=== PATIENT | female | born 1940 | race Caucasian/White ===

== ENCOUNTER 2022-11-25 09:49 | Inpatient (IN) | payer BC, MEDICARE ==
[2022-11-25 11:02] LABS: ALT 26 U/L (4-34); AST 69 U/L (14-36); African American GFR (CKD) 63 (>60 ml/min/1.73 sqM); Albumin 4.3 g/dL (3.5-5.0); Alkaline Phosphatase 71 U/L (38-126); Blood Urea Nitrogen 16 mg/dL (7-17); Calcium 10.1 mg/dL (8.4-10.2); Carbon Dioxide 21 mmol/L (22-30); Glucose 78 mg/dL (74-99); Magnesium 1.8 mg/dL (1.6-2.3); Non-African American GFR(CKD) 55 (>60 ml/min/1.73 sqM); Total Bilirubin 1.1 mg/dL (0.2-1.3); Total Protein 7.3 g/dL (6.3-8.2)
[2022-11-25 11:07] LABS: Anion Gap 12 mmol/L; Chloride 107 mmol/L (98-107); Sodium 140 mmol/L (137-145)
[2022-11-25 11:10] LABS: Potassium 5.3 mmol/L (3.5-5.1)
--- NOTE | 2022-11-25 11:18 | XR ---
EXAMINATION TYPE: XR chest 2V DATE OF EXAM: 11/25/2022 COMPARISON: 11/25/2022 HISTORY: Shortness of breath TECHNIQUE: Frontal and lateral views of the chest are obtained. FINDINGS: Scattered senescent parenchymal changes noted. Hyperinflation compatible with COPD. Elevation left he midiaphragm. No evidence for infiltrate. No evidence for atelectasis. Heart size is stable. Mediastinal structures are stable and grossly unremarkable. No evidence for hilar prominence. Degenerative changes dorsal spine. IMPRESSION: 1. No evidence for acute pulmonary disease.
--- NOTE | 2022-11-25 11:19 | ED ---
General Adult HPI - General Chief complaint: Fall Stated complaint: Fall,on Thinners Weakness Time Seen by Provider: 11/25/22 09:53 Source: patient, RN/MD, RN notes reviewed, old records reviewed Mode of arrival: ambulatory Limitations: language barrier, altered mental status - History of Present Illness Initial comments: 82-year-old female presents status post fall. Patient is coming from home where she currently resides with her ex-. According to paramedics the had said that he could no longer care for the patient. She does have history of previous stroke in the history from the patient herself is very limited. She had abrasion and skin tear to the right elbow. She apparently is on blood thinners. 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 She does have an expressive aphasia which is limiting the assessment. - Related Data Home Medications Medication Instructions Recorded Confirmed Aspirin EC [Ecotrin Low Dose] 81 mg PO DAILY 09/19/13 09/19/13 Clopidogrel Bisulfate [Plavix] 75 mg PO DAILY 09/19/13 09/19/13 Levothyroxine Sodium [Synthroid] 137 mcg PO DAILY 09/19/13 09/19/13 Sertraline HCl [Zoloft] 50 mg PO DAILY 09/19/13 09/19/13 Previous Rx's Medication Instructions Recorded lamoTRIgine [LaMICtal] 150 mg PO BID #60 tab 09/20/13 Allergies Allergy/AdvReac Type Severity Reaction Status Date / Time Iodinated Contrast Media Allergy Unknown Verified 09/19/13 15:56 [Iodinated Contrast Media - IV Dye] Review of Systems ROS Statement: Those systems with pertinent positive or pertinent negative responses have been documented in the HPI. ROS Other: All systems not noted in ROS Statement are negative. Past Medical History Past Medical History: CVA/TIA, Hyperlipidemia, Seizure Disorder, Thyroid Disorder History of Any Multi-Drug Resistant Organisms: None Reported Past Surgical History: Unable to Obtain Past Psychological History: Depression Smoking Status: Never smoker Past Alcohol Use History: Rare Past Drug Use History: None Reported - Past Family History Father Additional Family Medical History / Comment(s): age 75 unk cause Mother Additional Family Medical History / Comment(s): mom age 95 unk cause General Exam Limitations: language barrier, altered mental status General appearance: alert, in no apparent distress Head exam: Present: atraumatic, normocephalic Eye exam: Present: normal appearance, PERRL ENT exam: Present: mucous membranes dry Neck exam: Present: normal inspection. Absent: tenderness, meningismus Respiratory exam: Present: normal lung sounds bilaterally. Absent: respiratory distress, wheezes Cardiovascular Exam: Present: regular rate, normal rhythm GI/Abdominal exam: Present: soft. Absent: distended, tenderness, guarding Extremities exam: Present: other (Skin tear to the right elbow) Neurological exam: Present: alert, motor sensory deficit (Weakness to the right upper or right lower extremity, expressive aphasia and dysarthria) Skin exam: Present: warm, dry, intact. Absent: cyanosis, diaphoretic Course Vital Signs 11/25/22 09:57 Temperature 97.9 F Pulse Rate 72 Respiratory 16 Rate Blood Pressure 156/67 O2 Sat by Pulse 97 Oximetry - Reevaluation(s) Reevaluation #1: 11/25/22 13:38 Lab issue with CBC and troponin, results pending Medical Decision Making - Medical Decision Making Was pt. sent in by a medical professional or institution (, PA, LAND SALES AGENT, urgent care, hospital, or retirement...) When possible be specific @ -[No] Did you speak to anyone other than the patient for history (EMS, parent, family, police, friend...)? What history was obtained from this source @Paramedics Did you review nursing and triage notes (agree or disagree)? Why? @ -[I reviewed and agree with nursing and triage notes] Were old charts reviewed (outside hosp., previous admission, EMS record, old EKG, old radiological studies, urgent care reports/EKG's, retirement records)? Report findings @ -[No old charts were reviewed] Differential Diagnosis (chest pain, altered mental status, abdominal pain women, abdominal pain men, vaginal bleeding, weakness, fever, dyspnea, syncope, headache, dizziness, GI bleed, back pain, seizure, CVA, palpatations, mental health, musculoskeletal)? @ Differential Weakness: Hypoglycemia, shock, sepsis, hyponatremia, anemia, infection, NE, ETOH, adverse medicine reaction, overdose, stroke, this is not meant to be an all-inclusive list. EKG interpreted by me (3pts min.). @ -Sinus rhythm rate of 66, IL interval 196, QRS duration 106, QTC [address] segment changes. X-rays interpreted by me (1pt min.). @X-rays of the pelvis, right elbow, and chest are negative for traumatic injury CT interpreted by me (1pt min.). @ -[None done] U/S interpreted by me (1pt. min.). @ -[None done] What testing was considered but not performed or refused? (CT, X-rays, U/S, labs)? Why? @ -[None] What meds were considered but not given or refused? Why? @ -[None] Did you discuss the management of the patient with other professionals (professionals i.e. , PA, LAND SALES AGENT, lab, RT, psych nurse, medical social worker, executive officer special warfare team, teacher, food safety officer, family independence case manager)? Give summary @ -Sound physician group Was smoking cessation discussed for >3mins.? @ -[No] Was critical care preformed (if so, how long)? @ -[No] Were there social determinants of health that impacted care today? How? (Homelessness, low income, unemployed, alcoholism, drug addiction, transportation, low edu. Level, literacy, decrease access to med. care, care home, rehab)? @ -[No] Was there de-escalation of care discussed even if they declined (Discuss DNR or withdrawal of care, Hospice)? DNR status @ -[No] What co-morbidities impacted this encounter? (DM, HTN, Smoking, COPD, CAD, Cancer, CVA, ARF, Chemo, Hep., AIDS, mental health diagnosis, sleep apnea, morbid obesity)? @ -Prior CVA Was patient admitted / discharged? Hospital course, mention meds given and route, prescriptions, significant lab abnormalities, going to OR and other pertinent info. @82-year-old female with fall and questionable living situation. Patient will likely require placement. I did obtain images related to the fall including head CT, cervical spine CT, x-rays of the right elbow, chest and pelvis. There is no traumatic injury identified. Laboratory studies were obtained but results are pending at this time. Patient will be admitted for likely placement and evaluation into her current home situation. Undiagnosed new problem with uncertain prognosis? @ -[No] Drug Therapy requiring intensive monitoring for toxicity (Heparin, Nitro, Insulin, Cardizem)? @ -[No] Were any procedures done? @ -[No] Diagnosis/symptom? @ -[Frequent falls, weakness, placement Acute, or Chronic, or Acute on Chronic? @ -Complicated Uncomplicated (without systemic symptoms) or Complicated (systemic symptoms)? @ -[default] Side effects of treatment? @ -[No] Exacerbation, Progression, or Severe Exacerbation? @ -[No] Poses a threat to life or bodily function? How? (Chest pain, USA, NE, pneumonia, PE, COPD, DKA, ARF, appy, cholecystitis, CVA, Diverticulitis, Homicidal, Suicidal, threat to staff... and all critical care pts) @ -[Yes, frequent falls - Lab Data Result diagrams: 11/25/22 10:40 Lab Results 11/25/22 11/25/22 Range/Units 10:40 12:01 Sodium 140 (137-145) mmol/L Potassium 5.3 H (3.5-5.1) mmol/L Chloride 107 (98-107) mmol/L Carbon Dioxide 21 L (22-30) mmol/L Anion Gap 12 mmol/L BUN 16 (7-17) mg/dL Creatinine 0.96 (0.52-1.04) mg/dL Est GFR (CKD-EPI)AfAm 63 (>60 ml/min/1.73 sqM) Est GFR (CKD-EPI)NonAf 55 (>60 ml/min/1.73 sqM) Glucose 78 (74-99) mg/dL Calcium 10.1 (8.4-10.2) mg/dL Magnesium 1.8 (1.6-2.3) mg/dL Total Bilirubin 1.1 (0.2-1.3) mg/dL AST 69 H (14-36) U/L ALT 26 (4-34) U/L Alkaline Phosphatase 71 (38-126) U/L Total Protein 7.3 (6.3-8.2) g/dL Albumin 4.3 (3.5-5.0) g/dL Urine Color Colorless Urine Appearance Clear (Clear) Urine pH 7.5 (5.0-8.0) Ur Specific [place] 1.009 (1.001-1.035) Urine Protein Negative (Negative) Urine Glucose (UA) Negative (Negative) Urine Ketones Negative (Negative) Urine Blood Negative (Negative) Urine Nitrite Negative (Negative) Urine Bilirubin Negative (Negative) Urine Urobilinogen <2.0 (<2.0) mg/dL Ur Leukocyte Esterase Negative (Negative) Disposition Clinical Impression: Fall, Weakness Disposition: ADMITTED IP TO THIS HOSP Condition: Stable Is patient prescribed a controlled substance at d/c from ED?: No Referrals: Nonstaff,Physician [Primary Care Provider] - 1-2 days Time of Disposition: 13:50
--- NOTE | 2022-11-25 11:19 | XR ---
EXAMINATION TYPE: XR pelvis AP view DATE OF EXAM: 11/25/2022 CLINICAL HISTORY: pain TECHNIQUE: Single view the pelvis is submitted. FINDINGS: No evidence for fracture, dislocation or bony lesion. Joint spaces are well-preserved. S I joints appear symmetric. IMPRESSION: 1. No acute fracture or dislocation seen. ICD 10 NO FRACTURE, INITIAL EVALUATION
--- NOTE | 2022-11-25 11:23 | XR ---
EXAMINATION TYPE: XR elbow complete RT DATE OF EXAM: 11/25/2022 CLINICAL HISTORY: pain TECHNIQUE: Frontal, lateral and oblique images of the right elbow are obtained. COMPARISON: None. FINDINGS: There is no acute fracture/dislocation evident of the elbow. No abnormal fat pad signs ar e seen. Soft tissue laceration noted. IMPRESSION: There is no acute fracture or dislocation of the elbow. ICD 10 NO FRACTURE, INITIAL EVALUATION
--- NOTE | 2022-11-25 11:24 | CT ---
EXAMINATION TYPE: CT brain robert yanes con DATE OF EXAM: 11/25/2022 COMPARISON: 09/19/2013 HISTORY: Fall CT DLP: 1303.[address] of the brain was performed. The ventricles, basal cisterns and sulci overlying the cerebral convexities demonstrate moderate enla rgement. There is no evidence for intracranial hemorrhage or sulcal effacement. There is decreased attenuatio n about the periventricular white matter and deep white matter of both cerebral hemispheres, compatib le with chronic small vessel ischemia. No mass effects are seen. If symptoms persist consider MRI. Osseous calvarium is intact. IMPRESSION: 1. Age related atrophic and chronic small vessel ischemic change without acute intracranial process seen at this time. CT Cervical Spine: Unenhanced CT of the cervical spine was performed with bone and soft tissue window settings submitted . Coronal and sagittal reconstruction is obtained. There is normal alignment and prevertebral soft tissues. No evidence for acute cervical fracture . Scattered degenerative disc disease and spondylosis. Biapical scarring. IMPRESSION: 1. No evidence for acute fracture or subluxation of the cervical spine.
[2022-11-25 12:20] LABS: Appearance,Urine Clear (Clear); Bilirubin,Urine Negative (Negative); Blood,Urine Negative (Negative); Color,Urine Colorless; Glucose,Urine (UA) Negative (Negative); Ketones,Urine Negative (Negative); Leukocyte Esterase,Urine Negative (Negative); Nitrite,Urine Negative (Negative); PH, Urine 7.5 (5.0-8.0); Protein,Urine Negative (Negative); Specific Gravity,Urine 1.009 (1.001-1.035); Urobilinogen,Urine <2.0 mg/dL (<2.0)
[2022-11-25] MEDS ORDERED: NALOXONE 0.4 MG/ML 1 ML VIAL IV PRN (13:36)
[2022-11-25] MEDS ORDERED: ACETAMINOPHEN TAB 325 MG TAB PO PRN (13:36)
[2022-11-25] MEDS: SODIUM CHLORIDE 0.9% 1,000 ML IV SCH ×2 (14:23→22:47)
[2022-11-25 16:03] LABS: Basophils % (A) 1 %; Eosinophils # (A) 0.1 k/uL (0-0.7); Eosinophils % (A) 2 %; HCT 38.5 % (34.0-46.0); HGB 12.2 gm/dL (11.4-16.0); Lymphocytes # (A) 1.1 k/uL (1.0-4.8); Lymphocytes % (A) 20 %; MCH 31.9 pg (25.0-35.0); MCHC 31.8 g/dL (31.0-37.0); MCV 100.3 fL (80.0-100.0); Mean Platelet Volume 7.9; Monocytes # (A) 0.4 k/uL (0-1.0); Monocytes % (A) 7 %; Neutrophils # (A) 3.8 k/uL (1.3-7.7); Neutrophils % (A) 69 %; Platelet Count 208 k/uL (150-450); RBC 3.84 m/uL (3.80-5.40); RDW 12.6 % (11.5-15.5); WBC 5.4 k/uL (3.8-10.6)
[2022-11-25 16:19] LABS: Partial Thromboplastin Time 23.1 sec (22.0-30.0); Prothrombin Time 11.3 sec (10.0-12.5)
[2022-11-25] MEDS: lamoTRIgine 100 MG TAB PO SCH (22:41)
[2022-11-25] MEDS: busPIRone HCl 5 MG TAB PO SCH (22:41)
[2022-11-25] MEDS: FENOFIBRATE 160 MG TAB PO SCH (22:41)
[2022-11-25] MEDS: levETIRAcetam 500 MG TAB PO SCH (22:41)
[2022-11-25] MEDS: DOCUSATE 100 MG CAP PO SCH (22:41)
[2022-11-25] MEDS: CALCIUM CARB-VIT D 500 MG-5 MCG TAB PO SCH (22:47)
--- NOTE | 2022-11-26 05:39 | HP ---
HISTORY AND PHYSICAL HISTORY OF PRESENT ILLNESS: This 82-year-old female came with her ex-, could not care for the patient in the past, history of a previous stroke. Skin tearing in right elbow. She is on blood thinners. She had a prior CVA 7 years ago. She has expressive aphasia. HOME MEDICINES: 1. Plavix. 2. Aspirin. 3. Synthroid. 4. Zoloft. REVIEW OF SYSTEMS: A 14-point review of system was reviewed, negative. ALLERGIES: Iodine. FAMILY HISTORY: Father unknown. Mother unknown. PAST MEDICAL HISTORY: History of CVA, TIA, hypertension, seizure disorder, hypothyroidism. PHYSICAL EXAMINATION: VITAL SIGNS: Temperature 97.9, pulse 72, respiratory rate 16 to 18, blood pressure 150s over 60, and O2 97. GENERAL: Language impaired, altered mental status. She has no acute distress. Normocephalic, atraumatic. CARDIOVASCULAR: Regular rate and rhythm. LUNGS: Decreased breath sounds. GI: Soft. PSYCH: Poor mood and affect. ASSESSMENT: Aphasia, dysarthria, generalized debility, frequent falls, unable to take care of her. Head CT, cervical spine CT. X-rays of elbow, CT of pelvis showed no trauma. Labs showed potassium 5.3, sodium 140, BUN 16, creatinine 0.96. We will fall weakness. Will monitor her elevated LFT, unclear etiology, frequent falls, prior CVA. Continue current treatments and will follow up in next 24 to 48 hours. She will need a placement in a [facility]. MMODL / IJN: [id number] /
[2022-11-26] MEDS: LEVOTHYROXINE 75 MCG TAB PO SCH (07:59)
[2022-11-26] MEDS: ASPIRIN 325 MG TAB PO SCH (10:06)
[2022-11-26] MEDS: lamoTRIgine 100 MG TAB PO SCH ×2 (10:06→20:16)
[2022-11-26] MEDS: lisinopriL 10 MG TAB PO SCH (10:07)
[2022-11-26] MEDS: CALCIUM CARB-VIT D 500 MG-5 MCG TAB PO SCH ×2 (10:07→20:15)
[2022-11-26] MEDS: LATANOPROST 0.005% OPHTH DROPS 2.5 ML BTL BOTH EYES SCH (10:07)
[2022-11-26] MEDS: levETIRAcetam 500 MG TAB PO SCH ×2 (10:07→20:15)
[2022-11-26] MEDS: busPIRone HCl 5 MG TAB PO SCH ×3 (10:07→21:48)
[2022-11-26] MEDS: DOCUSATE 100 MG CAP PO SCH ×2 (10:07→20:16)
[2022-11-26] MEDS: CLOPIDOGREL 75 MG TAB PO SCH (10:07)
[2022-11-26] MEDS: NON FORMULARY DRUG (Omega-3 Acid Ethyl Esters [Lovaza] 1 GM Capsule) PO SCH (10:08)
--- NOTE | 2022-11-26 16:49 | CDI ---
Documentation Clarification Form Date: 11/26/2022 04:27:02 PM From: Uzma Munguia RN, CCDS Admit Date: 11/25/2022 01:43:00 PM Patient Name: Sandra Stephens Visit Number: [id number] Discharge Date: ATTENTION: The Clinical Documentation Specialists (CDI) and [facility] Coding Staff appreciate your assistance in clarifying documentation. Please respond to the clarification below the line at the bottom and electronically sign. The CDI & [facility] Coding staff will review the response and follow-up if needed. Please note: Queries are made part of the Legal Health Record. If you have any questions, please contact the author of this message via ITS. Dr. Jose Fajardo Your patient has the documented symptom of generalized debility, frequent falls in your H/P ON 11/26/22. Additional clarification regarding the etiology/cause of this symptom is requested. History/Risk Factors: CVA/TIA, Hyperlipidemia, Seizure Disorder, Thyroid Disorder, Clinical Indicators 82-year-old female present after fall. She has motor sensory deficit weakness to the right upper or right lower extremity, expressive aphasia and dysarthria. Previous CVA. 11/25 Head/Cervical Spine CT: Age relate atrophic and chronic small vessel ischemic change without acute intracranial process. No evidene4 for acute fracture or subluxation of the cervical spine. 11/25 CXR: No acute pulmonary disease. 11/25 VS: 156/67 72 16 97.9 97% RA 11/25 Labs: WBC 5.4, K+ 5.3, and UA-Negative Treatment: PT/OT consult Surgical Nurse Practitioner/Rn Office Eval assist Is there a corresponding diagnosis/etiology for this symptom of the generalized debility? [ ] Old age, Age related physical debility [ ] Old age, Age related cognitive decline [ ] Unable to determine [ ] Other, please specify (Template Last Reviewed: March 2020) MTDD
[2022-11-26] MEDS: FENOFIBRATE 160 MG TAB PO SCH (20:16)
[2022-11-26] MEDS: SODIUM CHLORIDE 0.9% 1,000 ML IV SCH (20:16)
[2022-11-27] MEDS: LEVOTHYROXINE 75 MCG TAB PO SCH (06:11)
[2022-11-27] MEDS: SODIUM CHLORIDE 0.9% 1,000 ML IV SCH ×2 (06:11→19:56)
[2022-11-27] MEDS: lamoTRIgine 100 MG TAB PO SCH ×2 (08:35→19:55)
[2022-11-27] MEDS: levETIRAcetam 500 MG TAB PO SCH ×2 (08:35→19:54)
[2022-11-27] MEDS: NON FORMULARY DRUG (Omega-3 Acid Ethyl Esters [Lovaza] 1 GM Capsule) PO SCH (08:39)
[2022-11-27] MEDS: LATANOPROST 0.005% OPHTH DROPS 2.5 ML BTL BOTH EYES SCH (08:39)
[2022-11-27] MEDS: CALCIUM CARB-VIT D 500 MG-5 MCG TAB PO SCH ×2 (08:39→19:55)
[2022-11-27] MEDS: ASPIRIN 325 MG TAB PO SCH (08:39)
[2022-11-27] MEDS: DOCUSATE 100 MG CAP PO SCH ×2 (08:39→19:55)
[2022-11-27] MEDS: lisinopriL 10 MG TAB PO SCH (08:39)
[2022-11-27] MEDS: CLOPIDOGREL 75 MG TAB PO SCH (08:39)
[2022-11-27] MEDS: busPIRone HCl 5 MG TAB PO SCH ×3 (08:39→21:11)
--- NOTE | 2022-11-27 19:54 | CT ---
EXAMINATION TYPE: CT chest wo con CT DLP: 206.0 mGycm, Automated exposure control for dose reduction was used. DATE OF EXAM: 11/27/2022 6:45 PM COMPARISON: chest radiograph 11/25/2022 CLINICAL INDICATION:Female, 82 years old with history of copd/confusion; TECHNIQUE: Multiple axial images were obtained through the chest. Sagittal and coronal reformats were created for review. Contrast used: mL of (None if empty) Oral contrast used: (None if empty) FINDINGS: LUNGS/ PLEURA: No focal consolidation, pneumothorax or pleural effusion. There is elevated left diaph ragm. AIRWAY: Patent and unremarkable. HEART: Heart is moderately enlarged for size with moderate to severe coronary artery cusp patient's. MEDIASTINUM: No gross evidence of adenopathy. VASCULATURE: No aortic aneurysm. MUSCULOSKELETAL: No acute osseous abnormalities SOFT TISSUES/LYMPH NODES: Unremarkable. LOWER NECK: No significant findings. UPPER ABDOMEN: High density gallstones in the gallbladder lumen. The stomach is markedly enlarged for size with ingested contents. This is partially visualized. IMPRESSION: 1. Elevated left diaphragm which compresses the left lung. Correlate for left phrenic nerve paralysi s. 2. Marked enlargement of the gastric lumen with ingested contents.
[2022-11-27] MEDS: FENOFIBRATE 160 MG TAB PO SCH (19:55)
--- NOTE | 2022-11-28 02:56 | PN ---
PROGRESS NOTE ADDENDUM: Age-related physical debility, cognitive decline. MMODL / IJN: [id number] /
[2022-11-28] MEDS: LEVOTHYROXINE 75 MCG TAB PO SCH (05:23)
[2022-11-28 08:16] LABS: Glucose,Whole Blood 87 mg/dL (70-110)
[2022-11-28] MEDS: lisinopriL 10 MG TAB PO SCH (10:08)
[2022-11-28] MEDS: ASPIRIN 325 MG TAB PO SCH (10:08)
[2022-11-28] MEDS: DOCUSATE 100 MG CAP PO SCH ×2 (10:08→20:01)
[2022-11-28] MEDS: levETIRAcetam 500 MG TAB PO SCH ×2 (10:09→20:01)
[2022-11-28] MEDS: busPIRone HCl 5 MG TAB PO SCH ×3 (10:09→22:25)
[2022-11-28] MEDS: NON FORMULARY DRUG (Omega-3 Acid Ethyl Esters [Lovaza] 1 GM Capsule) PO SCH (10:09)
[2022-11-28] MEDS: CLOPIDOGREL 75 MG TAB PO SCH (10:09)
[2022-11-28] MEDS: CALCIUM CARB-VIT D 500 MG-5 MCG TAB PO SCH ×2 (10:09→20:01)
[2022-11-28] MEDS: lamoTRIgine 100 MG TAB PO SCH ×2 (10:09→20:02)
[2022-11-28] MEDS: LATANOPROST 0.005% OPHTH DROPS 2.5 ML BTL BOTH EYES SCH (10:09)
[2022-11-28] MEDS: SODIUM CHLORIDE 0.9% 1,000 ML IV SCH ×2 (12:23→22:25)
[2022-11-28] MEDS: FENOFIBRATE 160 MG TAB PO SCH (20:01)
--- NOTE | 2022-11-28 21:02 | PN ---
PROGRESS NOTE SUBJECTIVE: 82-year-old white female. OBJECTIVE: GENERAL: Blood pressure 120s over 70s to 90s, O2 96% to 98%, temp 97, pulse 60s, respiratory rate 16 to 18. CARDIOVASCULAR: S1, S2. LUNGS: Clear. Wheeze x4. GENERAL: She is sitting up in bed giving appropriate answers. GI: Soft. HEMATOLOGY: Negative for Homans. PSYCH: Fair mood and affect. PLAN: Continue to work. She had a prior stroke. Concerned on her strength and weakness. She has been rehydrated. We are going to give her breathing treatments and keep a wait on echo report. We will rehydrate her. Prognosis guarded. Please see further orders. PT/OT involved. MMODL / IJN: [id number] /
[2022-11-29] MEDS: LEVOTHYROXINE 75 MCG TAB PO SCH (05:34)
[2022-11-29] MEDS: lamoTRIgine 100 MG TAB PO SCH ×2 (09:51→21:14)
[2022-11-29] MEDS: ASPIRIN 325 MG TAB PO SCH (09:52)
[2022-11-29] MEDS: DOCUSATE 100 MG CAP PO SCH ×2 (09:52→21:14)
[2022-11-29] MEDS: CALCIUM CARB-VIT D 500 MG-5 MCG TAB PO SCH ×2 (09:52→21:14)
[2022-11-29] MEDS: lisinopriL 10 MG TAB PO SCH (09:52)
[2022-11-29] MEDS: busPIRone HCl 5 MG TAB PO SCH ×3 (09:52→21:14)
[2022-11-29] MEDS: CLOPIDOGREL 75 MG TAB PO SCH (09:52)
[2022-11-29] MEDS: NON FORMULARY DRUG (Omega-3 Acid Ethyl Esters [Lovaza] 1 GM Capsule) PO SCH (09:52)
[2022-11-29] MEDS: levETIRAcetam 500 MG TAB PO SCH ×2 (09:52→21:14)
[2022-11-29] MEDS: LATANOPROST 0.005% OPHTH DROPS 2.5 ML BTL BOTH EYES SCH (09:53)
--- NOTE | 2022-11-29 11:52 | CA ---
Transthoracic Echo Report Name: Sandra Stephens Age: 82 Gender: F : 1940 Exam Date: 11/28/2022 15:52 Exam Location: [facility] Ht (in): 66 Wt (lb): 160 Ordering Physician: Jose Fajardo MD Attending/Referring Phys: [employer] Jennifer Staley RDCS Procedure CPT: Indications: HTN Cardiac Hx: Technical Quality: Very technically difficult study Contrast 1: Total Dose (mL): Contrast 2: Total Dose (mL): MEASUREMENTS (Male / Female) Normal Values M-MODE Aortic Root Diameter MM 2.6 cm LA Systolic Diameter MM 2.9 cm LA Ao Ratio MM 1.1 FINDINGS Left Ventricle Very technically difficult study. Attempted Lumason but failed. Left ventricle not well visualized. Left ventricular ejection fraction is estimated at 40-45 %. Right Ventricle Right ventricle not well visualized. Right Atrium Right atrium not well visualized. Left Atrium Left atrium not well visualized Mitral Valve Mitral valve not well visualized. Moderate mitral annular calcification. Aortic Valve Aortic valve not well visualized. Tricuspid Valve Tricuspid valve not well visualized. Pulmonic Valve Pulmonic valve not well visualized. Pericardium No pericardial effusion. Aorta Aortic root and proximal ascending aorta not well visualized. CONCLUSIONS Very technically difficult study. Left ventricle not well visualized. LVEF appears to be mildly reduced measuring around 40%. Wall motion abnormality cannot be commented upon Valve function and recommended upon Previewed by: Dr Bismark Silva (Electronically Signed) Final Date: 29 November 2022 11:51
[2022-11-29] MEDS: SODIUM CHLORIDE 0.9% 1,000 ML IV SCH (13:21)
[2022-11-29] MEDS: FENOFIBRATE 160 MG TAB PO SCH (21:14)
[2022-11-30] MEDS: SODIUM CHLORIDE 0.9% 1,000 ML IV SCH ×2 (01:46→15:50)
[2022-11-30] MEDS: LEVOTHYROXINE 75 MCG TAB PO SCH (06:05)
[2022-11-30] MEDS: CLOPIDOGREL 75 MG TAB PO SCH (09:40)
[2022-11-30] MEDS: busPIRone HCl 5 MG TAB PO SCH ×3 (09:40→21:39)
[2022-11-30] MEDS: DOCUSATE 100 MG CAP PO SCH ×2 (09:40→21:39)
[2022-11-30] MEDS: lamoTRIgine 100 MG TAB PO SCH ×2 (09:40→21:39)
[2022-11-30] MEDS: CALCIUM CARB-VIT D 500 MG-5 MCG TAB PO SCH ×2 (09:40→21:39)
[2022-11-30] MEDS: lisinopriL 10 MG TAB PO SCH (09:40)
[2022-11-30] MEDS: levETIRAcetam 500 MG TAB PO SCH ×2 (09:41→21:39)
[2022-11-30] MEDS: ASPIRIN 325 MG TAB PO SCH (09:41)
[2022-11-30] MEDS: NON FORMULARY DRUG (Omega-3 Acid Ethyl Esters [Lovaza] 1 GM Capsule) PO SCH (09:41)
[2022-11-30] MEDS: LATANOPROST 0.005% OPHTH DROPS 2.5 ML BTL BOTH EYES SCH (11:28)
[2022-11-30] MEDS: FENOFIBRATE 160 MG TAB PO SCH (21:38)
--- NOTE | 2022-12-01 01:38 | PN ---
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 She says she has been up in to chair, she is feeling stronger. She is up and ambulating a little bit. MEDICATIONS: 1. On Keppra for seizure prophylaxis. 2. Synthroid for thyroid. 3. Plavix 75 mg daily. 4. BuSpar 5 mg t.i.d. 5. Aspirin 325 daily. 6. Synthroid 75 mcg daily. Echocardiogram 40% to 45% ejection fraction, valve. Ejection fraction is poor. To readjust her medications. PROGNOSIS: Guarded. Please see further orders. MMODL / IJN: [id number] /
[2022-12-01] MEDS: SODIUM CHLORIDE 0.9% 1,000 ML IV SCH ×2 (03:19→15:42)
[2022-12-01] MEDS: LEVOTHYROXINE 75 MCG TAB PO SCH (05:43)
[2022-12-01] MEDS: ASPIRIN 325 MG TAB PO SCH (10:29)
[2022-12-01] MEDS: CALCIUM CARB-VIT D 500 MG-5 MCG TAB PO SCH ×2 (10:29→20:56)
[2022-12-01] MEDS: CLOPIDOGREL 75 MG TAB PO SCH (10:30)
[2022-12-01] MEDS: busPIRone HCl 5 MG TAB PO SCH ×3 (10:30→20:56)
[2022-12-01] MEDS: DOCUSATE 100 MG CAP PO SCH ×2 (10:30→20:56)
[2022-12-01] MEDS: levETIRAcetam 500 MG TAB PO SCH ×2 (10:32→20:56)
[2022-12-01] MEDS: lisinopriL 10 MG TAB PO SCH (10:32)
[2022-12-01] MEDS: lamoTRIgine 100 MG TAB PO SCH ×2 (10:34→20:56)
[2022-12-01] MEDS: LATANOPROST 0.005% OPHTH DROPS 2.5 ML BTL BOTH EYES SCH (10:35)
[2022-12-01] MEDS: NON FORMULARY DRUG (Omega-3 Acid Ethyl Esters [Lovaza] 1 GM Capsule) PO SCH (10:53)
[2022-12-01] MEDS: FENOFIBRATE 160 MG TAB PO SCH (20:56)
--- NOTE | 2022-12-01 22:56 | PN ---
PROGRESS NOTE SUBJECTIVE: An 82-year-old white female with prior stroke, ejection fraction of 40% to 45% on echo. Cardiology is going to come see her. She has moderate mitral calcification. Echo readings were not assessed properly, but the patient will continue current treatments. Wait for further recommendations with PT, OT, and jail placement. Prognosis is guarded. Discussed with the family last night. OBJECTIVE: VITAL SIGNS: Blood pressure is 101 to 129 over 60s to 70s, temperature 97 to 98, pulse 60s, respiratory rate 16 to 18. LUNGS: Scattered wheeze. CARDIOVASCULAR: S1 and S2. HEMATOLOGY: Negative Homans. PLAN: Continue current treatment. Prognosis is guarded. Possible discharge home soon. The patient remains stable at this time. Awaiting rehab placement. JOSE / KALEN: [id number] /
[2022-12-02] MEDS: SODIUM CHLORIDE 0.9% 1,000 ML IV SCH ×2 (04:33→21:17)
[2022-12-02] MEDS: LEVOTHYROXINE 75 MCG TAB PO SCH (05:06)
[2022-12-02] MEDS: levETIRAcetam 500 MG TAB PO SCH ×2 (09:14→21:02)
[2022-12-02] MEDS: CALCIUM CARB-VIT D 500 MG-5 MCG TAB PO SCH ×2 (09:14→21:02)
[2022-12-02] MEDS: busPIRone HCl 5 MG TAB PO SCH ×3 (09:14→21:02)
[2022-12-02] MEDS: CLOPIDOGREL 75 MG TAB PO SCH (09:14)
[2022-12-02] MEDS: ASPIRIN 325 MG TAB PO SCH (09:14)
[2022-12-02] MEDS: DOCUSATE 100 MG CAP PO SCH ×2 (09:14→21:02)
[2022-12-02] MEDS: lamoTRIgine 100 MG TAB PO SCH ×2 (09:23→21:02)
[2022-12-02] MEDS: LATANOPROST 0.005% OPHTH DROPS 2.5 ML BTL BOTH EYES SCH (09:23)
[2022-12-02] MEDS: NON FORMULARY DRUG (Omega-3 Acid Ethyl Esters [Lovaza] 1 GM Capsule) PO SCH (09:24)
[2022-12-02] MEDS: lisinopriL 10 MG TAB PO SCH (09:29)
[2022-12-02 13:51] VITALS: BMI 25.8
[2022-12-02] MEDS: IPRATROPIUM-ALBUTEROL 3 ML NEB INHALATION SCH (19:17)
[2022-12-02] MEDS: FENOFIBRATE 160 MG TAB PO SCH (21:02)
--- NOTE | 2022-12-02 23:26 | PN ---
PROGRESS NOTE SUBJECTIVE: An 82-year-old white female. Blood pressure is low 104 to 113 over 50s to 60s. She is saturating close to 95% on room air. MCV is elevated at 100.3. Potassium is 5.3. We will recheck her potassium levels, possibly started her on some breathing treatments. Wait for shelter placement. OBJECTIVE: CARDIOVASCULAR: S1, S2. LUNGS: Scattered wheeze x4. PSYCH: Poor mood and affect. NEUROLOGIC: Cranial nerves intact. PLAN: Waiting for further orders for rehab, etc. Prognosis guarded. Please see further orders. MMODL / IJN: [id number] /
[2022-12-03] MEDS: LEVOTHYROXINE 75 MCG TAB PO SCH (06:06)
[2022-12-03] MEDS: IPRATROPIUM-ALBUTEROL 3 ML NEB INHALATION SCH ×3 (07:45→18:06)
[2022-12-03] MEDS: DOCUSATE 100 MG CAP PO SCH ×2 (09:01→20:31)
[2022-12-03] MEDS: busPIRone HCl 5 MG TAB PO SCH ×3 (09:01→21:28)
[2022-12-03] MEDS: lamoTRIgine 100 MG TAB PO SCH ×2 (09:01→20:31)
[2022-12-03] MEDS: CALCIUM CARB-VIT D 500 MG-5 MCG TAB PO SCH ×2 (09:01→20:32)
[2022-12-03] MEDS: lisinopriL 10 MG TAB PO SCH (09:01)
[2022-12-03] MEDS: SODIUM CHLORIDE 0.9% 1,000 ML IV SCH ×2 (09:01→22:47)
[2022-12-03] MEDS: ASPIRIN 325 MG TAB PO SCH (09:01)
[2022-12-03] MEDS: levETIRAcetam 500 MG TAB PO SCH ×2 (09:01→20:32)
[2022-12-03] MEDS: CLOPIDOGREL 75 MG TAB PO SCH (09:01)
[2022-12-03] MEDS: NON FORMULARY DRUG (Omega-3 Acid Ethyl Esters [Lovaza] 1 GM Capsule) PO SCH (09:02)
[2022-12-03] MEDS: LATANOPROST 0.005% OPHTH DROPS 2.5 ML BTL BOTH EYES SCH (09:02)
[2022-12-03] MEDS: FENOFIBRATE 160 MG TAB PO SCH (20:32)
[2022-12-04] MEDS: LEVOTHYROXINE 75 MCG TAB PO SCH (05:36)
[2022-12-04] MEDS: IPRATROPIUM-ALBUTEROL 3 ML NEB INHALATION SCH ×3 (07:42→20:09)
[2022-12-04] MEDS: busPIRone HCl 5 MG TAB PO SCH ×3 (08:36→20:29)
[2022-12-04] MEDS: CALCIUM CARB-VIT D 500 MG-5 MCG TAB PO SCH ×2 (08:36→20:29)
[2022-12-04] MEDS: DOCUSATE 100 MG CAP PO SCH ×2 (08:36→20:29)
[2022-12-04] MEDS: ASPIRIN 325 MG TAB PO SCH (08:36)
[2022-12-04] MEDS: levETIRAcetam 500 MG TAB PO SCH ×2 (08:36→20:29)
[2022-12-04] MEDS: lamoTRIgine 100 MG TAB PO SCH ×2 (08:36→20:29)
[2022-12-04] MEDS: lisinopriL 10 MG TAB PO SCH (08:36)
[2022-12-04] MEDS: LATANOPROST 0.005% OPHTH DROPS 2.5 ML BTL BOTH EYES SCH (08:36)
[2022-12-04] MEDS: CLOPIDOGREL 75 MG TAB PO SCH (08:36)
[2022-12-04] MEDS: NON FORMULARY DRUG (Omega-3 Acid Ethyl Esters [Lovaza] 1 GM Capsule) PO SCH (08:37)
[2022-12-04] MEDS: SODIUM CHLORIDE 0.9% 1,000 ML IV SCH (13:20)
[2022-12-04] MEDS: FENOFIBRATE 160 MG TAB PO SCH (20:29)
--- NOTE | 2022-12-04 22:43 | PN ---
PROGRESS NOTE DATE OF SERVICE: 12/03/2022 SUBJECTIVE: The patient is doing better, awaiting physical therapy, possibly intermediate placement. OBJECTIVE: VITAL SIGNS: Blood pressure 120s/50s, respiratory rate 18 to 20, pulses 60s, temperature 96.7, O2 is 99%. CARDIOVASCULAR: S1 and S2. HEMATOLOGY: Negative Homans. PSYCHIATRIC: Fair mood and affect. PLAN: Continue the current treatment. PT and OT. She has a history of a stroke, mild breathing difficulty. She is doing better. Awaiting placement. Prognosis is guarded. MMODL / IJN: [id number] /
[2022-12-05] MEDS: SODIUM CHLORIDE 0.9% 1,000 ML IV SCH ×2 (02:52→12:19)
[2022-12-05] MEDS: LEVOTHYROXINE 75 MCG TAB PO SCH (05:36)
[2022-12-05] MEDS: IPRATROPIUM-ALBUTEROL 3 ML NEB INHALATION SCH ×3 (08:48→20:10)
[2022-12-05] MEDS: ASPIRIN 325 MG TAB PO SCH (08:57)
[2022-12-05] MEDS: levETIRAcetam 500 MG TAB PO SCH ×2 (08:57→20:37)
[2022-12-05] MEDS: busPIRone HCl 5 MG TAB PO SCH ×3 (08:57→20:37)
[2022-12-05] MEDS: lamoTRIgine 100 MG TAB PO SCH ×2 (08:57→20:37)
[2022-12-05] MEDS: DOCUSATE 100 MG CAP PO SCH ×2 (08:57→20:37)
[2022-12-05] MEDS: LATANOPROST 0.005% OPHTH DROPS 2.5 ML BTL BOTH EYES SCH (08:58)
[2022-12-05] MEDS: lisinopriL 10 MG TAB PO SCH (08:58)
[2022-12-05] MEDS: CALCIUM CARB-VIT D 500 MG-5 MCG TAB PO SCH ×2 (08:58→20:37)
[2022-12-05] MEDS: CLOPIDOGREL 75 MG TAB PO SCH (08:58)
[2022-12-05] MEDS: NON FORMULARY DRUG (Omega-3 Acid Ethyl Esters [Lovaza] 1 GM Capsule) PO SCH (09:01)
--- NOTE | 2022-12-05 10:08 | P.PN ---
Subjective Progress Note Date: 12/05/22 Principal diagnosis: Elevated left hemidiaphragm with left lower lobe subsegmental atelectasis Generalized weakness and medical debility Frequent fall CVA Hypothyroidism Depression Expressive aphasia 12/05/2022, patient seen eval examined during rounds labs reviewed medications dominga baez, 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 breathing comfortably denies any chest pain, on room air, patient has generalized weakness was admitted into the hospital due to frequent fall with history of CVA also has hypertension hypertensive cardiovascular disease mood disorder dementia, patient is being eval for placement ECF, computed tomography scan of the chest reviewed basal atelectasis on the left side with elevated left hemidiaphragm Objective - Vital Signs Vital signs: Vital Signs Temp 97.7 F 12/05/22 07:34 Pulse 60 12/05/22 08:55 Resp 16 12/05/22 07:34 BP 124/61 12/05/22 07:34 Pulse Ox 97 12/05/22 07:34 FiO2 21 11/28/22 10:20 Intake & Output 12/04/22 12/05/22 12/05/22 18:59 06:59 18:59 Other: Voiding Method Diaper Diaper External Catheter External Catheter # Voids 1 2 1 - Constitutional General appearance: Present: average body habitus, cooperative, disheveled - EENT Eyes: Present: PERRLA ENT: Present: hard of hearing Ears: bilateral: normal - Neck Carotids: bilateral: upstroke normal Thyroid: bilateral: normal size - Respiratory Respiratory: bilateral: CTA - Cardiovascular Rhythm: regular Heart sounds: normal: S1, S2 - Gastrointestinal General gastrointestinal: Present: normal bowel sounds, soft - Neurologic Neurologic: Present: CNII-XII intact - Musculoskeletal Musculoskeletal: Present: generalized weakness - Psychiatric Psychiatric: Present: A&O x's 3, appropriate affect - Labs CBC & Chem 7: 11/25/22 15:06 11/25/22 10:40 Assessment and Plan Assessment: Generalized weakness and medical debility Frequent fall CVA Hypothyroidism Depression Expressive aphasia Plan: Patient is being continued on antihypertensive therapy with continuation of lisinopril Patient has been on anti-depressant and anti-seizure medicine with Lamictal, Keppra Continue PT OT evaluation Continue bronchodilators Continue antiplatelet duo medications including aspirin and Plavix for CVA Continue supplemental include [place] and stool softener Continue deep breathing exercise incentive spirometry
[2022-12-05] MEDS: FENOFIBRATE 160 MG TAB PO SCH (20:37)
[2022-12-06] MEDS: SODIUM CHLORIDE 0.9% 1,000 ML IV SCH ×2 (04:08→21:26)
[2022-12-06] MEDS: LEVOTHYROXINE 75 MCG TAB PO SCH (05:48)
[2022-12-06] MEDS: IPRATROPIUM-ALBUTEROL 3 ML NEB INHALATION SCH ×3 (07:39→20:25)
[2022-12-06] MEDS: DOCUSATE 100 MG CAP PO SCH ×2 (09:07→21:25)
[2022-12-06] MEDS: lamoTRIgine 100 MG TAB PO SCH ×2 (09:07→21:25)
[2022-12-06] MEDS: ASPIRIN 325 MG TAB PO SCH (09:07)
[2022-12-06] MEDS: lisinopriL 10 MG TAB PO SCH (09:07)
[2022-12-06] MEDS: busPIRone HCl 5 MG TAB PO SCH ×3 (09:07→21:25)
[2022-12-06] MEDS: CALCIUM CARB-VIT D 500 MG-5 MCG TAB PO SCH ×2 (09:07→21:25)
[2022-12-06] MEDS: CLOPIDOGREL 75 MG TAB PO SCH (09:07)
[2022-12-06] MEDS: LATANOPROST 0.005% OPHTH DROPS 2.5 ML BTL BOTH EYES SCH (09:08)
[2022-12-06] MEDS: NON FORMULARY DRUG (Omega-3 Acid Ethyl Esters [Lovaza] 1 GM Capsule) PO SCH (09:08)
[2022-12-06] MEDS: levETIRAcetam 500 MG TAB PO SCH ×2 (09:08→21:25)
--- NOTE | 2022-12-06 10:11 | P.PN ---
Subjective Progress Note Date: 12/06/22 Principal diagnosis: Elevated left hemidiaphragm with left lower lobe subsegmental atelectasis Generalized weakness and medical debility Frequent fall CVA Hypothyroidism Depression Expressive aphasia 12/06/2022, patient is awake and alert, anxious, denies any chest pain, appetite stable, awaiting placement into ECF, labs have not done, currently patient is on bronchodilators with aspirin, Plavix, antihypertensive and lisinopril, Synthroid tolerating well patient is gently being hydrated as well will repeat labs in the morning also will discuss with discharge planning 12/05/2022, patient seen eval examined during rounds labs reviewed medications reviewed, 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 breathing comfortably denies any chest pain, on room air, patient has generalized weakness was admitted into the hospital due to frequent fall with history of CVA also has hypertension hypertensive cardiovascular disease mood disorder dementia, patient is being eval for placement ECF, computed tomography scan of the chest reviewed basal atelectasis on the left side with elevated left hemidiaphragm Objective - Vital Signs Vital signs: Vital Signs Temp 98.1 F 12/06/22 07:20 Pulse 76 12/06/22 07:49 Resp 17 12/06/22 07:20 BP 123/61 12/06/22 07:20 Pulse Ox 98 12/06/22 07:20 FiO2 21 11/28/22 10:20 Intake & Output 12/05/22 12/06/22 12/06/22 18:59 06:59 18:59 Other: Voiding Method Diaper Diaper Diaper External Catheter # Voids 0 1 - Exam - Constitutional General appearance: Present: average body habitus, cooperative, disheveled - EENT Eyes: Present: PERRLA ENT: Present: hard of hearing Ears: bilateral: normal - Neck Carotids: bilateral: upstroke normal Thyroid: bilateral: normal size - Respiratory Respiratory: bilateral: CTA - Cardiovascular Rhythm: regular Heart sounds: normal: S1, S2 - Gastrointestinal General gastrointestinal: Present: normal bowel sounds, soft - Neurologic Neurologic: Present: CNII-XII intact - Musculoskeletal Musculoskeletal: Present: generalized weakness - Psychiatric Psychiatric: Present: A&O x's 3, appropriate affect - Labs CBC & Chem 7: 11/25/22 15:06 11/25/22 10:40 Assessment and Plan Assessment: Generalized weakness and medical debility Frequent fall CVA Hypothyroidism Depression Expressive aphasia Plan: Patient is being continued on antihypertensive therapy with continuation of lisinopril Patient has been on anti-depressant and anti-seizure medicine with Estela Alas Continue PT OT evaluation Continue bronchodilators Continue antiplatelet duo medications including aspirin and Plavix for CVA Continue supplemental include [place] and stool softener Continue deep breathing exercise incentive spirometry Repeat labs in the a.m. Time with Patient: Greater than 30
[2022-12-06] MEDS: FENOFIBRATE 160 MG TAB PO SCH (21:25)
[2022-12-07] MEDS: LEVOTHYROXINE 75 MCG TAB PO SCH (06:04)
[2022-12-07] MEDS: IPRATROPIUM-ALBUTEROL 3 ML NEB INHALATION SCH ×3 (07:23→19:33)
[2022-12-07] MEDS: NON FORMULARY DRUG (Omega-3 Acid Ethyl Esters [Lovaza] 1 GM Capsule) PO SCH (08:52)
[2022-12-07] MEDS: lisinopriL 10 MG TAB PO SCH (08:58)
[2022-12-07] MEDS: CLOPIDOGREL 75 MG TAB PO SCH (08:58)
[2022-12-07] MEDS: levETIRAcetam 500 MG TAB PO SCH ×2 (08:58→22:15)
[2022-12-07] MEDS: LATANOPROST 0.005% OPHTH DROPS 2.5 ML BTL BOTH EYES SCH (08:58)
[2022-12-07] MEDS: DOCUSATE 100 MG CAP PO SCH ×2 (08:58→22:14)
[2022-12-07] MEDS: ASPIRIN 325 MG TAB PO SCH (08:58)
[2022-12-07] MEDS: CALCIUM CARB-VIT D 500 MG-5 MCG TAB PO SCH ×2 (08:58→22:14)
[2022-12-07] MEDS: busPIRone HCl 5 MG TAB PO SCH ×3 (08:58→22:15)
[2022-12-07] MEDS: lamoTRIgine 100 MG TAB PO SCH ×2 (08:58→22:15)
[2022-12-07] MEDS ORDERED: ZINC OXIDE PASTE (Z-GUARD) 1 APPLIC APPLIC TOPICAL PRN (10:23)
--- NOTE | 2022-12-07 11:31 | P.PN ---
Subjective Progress Note Date: 12/07/22 Principal diagnosis: Elevated left hemidiaphragm with left lower lobe subsegmental atelectasis Generalized weakness and medical debility Frequent fall CVA Hypothyroidism Depression Expressive aphasia 12/07/2022, patient seen eval examined during rounds labs reviewed medications r eviewed care plan discussed, respiratory status overall stable shortness of breath denies any chest pain, patient is awake and alert, and denies any specific complaints, patient remains on bronchodilator along with also on dual agent antiplatelet therapy, also on antilipid agent continued on Keppra antihypertensive agent awaiting placement 12/06/2022, patient is awake and alert, anxious, denies any chest pain, appetite stable, awaiting placement into ECF, labs have not done, currently patient is on bronchodilators with aspirin, Plavix, antihypertensiv patient being continued on her medication e and lisinopril, Synthroid tolerating well patient is gently being hydrated as well will repeat labs in the morning also will discuss with discharge planning 12/05/2022, patient seen eval examined during rounds labs reviewed medications reviewed, 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 breathing comfortably denies any chest pain, on room air, patient has generalized weakness was admitted into the hospital due to frequent fall with history of CVA also has hypertension hypertensive cardiovascular disease mood disorder dementia, patient is being eval for placement ECF, computed tomography scan of the chest reviewed basal atelectasis on the left side with elevated left hemidiaphragm Objective - Vital Signs Vital signs: Vital Signs Temp 97.7 F 12/07/22 07:04 Pulse 60 12/07/22 11:19 Resp 17 12/07/22 07:04 BP 125/64 12/07/22 07:04 Pulse Ox 98 12/07/22 07:04 FiO2 21 11/28/22 10:20 Intake & Output 12/06/22 12/07/22 12/07/22 18:59 06:59 18:59 Other: Voiding Method Diaper Diaper Diaper Incontinent Incontinent # Voids 1 3 1 - Exam - Constitutional General appearance: Present: average body habitus, cooperative, disheveled - EENT Eyes: Present: PERRLA ENT: Present: hard of hearing Ears: bilateral: normal - Neck Carotids: bilateral: upstroke normal Thyroid: bilateral: normal size - Respiratory Respiratory: bilateral: CTA - Cardiovascular Rhythm: regular Heart sounds: normal: S1, S2 - Gastrointestinal General gastrointestinal: Present: normal bowel sounds, soft - Neurologic Neurologic: Present: CNII-XII intact - Musculoskeletal Musculoskeletal: Present: generalized weakness - Psychiatric Psychiatric: Present: A&O x's 3, appropriate affect - Labs CBC & Chem 7: 11/25/22 15:06 11/25/22 10:40 Assessment and Plan Assessment: Generalized weakness and medical debility Frequent fall CVA Hypothyroidism Depression Expressive aphasia Plan: Awaiting placement Patient is being continued on antihypertensive therapy with continuation of lisinopril Patient has been on anti-depressant and anti-seizure medicine with Lamictal, Keppra Continue PT OT evaluation Continue bronchodilators Continue antiplatelet duo medications including aspirin and Plavix for CVA Continue supplemental include [place] and stool softener Continue deep breathing exercise incentive spirometry Repeat labs in the a.m. Time with Patient: Greater than 30
[2022-12-07] MEDS: FENOFIBRATE 160 MG TAB PO SCH (22:15)
[2022-12-08] MEDS: SODIUM CHLORIDE 0.9% 1,000 ML IV SCH (02:17)
[2022-12-08] MEDS: LEVOTHYROXINE 75 MCG TAB PO SCH (06:20)
[2022-12-08] MEDS: IPRATROPIUM-ALBUTEROL 3 ML NEB INHALATION SCH ×3 (07:23→19:22)
[2022-12-08] MEDS: busPIRone HCl 5 MG TAB PO SCH ×3 (08:27→21:06)
[2022-12-08] MEDS: DOCUSATE 100 MG CAP PO SCH ×2 (08:27→21:06)
[2022-12-08] MEDS: CLOPIDOGREL 75 MG TAB PO SCH (08:27)
[2022-12-08] MEDS: CALCIUM CARB-VIT D 500 MG-5 MCG TAB PO SCH ×2 (08:27→21:06)
[2022-12-08] MEDS: ASPIRIN 325 MG TAB PO SCH (08:27)
[2022-12-08] MEDS: lamoTRIgine 100 MG TAB PO SCH ×2 (08:27→21:06)
[2022-12-08] MEDS: lisinopriL 10 MG TAB PO SCH (08:28)
[2022-12-08] MEDS: LATANOPROST 0.005% OPHTH DROPS 2.5 ML BTL BOTH EYES SCH (08:28)
[2022-12-08] MEDS: levETIRAcetam 500 MG TAB PO SCH ×2 (08:28→21:06)
[2022-12-08] MEDS: NON FORMULARY DRUG (Omega-3 Acid Ethyl Esters [Lovaza] 1 GM Capsule) PO SCH (10:02)
--- NOTE | 2022-12-08 16:59 | P.PN ---
Subjective Progress Note Date: 12/08/22 Principal diagnosis: Elevated left hemidiaphragm with left lower lobe subsegmental atelectasis Generalized weakness and medical debility Frequent fall CVA Hypothyroidism Depression Expressive aphasia 12/08/2022, patient seen and evaluated examined during rounds labs reviewed medications reviewed, patient has been doing well awaiting placement no obvious distress present 12/07/2022, patient seen eval examined during rounds labs reviewed medications reviewed care plan discussed, respiratory status overall stable shortness of breath denies any chest pain, patient is awake and alert, and denies any specific complaints, patient remains on bronchodilator along with also on dual agent antiplatelet therapy, also on antilipid agent continued on Keppra antihypertensive agent awaiting placement 12/06/2022, patient is awake and alert, anxious, denies any chest pain, appetite stable, awaiting placement into ECF, labs have not done, currently patient is on bronchodilators with aspirin, Plavix, antihypertensiv patient being continued on her medication e and lisinopril, Synthroid tolerating well patient is gently being hydrated as well will repeat labs in the morning also will discuss with discharge planning 12/05/2022, patient seen eval examined during rounds labs reviewed medications reviewed, 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 breathing comfortably denies any chest pain, on room air, patient has generalized weakness was admitted into the hospital due to frequent fall with history of CVA also has hypertension hypertensive cardiovascular disease mood disorder dementia, patient is being eval for placement ECF, computed tomography scan of the chest reviewed basal atelectasis on the left side with elevated left hemidiaphragm Objective - Vital Signs Vital signs: Vital Signs Temp 97.9 F 12/08/22 11:48 Pulse 60 12/08/22 11:49 Resp 17 12/08/22 11:48 BP 118/69 12/08/22 11:48 Pulse Ox 97 12/08/22 11:48 FiO2 21 11/28/22 10:20 Intake & Output 12/07/22 12/08/22 12/08/22 18:59 06:59 18:59 Intake Total 590 Balance 590 Intake: Oral 590 Other: Voiding Method Diaper Diaper Diaper Incontinent Incontinent Incontinent # Voids 1 3 1 # Bowel Movements 0 1 - Exam - Constitutional General appearance: Present: average body habitus, cooperative, disheveled - EENT Eyes: Present: PERRLA ENT: Present: hard of hearing Ears: bilateral: normal - Neck Carotids: bilateral: upstroke normal Thyroid: bilateral: normal size - Respiratory Respiratory: bilateral: CTA - Cardiovascular Rhythm: regular Heart sounds: normal: S1, S2 - Gastrointestinal General gastrointestinal: Present: normal bowel sounds, soft - Neurologic Neurologic: Present: CNII-XII intact - Musculoskeletal Musculoskeletal: Present: generalized weakness - Psychiatric Psychiatric: Present: A&O x's 3, appropriate affect - Labs CBC & Chem 7: 11/25/22 15:06 11/25/22 10:40 Assessment and Plan Assessment: Generalized weakness and medical debility Frequent fall CVA Hypothyroidism Depression Expressive aphasia Plan: Awaiting placement Patient is being continued on antihypertensive therapy with continuation of lisinopril Patient has been on anti-depressant and anti-seizure medicine with Lamictal, Keppra Continue PT OT evaluation Continue bronchodilators Continue antiplatelet duo medications including aspirin and Plavix for CVA Continue supplemental include [place] and stool softener Continue deep breathing exercise incentive spirometry Repeat labs in the a.m. Time with Patient: Greater than 30
[2022-12-08 19:05] VITALS: RESP 16
[2022-12-08] MEDS: FENOFIBRATE 160 MG TAB PO SCH (21:06)
[2022-12-09] MEDS: SODIUM CHLORIDE 0.9% 1,000 ML IV SCH ×3 (01:50→14:06)
[2022-12-09] MEDS: LEVOTHYROXINE 75 MCG TAB PO SCH (06:05)
[2022-12-09] MEDS: IPRATROPIUM-ALBUTEROL 3 ML NEB INHALATION SCH ×2 (07:30→13:35)
[2022-12-09 08:21] VITALS: TEMP 97.5
[2022-12-09] MEDS: ASPIRIN 325 MG TAB PO SCH (09:29)
[2022-12-09] MEDS: busPIRone HCl 5 MG TAB PO SCH (09:30)
[2022-12-09] MEDS: DOCUSATE 100 MG CAP PO SCH (09:30)
[2022-12-09] MEDS: CALCIUM CARB-VIT D 500 MG-5 MCG TAB PO SCH (09:30)
[2022-12-09] MEDS: LATANOPROST 0.005% OPHTH DROPS 2.5 ML BTL BOTH EYES SCH (09:30)
[2022-12-09] MEDS: levETIRAcetam 500 MG TAB PO SCH (09:30)
[2022-12-09] MEDS: lamoTRIgine 100 MG TAB PO SCH (09:30)
[2022-12-09] MEDS: CLOPIDOGREL 75 MG TAB PO SCH (09:30)
[2022-12-09] MEDS: lisinopriL 10 MG TAB PO SCH (09:30)
[2022-12-09] MEDS: NON FORMULARY DRUG (Omega-3 Acid Ethyl Esters [Lovaza] 1 GM Capsule) PO SCH (09:44)
--- NOTE | 2022-12-09 11:22 | P.PN ---
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 and shape has been achieved likely will take one more week 12/08/2022, patient seen and evaluated examined during rounds labs reviewed medications reviewed, patient has been doing well awaiting placement no obvious distress present 12/07/2022, patient seen eval examined during rounds labs reviewed medications reviewed care plan discussed, respiratory status overall stable shortness of breath denies any chest pain, patient is awake and alert, and denies any specific complaints, patient remains on bronchodilator along with also on dual agent antiplatelet therapy, also on antilipid agent continued on Keppra antihypertensive agent awaiting placement 12/06/2022, patient is awake and alert, anxious, denies any chest pain, appetite stable, awaiting placement into ECF, labs have not done, currently patient is on bronchodilators with aspirin, Plavix, antihypertensiv patient being continued on her medication e and lisinopril, Synthroid tolerating well patient is gently being hydrated as well will repeat labs in the morning also will discuss with discharge planning 12/05/2022, patient seen eval examined during rounds labs reviewed medications reviewed, 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 breathing comfortably denies any chest pain, on room air, patient has generalized weakness was admitted into the hospital due to frequent fall with history of CVA also has hypertension hypertensive cardiovascular disease mood disorder dementia, patient is being eval for placement ECF, computed tomography scan of the chest reviewed basal atelectasis on the left side with elevated left hemidiaphragm Objective - Vital Signs Vital signs: Vital Signs Temp 97.5 F L 12/09/22 07:27 Pulse 61 12/09/22 07:27 Resp 16 12/09/22 07:27 BP 118/65 12/09/22 07:27 Pulse Ox 98 12/09/22 07:27 FiO2 21 11/28/22 10:20 Intake & Output 12/08/22 12/09/22 12/09/22 18:59 06:59 18:59 Other: Voiding Method Diaper Diaper Diaper Incontinent Incontinent Incontinent # Voids 1 # Bowel Movements 1 0 - Exam - Constitutional General appearance: Present: average body habitus, cooperative, disheveled - EENT Eyes: Present: PERRLA ENT: Present: hard of hearing Ears: bilateral: normal - Neck Carotids: bilateral: upstroke normal Thyroid: bilateral: normal size - Respiratory Respiratory: bilateral: CTA - Cardiovascular Rhythm: regular Heart sounds: normal: S1, S2 - Gastrointestinal General gastrointestinal: Present: normal bowel sounds, soft - Neurologic Neurologic: Present: CNII-XII intact - Musculoskeletal Musculoskeletal: Present: generalized weakness - Psychiatric Psychiatric: Present: A&O x's 3, appropriate affect - Labs CBC & Chem 7: 11/25/22 15:06 11/25/22 10:40 Assessment and Plan Assessment: Generalized weakness and medical debility Frequent fall CVA Hypothyroidism Depression Expressive aphasia Plan: Awaiting placement Patient is being continued on antihypertensive therapy with continuation of lisinopril Patient has been on anti-depressant and anti-seizure medicine with Lamictal, Keppra Continue PT OT evaluation Continue bronchodilators Continue antiplatelet duo medications including aspirin and Plavix for CVA Continue supplemental include [place] and stool softener Continue deep breathing exercise incentive spirometry Repeat labs in the a.m. Time with Patient: Less than 30
[2022-12-09 11:37] VITALS: BP 95/49; PULSE 60
--- NOTE | 2022-12-09 15:27 | P.DS ---
Providers Date of admission: 11/25/22 13:43 Expected date of discharge: 12/09/22 Attending physician: Jose Fajardo Primary care physician: Physician Nonstaff Hospital Course: 82-year-old woman who presents to Hospital from home where she was cared for by her was having increasing difficulties with frequent falls, generalized weakness increasing debility. Is known history of a stroke approximately 7 years ago with significant decline of her status she does have difficulty with expressive aphasia this occurred after her stroke the patient has been evaluated in Hospital and has been seen by PT and OT. She continues to have ongoing significant debility and does have some ongoing anxiety. No Evidence of any seizure activities on her current antiepileptics. Assessment: HEENT: Anicteric there is no thrush. Neck: The neck is supple Lungs: Good bilateral air entry without significant crackles or wheezing. There is no significant bronchial sounds. Heart: Regular rate and rhythm with an audible S1-S2, Abdomen: Positive bowel sounds soft and nontender Extremities: No significant edema noted Neuro: Awake and alert, has aphasia without change Pertinent Studies: Computed tomography scan of the chest reveals evidence of the elevated left hemidiaphragm, there is evidence of enlargement of the gastric lumen. 2-D echocardiogram was of poor quality Patient Condition at Discharge: Fair Plan - Discharge Summary Discharge Rx Participant: No New Discharge Prescriptions: New Aspirin 325 mg PO DAILY tab Ipratropium-Albuterol Nebulize [Duoneb 0.5 mg-3 mg/3 ml Soln] 3 ml INHALATION RT-TID each levETIRAcetam [Keppra] 500 mg PO DAILY tab lamoTRIgine [LaMICtal] 150 mg PO BID tab [place]-3 Acid Ethyl Esters [Lovaza] 1 gm PO DAILY Levothyroxine Sodium [Synthroid] 75 mcg PO DAILY@0630 tab Latanoprost Ophth [Xalatan 0.005%] 1 drops BOTH EYES DAILY ml Docusate [Colace] 100 mg PO BID cap levETIRAcetam [Keppra] 1,000 mg PO HS tab Fenofibrate [Lofibra] 160 mg PO HS tab Calcium Carb-Vit D 500Mg-5Mcg [Oscal 500+D 5 Mcg (200 Iu)] 1 each PO BID tab Clopidogrel [Plavix] 75 mg PO DAILY tab Acetaminophen Tab [Tylenol] 650 mg PO Q6HR PRN tab PRN Reason: Mild Pain Or Fever > 100.5 lisinopriL [Zestril] 10 mg PO DAILY tab Discontinued Clopidogrel Bisulfate [Plavix] 75 mg PO DAILY lamoTRIgine [LaMICtal] 150 mg PO BID [place]-3 Acid Ethyl Esters [Lovaza] 1 gm PO DAILY Docusate [Colace] 100 mg PO BID Aspirin EC [Ecotrin] 325 mg PO DAILY lisinopriL [Zestril] 10 mg PO DAILY levETIRAcetam [Keppra] 500 mg PO DAILY Levothyroxine Sodium [Synthroid] 75 mcg PO DAILY Bimatoprost [[place] 0.01% Ophth Soln] 1 drop BOTH EYES DAILY levETIRAcetam [Keppra] 1,000 mg PO HS Fenofibrate Nanocrystallized [Fenofibrate] 145 mg PO HS Calcium Carbonate/Vitamin D3 [Calcium 600-D3 20 mcg (800 Unit)] 1 tab PO BID No Action busPIRone HCl [Buspar] 5 mg PO TID Discharge Medication List busPIRone HCl [Buspar] 5 mg PO TID 11/25/22 [History] Acetaminophen Tab [Tylenol] 650 mg PO Q6HR PRN tab 12/09/22 [Rx] Aspirin 325 mg PO DAILY tab 12/09/22 [Rx] Calcium Carb-Vit D 500Mg-5Mcg [Oscal 500+D 5 Mcg (200 Iu)] 1 each PO BID tab 12/09/22 [Rx] Clopidogrel [Plavix] 75 mg PO DAILY tab 12/09/22 [Rx] Docusate [Colace] 100 mg PO BID cap 12/09/22 [Rx] Fenofibrate [Lofibra] 160 mg PO HS tab 12/09/22 [Rx] Ipratropium-Albuterol Nebulize [Duoneb 0.5 mg-3 mg/3 ml Soln] 3 ml INHALATION RT-TID each 12/09/22 [Rx] Latanoprost Ophth [Xalatan 0.005%] 1 drops BOTH EYES DAILY ml 12/09/22 [Rx] Levothyroxine Sodium [Synthroid] 75 mcg PO DAILY@0630 tab 12/09/22 [Rx] [place]-3 Acid Ethyl Esters [Lovaza] 1 gm PO DAILY 11/01/23 [Rx] lamoTRIgine [LaMICtal] 150 mg PO BID tab 12/09/22 [Rx] levETIRAcetam [Keppra] 1,000 mg PO HS tab 12/09/22 [Rx] levETIRAcetam [Keppra] 500 mg PO DAILY tab 12/09/22 [Rx] lisinopriL [Zestril] 10 mg PO DAILY tab 12/09/22 [Rx] Follow up Appointment(s)/Referral(s): Nonstaff,Physician [Primary Care Provider] - 1-2 days Activity/Diet/Wound Care/Special Instructions: PIN: [id number] [place] [facility] [employer]: Evelyn CASTILLO P: P:[phone] [email or web address] - Rufina ARMSTRONG P: [phone] [facility] will continue to be patient's insurance and supply medications until 01.22.23. [employer] [address]: [facility] [address] [place] [address] P: [phone] Plan of Treatment: The records reviewed and the patient has been deemed ready for discharge today. She has been seen by physical therapy and occupational therapy. They believe she will do well with a course of PT and OT in a custodial facility to improve her strength. Her hypertensive is been well controlled on her lisinopril She has a history of bronchial difficulties in bronchodilators are to continue. With her history of stroke she remains on her aspirin and Plavix for antiplatelet therapy. For her history of seizure she remains on Lamictal and Keppra. Plan is to discharge to custodial facility today
== END 2022-12-09 16:45 | DRG 884 ==
LOC: SUPCPDRO 09:49 → EC 09:49 → EEVIPCON 13:43 → 5NMEDONC 13:43
PROVIDERS: ADMIT Family Medicine; ATTEND Family Medicine
DX: R54 Age-related physical debility (principal); R47.01 Aphasia; G40.909 Epilepsy, unspecified, not intractable, without status epilepticus; I10 Essential (primary) hypertension; R29.6 Repeated falls; S51.011A Laceration without foreign body of right elbow, initial encounter; E78.5 Hyperlipidemia, unspecified; I11.9 Hypertensive heart disease without heart failure; E03.9 Hypothyroidism, unspecified; F32.A Depression, unspecified; I69.30 Unspecified sequelae of cerebral infarction; Z79.02 Long term (current) use of antithrombotics/antiplatelets; Z79.82 Long term (current) use of aspirin; Z79.890 Hormone replacement therapy
CPT/HCPCS: 36415; 70450; 71046; 71250; 72125; 72170; 80053; 81003; 83605; 83735; 84484; 85025; 85610; 85730; 93005; 93306; 94640; 94760; 99285

== ENCOUNTER 2022-12-21 20:00 | Emergency (ER) | payer MEDICARE ==
--- NOTE | 2022-12-21 20:57 | ED ---
Fall HPI - General Chief Complaint: Fall Stated Complaint: Fall Time Seen by Provider: 12/21/22 20:04 Source: patient, EMS, RN notes reviewed, old records reviewed, Caregiver Mode of arrival: EMS Limitations: no limitations - History of Present Illness Initial Comments: This is a 82-year-old female status post fall. Patient does have some bruising and swelling to anterior forehead fall forward landing on her head. 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: yes, by bystander Place Fall Occurred: home Loss of Consciousness: none Prolonged Down Time?: no Symptoms Prior to Fall: none Location: head, face Severity: mild Quality: sharp Context: tripped/slipped Associated Symptoms: denies - Related Data Home Medications Medication Instructions Recorded Confirmed busPIRone HCl [Buspar] 5 mg PO TID 11/25/22 11/25/22 Previous Rx's Medication Instructions Recorded Acetaminophen Tab [Tylenol] 650 mg PO Q6HR PRN tab 12/09/22 Aspirin 325 mg PO DAILY tab 12/09/22 Calcium Carb-Vit D 500Mg-5Mcg 1 each PO BID tab 12/09/22 [Oscal 500+D 5 Mcg (200 Iu)] Clopidogrel [Plavix] 75 mg PO DAILY tab 12/09/22 Docusate [Colace] 100 mg PO BID cap 12/09/22 Fenofibrate [Lofibra] 160 mg PO HS tab 12/09/22 Ipratropium-Albuterol Nebulize 3 ml INHALATION RT-TID each 12/09/22 [Duoneb 0.5 mg-3 mg/3 ml Soln] Latanoprost Ophth [Xalatan 0.005%] 1 drops BOTH EYES DAILY ml 12/09/22 Levothyroxine Sodium [Synthroid] 75 mcg PO DAILY@0630 tab 12/09/22 [place]-3 Acid Ethyl Esters [Lovaza] 1 gm PO DAILY 12/09/22 lamoTRIgine [LaMICtal] 150 mg PO BID tab 12/09/22 levETIRAcetam [Keppra] 1,000 mg PO HS tab 12/09/22 levETIRAcetam [Keppra] 500 mg PO DAILY tab 12/09/22 lisinopriL [Zestril] 10 mg PO DAILY tab 12/09/22 Allergies Allergy/AdvReac Type Severity Reaction Status Date / Time Iodinated Contrast Media Allergy Unknown Verified 12/21/22 20:20 [Iodinated Contrast Media - IV Dye] Review of Systems ROS Statement: Those systems with pertinent positive or pertinent negative responses have been documented in the HPI. ROS Other: All systems not noted in ROS Statement are negative. Past Medical History Past Medical History: CVA/TIA, Hyperlipidemia, Seizure Disorder, Thyroid Disorder History of Any Multi-Drug Resistant Organisms: None Reported Past Surgical History: Unable to Obtain Past Psychological History: Depression Smoking Status: Never smoker Past Alcohol Use History: Rare Past Drug Use History: None Reported - Past Family History Father Additional Family Medical History / Comment(s): age 75 unk cause Mother Additional Family Medical History / Comment(s): mom age 95 unk cause General Exam Limitations: language barrier, physical limitation General appearance: alert, in no apparent distress, anxious Head exam: Present: normocephalic, normal inspection. Absent: atraumatic (forehead hematoma) Eye exam: Present: normal appearance, PERRL, EOMI. Absent: scleral icterus, conjunctival injection, periorbital swelling ENT exam: Present: normal exam, mucous membranes moist Neck exam: Present: normal inspection. Absent: tenderness, meningismus, lymphadenopathy Respiratory exam: Present: normal lung sounds bilaterally. Absent: respiratory distress, wheezes, rales, rhonchi, stridor Cardiovascular Exam: Present: regular rate, normal rhythm, normal heart sounds. Absent: systolic murmur, diastolic murmur, rubs, gallop, clicks GI/Abdominal exam: Present: soft, normal bowel sounds. Absent: distended, tenderness, guarding, rebound, rigid Extremities exam: Present: normal inspection, full ROM, normal capillary refill. Absent: tenderness, pedal edema, joint swelling, calf tenderness Back exam: Present: normal inspection Neurological exam: Present: alert, oriented X3, CN II-XII intact Psychiatric exam: Present: normal affect, normal mood Skin exam: Present: warm, dry, intact, normal color. Absent: rash Course Vital Signs 12/21/22 12/21/22 20:20 23:00 Temperature 97.7 F Pulse Rate 72 63 Respiratory 16 18 Rate Blood Pressure 138/80 128/53 O2 Sat by Pulse 97 99 Oximetry - Reevaluation(s) Reevaluation #1: Medical records reviewed Reevaluation #2: 12/29/22 00:47 Patient symptoms unchanged Reevaluation #3: Patient informed results and questions answered Reevaluation #4: Was pt. sent in by a medical professional or institution ([facility], [facility], urgent care, hospital, or longterm...) When possible be specific @ -no Did you speak to anyone other than the patient for history (EMS, parent, family, police, friend...)? What history was obtained from this source @ -no Did you review nursing and triage notes (agree or disagree)? Why? @ -agree Are old charts reviewed (outside hosp., previous admission, EMS record, old EKG, old radiological studies, urgent care reports/EKG's, longterm records)? Report findings @ -yes Differential Diagnosis (chest pain, altered mental status, abdominal pain women, abdominal pain men, vaginal bleeding, weakness, fever, dyspnea, syncope, headache, dizziness, GI bleed, back pain, seizure, CVA, palpatations, mental health, musculoskeletal)? @ -prior EKG interpreted by me (3pts min.). @ -no X-rays interpreted by me (1pt min.). @ -yes CT interpreted by me (1pt min.). @ -yes U/S interpreted by me (1pt. min.). @ -no What testing was considered but not performed or refused? (CT, X-rays, U/S, labs)? Why? @ -none What meds were considered but not given or refused? Why? @ -none Did you discuss the management of the patient with other professionals (professionals i.e. [facility] Cheney, [facility], lab, RT, psych nurse, social worker assistant, core winder, teacher, chief clinical officer, telehealth case manager)? Give summary @ -no Was smoking cessation discussed for >3mins.? @ -no Was critical care preformed (if so, how long)? @ -no Were there social determinants of health that impacted care today? How? (Homelessness, low income, unemployed, alcoholism, drug addiction, transportati on, low edu. Level, literacy, decrease access to med. care, intermediate, rehab)? @ -none Was there de-escalation of care discussed even if they declined (Discuss DNR or withdrawal of care, Hospice)? DNR status @ -no What co-morbidities impacted this encounter? (DM, HTN, Smoking, COPD, CAD, Cancer, CVA, ARF, Chemo, Hep., AIDS, mental health diagnosis, sleep apnea, morbid obesity)? @ -none Was patient admitted / discharged? Hospital course, mention meds given and route, prescriptions, significant lab abnormalities, going to OR and other pertinent info. @ - 82 female to the emergency room with fall forward. Patient did land on her head with significant hematoma for her. Patient has normal CT and normal x-rays and can be discharged home Discharge Undiagnosed new problem with uncertain prognosis? @ -no Drug Therapy requiring intensive monitoring for toxicity (Heparin, Nitro, Insulin, Cardizem)? @ -no Were any procedures done? @ -no Diagnosis/symptom? @ -Fall with [place] hematoma Acute, or Chronic, or Acute on Chronic? @ -Acute Uncomplicated (without systemic symptoms) or Complicated (systemic symptoms)? @ -Complicated Side effects of treatment? @ -no Exacerbation, Progression, or Severe Exacerbation? @ -exacerbation Poses a threat to life or bodily function? How? (Chest pain, [place], [place], pneumonia, PE, COPD, DKA, ARF, appy, cholecystitis, CVA, Diverticulitis, Homicidal, Suicidal, threat to staff... and all critical care pts) @ -yes fall with history of a Medical Decision Making - Medical Decision Making 82 female to the emergency room with fall forward. Patient did land on her head with significant hematoma for her. Patient has normal CT and normal x-rays and can be discharged home - Radiology Data Radiology results: report reviewed (CT brain C-spine and facial bones chest and pelvis x-rays negative for acute disease), image reviewed Disposition Clinical Impression: Fall, Traumatic hematoma of forehead Disposition: HOME SELF-CARE Condition: Good Instructions (If sedation given, give patient instructions): Fall Prevention for Older Adults (ED) Is patient prescribed a controlled substance at d/c from ED?: No Referrals: Chantel Obregon DO [Primary Care Provider] - 1-2 days Time of Disposition: 23:00
[2022-12-21 21:04] VITALS: TEMP 97.7
--- NOTE | 2022-12-21 22:01 | XR ---
EXAMINATION TYPE: XR chest 1V DATE OF EXAM: 12/21/2022 9:38 PM CLINICAL INDICATION:Female, 82 years old with history of fall; [facility] COMPARISON: Chest radiographs from 11/25/2022. TECHNIQUE: XR chest 1V Frontal view of the chest. FINDINGS: Lungs/Pleura: Prominent interstitial lung markings are seen scattered throughout the lungs. No eviden ce of focal consolidation, pneumothorax or pleural effusion. Pulmonary vascularity: Unremarkable. Heart/mediastinum: Cardiomediastinal silhouette is unremarkable. Musculoskeletal: No acute osseous pathology. IMPRESSION: Chronic changes without acute pulmonary process. No significant change from prior.
--- NOTE | 2022-12-21 22:01 | XR ---
EXAMINATION TYPE: XR pelvis AP view DATE OF EXAM: 12/21/2022 9:38 PM CLINICAL INDICATION:Female, 82 years old with history of fall; COMPARISON: None TECHNIQUE: The pelvis was examined in a single projection. FINDINGS: There is no evidence of fracture or dislocation. There is no soft tissue abnormality. No a bnormal calcifications are present. The spine appears intact. IMPRESSION: No acute osseous pathology.
--- NOTE | 2022-12-21 22:15 | CT ---
EXAMINATION TYPE: CT brain cspine wo con, CT facial bones wo con CT DLP: COMBINED DLP 987.9 mGycm, Automated exposure control for dose reduction was used. DATE OF EXAM: 12/21/2022 9:58 PM COMPARISON: 11/25/2022 CLINICAL INDICATION:Female, 82 years old with history of fall; PAIN AFTER FALL TECHNIQUE: Brain: Multiple axial CT images of the brain were obtained without IV contrast. Cspine: Axial CT images from the skull base to the inferior aspect of T2 we obtained without intraven ous contrast. Coronal and sagittal reformatted images were also reviewed. Facial: Axial imaging of the facial structures with sagittal coronal reformats in soft tissue and bon e algorithm. FINDINGS: Brain: Extra-axial spaces: No abnormal extra-axial fluid collections. Ventricular system: Within normal limits Cerebral parenchyma: Remote injuries to the left frontal lobe and left occipital lobe. No acute intra parenchymal hemorrhage or mass effect. The pryor-white junction is well differentiated. Scattered hyp oattenuating areas are seen within the white matter. Cerebellum: Unremarkable. Mass effect: No evidence of midline shift. Intracranial vasculature: unremarkable Soft tissues: Left frontal scalp edema. Calvarium/osseous structures: No depressed skull fracture. Paranasal sinuses and mastoid air cells: Clear. Visualized orbits: Bilaterally aphakia. Cervical spine: Fracture: None. Osseous structures: Multilevel degenerative disc disease changes with endplate spurring and disc oste ophyte complex's. Vertebral alignment: Within normal limits. Spinal canal/Neural Foramina: No evidence of significant spinal canal narrowing. No evidence for sign ificant neural foraminal stenosis. Neck soft tissues: Prevertebral soft tissues are within normal limits. Other: The airway is patent. The lung apices are clear. Atherosclerosis of the carotid bifurcations. Facial:There is no evidence of fracture, subluxation, dislocations. Or soft tissue swelling of the le ft frontal scalp without evidence of fracture. The orbital contents are unremarkable.The temporal-man dibular joints appear symmetric. The visualized portion of the paranasal sinuses appear clear. IMPRESSION: 1. No acute intracranial process. 2. Left frontal scalp edema. 3. Remote injuries to the left frontal lobe and left occipital lobe. 4. Nonspecific white matter changes, likely secondary to chronic small vessel ischemic disease. 5. No evidence of cervical spine fracture. 6. Mild to moderate multilevel degenerative disc disease.
[2022-12-21 23:22] VITALS: BP 128/53; PULSE 63; RESP 18
== END 2022-12-22 00:55 | disposition home or self-care (01) ==
LOC: EC 20:00
DX: S00.83XA Contusion of other part of head, initial encounter (principal); Z91.041 Radiographic dye allergy status; W01.0XXA Fall on same level from slipping, tripping and stumbling without subsequent striking against object, initial encounter
CPT/HCPCS: 51702; 70450; 70486; 71045; 72125; 72170; 99285

== ENCOUNTER 2023-04-14 01:44 | Emergency (ER) | payer MEDICARE ==
--- NOTE | 2023-04-14 02:08 | ED ---
General Adult HPI <Flavio Aragon - Last Filed: 04/14/23 03:14> - General Source: patient, RN notes reviewed, old records reviewed Mode of arrival: EMS Limitations: no limitations <Julien Corbett - Last Filed: 04/14/23 04:05> - General Chief complaint: Fall Stated complaint: FALL Time Seen by Provider: 04/14/23 01:58 - History of Present Illness Initial comments: Patient is an 82-year-old female who presents from her living facility for a fall. Has a history of prior stroke with aphasia, right-sided facial droop, right-sided weakness. Is currently at her baseline per the facility and per E MS. Is on Plavix. She has a skin tear on her right wrist with pain on palpation of the right wrist as well as an abrasion to the posterior scalp. Also concern for possible right hip injury. Patient denies any significant pain other than at the wrist as well as the scalp. Has some mild pain of the bilateral knees with no obvious injury. Also some mild pain of the right hip. Does have chronic weakness of the right lower extremity. Presents for further evaluation at this time. Is currently at her baseline mental status which is ANO x 1. Was a witnessed fall after a trip and did not lose consciousness. (Julien Corbett) - Related Data Home Medications Medication Instructions Recorded Confirmed busPIRone HCl [Buspar] 5 mg PO TID 11/25/22 11/25/22 Previous Rx's Medication Instructions Recorded Acetaminophen Tab [Tylenol] 650 mg PO Q6HR PRN tab 12/09/22 Aspirin 325 mg PO DAILY tab 12/09/22 Calcium Carb-Vit D 500Mg-5Mcg 1 each PO BID tab 12/09/22 [Oscal 500+D 5 Mcg (200 Iu)] Clopidogrel [Plavix] 75 mg PO DAILY tab 12/09/22 Docusate [Colace] 100 mg PO BID cap 12/09/22 Fenofibrate [Lofibra] 160 mg PO HS tab 12/09/22 Ipratropium-Albuterol Nebulize 3 ml INHALATION RT-TID each 12/09/22 [Duoneb 0.5 mg-3 mg/3 ml Soln] Latanoprost Ophth [Xalatan 0.005%] 1 drops BOTH EYES DAILY ml 12/09/22 Levothyroxine Sodium [Synthroid] 75 mcg PO DAILY@0630 tab 12/09/22 Maxwell-3 Acid Ethyl Esters [Lovaza] 1 gm PO DAILY 12/09/22 lamoTRIgine [LaMICtal] 150 mg PO BID tab 12/09/22 levETIRAcetam [Keppra] 1,000 mg PO HS tab 12/09/22 levETIRAcetam [Keppra] 500 mg PO DAILY tab 12/09/22 lisinopriL [Zestril] 10 mg PO DAILY tab 12/09/22 Allergies Allergy/AdvReac Type Severity Reaction Status Date / Time Iodinated Contrast Media Allergy Unknown Verified 12/21/22 20:20 [Iodinated Contrast Media - IV Dye] Review of Systems ROS Other: All systems not noted in ROS Statement are negative. <Flavio Aragon - Last Filed: 04/14/23 03:14> ROS Other: All systems not noted in ROS Statement are negative. <Julien Corbett - Last Filed: 04/14/23 04:05> ROS Statement: Those systems with pertinent positive or pertinent negative responses have been documented in the HPI. Past Medical History Past Medical History: CVA/TIA, Hyperlipidemia, Seizure Disorder, Thyroid Disorder History of Any Multi-Drug Resistant Organisms: None Reported Past Surgical History: Unable to Obtain Past Psychological History: Depression Smoking Status: Never smoker Past Alcohol Use History: Rare Past Drug Use History: None Reported - Past Family History Father Additional Family Medical History / Comment(s): age 75 unk cause Mother Additional Family Medical History / Comment(s): mom age 95 unk cause <Julien Corbett - Last Filed: 04/14/23 04:05> General Exam Limitations: no limitations <Julien Corbett - Last Filed: 04/14/23 04:05> - General Exam Comments Initial Comments: General: Appears in no acute distress. HEAD: Negative Patel sign. Negative raccoon eyes. Patient does have what appears to be an abrasion over the posterior scalp. Cannot rule out laceration. Currently bleeding is controlled and will be cleaned up later. EYES: PERRLA, EOMI, conjunctiva normal, no discharge. Pupils are 2 to 3 mm and equal bilaterally. ENT: Hearing grossly intact, normal oropharynx. RESPIRATORY: Clear breath sounds bilaterally. No wheezes, rales, or rhonchi. C/V: Regular rate and rhythm. S1 and S2 auscultated, no edema, peripheral pulses 2+ and intact throughout ABD: Abd is soft, nontender, nondistended EXT: Weakness on the right side which is chronic for the patient. Decreased range of motion of the right wrist secondary to pain at the site of an abrasion located over the dorsal aspect of the right wrist. No obvious deformity. No midline cervical, thoracic, lumbar spine tenderness to palpation. Mild right hip tenderness to pain. Bilateral knee tenderness to pain without any obvious deformities. Able to move all 4 extremities. SKIN: No rashes or lesions observed on exposed skin. NEURO: Alert and oriented x 1 which is her baseline. Chronic right-sided weakness secondary to prior stroke as well as chronic right-sided facial droop and aphasia. Patient is currently at her baseline. (Julien Corbett) Course Vital Signs 04/14/23 04/14/23 01:47 03:41 Temperature 97.8 F Pulse Rate 80 72 Respiratory 16 18 Rate Blood Pressure 180/73 157/60 O2 Sat by Pulse 99 97 Oximetry Procedures - Laceration Laceration #1 Indication: laceration Site: scalp Size (cm): 3 Description: flap Depth: simple, single layer Type of Sutures: other (nhi) Number of Sutures: 2 <Flavio Aragon - Last Filed: 04/14/23 03:14> Medical Decision Making - Lab Data Result diagrams: 04/14/23 02:19 04/14/23 02:19 <Flavio Aragon - Last Filed: 04/14/23 03:14> - Lab Data Result diagrams: 04/14/23 02:19 04/14/23 02:19 - EKG Data -: EKG Interpreted by Me <Julien Corbett - Last Filed: 04/14/23 04:05> - Medical Decision Making Was pt. sent in by a medical professional or institution (, PA, [employer], urgent care, hospital, or [facility]...) When possible be specific @ -No Did you speak to anyone other than the patient for history (EMS, parent, family, police, friend...)? What history was obtained from this source @ -No Did you review nursing and triage notes (agree or disagree)? Why? @ -I reviewed and agree with nursing and triage notes Were old charts reviewed (outside hosp., previous admission, EMS record, old EKG, old radiological studies, urgent care reports/EKG's, [facility] records)? Report findings @ -Old charts reviewed Differential Diagnosis (chest pain, altered mental status, abdominal pain women, abdominal pain men, vaginal bleeding, weakness, fever, dyspnea, syncope, headache, dizziness, GI bleed, back pain, seizure, CVA, palpatations, mental health, musculoskeletal)? @ -Differential Musculoskeletal Muscular strain, contusion, ligament sprain, fracture, arthritis, septic arthr itis, bursitis, cellulitis, muscle spasm, nerve compression, DVT, arterial occlusion, herpes zoster, electrolyte abnormality, tumor.... This is not meant to be in all inclusive list. Also includes intracranial trauma, laceration, abrasion EKG interpreted by me (3pts min.). @ -As above X-rays interpreted by me (1pt min.). @ -Chest x-ray, pelvis x-ray with right hip, bilateral knee x-ray, right wrist x-rays negative for any obvious traumatic injury. CT interpreted by me (1pt min.). @ -CT brain and C-spine negative for any obvious traumatic injury. U/S interpreted by me (1pt. min.). @ -None done What testing was considered but not performed or refused? (CT, X-rays, U/S, labs)? Why? @ -None What meds were considered but not given or refused? Why? @ -None Did you discuss the management of the patient with other professionals (professionals i.e. , PA, [employer], lab, RT, psych nurse, social security assessor, veterans employment representative, teacher, aoc plans intelligence officer chief, caseworker protective services)? Give summary @ -No Was smoking cessation discussed for >3mins.? @ -No Was critical care preformed (if so, how long)? @ -No Were there social determinants of health that impacted care today? How? (Homelessness, low income, unemployed, alcoholism, drug addiction, transportation, low edu. Level, literacy, decrease access to med. care, correction, rehab)? @ -No Was there de-escalation of care discussed even if they declined (Discuss DNR or withdrawal of care, Hospice)? DNR status @ -No What co-morbidities impacted this encounter? (DM, HTN, Smoking, COPD, CAD, Cancer, CVA, ARF, Chemo, Hep., AIDS, mental health diagnosis, sleep apnea, morbid obesity)? @ -Prior stroke with residual right-sided deficits and aphasia Was patient admitted / discharged? Hospital course, mention meds given and route, prescriptions, significant lab abnormalities, going to OR and other pertinent info. @ -Patient presents with a fall on Plavix from standing. No loss of consciousness. Witnessed fall. Was a trip and fall over carpet. Suffered skin tear to the right wrist as well as abrasion on the posterior scalp. Currently is at baseline mental status. No loss of consciousness. Does not meet criteria for trauma activation. We will obtain CT imaging the head, neck, as well as x- rays of the chest, pelvis, bilateral knees and right wrist. Patient will have tetanus updated as well as be given a 1 L fluid bolus and Tylenol. Patient was in agreement this plan. EKG shows no signs of acute ischemia.Laboratory studies remarkable for mild hyperkalemia with no evidence of EKG changes. Mild ÁLVARO. Patient treated with IV fluids. Imaging negative for any obvious traumatic injury. Chronic findings seen. I updated the patient. Patient had nhi placed in the laceration on the back of the head. Skin tear on right dorsal wrist does not require closure but was cleaned and dressed dressed. See additional note for further details. Patient will be discharged home at this time. I instructed the patient to follow up with their PCP in the next 1-3 days. . I explained that the patient should return to the emergency department if they experience any worsening symptoms. Strict return precautions were discussed with the patient. The patient expressed understanding of these instructions. I answered all questions that the patient had. The patient was discharged home in good condition with their prescriptions and follow up information. Undiagnosed new problem with uncertain prognosis? @ -No Drug Therapy requiring intensive monitoring for toxicity (Heparin, Nitro, Insulin, Cardizem)? @ -No Were any procedures done? @ -No Diagnosis/symptom? @ -Fall, scalp laceration with nhi, skin tear on right wrist, muscle strains Acute, or Chronic, or Acute on Chronic? @ -Acute Uncomplicated (without systemic symptoms) or Complicated (systemic symptoms)? @ -Uncomplicated Side effects of treatment? @ -None Exacerbation, Progression, or Severe Exacerbation] @ -No Poses a threat to life or bodily function? @ -No (Julien Corbett) - Lab Data Lab Results 04/14/23 04/14/23 04/14/23 Range/Units 02:19 02:19 02:19 WBC 5.9 (3.8-10.6) k/uL RBC 3.62 L (3.80-5.40) m/uL Hgb 12.0 (11.4-16.0) gm/dL Hct 36.2 (34.0-46.0) % MCV 100.1 H (80.0-100.0) fL MCH 33.2 (25.0-35.0) pg MCHC 33.1 (31.0-37.0) g/dL RDW 13.7 (11.5-15.5) % Plt Count 217 (150-450) k/uL MPV 8.6 Neutrophils % 51 % Lymphocytes % 31 % Monocytes % 9 % Eosinophils % 6 % Basophils % 1 % Neutrophils # 3.0 (1.3-7.7) k/uL Lymphocytes # 1.8 (1.0-4.8) k/uL Monocytes # 0.5 (0-1.0) k/uL Eosinophils # 0.3 (0-0.7) k/uL Basophils # 0.1 (0-0.2) k/uL PT 10.9 (10.0-12.5) sec INR 1.0 (<1.2) APTT 22.5 (22.0-30.0) sec Sodium 142 (137-145) mmol/L Potassium 5.2 H (3.5-5.1) mmol/L Chloride 109 H (98-107) mmol/L Carbon Dioxide 22 (22-30) mmol/L Anion Gap 11 mmol/L BUN 42 H (7-17) mg/dL Creatinine 1.59 H (0.52-1.04) mg/dL Est GFR (CKD-EPI)AfAm 34 (>60 ml/min/1.73 sqM) Est GFR (CKD-EPI)NonAf 30 (>60 ml/min/1.73 sqM) Glucose 102 H (74-99) mg/dL Calcium 10.2 (8.4-10.2) mg/dL Total Bilirubin 0.4 (0.2-1.3) mg/dL AST 39 H (14-36) U/L ALT 16 (4-34) U/L Alkaline Phosphatase 82 (38-126) U/L Total Protein 6.9 (6.3-8.2) g/dL Albumin 4.0 (3.5-5.0) g/dL - EKG Data EKG Comments: 12-lead Electrocardiogram Interpretation Note EKG was reviewed and interpreted by myself. 12-lead ECG performed at 0151 is interpreted by me as revealing normal sinus rhythm at a rate of 77 beats per minute. [place] is normal. [place] interval is 183 ms, QRS duration is 106 ms, QTc is 377 ms.. There were no ST or T wave abnormalities to suggest myocardial ischemia or injury. R wave progression across the precordium was satisfactory. By my interpretation this EKG is non-diagnostic for acute ischemia. (Julien Corbett) Disposition <Flavio Aragon - Last Filed: 04/14/23 03:14> Is patient prescribed a controlled substance at d/c from ED?: No Time of Disposition: 03:39 <Julien Corbett - Last Filed: 04/14/23 04:05> Clinical Impression: Fall, Muscle strain, Abrasion, Scalp laceration Disposition: HOME SELF-CARE Condition: Good Instructions (If sedation given, give patient instructions): Fall Prevention for Older Adults (ED), [facility] (ED) Referrals: Chantel Obregon DO [Primary Care Provider] - 1-2 days
[2023-04-14] MEDS: ACETAMINOPHEN TAB 325 MG TAB PO STA (02:16)
[2023-04-14] MEDS: SODIUM CHLORIDE 0.9% 500 ML 500 ML IV ONE (02:20)
[2023-04-14 02:29] LABS: Basophils # (A) 0.1 k/uL (0-0.2); Basophils % (A) 1 %; Eosinophils # (A) 0.3 k/uL (0-0.7); Eosinophils % (A) 6 %; HCT 36.2 % (34.0-46.0); Lymphocytes # (A) 1.8 k/uL (1.0-4.8); Lymphocytes % (A) 31 %; MCH 33.2 pg (25.0-35.0); MCHC 33.1 g/dL (31.0-37.0); MCV 100.1 fL (80.0-100.0); Mean Platelet Volume 8.6; Monocytes # (A) 0.5 k/uL (0-1.0); Monocytes % (A) 9 %; Neutrophils % (A) 51 %; Platelet Count 217 k/uL (150-450); RBC 3.62 m/uL (3.80-5.40); RDW 13.7 % (11.5-15.5); WBC 5.9 k/uL (3.8-10.6)
[2023-04-14 02:40] LABS: Partial Thromboplastin Time 22.5 sec (22.0-30.0); Prothrombin Time 10.9 sec (10.0-12.5)
[2023-04-14 02:57] LABS: ALT 16 U/L (4-34); AST 39 U/L (14-36); African American GFR (CKD) 34 (>60 ml/min/1.73 sqM); Alkaline Phosphatase 82 U/L (38-126); Anion Gap 11 mmol/L; Blood Urea Nitrogen 42 mg/dL (7-17); Calcium 10.2 mg/dL (8.4-10.2); Carbon Dioxide 22 mmol/L (22-30); Chloride 109 mmol/L (98-107); Glucose 102 mg/dL (74-99); Non-African American GFR(CKD) 30 (>60 ml/min/1.73 sqM); Potassium 5.2 mmol/L (3.5-5.1); Sodium 142 mmol/L (137-145); Total Bilirubin 0.4 mg/dL (0.2-1.3); Total Protein 6.9 g/dL (6.3-8.2)
[2023-04-14] MEDS: GELATIN SPONGE,ABSORB (LARGE) 1 EACH SPONGE TOPICAL STA (03:16)
[2023-04-14] MEDS: MORPHINE SULFATE 2 MG/ML SYRINGE IVP STA ×2 (03:16)
[2023-04-14] MEDS: SODIUM CHLORIDE 0.9% 500 ML 500 ML IV STA (03:16)
[2023-04-14] MEDS: DIPH,PERTUS(ACELL)TETVAC-LF 0.5 ML VIAL IM ONE (03:16)
--- NOTE | 2023-04-14 03:18 | CT ---
EXAM: CT Head Without Intravenous Contrast CLINICAL HISTORY: ITS.REASON CT Reason: fall TECHNIQUE: Axial computed tomography images of the head/brain without intravenous contrast. CTDI is 45.3 mGy and DLP is 1086 mGy-cm. This CT exam was performed using one or more of the following dose reduction techniques: automated exposure control, adjustment of the mA and/or kV according to patient size, and/or use of iterative reconstruction technique. COMPARISON: CT Head dated 11/25/22 FINDINGS: Brain: Stable left MCA territory encephalomalacia. Stable focal encephalomalacia in the left occipital lobe. Volume loss with prominent ventricles and sulci. Periventricular white matter hypoattenuation likely reflects chronic small vessel disease. No hemorrhage. Ventricles: Ex vacuo dilation of the left lateral ventricle. Bones/joints: Unremarkable. No acute fracture. Soft tissues: Posterior parietal scalp swelling/hematoma. Sinuses: Unremarkable as visualized. No acute sinusitis. Mastoid air cells: Unremarkable as visualized. No mastoid effusion. Orbits: Bilateral intraocular lens implants. IMPRESSION: 1. No evidence of acute intracranial abnormality or skull fracture. 2. Posterior parietal scalp swelling/hematoma. 3. Stable left MCA territory encephalomalacia. Stable focal encephalomalacia in the left occipital lobe. EXAM: CT Cervical Spine Without Intravenous Contrast CLINICAL HISTORY: ITS.REASON CT Reason: fall TECHNIQUE: Axial computed tomography images of the cervical spine without intravenous contrast. CTDI is 9.0 mGy and DLP is 240.9 mGy-cm. This CT exam was performed using one or more of the following dose reduction techniques: automated exposure control, adjustment of the mA and/or kV according to patient size, and/or use of iterative reconstruction technique. COMPARISON: No relevant prior studies available. FINDINGS: Vertebrae: Unremarkable. No acute fracture. Discs/spinal canal/neural foramina: Degenerative changes. No severe canal stenosis. Soft tissues: Unremarkable. IMPRESSION: No evidence of acute fracture or malalignment.
--- NOTE | 2023-04-14 03:34 | XR ---
EXAM: XR Chest, 1 View CLINICAL HISTORY: ITS.REASON XR Reason: fall TECHNIQUE: Frontal view of the chest. COMPARISON: XR Chest dated 12/21/22 FINDINGS: Lungs: Unremarkable. No consolidation. Pleural space: Unremarkable. No pneumothorax. Heart: Unremarkable. No cardiomegaly. Mediastinum: Unremarkable. Normal mediastinal contour. Bones/joints: Unremarkable. No acute fracture. Vasculature: Aortic calcifications. Upper abdomen: Elevated left hemidiaphragm similar/higher than the prior. IMPRESSION: No acute findings in the chest.
--- NOTE | 2023-04-14 03:36 | XR ---
EXAM: XR Right Wrist Complete, 3 or More Views CLINICAL HISTORY: ITS.REASON XR Reason: fall, pain TECHNIQUE: Frontal, lateral and oblique views of the right wrist. COMPARISON: No relevant prior studies available. FINDINGS: Bones/joints: Degenerative changes of the second and third metacarpophalangeal joints and at the base of the thumb. No acute fracture. No dislocation. Soft tissues: Unremarkable. No radiopaque foreign body. IMPRESSION: No evidence of acute fracture or dislocation.
--- NOTE | 2023-04-14 03:37 | XR ---
EXAM: XR Right Hip With Pelvis When Performed, 2 or 3 Views CLINICAL HISTORY: ITS.REASON XR Reason: fall, pain TECHNIQUE: Two or three views of the right hip with pelvis when performed. COMPARISON: XR Hips Pelvis Unilateral or Bi dated 12/21/22 FINDINGS: Bones/joints: Unremarkable. No acute fracture. No dislocation. Soft tissues: Unremarkable. IMPRESSION: No evidence of acute fracture or dislocation.
--- NOTE | 2023-04-14 03:38 | XR ---
EXAM: XR Bilateral Knees, 3 Views CLINICAL HISTORY: ITS.REASON XR Reason: fall, pain TECHNIQUE: Three views of the bilateral knees. COMPARISON: No relevant prior studies available. FINDINGS: Bones/joints: Mild chondrocalcinosis bilaterally. Mild degenerative changes. No acute fracture. No dislocation. Soft tissues: Arterial calcifications. IMPRESSION: No acute findings in the bilateral knees.
[2023-04-14 08:40] VITALS: BP 125/68; PULSE 86; RESP 18; TEMP 97.9
== END 2023-04-14 08:35 | disposition home or self-care (01) ==
LOC: EC 01:44
DX: S01.01XA Laceration without foreign body of scalp, initial encounter (principal); S60.811A Abrasion of right wrist, initial encounter; I25.2 Old myocardial infarction; F32.A Depression, unspecified; Z23 Encounter for immunization; Z79.899 Other long term (current) drug therapy; Z91.041 Radiographic dye allergy status; W18.30XA Fall on same level, unspecified, initial encounter
CPT/HCPCS: 99285 ×2; 96374 ×2; 96361 ×3; 90471 ×2; 12002; 36415; 93005; 80053; 85025; 85610; 85730; 73560; 73502; 73100; 71045; 72125; 70450; 90715; J2270

== ENCOUNTER 2023-04-27 11:56 | Inpatient (IN) | payer MEDICARE ==
[2023-04-27 12:03] LABS: Glucose,Whole Blood 73 mg/dL (70-110)
--- NOTE | 2023-04-27 12:28 | ED ---
General Adult HPI - General Chief complaint: Neuro Symptoms/Deficit Stated complaint: R Side Weakness Time Seen by Provider: 04/27/23 12:15 Source: patient, EMS, RN notes reviewed, old records reviewed Mode of arrival: EMS Limitations: no limitations - History of Present Illness Initial comments: This is a an 82-year-old female who presents to the emergency department from a halfway. Patient had a previous stroke with right-sided deficits. Acco rding to staff the right-sided weakness was worse and they noticed this about 730 this morning. We do not have a last known well at this time. Patient is unable to give any history. Patient's speech is very slurred but according to staff this is normal. No reports of fever no reports of injury - Related Data Home Medications Medication Instructions Recorded Confirmed busPIRone HCl [Buspar] 5 mg PO TID 11/25/22 11/25/22 Previous Rx's Medication Instructions Recorded Acetaminophen Tab [Tylenol] 650 mg PO Q6HR PRN tab 12/09/22 Aspirin 325 mg PO DAILY tab 12/09/22 Calcium Carb-Vit D 500Mg-5Mcg 1 each PO BID tab 12/09/22 [Oscal 500+D 5 Mcg (200 Iu)] Clopidogrel [Plavix] 75 mg PO DAILY tab 12/09/22 Docusate [Colace] 100 mg PO BID cap 12/09/22 Fenofibrate [Lofibra] 160 mg PO HS tab 12/09/22 Ipratropium-Albuterol Nebulize 3 ml INHALATION RT-TID each 12/09/22 [Duoneb 0.5 mg-3 mg/3 ml Soln] Latanoprost Ophth [Xalatan 0.005%] 1 drops BOTH EYES DAILY ml 12/09/22 Levothyroxine Sodium [Synthroid] 75 mcg PO DAILY@0630 tab 12/09/22 [place]ton-3 Acid Ethyl Esters [Lovaza] 1 gm PO DAILY 12/09/22 lamoTRIgine [LaMICtal] 150 mg PO BID tab 12/09/22 levETIRAcetam [Keppra] 1,000 mg PO HS tab 12/09/22 levETIRAcetam [Keppra] 500 mg PO DAILY tab 12/09/22 lisinopriL [Zestril] 10 mg PO DAILY tab 12/09/22 Allergies Allergy/AdvReac Type Severity Reaction Status Date / Time Iodinated Contrast Media Allergy Unknown Verified 04/27/23 12:28 [Iodinated Contrast Media - IV Dye] Review of Systems ROS Statement: Those systems with pertinent positive or pertinent negative responses have been documented in the HPI. ROS Other: All systems not noted in ROS Statement are negative. Past Medical History Past Medical History: CVA/TIA, Hyperlipidemia, Seizure Disorder, Thyroid Disorder History of Any Multi-Drug Resistant Organisms: None Reported Past Surgical History: Unable to Obtain Past Psychological History: Depression Smoking Status: Never smoker Past Alcohol Use History: Rare Past Drug Use History: None Reported - Past Family History Father Additional Family Medical History / Comment(s): age 75 unk cause Mother Additional Family Medical History / Comment(s): mom age 95 unk cause General Exam - General Exam Comments Initial Comments: GENERAL: Patient is well-developed and well-nourished. Patient is nontoxic and well- hydrated and is in mild distress. ENT: Neck is soft and supple. No significant lymphadenopathy is noted. Oropharynx is clear. Moist mucous membranes. Neck has full range of motion without pascual citing any pain. EYES: The sclera were anicteric and conjunctiva were pink and moist. Extraocular movements were intact and pupils were equal round and reactive to light. Eyelids were unremarkable. PULMONARY: Unlabored respirations. Good breath sounds bilaterally. No audible rales rhonchi or wheezing was noted. CARDIOVASCULAR: There is a regular rate and rhythm without any murmurs gallops or rubs. ABDOMEN: Soft and nontender with normal bowel sounds. SKIN: Skin is clear with no lesions or rashes and otherwise unremarkable. NEUROLOGIC: Patient is alert and oriented unable to assess orientation since it is difficult to understand the patient speech is slurred but I am told that this is baseline. Patient has right-sided arm and leg weakness 3 out of 5 range for both. MUSCULOSKELETAL: Normal extremities with adequate strength and full range of motion. LYMPHATICS: No significant lymphadenopathy is noted PSYCHIATRIC: Unable to assess Limitations: no limitations Course Vital Signs 04/27/23 04/27/23 04/27/23 11:58 12:10 12:30 Temperature 97.8 F 97.8 F Pulse Rate 75 90 Respiratory 20 20 Rate Blood Pressure 152/68 175/78 O2 Sat by Pulse 92 L 95 96 Oximetry 04/27/23 04/27/23 04/27/23 12:45 13:00 13:30 Temperature 97.8 F 97.9 F 97.9 F Pulse Rate 74 75 70 Respiratory 20 20 20 Rate Blood Pressure 146/59 159/84 166/61 O2 Sat by Pulse 95 97 100 Oximetry 04/27/23 04/27/23 04/27/23 13:45 13:56 14:00 Temperature 97.9 F 98.0 F Pulse Rate 65 63 63 Respiratory 18 16 20 Rate Blood Pressure 162/63 130/48 128/49 O2 Sat by Pulse 100 98 98 Oximetry Medical Decision Making - Medical Decision Making EKG is interpreted by myself. EKG shows a sinus rhythm at 60 bpm [place] interval is 210 QRS is 113 QT interval 366 QTc is [address] segment ovation or depression. Was pt. sent in by a medical professional or institution (, [facility], [facility] [employer], urgent care, hospital, or halfway...) When possible be specific @ -[facility] sent the patient in Did you speak to anyone other than the patient for history (EMS, parent, family, police, friend...)? What history was obtained from this source @ -Caregivers at the halfway gave most of the history Did you review nursing and triage notes (agree or disagree)? Why? @ -I reviewed and agree with nursing and triage notes Were old charts reviewed (outside hosp., previous admission, EMS record, old EKG, old radiological studies, urgent care reports/EKG's, halfway records)? Report findings @ -I reviewed prior charts prior lab work and prior radiological studies Differential Diagnosis (chest pain, altered mental status, abdominal pain women, abdominal pain men, vaginal bleeding, weakness, fever, dyspnea, syncope, headache, dizziness, GI bleed, back pain, seizure, CVA, palpatations, mental health, musculoskeletal)? @ -Differential CVA Ischemic stroke, hemorrhagic stroke, brain tumor, atypical migraine, Wernicke's encephalopathy, seizure, multiple sclerosis, meningitis, encephalitis, hypoglycemia, Guillain-Chaves, electrolytes disturbance, myasthenia gravis.... This is not meant to be an all-inclusive list EKG interpreted by me (3pts min.). @ -As above X-rays interpreted by me (1pt min.). @ -Chest x-ray shows an elevated left diaphragm with a high hiatal hernia CT CT interpreted by me (1pt min.). @ -CT of the brain shows no acute abnormality however there is a large left MCA deficit. U/S interpreted by me (1pt. min.). @ -None done What testing was considered but not performed or refused? (CT, X-rays, U/S, labs)? Why? @ -None What meds were considered but not given or refused? Why? @ -None Did you discuss the management of the patient with other professionals (professionals i.e. DrNimisha, PA, [employer], lab, RT, psych nurse, social media campaign manager, chief strategy officer, teacher, customs and immigration officer, returned case inspector)? Give summary @ -I spoke with the neuro interventionalists Dr. Basilio and he agreed medical management was the way to go with this patient. I spoke with Dr. Justin and he agreed to admit the patient Was smoking cessation discussed for >3mins.? @ -No Was critical care preformed (if so, how long)? @ -35 minutes Were there social determinants of health that impacted care today? How? (Homelessness, low income, unemployed, alcoholism, drug addiction, transportation, low edu. Level, literacy, decrease access to med. care, nursing home, rehab)? @ -No Was there de-escalation of care discussed even if they declined (Discuss DNR or withdrawal of care, Hospice)? DNR status @ -No What co-morbidities impacted this encounter? (DM, HTN, Smoking, COPD, CAD, Cancer, CVA, ARF, Chemo, Hep., AIDS, mental health diagnosis, sleep apnea, morbid obesity)? @ -None Was patient admitted / discharged? Hospital course, mention meds given and route, prescriptions, significant lab abnormalities, going to OR and other pertinent info. @ -On patient's arrival a code stroke was called overhead. I shortly thereafter spoke with Dr. Basilio. Patient's neurologic status has not changed. Patient will be admitted to Dr. Justin and I will consult neurology Undiagnosed new problem with uncertain prognosis? @ -No Drug Therapy requiring intensive monitoring for toxicity (Heparin, Nitro, Insulin, Cardizem)? @ -No Were any procedures done? @ -No Diagnosis/symptom? @ -CVA Acute, or Chronic, or Acute on Chronic? @ -Acute complicated Uncomplicated (without systemic symptoms) or Complicated (systemic symptoms)? @ -Complicated Side effects of treatment? @ -No Exacerbation, Progression, or Severe Exacerbation? @ -No Poses a threat to life or bodily function? How? (Chest pain, USA, MD, pneumonia, PE, COPD, DKA, ARF, appy, cholecystitis, CVA, Diverticulitis, Homicidal, Suicidal, threat to staff... and all critical care pts) @ -Yes this can lead to a massive stroke and possible - Lab Data Result diagrams: 04/27/23 12:32 04/27/23 12:32 Lab Results 04/27/23 04/27/23 04/27/23 Range/Units 12:02 12:32 12:32 WBC 6.8 (3.8-10.6) k/uL RBC 3.81 (3.80-5.40) m/uL Hgb 12.0 (11.4-16.0) gm/dL Hct 37.9 (34.0-46.0) % MCV 99.3 (80.0-100.0) fL MCH 31.5 (25.0-35.0) pg MCHC 31.7 (31.0-37.0) g/dL RDW 13.1 (11.5-15.5) % Plt Count 247 (150-450) k/uL MPV 8.4 Neutrophils % 67 % Lymphocytes % 21 % Monocytes % 6 % Eosinophils % 3 % Basophils % 1 % Neutrophils # 4.6 (1.3-7.7) k/uL Lymphocytes # 1.4 (1.0-4.8) k/uL Monocytes # 0.4 (0-1.0) k/uL Eosinophils # 0.2 (0-0.7) k/uL Basophils # 0.1 (0-0.2) k/uL PT 11.4 (10.0-12.5) sec INR 1.1 (<1.2) APTT 24.4 (22.0-30.0) sec Sodium (137-145) mmol/L Potassium (3.5-5.1) mmol/L Chloride (98-107) mmol/L Carbon Dioxide (22-30) mmol/L Anion Gap mmol/L BUN (7-17) mg/dL Creatinine (0.52-1.04) mg/dL Est GFR (CKD-EPI)AfAm (>60 ml/min/1.73 sqM) Est GFR (CKD-EPI)NonAf (>60 ml/min/1.73 sqM) Glucose (74-99) mg/dL POC Glucose (mg/dL) 73 (70-110) mg/dL POC Glu Lead Nuclear Medicine Technologist ID Janet Higgins Calcium (8.4-10.2) mg/dL Total Bilirubin (0.2-1.3) mg/dL AST (14-36) U/L ALT (4-34) U/L Alkaline Phosphatase (38-126) U/L Creatine Kinase (30-135) U/L Troponin I (0.000-0.034) ng/mL Total Protein (6.3-8.2) g/dL Albumin (3.5-5.0) g/dL Urine Color Urine Appearance (Clear) Urine pH (5.0-8.0) Ur Specific [place] (1.001-1.035) Urine Protein (Negative) Urine Glucose (UA) (Negative) Urine Ketones (Negative) Urine Blood (Negative) Urine Nitrite (Negative) Urine Bilirubin (Negative) Urine Urobilinogen (<2.0) mg/dL Ur Leukocyte Esterase (Negative) 04/27/23 04/27/23 04/27/23 Range/Units 12:32 12:32 13:13 WBC (3.8-10.6) k/uL RBC (3.80-5.40) m/uL Hgb (11.4-16.0) gm/dL Hct (34.0-46.0) % MCV (80.0-100.0) fL MCH (25.0-35.0) pg MCHC (31.0-37.0) g/dL RDW (11.5-15.5) % Plt Count (150-450) k/uL MPV Neutrophils % % Lymphocytes % % Monocytes % % Eosinophils % % Basophils % % Neutrophils # (1.3-7.7) k/uL Lymphocytes # (1.0-4.8) k/uL Monocytes # (0-1.0) k/uL Eosinophils # (0-0.7) k/uL Basophils # (0-0.2) k/uL PT (10.0-12.5) sec INR (<1.2) APTT (22.0-30.0) sec Sodium 136 L (137-145) mmol/L Potassium 5.9 H (3.5-5.1) mmol/L Chloride 108 H (98-107) mmol/L Carbon Dioxide 21 L (22-30) mmol/L Anion Gap 7 mmol/L BUN 46 H (7-17) mg/dL Creatinine 1.33 H (0.52-1.04) mg/dL Est GFR (CKD-EPI)AfAm 42 (>60 ml/min/1.73 sqM) Est GFR (CKD-EPI)NonAf 37 (>60 ml/min/1.73 sqM) Glucose 86 (74-99) mg/dL POC Glucose (mg/dL) (70-110) mg/dL POC Glu Lead Nuclear Medicine Technologist ID Calcium 10.0 (8.4-10.2) mg/dL Total Bilirubin 0.8 (0.2-1.3) mg/dL AST 47 H (14-36) U/L ALT 18 (4-34) U/L Alkaline Phosphatase 112 (38-126) U/L Creatine Kinase 86 (30-135) U/L Troponin I <0.012 (0.000-0.034) ng/mL Total Protein 7.1 (6.3-8.2) g/dL Albumin 4.0 (3.5-5.0) g/dL Urine Color Colorless Urine Appearance Clear (Clear) Urine pH 6.0 (5.0-8.0) Ur Specific [place] 1.019 (1.001-1.035) Urine Protein Negative (Negative) Urine Glucose (UA) Negative (Negative) Urine Ketones Negative (Negative) Urine Blood Negative (Negative) Urine Nitrite Negative (Negative) Urine Bilirubin Negative (Negative) Urine Urobilinogen <2.0 (<2.0) mg/dL Ur Leukocyte Esterase Negative (Negative) Disposition Clinical Impression: Cerebrovascular accident (CVA) Disposition: ADMITTED IP TO THIS HOSP Referrals: Omer Tuttle MD [Primary Care Provider] - 1-2 days Time of Disposition: 14:57
[2023-04-27] MEDS: methylPREDNISolone SOD SUCCI 125 MG/2 ML VIAL IV STA (12:38)
[2023-04-27] MEDS: SODIUM CHLORIDE 0.9% 500 ML 500 ML IV STA (12:38)
[2023-04-27] MEDS: FAMOTIDINE 20 MG/2 ML VIAL IV STA (12:40)
[2023-04-27] MEDS: diphenhydrAMINE 50 MG/ML 1 ML VIAL IVP STA (12:42)
[2023-04-27 12:43] LABS: Basophils # (A) 0.1 k/uL (0-0.2); Basophils % (A) 1 %; Eosinophils # (A) 0.2 k/uL (0-0.7); Eosinophils % (A) 3 %; HCT 37.9 % (34.0-46.0); Lymphocytes # (A) 1.4 k/uL (1.0-4.8); Lymphocytes % (A) 21 %; MCH 31.5 pg (25.0-35.0); MCHC 31.7 g/dL (31.0-37.0); MCV 99.3 fL (80.0-100.0); Mean Platelet Volume 8.4; Monocytes # (A) 0.4 k/uL (0-1.0); Monocytes % (A) 6 %; Neutrophils # (A) 4.6 k/uL (1.3-7.7); Neutrophils % (A) 67 %; Platelet Count 247 k/uL (150-450); RBC 3.81 m/uL (3.80-5.40); RDW 13.1 % (11.5-15.5); WBC 6.8 k/uL (3.8-10.6)
[2023-04-27 12:52] LABS: INR 1.1 (<1.2); Partial Thromboplastin Time 24.4 sec (22.0-30.0); Prothrombin Time 11.4 sec (10.0-12.5)
[2023-04-27 12:54] LABS: ALT 18 U/L (4-34); African American GFR (CKD) 42 (>60 ml/min/1.73 sqM); Anion Gap 7 mmol/L; Blood Urea Nitrogen 46 mg/dL (7-17); Carbon Dioxide 21 mmol/L (22-30); Chloride 108 mmol/L (98-107); Creatine Kinase 86 U/L (30-135); Glucose 86 mg/dL (74-99); Non-African American GFR(CKD) 37 (>60 ml/min/1.73 sqM); Sodium 136 mmol/L (137-145); Total Bilirubin 0.8 mg/dL (0.2-1.3); Total Protein 7.1 g/dL (6.3-8.2)
--- NOTE | 2023-04-27 13:01 | CT ---
EXAMINATION TYPE: CT brain wo con CT DLP: 1095.4 mGycm, Automated exposure control for dose reduction was used. DATE OF EXAM: 04/27/2023 12:41 PM COMPARISON: . CLINICAL INDICATION:Female, 82 years old with history of Neuro deficit, acute, stroke suspected, Rt s ided weakness TECHNIQUE: Brain: Axial CT images of the brain were obtained with coronal and sagittal reformats created and rev iewed. Contrast used: None. Oral contrast used: None. FINDINGS: Brain: Extra-axial spaces: No abnormal extra-axial fluid collections. Ventricular system: Within normal limits Cerebral parenchyma: No acute intraparenchymal hemorrhage or mass effect. No acute intracranial pro cess. Chronic large left MCA territory infarct with fully evolved encephalomalacia. Chronic smaller l eft occipital lobe infarct with fully involved encephalomalacia. Stable since prior exam of 04/14/2023. Cerebellum: Unremarkable. Mass effect: No evidence of midline shift. Intracranial vasculature: unremarkable Soft tissues: Normal. Calvarium/osseous structures: No depressed skull fracture. Paranasal sinuses and mastoid air cells: Mild scattered paranasal sinus disease. Visualized orbits: Orbital contents are intact. IMPRESSION: No acute intracranial process. Chronic large left MCA territory infarct. Chronic smaller left occipit al lobe infarct. Stable since prior exam of 04/14/2023. Result of the large left chronic left MCA infarct and left posterior parietal multiple chronic infarc ts, no acute infarct, unchanged since prior exam April 14, 2023, verbally given to Dr. Caldwell in the [facility] at 12:48 hours on, 04/27/2023
[2023-04-27 13:05] LABS: AST 47 U/L (14-36); Alkaline Phosphatase 112 U/L (38-126); Potassium 5.9 mmol/L (3.5-5.1)
[2023-04-27 13:27] LABS: Appearance,Urine Clear (Clear); Bilirubin,Urine Negative (Negative); Blood,Urine Negative (Negative); Color,Urine Colorless; Glucose,Urine (UA) Negative (Negative); Ketones,Urine Negative (Negative); Leukocyte Esterase,Urine Negative (Negative); Nitrite,Urine Negative (Negative); Protein,Urine Negative (Negative); Specific Gravity,Urine 1.019 (1.001-1.035); Urobilinogen,Urine <2.0 mg/dL (<2.0)
--- NOTE | 2023-04-27 13:29 | XR ---
EXAMINATION TYPE: XR chest 2V DATE OF EXAM: 04/27/2023 COMPARISON: 04/14/2023 TECHNIQUE: PA and lateral views submitted. HISTORY: Altered mental status FINDINGS: The lungs are clear and there is no pneumothorax, pleural effusion, or focal pneumonia. Heart size normal and no overt failure. Osseous structures demonstrate hypertrophic and degenerative changes of the spine. Atherosclerotic change aorta with elevated left hemidiaphragm. Findings stable. IMPRESSION: 1. No acute process.
--- NOTE | 2023-04-27 15:20 | CT ---
EXAMINATION TYPE: CT angio head neck CT DLP: 338.7 mGycm, Automated exposure control for dose reduction was used. DATE OF EXAM: 04/27/2023 1:09 PM COMPARISON: CT brain same day.. CLINICAL INDICATION:Female, 82 years old with history of Neuro deficit, acute, stroke suspected; PHH, Rt sided weakness TECHNIQUE: Axially acquired helical CT angiogram of the head and neck was obtained with contrast. Axi al images are supplemented with 3D reconstructions and MIP images which were post-processed at an in dependent workstation. NASCET criteria used. Contrast used:65 mL of Isovue 370 with IV Contrast, Oral contrast used: None. FINDINGS: CTA HEAD: No evidence of acute intracranial hemorrhage, mass effect, or midline shift. The ventricles, sulci, a nd cisterns are unremarkable. Prior left MCA infarct with encephalomalacia. The visualized portions of the internal carotid arteries, middle cerebral arteries, anterior cerebral arteries, and posterior cerebral arteries are patent. The basilar and vertebral arteries are patent. No dominant left vertebral artery. CTA NECK: Right Carotid System: The common carotid and external carotid arteries are patent. There is less than 25% stenosis at the c arotid bifurcation secondary to calcified/noncalcified plaque. The rest of the internal carotid arter y is patent. Left Carotid System: The common carotid artery and external carotid artery are patent. The internal carotid artery is occl uded just past its origin extending into the temporal portion of the internal carotid artery.. Vertebral arteries are patent without evidence hemodynamically significant stenosis. Left dominant ve rtebral artery system. Diminutive right vertebral artery. There is a three-vessel aortic arch. The origins of the great vessels are patent. No evidence of hemo dynamically significant stenosis. IMPRESSION: 1. Occlusion of the left internal carotid artery just past its bifurcation into the [place] . 2. Less than 50% stenosis of the right carotid bifurcation. 3. No evidence of significant stenosis of the right carotid system. 4. Encephalomalacia the left MCA territory from prior injury. 5. No evidence for intracranial aneurysm.
[2023-04-27] MEDS: busPIRone HCl 5 MG TAB PO SCH (15:26)
[2023-04-27] MEDS: ASPIRIN 325 MG TAB PO STA (15:26)
[2023-04-27] MEDS: SODIUM CHLORIDE 0.9% 1,000 ML IV SCH (15:27)
--- NOTE | 2023-04-27 15:27 | P.HPIM ---
History of Present Illness H&P Date: 04/27/23 82 year old F with PMH of CVA with right sided residual deficits, hypothyroidism, seizure disorder, glaucoma, hypertension, dyslipidemia presents to the ED. Patient is a poor historian so majority of history of obtained from documentation. Sent in for worsening right sided weakness that was noticed at 7:30AM by nursing staff. Patient is aphasic at baseline. She denies any complaints and would like to go home. Denies chest pain, SOB, palpitations, dizziness, changes in urination or bowel habits. In the ED she underwent extensive evaluation. BP 159/84, HR 75, RR 20, T 97.9, 97% on RA. CBC and coagulation panel within normal limits. CMP shows sodium 136, potassium 5.9, chloride 108, bicarb 21, BUN 46, creatinine 1.33, AST 47. Troponin less than 0.012. CPK 86. Urinalysis negative. EKG sinus rhythm with incomplete RBBB. Brain CT showed chronic large left MCA infarct, chronic small left occipital infarct, left posterior parietal multiple chronic infarcts. Discussed with Dr. Caldwell in the ED who discussed with patient with Dr. Staley, medical management recommended. Patient is admitted for CVA workup and Neurology consultation. General: non toxic, no distress, appears at stated age Derm: warm, dry Head: atraumatic, normocephalic, symmetric Eyes: EOMI, no lid lag, anicteric sclera Mouth: no lip lesion, mucus membranes moist Cardiovascular: S1S2 reg, no murmur Lungs: Clear to auscultation bilateral, no rhonchi, no rales , no accessory muscle use Ext: no gross muscle atrophy, no edema, contractured RUE Neuro: CN II - XII grossly intact. Strength RU and RLE 3/5, BETZY and LLE 5/5. No other noted focal neuro deficits Psych: Alert, oriented, appropriate affect Based on my assessment of this patient, this patient meets a high complexity level of care. Patient has an acute diagnosis of worsening RU and RLE weakness with history of CVA that poses a threat to life or bodily function. Acute on chronic right sided weakness: TIA vs CVA. ASA 81 mg PO QD. Plavix 75 mg PO QD. Start Lipitor 40 mg PO QD. CTA head and neck pending. MRI brain. Echo. Lipid panel, A1c. Check COVID 19. Check Keppra and Lamictal levels. Check TSH. PT/OT/ST. Telemetry monitoring. Advanced neurochecks. Neurology consult. Hyperkalemia: Hemolyzed. Repeat BMP tomorrow morning. ÁLVARO on CKD: Start NS at 75 cc/hr. Repeat BMP tomorrow. Metabolic acidosis: IV hydration as above. Hyponatremia: IV hydration as above. Chronic conditions: Hypothyroidism, seizure disorder, glaucoma, hypertension, dyslipidemia CODE STATUS: FULL CODE. DVT Prophylaxis: Heparin SQ GI Prophylaxis: Designated medical POA if patient is not able to make medical decisions for themselves: Guardian I have reviewed the following insurance consultant notes: ED I have reviewed the results of the following tests: As above I have ordered the following tests: As above I have discussed the care of this patient with the following independent histor natalee: I have independently interpreted the following test below: EKG I have discussed the management of this patient with the following physician: Dr. Caldwell Past Medical History Past Medical History: CVA/TIA, Hyperlipidemia, Seizure Disorder, Thyroid Disorder History of Any Multi-Drug Resistant Organisms: None Reported Past Surgical History: Unable to Obtain Past Psychological History: Depression Smoking Status: Never smoker Past Alcohol Use History: Rare Past Drug Use History: None Reported - Past Family History Father Additional Family Medical History / Comment(s): age 75 unk cause Mother Additional Family Medical History / Comment(s): mom age 95 unk cause Medications and Allergies Home Medications Medication Instructions Recorded Confirmed Type busPIRone HCl [Buspar] 5 mg PO TID 11/25/22 04/27/23 History Clopidogrel [Plavix] 75 mg PO DAILY tab 12/09/22 04/27/23 Rx lamoTRIgine [LaMICtal] 150 mg PO BID tab 12/09/22 04/27/23 Rx levETIRAcetam [Keppra] 1,000 mg PO HS tab 12/09/22 04/27/23 Rx levETIRAcetam [Keppra] 500 mg PO DAILY tab 12/09/22 04/27/23 Rx lisinopriL [Zestril] 10 mg PO DAILY tab 12/09/22 04/27/23 Rx Calcium Carbonate/Vitamin D3 1 tab PO BID 04/27/23 04/27/23 History [Calcium 600 mg-Vit D3 5 mcg (200 unit)] Fenofibrate,Micronized 200 mg PO DAILY 04/27/23 04/27/23 History [Fenofibrate] Latanoprost Ophth [Xalatan 0.005%] 1 drops BOTH EYES HS 04/27/23 04/27/23 History Levothyroxine Sodium [Synthroid] 75 mcg PO DAILY 04/27/23 04/27/23 History Allergies Allergy/AdvReac Type Severity Reaction Status Date / Time Iodinated Contrast Media Allergy Unknown Verified 04/27/23 12:28 [Iodinated Contrast Media - IV Dye] Physical Exam Vitals: Vital Signs Temp Pulse Resp BP Pulse Ox 04/27/23 14:00 98.0 F 63 20 128/49 98 04/27/23 13:56 63 16 130/48 98 04/27/23 13:45 97.9 F 65 18 162/63 100 04/27/23 13:30 97.9 F 70 20 166/61 100 04/27/23 13:00 97.9 F 75 20 159/84 97 04/27/23 12:45 97.8 F 74 20 146/59 95 04/27/23 12:30 97.8 F 90 20 175/78 96 04/27/23 12:10 95 04/27/23 11:58 97.8 F 75 20 152/68 92 L Intake and Output 04/27/23 04/27/23 04/27/23 06:59 14:59 22:59 Other: Weight 65.907 kg Results CBC & Chem 7: 04/27/23 12:32 04/27/23 12:32 Labs: Abnormal Lab Results - Last 24 Hours (Table) 04/27/23 Range/Units 12:32 Sodium 136 L (137-145) mmol/L Potassium 5.9 H (3.5-5.1) mmol/L Chloride 108 H (98-107) mmol/L Carbon Dioxide 21 L (22-30) mmol/L BUN 46 H (7-17) mg/dL Creatinine 1.33 H (0.52-1.04) mg/dL AST 47 H (14-36) U/L
--- NOTE | 2023-04-27 17:59 | MR ---
EXAMINATION TYPE: MR brain wo con DATE OF EXAM: 04/27/2023 5:39 PM CLINICAL INDICATION:Female, 82 years old with history of CVA; COMPARISON: 04/27/2023. TECHNIQUE: Multi planar, multi sequence imaging was performed through the brain including: T1, T2, In version recovery, Diffusion weighted imaging, and gradient echo imaging. No gadolinium was given. FINDINGS: Encephalomalacia the left MCA territory from prior injury. No evidence for acute/subacute C VA. Generalized atrophy changes with proportional dilation to the ventricular system. Scattered high T2 signal throughout the deep white matter and in the area of prior injury. Midline structures show n o abnormality. Diffusion-weighted imaging shows no evidence of restricted diffusion. The susceptibili ty weighted images do not reveal any evidence for micro-hemorrhage. The bone marrow signal is within normal limits. Paranasal sinuses and mastoid air cells: No significant paranasal sinus disease. Visualized orbits: Bilaterally aphakia. IMPRESSION: 1. No evidence of intracranial mass or acute/subacute infarct. 2. Remote left MCA chest injury with encephalomalacia 3. Nonspecific white matter changes, likely secondary to small vessel ischemic disease.
[2023-04-28] MEDS: levETIRAcetam 500 MG TAB PO SCH ×2 (00:02→08:26)
[2023-04-28] MEDS: HEPARIN SODIUM,PORCINE 5,000 UNIT/ML 1 ML VIAL SQ SCH (00:02)
[2023-04-28] MEDS: lamoTRIgine 100 MG TAB PO SCH (00:02)
[2023-04-28] MEDS: LATANOPROST 0.005% OPHTH DROPS 2.5 ML BTL BOTH EYES SCH (00:44)
[2023-04-28 05:41] LABS: Lamotrigine (Lamictal) 14.8 ug/mL (2.0-15.0)
[2023-04-28 06:04] LABS: Levetiracetam (Keppra) 38.3 ug/mL (3.0-60.0)
[2023-04-28] MEDS: LEVOTHYROXINE 75 MCG TAB PO SCH (06:34)
[2023-04-28] MEDS: lisinopriL 10 MG TAB PO SCH (08:25)
[2023-04-28] MEDS: ASPIRIN 81 MG PO SCH (08:25)
[2023-04-28] MEDS: ATORVASTATIN 40 MG TAB PO SCH (08:26)
[2023-04-28] MEDS: FENOFIBRATE 160 MG TAB PO SCH (08:26)
[2023-04-28] MEDS: CLOPIDOGREL 75 MG TAB PO SCH (08:26)
[2023-04-28] MEDS ORDERED: ASPIRIN 325 MG TAB PO SCH (09:00)
--- NOTE | 2023-04-28 09:16 | P.CNNES ---
History of Present Illness Consult date: 04/27/23 Requesting physician: Uriah Caldwell Reason for Consult: CVA History of Present Illness: Patient is a 82-year-old female with previous history of CVA came to the hospital by ambulance this morning at 11:56 AM. Patient has significant expressive aphasia, therefore not able to provide any history. Family members not present. As per EMS flowsheet, when they arrived, found patient in care of staff. Per staff patient walked to breakfast this morning and now has right- sided deficits and unstable gait. Per staff, patient has multiple deficits from previous CVA, including speech difficulties. Patient was apprehensive about assessment, per staff normal behavior for her. No falls reported. 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 Vitals at the scene was blood pressure 159/59 pulse rate 73 respiration 20 saturation 99%, blood sugar 101. As per ED report, the symptoms were noted at about 7:30 AM on waking. There was no last known well at this time. Therefore patient was not a candidate for tPA. Blood test shows normal CBC, PT PTT, normal UA, influenza screen, RSV and coronavirus. Sodium 136 potassium 5.9, BUN 46, creatinine 1.33. Keppra level is therapeutic 38.3 and Lamictal 14.8 (2-15). EKG shows sinus rhythm with first AV block. CT head revealed no acute intracranial process. Chronic large, left MCA territory infarct. Chronic smaller left occipital lobe infarct. Stable appearance prior exam of 04/14/2023. I personally reviewed CT head, agree with the findings. This area of encephalomalacia was previously present in the CT head from 09/19/2013 as well. Patient had a normal EEG previously on 09/20/2013. Patient also has history of seizure disorder. Patient takes Keppra 500 mg in the morning and 1000 mg at bedtime daily, Lamictal 150 mg twice daily. Also on BuSpar, Plavix 75 mg, lisinopril, fenofibrate, levothyroxine. Review of Systems Patient could not tell about any visual disturbance, anxiety or depression. Says "I do not know". Constitutional: Denies chills, Denies fever Ears: deny: decreased hearing, ear discharge Ears, nose, mouth and throat: Denies headache, Denies sore throat, Denies vertigo Cardiovascular: Denies chest pain, Denies lightheadedness, Denies shortness of breath Respiratory: Reports cough, Denies excessive sputum Gastrointestinal: Denies abdominal pain, Denies diarrhea, Denies nausea, Denies vomiting Musculoskeletal: Denies low back pain, Denies myalgias, Denies neck pain Psychiatric: Reports as per HPI Hematologic/Lymphatic: Reports easy bleeding, Reports easy bruising Past Medical History Past Medical History: CVA/TIA, Hyperlipidemia, Seizure Disorder, Thyroid Disorder History of Any Multi-Drug Resistant Organisms: None Reported Past Surgical History: Unable to Obtain Past Psychological History: Depression Smoking Status: Never smoker Past Alcohol Use History: Rare Past Drug Use History: None Reported - Past Family History Father Additional Family Medical History / Comment(s): age 75 unk cause Mother Additional Family Medical History / Comment(s): mom age 95 unk cause Medications and Allergies Home Medications Medication Instructions Recorded Confirmed Type busPIRone HCl [Buspar] 5 mg PO TID 11/25/22 04/27/23 History Clopidogrel [Plavix] 75 mg PO DAILY tab 12/09/22 04/27/23 Rx lamoTRIgine [LaMICtal] 150 mg PO BID tab 12/09/22 04/27/23 Rx levETIRAcetam [Keppra] 1,000 mg PO HS tab 12/09/22 04/27/23 Rx levETIRAcetam [Keppra] 500 mg PO DAILY tab 12/09/22 04/27/23 Rx lisinopriL [Zestril] 10 mg PO DAILY tab 12/09/22 04/27/23 Rx Calcium Carbonate/Vitamin D3 1 tab PO BID 04/27/23 04/27/23 History [Calcium 600 mg-Vit D3 5 mcg (200 unit)] Fenofibrate,Micronized 200 mg PO DAILY 04/27/23 04/27/23 History [Fenofibrate] Latanoprost Ophth [Xalatan 0.005%] 1 drops BOTH EYES HS 04/27/23 04/27/23 History Levothyroxine Sodium [Synthroid] 75 mcg PO DAILY 04/27/23 04/27/23 History Allergies Allergy/AdvReac Type Severity Reaction Status Date / Time Iodinated Contrast Media Allergy Unknown Verified 04/27/23 12:28 [Iodinated Contrast Media - IV Dye] Physical Examination - Vital Signs Vital Signs: Vital Signs Temp Pulse Resp BP Pulse Ox 04/27/23 14:00 98.0 F 63 20 128/49 98 04/27/23 13:56 63 16 130/48 98 04/27/23 13:45 97.9 F 65 18 162/63 100 04/27/23 13:30 97.9 F 70 20 166/61 100 04/27/23 13:00 97.9 F 75 20 159/84 97 04/27/23 12:45 97.8 F 74 20 146/59 95 04/27/23 12:30 97.8 F 90 20 175/78 96 04/27/23 12:10 95 04/27/23 11:58 97.8 F 75 20 152/68 92 L Intake and Output 04/27/23 04/27/23 04/27/23 06:59 14:59 22:59 Other: Weight 65.907 kg Patient is an elderly female, very pleasant, in no acute distress. Patient is alert awake. Patient knows her name. She could not tell me the current month or the year. Patient has significant expressive aphasia. Patient has very good comprehension. Patient able to tell me certain words like that she lives in "group home". Sometimes she says spontaneous phrases very clearly "I cannot use it". She was able to name objects like pen, but for eyeglasses patient said "blasses", then "gases". She has some paraphasic errors. Patient was able to name ear but not the earlobe. Sometimes she speaks garbled difficult to understand. Patient can repeat with multiple attempts. Her comprehension is very intact. She was able to point to the ceiling, to the TV, the floor and point her right ear with her left hand. Attention, concentration is intact and fund of knowledge is limited due to aphasia. On cranial nerve examination, pupils are equal, round and reacting to light, visual mojica are full on confrontation, with no neglect on double simultaneous stimulation. Extraocular muscles are intact with no nystagmus. Patient has mild right facial weakness. Her tongue protrudes to the midline. Palatal elevation and sensation normal, hearing and shoulder shrug normal, facial sensation normal. On muscle strength testing, there is right pronator drift about 10 degree. There is more pronation, less drift. The strength is normal in the arms except right deltoid which is 4. Rest is normal. In the lower extremities hip flexion is 5-/5, ankle dorsiflexion 5/5. Deep tendon reflexes are symmetric 2 in the upper extremities, 1 in the lower extremities and was tender for testing. Sensory to touch is equal with no neglect on double simultaneous stimulation. Cerebellar function showed ataxia for [id number] testing on the right side, but not the left. No dysdiadochokinesia. Patient is spastic in the right side. Bulk of muscles normal. Gait deferred.. On general examination, there is no carotid bruit or murmur, S1-S2 audible. Chest is clear on consultation. Abdomen is soft nontender. No organomegaly, bowel sounds present. Patient has multiple bruises noticed in her legs. Patient is very tender for examination. Results - Laboratory Findings CBC and BMP: 04/27/23 12:32 04/27/23 12:32 Abnormal Lab Findings: Abnormal Labs 04/27/23 12:32 Sodium 136 L Potassium 5.9 H Chloride 108 H Carbon Dioxide 21 L BUN 46 H Creatinine 1.33 H AST 47 H Assessment and Plan Assessment: * History of left MCA territory stroke, with residual expressive aphasia, and mild right spastic paresis. Apparently patient came to the hospital with worsening of her right-sided deficits. We do not have information about previous neurological examination, therefore uncertain if her current deficits are new or old. * Seizure disorder * Hyperlipidemia * Hypothyroidism Plan: MRI of the brain without contrast, evaluate for acute CVA 2-D echo with bubble study to rule out PFO CTA head and neck showed: Occlusion of the left ICA just past its bifurcation into the [place]. Less than 50% stenosis of the right carotid bifurcation. No evidence of significant stenosis of the right carotid system. No evidence for intracranial aneurysm. Fasting a.m. lipid panel Hemoglobin A1c Permissive hypertension for next 24-48 hours Patient has been on Plavix 75 mg daily. Patient received aspirin 325 mg in the ER. Agree with adding aspirin 81 mg to the regimen. Neuro checks every 4 hours. Patient currently on Keppra 500 mg a.m., 1000 mg at bedtime, also on Lamictal 150 mg twice daily. Agree with checking the levels. Telemetry monitoring rule out any arrhythmia PT, OT, speech therapy DVT prophylaxis: Heparin 5000 units subcu every 8 hours We will try to obtain collateral history from guardians. Neurology will continue to follow. Thank you for the consult.
--- NOTE | 2023-04-28 10:46 | P.DS ---
Providers Date of admission: 04/27/23 14:58 Expected date of discharge: 04/28/23 Attending physician: Yoko Justin MD Consults: 04/27/23 14:58 Consult Physician Routine Consulting Provider: Robert Wagner Consult Reason/Comments: CVA Do you want consulting provider notified?: Yes Primary care physician: [facility] Course: 82 year old F with PMH of CVA with right sided residual deficits, hypothyroidism, seizure disorder, glaucoma, hypertension, dyslipidemia presents to the ED. Patient is a poor historian so majority of history of obtained from documentation. Sent in for worsening right sided weakness that was noticed at 7:30AM by nursing staff. Patient is aphasic at baseline. She denies any complaints and would like to go home. Denies chest pain, SOB, palpitations, dizziness, changes in urination or bowel habits. In the ED she underwent extensive evaluation. BP 159/84, HR 75, RR 20, T 97.9, 97% on RA. CBC and coagulation panel within normal limits. CMP shows sodium 136, potassium 5.9, chloride 108, bicarb 21, BUN 46, creatinine 1.33, AST 47. Troponin less than 0.012. CPK 86. Urinalysis negative. EKG sinus rhythm with incomplete RBBB. Brain CT showed chronic large left MCA infarct, chronic small left occipital infarct, left posterior parietal multiple chronic infarcts. Discussed with Dr. Caldwell in the ED who discussed with patient with Dr. Staley, medical management recommended. Patient is admitted for CVA workup and Neurology consultation. CTA head and neck showed occlusion of the left internal carotid just past its bifurcation into [place], < 50% right carotid stenosis, encephalomalacia left MCA. MRI brain was done which showed no evidence of acute/subacute infarct. 04/27 Patient was seen and examined. No new complaints. CTA head and neck and MRI as above. TSH within normal limits. Keppra and Lamictal levels within range. Echocardiogram is pending. BMP, Lipid panel and A1c is pending. Neurology, PT/OT/ST consult pending. Plans for discharge home if remainder of the workup remains benign. Her CTA findings are likely chronic (100% occlusion of the L internal carotid). She will need to follow up with Vascular surgery for continue surveillance of carotid stenosis. General: non toxic, no distress, appears at stated age Derm: warm, dry Head: atraumatic, normocephalic, symmetric Eyes: EOMI, no lid lag, anicteric sclera Mouth: no lip lesion, mucus membranes moist Cardiovascular: S1S2 reg, no murmur Lungs: Clear to auscultation bilateral, no rhonchi, no rales , no accessory muscle use Ext: no gross muscle atrophy, no edema, contractured RUE Neuro: CN II - XII grossly intact. Strength RU and RLE 3/5, BETZY and LLE 5/5. No other noted focal neuro deficits Psych: Alert, oriented, appropriate affect Discharge Diagnosis: Acute on chronic right sided weakness History of CVA Hyperkalemia ÁLVARO on CKD Metabolic acidosis Hyponatremia Chronic conditions: Hypothyroidism, seizure disorder, glaucoma, hypertension, dyslipidemia This complex discharge took 35 minutes to complete. Plan - Discharge Summary Discharge Rx Participant: No New Discharge Prescriptions: No Action levETIRAcetam [Keppra] 500 mg PO DAILY tab lamoTRIgine [LaMICtal] 150 mg PO BID tab Calcium Carbonate/Vitamin D3 [Calcium 600 mg-Vit D3 5 mcg (200 unit)] 1 tab PO BID Latanoprost Ophth [Xalatan 0.005%] 1 drops BOTH EYES HS Levothyroxine Sodium [Synthroid] 75 mcg PO DAILY busPIRone HCl [Buspar] 5 mg PO TID levETIRAcetam [Keppra] 1,000 mg PO HS tab Clopidogrel [Plavix] 75 mg PO DAILY tab lisinopriL [Zestril] 10 mg PO DAILY tab Fenofibrate,Micronized [Fenofibrate] 200 mg PO DAILY Discharge Medication List busPIRone HCl [Buspar] 5 mg PO TID 11/25/22 [History] Clopidogrel [Plavix] 75 mg PO DAILY tab 12/09/22 [Rx] lamoTRIgine [LaMICtal] 150 mg PO BID tab 12/09/22 [Rx] levETIRAcetam [Keppra] 1,000 mg PO HS tab 12/09/22 [Rx] levETIRAcetam [Keppra] 500 mg PO DAILY tab 12/09/22 [Rx] lisinopriL [Zestril] 10 mg PO DAILY tab 12/09/22 [Rx] Calcium Carbonate/Vitamin D3 [Calcium 600 mg-Vit D3 5 mcg (200 unit)] 1 tab PO BID 04/27/23 [History] Fenofibrate,Micronized [Fenofibrate] 200 mg PO DAILY 04/27/23 [History] Latanoprost Ophth [Xalatan 0.005%] 1 drops BOTH EYES HS 04/27/23 [History] Levothyroxine Sodium [Synthroid] 75 mcg PO DAILY 04/27/23 [History] Follow up Appointment(s)/Referral(s): Omer Tuttle MD [Primary Care Provider] - 1-2 days
--- NOTE | 2023-04-28 13:35 | CA ---
Transthoracic Echo Report Name: Sandra Stephens Age: 82 Gender: F : 1940 Exam Date: 04/28/2023 08:06 Exam Location: [facility] Ht (in): 63 Wt (lb): 145 Ordering Physician: Yoko Justin MD Attending/Referring Phys: Nut Roaster Princess Razo RDCS Procedure CPT: Indications: CVA Cardiac Hx: Technical Quality: Technically difficult study Contrast 1: Definity Total Dose (mL): 2 Contrast 2: Total Dose (mL): MEASUREMENTS (Male / Female) Normal Values 2D ECHO LV Diastolic Diameter PLAX 4.3 cm 4.2 - 5.9 / 3.9 - 5.3 cm LV Systolic Diameter PLAX 3.2 cm IVS Diastolic Thickness 1.0 cm 0.6 - 1.0 / 0.6 - 0.9 cm LVPW Diastolic Thickness 1.1 cm 0.6 - 1.0 / 0.6 - 0.9 cm LV Relative Wall Thickness 0.5 RV Internal Dim ED PLAX 2.8 cm LA Systolic Diameter LX 3.9 cm 3.0 - 4.0 / 2.7 - 3.8 cm M-MODE Aortic Root Diameter MM 2.3 cm DOPPLER AV Peak Velocity 136.3 cm/s AV Peak Gradient 7.4 mmHg Mitral E Point Velocity 93.9 cm/s Mitral A Point Velocity 128.4 cm/s Mitral E to A Ratio 0.7 MV Deceleration Time 221.7 ms TR Peak Velocity 281.3 cm/s TR Peak Gradient 31.6 mmHg Right Ventricular Systolic Press 36.6 mmHg FINDINGS Left Ventricle Left ventricular ejection fraction is estimated at 60-65 %. Left ventricular cavity size normal. Mildly increased septal wall thickness. Mildly increased posterior wall thickness. Right Ventricle Normal right ventricular size. Mild pulmonary hypertension. Right Atrium Right atrium not well visualized. Left Atrium Mildly increased left atrial diameter. Mitral Valve Mitral valve thickened. Moderate thickening/calcification of the anterior mitral valve leaflet. Moderate thickening/calcification of the posterior mitral valve leaflet. No mitral regurgitation. Aortic Valve Trileaflet aortic valve. No aortic regurgitation. Tricuspid Valve Tricuspid valve not well visualized. Mild tricuspid regurgitation. Pulmonic Valve Pulmonic valve not well visualized. Pericardium No pericardial effusion. Aorta Normal size aortic root and proximal ascending aorta. CONCLUSIONS Technically difficult study for interpretation Normal LV systolic function Mitral annular calcification Previewed by: Dr. Ton Cano MD (Electronically Signed) Final Date: 28 April 2023 13:33
[2023-04-28] MEDS: LORazepam 1 MG TAB PO PRN (13:48)
[2023-04-28 16:26] LABS: African American GFR (CKD) 51 (>60 ml/min/1.73 sqM); Anion Gap 5 mmol/L; Blood Urea Nitrogen 41 mg/dL (7-17); Calcium 8.9 mg/dL (8.4-10.2); Carbon Dioxide 22 mmol/L (22-30); Chloride 113 mmol/L (98-107); Glucose 110 mg/dL (74-99); Non-African American GFR(CKD) 45 (>60 ml/min/1.73 sqM); Potassium 5.3 mmol/L (3.5-5.1); Sodium 140 mmol/L (137-145)
[2023-04-29 01:51] LABS: Chol/HDL Ratio 2.12 Ratio; LDL Cholesterol,Calculated 60.5 mg/dL (0.0-131.0)
[2023-04-29 08:55] LABS: African American GFR (CKD) 73 (>60 ml/min/1.73 sqM); Anion Gap 4 mmol/L; Blood Urea Nitrogen 27 mg/dL (7-17); Calcium 8.8 mg/dL (8.4-10.2); Carbon Dioxide 21 mmol/L (22-30); Chloride 112 mmol/L (98-107); Glucose 91 mg/dL (74-99); Non-African American GFR(CKD) 63 (>60 ml/min/1.73 sqM); Sodium 137 mmol/L (137-145)
[2023-04-29 09:08] VITALS: BP 153/63; PULSE 86; RESP 20; TEMP 98.7
--- NOTE | 2023-04-29 10:25 | P.PN ---
Subjective Progress Note Date: 04/28/23 Patient was seen for a follow-up. Patient denies headache. No new concerns. Objective - Vital Signs Vital signs: Vital Signs Temp 97.5 F L 04/28/23 12:00 Pulse 69 04/28/23 12:00 Resp 20 04/28/23 12:00 BP 125/54 04/28/23 12:00 Pulse Ox 99 04/28/23 12:00 FiO2 Intake & Output 04/27/23 04/28/23 04/28/23 18:59 06:59 18:59 Intake Total 360 Output Total 1000 Balance -1000 360 Weight 65.907 kg 65.907 kg Intake: Oral 360 Output: Urine 1000 Other: Voiding Method External Catheter - Exam Examination unchanged. - Labs CBC & Chem 7: 04/27/23 12:32 04/29/23 07:58 Assessment and Plan Assessment: * History of left MCA territory stroke, with residual expressive aphasia, and mild right spastic paresis. Apparently patient came to the hospital with worsening of her right-sided deficits. We do not have information about previous neurological examination, therefore uncertain if her current deficits are new or old. * Chronic occlusion of the left ICA. * Seizure disorder * Hyperlipidemia * Hypothyroidism Plan: * MRI of the brain without contrast, revealed no evidence of intracranial mass or acute/subacute infarct. Remote left MCA ischemic injury with encephalomalacia. Nonspecific white matter changes, likely secondary to small vessel ischemic disease. I personally reviewed MRI agree with the findings. * 2-D echo revealed technically difficult study for interpretation. Normal left ventricular systolic function with EF 60 to 65%. Mildly increased septal wall thickness. Mildly increased posterior wall thickness. Mildly increased left atrial diameter. Moderate thickening/calcification of the posterior mitral valve leaflet. No MR. * CTA head and neck showed: Occlusion of the left ICA just past its bifurcation into the [place]. Less than 50% stenosis of the right carotid bifurcation. No evidence of significant stenosis of the right carotid system. No evidence for intracranial aneurysm. Fasting a.m. lipid panel cholesterol 137, LDL 60, HDL 64 and triglycerides 59. Hemoglobin A1c 5.2. Optimize control of blood pressure. Patient has been on Plavix 75 mg daily. Patient received aspirin 325 mg in the ER. Agree with adding aspirin 81 mg to the regimen. Start Pepcid 20 mg daily for gastric ulcer prophylaxis Neuro checks every 4 hours. Patient currently on Keppra 500 mg a.m., 1000 mg at bedtime, also on Lamictal 150 mg twice daily. Keppra level 38.3 (3-60), Lamictal level 14.8 (2-15). Patient compliant with medications. Telemetry monitoring rule out any arrhythmia PT, OT, speech therapy DVT prophylaxis: Heparin 5000 units subcu every 8 hours We will try to obtain collateral history from guardians. Neurology will continue to follow. Thank you for the consult.
[2023-04-29] MEDS ORDERED: FAMOTIDINE 20 MG TAB PO SCH (10:30)
--- NOTE | 2023-04-30 11:34 | CDI ---
Documentation Clarification Form Date: 04/30/2023 11:23:59 AM From: Zainab Pederson Phone: Admit Date: 04/27/2023 02:58:00 PM Patient Name: Sandra Stephens Visit Number: [id number] Discharge Date: 04/29/2023 11:31:00 AM ATTENTION: The Clinical Documentation Specialists (CDI) and [facility] Coding Staff appreciate your assistance in clarifying documentation. Please respond to the clarification below the line at the bottom and electronically sign. The CDI & [facility] Coding staff will review the response and follow-up if needed. Please note: Queries are made part of the Legal Health Record. If you have any questions, please contact the author of this message via ITS. Dr. Yoko Justin Unspecified CKD is documented per H&P. Additional clarification regarding the stage of CKD is requested. History/Risk Factors: 82yo F, Hx CVA w A/C Rt weakness, hyperkalemia, AKIonCKD, metabolic acidosis, hyponatremia, HTN, HLD, hypothyroidism,seizure disorder,glaucoma, aphasic, chronic large leftMCA infarct, chronic small left occipital infarct, left posterior parietal multiple chronicinfarcts Clinical Indicators: BUN: 46 Cr: 1.33 AfAm: 42 NonAf: 37 Treatment: Start NS at 75 cc/hr. RepeatBMPtomorrow. Please clarify the stage of the CKD, if known: [ ] CKD Stage 3a [ x ] CKD Stage 3b [ ] Other, please specify [ ] Unable to determine Reference: National Kid[employer] Stage 1 eGFR = 90 and kidney damage for =3 months Stage 2 eGFR 60-89 and kidney damage for =3 months Stage 3a eGFR 45-59 and kidney damage for =3 months Stage 3b eGFR 30-44 and kidney damage for =3 months Stage 4 eGFR 15-29 r and kidney damage for =3 months Stage 5 eGFR <15 and kidney damage for =3 months (Template last revised: February 2023) MTDD
== END 2023-04-29 11:31 | disposition home or self-care (01) | DRG 68 ==
LOC: EC 11:56 → 3SCARD 14:58
PROVIDERS: ADMIT Family Medicine; ATTEND Family Medicine
DX: I65.22 Occlusion and stenosis of left carotid artery (principal); E87.1 Hypo-osmolality and hyponatremia; I69.351 Hemiplegia and hemiparesis following cerebral infarction affecting right dominant side; N17.9 Acute kidney failure, unspecified; E87.20 Acidosis, unspecified; G40.909 Epilepsy, unspecified, not intractable, without status epilepticus; G93.89 Other specified disorders of brain; I12.9 Hypertensive chronic kidney disease with stage 1 through stage 4 chronic kidney disease, or unspecified chronic kidney disease; E03.9 Hypothyroidism, unspecified; I69.320 Aphasia following cerebral infarction; N18.32 Chronic kidney disease, stage 3b; E78.5 Hyperlipidemia, unspecified; I45.10 Unspecified right bundle-branch block; E87.5 Hyperkalemia; H40.9 Unspecified glaucoma; K44.9 Diaphragmatic hernia without obstruction or gangrene; R29.810 Facial weakness; I44.0 Atrioventricular block, first degree; R47.02 Dysphasia; Z66 Do not resuscitate; Z79.82 Long term (current) use of aspirin; Z79.02 Long term (current) use of antithrombotics/antiplatelets; Z79.890 Hormone replacement therapy; Z79.899 Other long term (current) drug therapy; Z91.041 Radiographic dye allergy status
CPT/HCPCS: 36415; 70450; 70496; 70498; 70551; 71046; 80048; 80053; 80061; 80175; 80177; 81003; 82550; 83036; 84484; 85025; 85610; 85730; 87636; 93005; 93306; 96361; 96374; 96375; 99291

== ENCOUNTER → 2023-09-09 | Outpatient (CLI) | payer OTHER ==
--- NOTE | 2023-09-09 12:48 | FL ---
Exam Date: 09/09/2023 11:27 AM. Modified barium swallow for dysphagia. Consistencies administered: Various consistency of barium. Fluoro time: 1 min 23 sec fluoro time No images were sent to PACS. Please see speech pathology report. DAP: Not reported mGym2 Gycm2 MBS with Ilana/ ZACKARY/ MERRICK/DILIP 1 min 23 sec fluoro time Pt given 1 oz thin and 1 oz pudding
== END | disposition home or self-care (01) ==
LOC: RADFLMAIN 10:46
PROVIDERS: ATTEND Internal Medicine Hospice and Palliative Medicine
DX: R13.10 Dysphagia, unspecified (principal)
CPT/HCPCS: 74230

== ENCOUNTER 2024-04-20 00:07 | Inpatient (IN) | payer OTHER ==
[2024-04-20 02:09] LABS: ALT 20 U/L (4-34); African American GFR (CKD) 33 (>60 ml/min/1.73 sqM); Albumin 3.6 g/dL (3.5-5.0); Anion Gap 8 mmol/L; Blood Urea Nitrogen 33 mg/dL (7-17); Calcium 9.8 mg/dL (8.4-10.2); Carbon Dioxide 26 mmol/L (22-30); Chloride 105 mmol/L (98-107); Glucose 125 mg/dL (74-99); Lipase 115 U/L (23-300); Non-African American GFR(CKD) 28 (>60 ml/min/1.73 sqM); Sodium 139 mmol/L (137-145); Total Bilirubin 0.9 mg/dL (0.2-1.3); Total Protein 6.6 g/dL (6.3-8.2)
[2024-04-20 02:17] LABS: NT-Pro-B-Type Natriuretic Pept 7230 pg/mL
[2024-04-20 02:19] LABS: Basophils % (A) 1 %; Eosinophils # (A) 0.1 k/uL (0-0.7); Eosinophils % (A) 2 %; HCT 33.2 % (34.0-46.0); HGB 10.3 gm/dL (11.4-16.0); Hypochromasia Slight; Lymphocytes # (A) 0.4 k/uL (1.0-4.8); Lymphocytes % (A) 7 %; MCH 30.7 pg (25.0-35.0); Macrocytosis Slight; Mean Platelet Volume 8.5; Monocytes # (A) 0.3 k/uL (0-1.0); Monocytes % (A) 6 %; Neutrophils # (A) 4.4 k/uL (1.3-7.7); Neutrophils % (A) 83 %; Platelet Count 200 k/uL (150-450); RBC 3.35 m/uL (3.80-5.40); RDW 15.3 % (11.5-15.5); WBC 5.3 k/uL (3.8-10.6)
[2024-04-20 02:26] LABS: INR 1.1 (<1.2); Partial Thromboplastin Time 23.4 sec (22.0-30.0); Prothrombin Time 11.5 sec (10.0-12.5)
[2024-04-20 02:36] LABS: Influenza A Detected (Not Detectd); Influenza B Not Detected (Not Detectd); RSV Not Detected (Not Detectd)
[2024-04-20 02:49] LABS: Potassium 5.2 mmol/L (3.5-5.1)
[2024-04-20 02:50] LABS: AST 50 U/L (14-36); Alkaline Phosphatase 70 U/L (38-126); Magnesium 1.9 mg/dL (1.6-2.3)
--- NOTE | 2024-04-20 03:00 | ED ---
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 Patient is an 83 y/o female PMH HTN, prior CVA presenting today for shortness of breath and chest pressure. Pt does not wear home O2 and was hypoxic on arrival to her assisted living facility with pulse ox 85% on room air. Pt was placed on 4 L O2 NC and t ransported to the ED. Patient denies recent fevers or cough. Unable to discharge her chest pain but indicates the left side of her chest. - Related Data Home Medications Medication Instructions Recorded Confirmed busPIRone HCl [Buspar] 5 mg PO TID@0800,1300,199911/25/22 04/20/24 Calcium Carbonate/Vitamin D3 1 tab PO BID@0800,199904/27/23 04/20/24 [Calcium 600 mg-Vit D3 5 mcg (200 unit)] Fenofibrate,Micronized 200 mg PO DAILY@79904/27/23 04/20/24 [Fenofibrate] Latanoprost Ophth [Xalatan 0.005%] 1 drops BOTH EYES HS@199904/27/23 04/20/24 Levothyroxine Sodium [Synthroid] 75 mcg PO DAILY@79904/27/23 04/20/24 Albuterol Sulfate [Albuterol 1 puff PO RT-QID PRN 04/20/24 04/20/24 Sulfate Hfa] Alendronate Sodium [Fosamax] 70 mg PO WE@79904/20/24 04/20/24 Aspirin EC [Ecotrin Low Dose] 81 mg PO DAILY@79904/20/24 04/20/24 Atorvastatin [Lipitor] 40 mg PO DAILY@79904/20/24 04/20/24 Capsaicin Cream [Trixaicin Cream] 1 applic TOPICAL TID PRN 04/20/24 04/20/24 Clopidogrel [Plavix] 75 mg PO DAILY@79904/20/24 04/20/24 Docusate [Colace] 100 mg PO DAILY@79904/20/24 04/20/24 Famotidine [Pepcid] 20 mg PO DAILY@0800 04/20/24 04/20/24 Gabapentin [Neurontin] 100 mg PO BID@08,199904/20/24 04/20/24 HYDROcodone/APAP 5-325MG [[place] 1 tab PO Q6H PRN 04/20/24 04/20/24 5-325] LORazepam [Ativan] 0.5 mg PO BID PRN 04/20/24 04/20/24 Ondansetron Odt [Zofran Odt] 4 mg PO Q8HR PRN 04/20/24 04/20/24 lamoTRIgine [LaMICtal] 150 mg PO BID@08,199904/20/24 04/20/24 levETIRAcetam [Keppra] 1,000 mg PO HS@199904/20/24 04/20/24 levETIRAcetam [Keppra] 500 mg PO DAILY@0800 04/20/24 04/20/24 lisinopriL [Zestril] 10 mg PO DAILY@0804/20/24 04/20/24 Allergies Allergy/AdvReac Type Severity Reaction Status Date / Time Iodinated Contrast Media Allergy Unknown Verified 04/20/24 08:51 [Iodinated Contrast Media - IV Dye] Review of Systems ROS Statement: Those systems with pertinent positive or pertinent negative responses have been documented in the HPI. Limitations: ROS unobtainable due to patients medical condition Past Medical History Past Medical History: CVA/TIA, Hyperlipidemia, Seizure Disorder, Thyroid Disorder Additional Past Medical History / Comment(s): CVA with residual right sided weakness, aphasia, slurred speech History of Any Multi-Drug Resistant Organisms: None Reported Past Surgical History: Unable to Obtain Past Psychological History: Depression Smoking Status: Never smoker Past Alcohol Use History: Rare Past Drug Use History: None Reported - Past Family History Father Additional Family Medical History / Comment(s): age 75 unk cause Mother Additional Family Medical History / Comment(s): mom age 95 unk cause General Exam - General Exam Comments Initial Comments: PE: CONSTITUTIONAL: [no apparent distress, ill appearing, nontoxic SKIN: Warm, dry, no jaundice, hives or petechiae. Old greenish-brown contusions to bilateral face and forehead EYES: Pupils are equally round, extraocular movements intact without nystagmus, clear conjunctiva, non-icteric sclera HENT: Normocephalic, atraumati, w/ exception of old bruising noted above, moist mucus membranes, oropharynx clear without exudates NECK: , Full range of motion, normal appearance PULMONARY: Rhonchi and crackles bilateral lower to mid lung mojica, no wheezes or stridor, normal excursion, no accessory muscle use CARDIOVASCULAR: Regular rate, rhythm, normal S1 and S2. No appreciated murmurs, rubs or gallops. Strong radial pulses with intact distal perfusion. 1+ LE pitting edema bilaterally GASTROINTESTINAL: Soft, active bowel sounds throughout, non-tender, non- distended, no palpable masses, no rebound or guarding. No hepatosplenomegaly MUSCULOSKELETAL: Extremities have no gross deformity NEUROLOGIC:_a/o x 3, GCS 15, normal mentation, dysarthric speech, chronic for the patient Moves all extremities x 4 without motor or sensory deficit PSYCHIATRIC:_normal mood and affect, calm and cooperative Limitations: no limitations Course Vital Signs 04/20/24 04/20/24 04/20/24 00:14 05:00 08:56 Temperature 99.1 F 99.1 F Pulse Rate 102 H 90 82 Respiratory 24 17 18 Rate Blood Pressure 128/59 120/51 140/63 O2 Sat by Pulse 94 L 95 97 Oximetry EKG Findings - EKG Comments: EKG Findings:: Sinus rhythm, rate 94 bpm RI interval 192 ms QT/QTc 313/365 ms, left axis deviation, Q waves V1, V2, there is artifact present throughout limiting interpretation, no STEMI/ obvious SKYLER or ST depressions Procedures - [place] Protocol (Time Out) Nurse: Tommy Ruano Medical Decision Making - Medical Decision Making Was pt. sent in by a medical professional or institution (, PA, SALES SERVICE REPRESENTATIVE, urgent care, hospital, or care home...) When possible be specific [facility] Did you speak to anyone other than the patient for history (EMS, parent, family, police, friend...)? What history was obtained from this source @ -No Did you review nursing and triage notes (agree or disagree)? Why? @ -I reviewed nursing and triage notes Were old charts reviewed (outside hosp., previous admission, EMS record, old EKG, old radiological studies, urgent care reports/EKG's, care home records)? Report findings @ -Medical records reviewed-patient recently presented here on 03/25/2024 after a fall with resultant head injury on Plavix, CT brain at that time was negative for hemorrhage or acute process Differential Diagnosis (chest pain, altered mental status, abdominal pain women, abdominal pain men, vaginal bleeding, weakness, fever, dyspnea, syncope, h eadache, dizziness, GI bleed, back pain, seizure, CVA, palpatations, mental health, musculoskeletal)? @Differential Chest Pain: Stable Angina, Unstable Angina, STEMI, NSTEMI Aortic Dissection, pericarditis, pleurisy, chostochondirits, Pneumothorax, Musculoskeletal, Esophageal Spasm GERD, Cholecystitis, Pancreatitis, Zoster, this is not meant to be an all- inclusive list. EKG interpreted by me (3pts min.). @ -As above X-rays interpreted by me (1pt min.). @I personally reviewed chest x-ray, appears to show cardiomegaly with small bilateral pleural effusions, no gross consolidations, potentially pulmonary edema as well, I agree with radiologist interpretation CT interpreted by me (1pt min.). @ -None done U/S interpreted by me (1pt. min.). @ -None done What testing was considered but not performed or refused? (CT, X-rays, U/S, labs)? Why? @ -None What meds were considered but not given or refused? Why? @ Heparin was considered however pt had a fall less than a month ago with resultant head injury, at this time will hold heparin due to risk of bleeding, suspect elevated troponin 2/2 type II ischemia 2/2 CHF exacerbation in setting of viral infection Did you discuss the management of the patient with other professionals (professionals i.e. , PA, SALES SERVICE REPRESENTATIVE, lab, RT, psych nurse, social worker psychiatric, legal services professional, teacher, department of natural resources officer, case therapist)? Give summary @ -No Was smoking cessation discussed for >3mins.? @ -No Was critical care preformed (if so, how long)? @ Yes 35 minutes Were there social determinants of health that impacted care today? How? (Homelessness, low income, unemployed, alcoholism, drug addiction, transportation, low edu. Level, literacy, decrease access to med. care, assisted, rehab)? @ -No Was there de-escalation of care discussed even if they declined (Discuss DNR or withdrawal of care, Hospice)? @ -No What co-morbidities impacted this encounter? (DM, HTN, Smoking, COPD, CAD, Cancer, CVA, ARF, Chemo, Hep., AIDS, mental health diagnosis, sleep apnea, morbid obesity)? @ CVA, HTN, HLD Was patient admitted / discharged? Hospital course, mention meds given and ro lili, prescriptions, significant lab abnormalities, going to OR and other pertinent info. Admission-This is a pleasant 83-year-old female past medical history of prior CVA, currently on Plavix presenting today for shortness of breath. RR 24 on arrival, HR 124. Pulse ox 85% on room air. Patient on 4LO2 Nc on my assessment, in NAD. She does have rhonchi and rales in the bilateral lung mojica and a wet sounding cough. 1+ LE edema. She also has what appear to be old bruises on her forehead and under her eyes from a recent fall. Plan for ASA and chest pain evaluation with troponin, EKG, Chest XR, BNP, CMP, CBC, in addition to cepheid testing. Pt agreeable w/POC. Of note, pt does meet SIRS criteria however I suspect vital signs are more likely 2/2 CHF as opposed to acute infectious process so sepsis bundle not ordered. Pt Influenza A positive. Tamiflu ordered. Labs otherwise significant for BNP of 7230, troponin 0.344, creatinine 1.65, GFR 28, potassium 5.2, no leukocytosis, white blood cell count 5.3, hemoglobin 10.3.Personally chest x-ray appears to show cardiomegaly with small bilateral pleural effusions, read by radiologist as mild cardiomegaly, lung findings due to pulmonary edema versus pneumonia worse on the right, I suspect most likely secondary to pulmonary edema given patient's exam findings, history and breath sounds so will hold off on antibiotics at this point. On chart review patient does not appear to take Lasix at home. IV Lasix ordered. I did consider ordering a heparin drip due to troponin elevation however patient had a fall less than 1 month ago with resultant head trauma, and still has visible bruising on her face from this fall. At this point I feel the risk of bleeding if heparin administered outweighs benefit. On reassessment patient sleeping comfortably. Patient admitted to [facility] in stable condition. Undiagnosed new problem with uncertain prognosis? @ -No Drug Therapy requiring intensive monitoring for toxicity (Heparin, Nitro, Insulin, Cardizem)? @ -No Were any procedures done? @ -No Diagnosis/symptom? New onset CHF, acute hypoxic respiratory failure, influenza A Acute, or Chronic, or Acute on Chronic? @acute Uncomplicated (without systemic symptoms) or Complicated (systemic symptoms)? @complicated Side effects of treatment? @ -No Exacerbation, Progression, or Severe Exacerbation? @ -No Poses a threat to life or bodily function? How? (Chest pain, [place], [place], pneumonia, PE, COPD, DKA, ARF, appy, cholecystitis, CVA, Diverticulitis, Homicidal, Suicidal, threat to staff... and all critical care pts) yes - Lab Data Result diagrams: 04/20/24 01:45 04/20/24 01:45 Lab Results 04/20/24 04/20/24 04/20/24 Range/Units 01:45 01:45 01:45 WBC 5.3 (3.8-10.6) k/uL RBC 3.35 L (3.80-5.40) m/uL Hgb 10.3 L (11.4-16.0) gm/dL Hct 33.2 L (34.0-46.0) % MCV 99.0 (80.0-100.0) fL MCH 30.7 (25.0-35.0) pg MCHC 31.0 (31.0-37.0) g/dL RDW 15.3 (11.5-15.5) % Plt Count 200 (150-450) k/uL MPV 8.5 Neutrophils % 83 % Lymphocytes % 7 % Monocytes % 6 % Eosinophils % 2 % Basophils % 1 % Neutrophils # 4.4 (1.3-7.7) k/uL Lymphocytes # 0.4 L (1.0-4.8) k/uL Monocytes # 0.3 (0-1.0) k/uL Eosinophils # 0.1 (0-0.7) k/uL Basophils # 0.0 (0-0.2) k/uL Hypochromasia Slight Macrocytosis Slight PT 11.5 (10.0-12.5) sec INR 1.1 (<1.2) APTT 23.4 (22.0-30.0) sec Sodium 139 (137-145) mmol/L Potassium 5.2 H (3.5-5.1) mmol/L Chloride 105 (98-107) mmol/L Carbon Dioxide 26 (22-30) mmol/L Anion Gap 8 mmol/L BUN 33 H (7-17) mg/dL Creatinine 1.65 H (0.52-1.04) mg/dL Est GFR (CKD-EPI)AfAm 33 (>60 ml/min/1.73 sqM) Est GFR (CKD-EPI)NonAf 28 (>60 ml/min/1.73 sqM) Glucose 125 H (74-99) mg/dL Calcium 9.8 (8.4-10.2) mg/dL Magnesium 1.9 (1.6-2.3) mg/dL Total Bilirubin 0.9 (0.2-1.3) mg/dL AST 50 H (14-36) U/L ALT 20 (4-34) U/L Alkaline Phosphatase 70 (38-126) U/L Troponin I (0.000-0.034) ng/mL NT-Pro-B Natriuret Pep 7230 pg/mL Total Protein 6.6 (6.3-8.2) g/dL Albumin 3.6 (3.5-5.0) g/dL Lipase 115 (23-300) U/L Influenza Type A (PCR) (Not Detectd) Influenza Type B (PCR) (Not Detectd) RSV (PCR) (Not Detectd) SARS-CoV-2 (PCR) (Not Detectd) 04/20/24 04/20/24 Range/Units 01:45 01:45 WBC (3.8-10.6) k/uL RBC (3.80-5.40) m/uL Hgb (11.4-16.0) gm/dL Hct (34.0-46.0) % MCV (80.0-100.0) fL MCH (25.0-35.0) pg MCHC (31.0-37.0) g/dL RDW (11.5-15.5) % Plt Count (150-450) k/uL MPV Neutrophils % % Lymphocytes % % Monocytes % % Eosinophils % % Basophils % % Neutrophils # (1.3-7.7) k/uL Lymphocytes # (1.0-4.8) k/uL Monocytes # (0-1.0) k/uL Eosinophils # (0-0.7) k/uL Basophils # (0-0.2) k/uL Hypochromasia Macrocytosis PT (10.0-12.5) sec INR (<1.2) APTT (22.0-30.0) sec Sodium (137-145) mmol/L Potassium (3.5-5.1) mmol/L Chloride (98-107) mmol/L Carbon Dioxide (22-30) mmol/L Anion Gap mmol/L BUN (7-17) mg/dL Creatinine (0.52-1.04) mg/dL Est GFR (CKD-EPI)AfAm (>60 ml/min/1.73 sqM) Est GFR (CKD-EPI)NonAf (>60 ml/min/1.73 sqM) Glucose (74-99) mg/dL Calcium (8.4-10.2) mg/dL Magnesium (1.6-2.3) mg/dL Total Bilirubin (0.2-1.3) mg/dL AST (14-36) U/L ALT (4-34) U/L Alkaline Phosphatase (38-126) U/L Troponin I 0.344 H* (0.000-0.034) ng/mL NT-Pro-B Natriuret Pep pg/mL Total Protein (6.3-8.2) g/dL Albumin (3.5-5.0) g/dL Lipase (23-300) U/L Influenza Type A (PCR) Detected A (Not Detectd) Influenza Type B (PCR) Not Detected (Not Detectd) RSV (PCR) Not Detected (Not Detectd) SARS-CoV-2 (PCR) Not Detected (Not Detectd) Disposition Clinical Impression: Influenza A, Acute hypoxic respiratory failure, CHF exacerbation Disposition: ADMITTED IP TO THIS HOSP Condition: Stable
[2024-04-20] MEDS: FUROSEMIDE 10 MG/ML 2 ML VIAL IV ONE (03:09)
[2024-04-20] MEDS: ASPIRIN 81 MG PO STA (03:10)
--- NOTE | 2024-04-20 03:47 | XR ---
EXAM: XR Chest, 2 Views CLINICAL HISTORY: c/o chest pain and difficulty breathing. EMS states O2% on room air was 85-88%, placed on 4L via NC. GOVIND, Concern for CHF exac TECHNIQUE: Frontal and lateral views of the chest. COMPARISON: 03/25/24 FINDINGS: Lungs: lungs are underinflated. Small to moderate amount of airspace opacities in both lungs more on the right. Pleural space: Cannot rule out small bilateral pleural effusions. Heart: Mild cardiomegaly. Mediastinum: Unremarkable. Normal mediastinal contour. Bones/joints: No acute findings. Vasculature: Calcified aorta. IMPRESSION: Lung findings can be due to asymmetrical pulmonary edema versus pneumonia, worse on the right.
[2024-04-20] MEDS: OSELTAMIVIR 75 MG CAP PO SCH (07:27)
[2024-04-20] MEDS: ASPIRIN 81 MG PO SCH (09:01)
[2024-04-20] MEDS ORDERED: IPRATROPIUM-ALBUTEROL 3 ML NEB INHALATION PRN (09:03)
[2024-04-20] MEDS: busPIRone HCl 5 MG TAB PO SCH (09:05)
[2024-04-20] MEDS: FAMOTIDINE 20 MG TAB PO SCH (09:05)
[2024-04-20] MEDS: lamoTRIgine 100 MG TAB PO SCH (09:05)
[2024-04-20] MEDS: LEVOTHYROXINE 75 MCG TAB PO SCH (09:05)
[2024-04-20] MEDS: levETIRAcetam 500 MG TAB PO SCH ×2 (09:05→21:27)
[2024-04-20] MEDS: ATORVASTATIN 40 MG TAB PO SCH (09:05)
[2024-04-20] MEDS: FENOFIBRATE MICRONIZED 200 MG PO SCH (09:05)
[2024-04-20] MEDS: CLOPIDOGREL 75 MG TAB PO SCH (09:05)
--- NOTE | 2024-04-20 10:21 | P.CRDCN ---
History of Present Illness History of present illness: HISTORY OF PRESENT ILLNESS: This is a 83-year-old female with a past medical history significant for hypertension, hyperlipidemia, CVA with residual right-sided weakness and aphasia, and seizure disorder. Patient does not follow with a supply chain logistics manager. We have been asked to see the patient in consultation for congestive heart failure. Patient examined at the bedside in the emergency room. Patient is a poor historian. There is no family present. Patient states she presented to the [facility] with a chief complaint of shortness of breath and coughing. She also reports having some nausea and vomiting at home. The patient was found to be positive for influenza. At the time of examination she denies any chest pain or pressure. Vital signs are stable. DIAGNOSTICS: - EKG reveals sinus mechanism with improper lead placement. Repeat EKG reveals sinus mechanism with nonspecific ST-T wave changes with baseline artifact - Chest xray lung findings can be asymmetrical pulmonary edema versus pneumonia, worse on the right. - Laboratory data: WBC 5.3. Hemoglobin 10.3. Platelet count 200. Sodium 139. Potassium 5.2. BUN 33. Creatinine 1.65. Troponin 0.344. 1.120. proBNP 7230. - Current home cardiac medications include aspirin 81 mg daily, Lipitor 40 mg daily, Plavix 75 mg daily, lisinopril 10 mg daily. - Most recent echocardiogram obtained in April 2023 revealing ejection fraction 60 to 65%, mild pulmonary hypertension, mild TR - Cardiac catheterization history: Unknown REVIEW OF SYSTEMS: At the time of my exam: CONSTITUTIONAL: Denies fever or chills. HEENT: Denies blurred vision, vision changes, or eye pain. Denies hemoptysis CARDIOVASCULAR: Denies chest pain. Denies orthopnea. Denies PND. Denies palpitations RESPIRATORY: Denies shortness of breath. GASTROINTESTINAL: Denies abdominal pain. Denies nausea or vomiting. HEMATOLOGIC: Denies bleeding disorders. GENITOURINARY: Denies any blood in urine. SKIN: Denies pruitis. Denies rash. PHYSICAL EXAM: VITAL SIGNS: Reviewed. GENERAL: Well-developed in no acute distress. HEENT: Head is normocephalic. Pupils are equal, round. Sclerae anicteric. Mucous membranes of the mouth are moist. Neck supple. No JVD or thyromegaly LUNGS: Respirations even and unlabored. Lungs with bibasilar crackles HEART: Regular rate and rhythm. S1 and S2 heard. ABDOMEN: Soft. Nondistended. Nontender. EXTREMITIES: Normal range of motion. No clubbing or cyanosis. Peripheral pulses intact. 2+ bilateral lower extremity edema. NEUROLOGIC: Awake and alert. ASSESSMENT: Shortness of breath Acute influenza A Acute heart failure with preserved EF, likely exacerbated by acute influenza infection History of CVA with residual right-sided weakness and aphasia Acute on chronic kidney disease Elevated troponins, suspect type II MD secondary to oxygen supply/demand mismatch Hypertension Hyperlipidemia PLAN: Obtain 2D echo to assess cardiac structure and function Continue to trend troponins Repeat EKG Patient on dual antiplatelet therapy on an outpatient basis. We will continue Plavix and discontinue aspirin. Continue IV Lasix 20 mg IV every 12 hours Daily weights, accurate intake and output, and monitoring of kidney function Lisinopril placed on hold upon admission secondary to elevated creatinine Further recommendations pending patient course Nurse practitioner note has been reviewed by physician. Signing provider agrees with the documented findings, assessment, and plan of care documented by CARDIAC CATHETERIZATION TECHNOLOGIST as a scribe. Past Medical History Past Medical History: CVA/TIA, Hyperlipidemia, Seizure Disorder, Thyroid Disorder Additional Past Medical History / Comment(s): CVA with residual right sided weakness, aphasia, slurred speech History of Any Multi-Drug Resistant Organisms: None Reported Past Surgical History: Unable to Obtain Past Psychological History: Depression Smoking Status: Never smoker Past Alcohol Use History: Rare Past Drug Use History: None Reported - Past Family History Father Additional Family Medical History / Comment(s): age 75 unk cause Mother Additional Family Medical History / Comment(s): mom age 95 unk cause Medications and Allergies Home Medications Medication Instructions Recorded Confirmed Type busPIRone HCl [Buspar] 5 mg PO TID@0800,1300,199911/25/22 04/20/24 History Calcium Carbonate/Vitamin D3 1 tab PO BID@0800,199904/27/23 04/20/24 History [Calcium 600 mg-Vit D3 5 mcg (200 unit)] Fenofibrate,Micronized 200 mg PO DAILY@0800 04/27/23 04/20/24 History [Fenofibrate] Latanoprost Ophth [Xalatan 0.005%] 1 drops BOTH EYES HS@199904/27/23 04/20/24 History Levothyroxine Sodium [Synthroid] 75 mcg PO DAILY@0804/27/23 04/20/24 History Albuterol Sulfate [Albuterol 1 puff PO RT-QID PRN 04/20/24 04/20/24 History Sulfate Hfa] Alendronate Sodium [Fosamax] 70 mg PO WE@0804/20/24 04/20/24 History Aspirin EC [Ecotrin Low Dose] 81 mg PO DAILY@79904/20/24 04/20/24 History Atorvastatin [Lipitor] 40 mg PO DAILY@0804/20/24 04/20/24 History Capsaicin Cream [Trixaicin Cream] 1 applic TOPICAL TID PRN 04/20/24 04/20/24 History Clopidogrel [Plavix] 75 mg PO DAILY@79904/20/24 04/20/24 History Docusate [Colace] 100 mg PO DAILY@0804/20/24 04/20/24 History Famotidine [Pepcid] 20 mg PO DAILY@79904/20/24 04/20/24 History Gabapentin [Neurontin] 100 mg PO BID@08,199904/20/24 04/20/24 History HYDROcodone/APAP 5-325MG [[place] 1 tab PO Q6H PRN 04/20/24 04/20/24 History 5-325] LORazepam [Ativan] 0.5 mg PO BID PRN 04/20/24 04/20/24 History Ondansetron Odt [Zofran Odt] 4 mg PO Q8HR PRN 04/20/24 04/20/24 History lamoTRIgine [LaMICtal] 150 mg PO BID@08,199904/20/24 04/20/24 History levETIRAcetam [Keppra] 1,000 mg PO HS@199904/20/24 04/20/24 History levETIRAcetam [Keppra] 500 mg PO DAILY@79904/20/24 04/20/24 History lisinopriL [Zestril] 10 mg PO DAILY@0800 04/20/24 04/20/24 History Allergies Allergy/AdvReac Type Severity Reaction Status Date / Time Iodinated Contrast Media Allergy Unknown Verified 04/20/24 08:51 [Iodinated Contrast Media - IV Dye] Physical Exam Vitals: Vital Signs Temp Pulse Resp BP Pulse Ox 04/20/24 08:56 99.1 F 82 18 120/51 97 04/20/24 05:00 90 17 120/51 95 04/20/24 00:14 99.1 F 102 H 24 128/59 94 L Intake and Output 04/19/24 04/20/24 04/20/24 22:59 06:59 14:59 Other: Weight 77.111 kg Results 04/20/24 01:45 04/20/24 01:45 Cardiac Enzymes 04/20/24 04/20/24 04/20/24 Range/Units 01:45 01:45 05:58 AST 50 H (14-36) U/L Troponin I 0.344 H* 1.120 H* (0.000-0.034) ng/mL Coagulation 04/20/24 Range/Units 01:45 PT 11.5 (10.0-12.5) sec APTT 23.4 (22.0-30.0) sec CBC 04/20/24 Range/Units 01:45 WBC 5.3 (3.8-10.6) k/uL RBC 3.35 L (3.80-5.40) m/uL Hgb 10.3 L (11.4-16.0) gm/dL Hct 33.2 L (34.0-46.0) % Plt Count 200 (150-450) k/uL Comprehensive Metabolic Panel 04/20/24 Range/Units 01:45 Sodium 139 (137-145) mmol/L Potassium 5.2 H (3.5-5.1) mmol/L Chloride 105 (98-107) mmol/L Carbon Dioxide 26 (22-30) mmol/L BUN 33 H (7-17) mg/dL Creatinine 1.65 H (0.52-1.04) mg/dL Glucose 125 H (74-99) mg/dL Calcium 9.8 (8.4-10.2) mg/dL AST 50 H (14-36) U/L ALT 20 (4-34) U/L Alkaline Phosphatase 70 (38-126) U/L Total Protein 6.6 (6.3-8.2) g/dL Albumin 3.6 (3.5-5.0) g/dL Current Medications Generic Name Dose Route Start Last Admin Trade Name Freq PRN Reason Stop Dose Admin Albuterol/Ipratropium 3 ml 04/20/24 09:03 Ipratropium-Albuterol 3 Ml Neb INHALATION RT-QID PRN Shortness Of Breath Or Wheezing Aspirin 81 mg 04/20/24 09:00 04/20/24 09:01 Aspirin 81 Mg PO 81 mg DAILY [facility] Administration Atorvastatin Calcium 40 mg 04/20/24 09:00 Atorvastatin 40 Mg Tab PO DAILY [facility] Buspirone HCl 5 mg 04/20/24 09:00 Buspirone Hcl 5 Mg Tab PO TID [facility] Clopidogrel Bisulfate 75 mg 04/20/24 09:00 Clopidogrel 75 Mg Tab PO DAILY [facility] Famotidine 20 mg 04/20/24 09:00 Famotidine 20 Mg Tab PO DAILY [facility] Furosemide 20 mg 04/20/24 21:00 Furosemide 10 Mg/Ml 4 Ml Vial IV Q12HR [facility] Lamotrigine 150 mg 04/20/24 09:00 Lamotrigine 100 Mg Tab PO BID [facility] Latanoprost 1 drops 04/20/24 21:00 Latanoprost 0.005% Ophth Drops 2.5 Ml Btl BOTH EYES HS [facility] Levetiracetam 500 mg 04/20/24 09:00 Levetiracetam 500 Mg Tab PO DAILY [facility] Levetiracetam 1,000 mg 04/20/24 21:00 Levetiracetam 500 Mg Tab PO HS [facility] Levothyroxine Sodium 75 mcg 04/20/24 06:30 Levothyroxine 75 Mcg Tab PO DAILY@0630 [facility] Non-Formulary Medication 200 mg 04/20/24 09:00 Fenofibrate,Micronized [Fenofibrate] PO DAILY [facility] Oseltamivir Phosphate 75 mg 04/20/24 03:30 04/20/24 07:27 Oseltamivir 75 Mg Cap PO 04/24/24 09:01 Not Given Q12HR [facility] Protocol Intake and Output 04/19/24 04/20/24 04/20/24 22:59 06:59 14:59 Other: Weight 77.111 kg 04/20/24 01:45 04/20/24 01:45
--- NOTE | 2024-04-20 12:29 | P.HPIM ---
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 patient is a poor historian. History obtained per chart review. On arrival afebrile, tachycardic in 100s, BP stable 128/59, was put on nasal cannula 4 L, satting at 94%. Lab work significant for normal WBC count hemoglobin of 10.3, baseline around 12, sodium 139, potassium 5.2, creatinine 1.65, last creatinine was 1.49 on 03/25/2024, bicarb 26, glucose 125, AST 50, ALT normal, total bilirubin normal, troponin 0.34, 1.120, BNP 7203 tested positive for influenza A. Chest x-ray showed bilateral airspace opacities more on the right side, edema versus pneumonia. EKG with sinus rhythm, no ST elevation, QRS to 65 Admitted for further management of acute CHF, cardiology consulted, TTE ordered, started on IV lasix. Tamiflu for influenza A initiated on 04/20 Pertinent positives and negatives as discussed in HPI, a complete review of systems was performed and all other systems are negative. Patient seen and examined at bedside. Vital signs reviewed General: nontoxic, no distress, appears at stated age Derm: warm, dry, multiple bruises Head: atraumatic, normocephalic, symmetric Eyes: EOMI, no lid lag, anicteric sclera, pupils equal round reactive to light ENT: Nose and ears atraumatic Neck: No thyromegaly, supple Mouth: no lip lesion, mucus membranes moist Cardiovascular: S1S2 reg, murmur, edema Lungs: clear to auscultation bilateral, no rhonchi, no rales, no wheeze, no accessory muscle use Abdominal: soft, nontender to palpation, no guarding, no appreciable organomegaly Ext: no gross muscle atrophy, mR sided deficit, chronic Neuro: aphasia residual, able to pronounce couple words but very slowed Psych: Alert appropriate affect Assessment/Plan: Acute hypoxic respiratory failure, multifactorial, secondary to new onset CHF and influenza A infection -Continue supplemental oxygen, wean off as tolerated -cardiology consulted -TTE -Strict I's and O's, daily weights -Continue oseltamivir 75 twice daily SOT 04/20 -lasix 20 bid IV -Duoneb PRN CKD III Hyperkalemia -Monitor BMP hx of CVA with right-sided residual deficits Chronic occlusion of the left internal carotid artery aphasic at baseline -aspirin 81 stopped per cardiology, Continue home , clopidogrel 75 daily, continue prophylaxis with Pepcid 20 mg daily, continue atorvastatin 40 hypothyroidism: Continue Synthroid 75 mcg daily seizure disorder: Continue Keppra 500 a.m. and 1000 nightly glaucoma: Continue latanoprost hypertension: Not on medications dyslipidemia, atorvastatin 40 The patient is admitted with an anticipated [greater] than 2 midnight stay as [inpatient/observation] status for evaluation of acute hypoxic respiratory failure CODE STATUS DNR/DNI DVT prophylaxis: heparin Anticipated discharge date: TBD Anticipated discharge place: [facility] A total of 42 minutes was spent on the care of this complex patient more than 50% of the time was spent in counseling and care coordination. Past Medical History Past Medical History: CVA/TIA, Hyperlipidemia, Seizure Disorder, Thyroid Disorder Additional Past Medical History / Comment(s): CVA with residual right sided weakness, aphasia, slurred speech History of Any Multi-Drug Resistant Organisms: None Reported Past Surgical History: Unable to Obtain Past Psychological History: Depression Smoking Status: Never smoker Past Alcohol Use History: Rare Past Drug Use History: None Reported - Past Family History Father Additional Family Medical History / Comment(s): age 75 unk cause Mother Additional Family Medical History / Comment(s): mom age 95 unk cause Medications and Allergies Home Medications Medication Instructions Recorded Confirmed Type busPIRone HCl [Buspar] 5 mg PO TID@0800,1300,199911/25/22 04/20/24 History Calcium Carbonate/Vitamin D3 1 tab PO BID@0800,199904/27/23 04/20/24 History [Calcium 600 mg-Vit D3 5 mcg (200 unit)] Fenofibrate,Micronized 200 mg PO DAILY@0804/27/23 04/20/24 History [Fenofibrate] Latanoprost Ophth [Xalatan 0.005%] 1 drops BOTH EYES HS@199904/27/23 04/20/24 History Levothyroxine Sodium [Synthroid] 75 mcg PO DAILY@0800 04/27/23 04/20/24 History Albuterol Sulfate [Albuterol 1 puff PO RT-QID PRN 04/20/24 04/20/24 History Sulfate Hfa] Alendronate Sodium [Fosamax] 70 mg PO WE@79904/20/24 04/20/24 History Aspirin EC [Ecotrin Low Dose] 81 mg PO DAILY@0804/20/24 04/20/24 History Atorvastatin [Lipitor] 40 mg PO DAILY@79904/20/24 04/20/24 History Capsaicin Cream [Trixaicin Cream] 1 applic TOPICAL TID PRN 04/20/24 04/20/24 History Clopidogrel [Plavix] 75 mg PO DAILY@79904/20/24 04/20/24 History Docusate [Colace] 100 mg PO DAILY@0804/20/24 04/20/24 History Famotidine [Pepcid] 20 mg PO DAILY@0804/20/24 04/20/24 History Gabapentin [Neurontin] 100 mg PO BID@799,199904/20/24 04/20/24 History HYDROcodone/APAP 5-325MG [[place] 1 tab PO Q6H PRN 04/20/24 04/20/24 History 5-325] LORazepam [Ativan] 0.5 mg PO BID PRN 04/20/24 04/20/24 History Ondansetron Odt [Zofran Odt] 4 mg PO Q8HR PRN 04/20/24 04/20/24 History lamoTRIgine [LaMICtal] 150 mg PO BID@08,199904/20/24 04/20/24 History levETIRAcetam [Keppra] 1,000 mg PO HS@199904/20/24 04/20/24 History levETIRAcetam [Keppra] 500 mg PO DAILY@79904/20/24 04/20/24 History lisinopriL [Zestril] 10 mg PO DAILY@0804/20/24 04/20/24 History Allergies Allergy/AdvReac Type Severity Reaction Status Date / Time Iodinated Contrast Media Allergy Unknown Verified 04/20/24 08:51 [Iodinated Contrast Media - IV Dye] Physical Exam Vitals: Vital Signs Temp Pulse Resp BP Pulse Ox 04/20/24 08:56 99.1 F 82 18 120/51 97 04/20/24 05:00 90 17 120/51 95 04/20/24 00:14 99.1 F 102 H 24 128/59 94 L Intake and Output 04/19/24 04/20/24 04/20/24 22:59 06:59 14:59 Other: Weight 77.111 kg Results CBC & Chem 7: 04/20/24 01:45 04/20/24 01:45 Labs: Abnormal Lab Results - Last 24 Hours (Table) 04/20/24 04/20/24 04/20/24 Range/Units 01:45 01:45 01:45 RBC 3.35 L (3.80-5.40) m/uL Hgb 10.3 L (11.4-16.0) gm/dL Hct 33.2 L (34.0-46.0) % Lymphocytes # 0.4 L (1.0-4.8) k/uL Potassium 5.2 H (3.5-5.1) mmol/L BUN 33 H (7-17) mg/dL Creatinine 1.65 H (0.52-1.04) mg/dL Glucose 125 H (74-99) mg/dL AST 50 H (14-36) U/L Troponin I 0.344 H* (0.000-0.034) ng/mL Influenza Type A (PCR) (Not Detectd) 04/20/24 04/20/24 Range/Units 01:45 05:58 RBC (3.80-5.40) m/uL Hgb (11.4-16.0) gm/dL Hct (34.0-46.0) % Lymphocytes # (1.0-4.8) k/uL Potassium (3.5-5.1) mmol/L BUN (7-17) mg/dL Creatinine (0.52-1.04) mg/dL Glucose (74-99) mg/dL AST (14-36) U/L Troponin I 1.120 H* (0.000-0.034) ng/mL Influenza Type A (PCR) Detected A (Not Detectd)
--- NOTE | 2024-04-20 17:51 | CA ---
Transthoracic Echo Report Name: Sandra Stephens Age: 83 Gender: F : 1940 Exam Date: 04/20/2024 15:25 Exam Location: [place] [facility] Ht (in): 66 Wt (lb): 170 Ordering Physician: Gosia Coleman MD Attending/Referring Phys: Box Nailer Edilma Cunningham RDCS Procedure CPT: Indications: Heart failure Cardiac Hx: Technical Quality: Very technically difficult study Contrast 1: Definity Total Dose (mL): 3 Contrast 2: Total Dose (mL): MEASUREMENTS (Male / Female) Normal Values DOPPLER AV Peak Velocity 80.0 cm/s AV Peak Gradient 2.6 mmHg AV Mean Velocity 59.8 cm/s AV Mean Gradient 1.6 mmHg AV Velocity Time Integral 12.3 cm LVOT Peak Velocity 102.6 cm/s LVOT Peak Gradient 4.2 mmHg LVOT Velocity Time Integral 19.7 cm MV Peak Velocity 138.1 cm/s MV Peak Gradient 7.6 mmHg MV Mean Velocity 88.4 cm/s MV Mean Gradient 3.5 mmHg MV Velocity Time Integral 33.8 cm MV Area PHT 5.5 cm??? Mitral E Point Velocity 112.6 cm/s Mitral A Point Velocity 112.1 cm/s Mitral E to A Ratio 1.0 MV Deceleration Time 138.7 ms TR Peak Velocity 387.5 cm/s TR Peak Gradient 60.1 mmHg Right Atrial Pressure 10.0 mmHg Pulmonary Artery Systolic Pressu 70.1 mmHg Right Ventricular Systolic Press 70.1 mmHg FINDINGS Left Ventricle Left ventricle not well visualized. Overall left ventricular systolic function appears to be mildly impaired Right Ventricle Normal right ventricular size and function. Severe pulmonary hypertension. Right Atrium Right atrium not well visualized. Left Atrium Left atrium not well visualized. Mitral Valve Mitral valve thickened. Mitral annular calcification. No evidence for mitral valve prolapse. Mild mitral stenosis. No mitral regurgitation. Aortic Valve Aortic valve not well visualized. No aortic valve stenosis or regurgitation. Tricuspid Valve Structurally normal tricuspid valve. No tricuspid stenosis. [id number] tricuspid regurgitation. Pulmonic Valve Pulmonic valve not well visualized. Pericardium No pericardial effusion. Aorta Aortic root and proximal ascending aorta not well visualized. CONCLUSIONS Definity ECHO contrast used for improved visualization of the endocardial borders (inadequate visualization of two or more contiguous segments). Technically difficult study. Very limited study, no clear segmental wall motion could be assessed but the overall systolic function appears to be mildly impaired Very limited Doppler study with mild mitral and probable mild to moderate tricuspid regurgitation and severe pulmonary hypertension Previewed by: Dr. Aleida Sims MD (Electronically Signed) Final Date: 20 April 2024 17:50
[2024-04-20] MEDS: ACETAMINOPHEN TAB 325 MG TAB PO PRN (20:30)
[2024-04-20] MEDS: FUROSEMIDE 10 MG/ML 4 ML VIAL IV SCH (20:34)
[2024-04-20] MEDS: LATANOPROST 0.005% OPHTH DROPS 2.5 ML BTL BOTH EYES SCH (23:33)
[2024-04-21 08:37] LABS: Basophils % (A) 0 %; Eosinophils # (A) 0.1 k/uL (0-0.7); Eosinophils % (A) 2 %; HCT 31.8 % (34.0-46.0); HGB 9.9 gm/dL (11.4-16.0); Hypochromasia Slight; Lymphocytes # (A) 0.6 k/uL (1.0-4.8); Lymphocytes % (A) 14 %; MCH 30.6 pg (25.0-35.0); MCHC 31.1 g/dL (31.0-37.0); MCV 98.3 fL (80.0-100.0); Mean Platelet Volume 7.8; Monocytes # (A) 0.5 k/uL (0-1.0); Monocytes % (A) 12 %; Neutrophils # (A) 3.2 k/uL (1.3-7.7); Neutrophils % (A) 70 %; Platelet Count 152 k/uL (150-450); RBC 3.24 m/uL (3.80-5.40); WBC 4.6 k/uL (3.8-10.6)
[2024-04-21 08:48] LABS: African American GFR (CKD) 34 (>60 ml/min/1.73 sqM); Anion Gap 6 mmol/L; Blood Urea Nitrogen 33 mg/dL (7-17); Calcium 8.8 mg/dL (8.4-10.2); Carbon Dioxide 30 mmol/L (22-30); Chloride 99 mmol/L (98-107); Glucose 81 mg/dL (74-99); Non-African American GFR(CKD) 30 (>60 ml/min/1.73 sqM); Potassium 4.3 mmol/L (3.5-5.1); Sodium 135 mmol/L (137-145)
--- NOTE | 2024-04-21 09:38 | P.PN ---
Subjective Progress Note Date: 04/21/24 HISTORY OF PRESENT ILLNESS: This is a 83-year-old female with a past medical history significant for hy pertension, hyperlipidemia, CVA with residual right-sided weakness and aphasia, and seizure disorder. Patient does not follow with a motor polarizer. We have been asked to see the patient in consultation for congestive heart failure. Patient examined at the bedside in the emergency room. Patient is a poor historian. There is no family present. Patient states she presented to the hospital with a chief complaint of shortness of breath and coughing. She also reports having some nausea and vomiting at home. The patient was found to be positive for influenza. At the time of examination she denies any chest pain or pressure. Vital signs are stable. DIAGNOSTICS: - EKG reveals sinus mechanism with improper lead placement. Repeat EKG reveals sinus mechanism with nonspecific ST-T wave changes with baseline artifact - Chest xray lung findings can be asymmetrical pulmonary edema versus pneumonia, worse on the right. - Laboratory data: WBC 5.3. Hemoglobin 10.3. Platelet count 200. Sodium 139. Potassium 5.2. BUN 33. Creatinine 1.65. Troponin 0.344. 1.120. proBNP 7230. - Current home cardiac medications include aspirin 81 mg daily, Lipitor 40 mg daily, Plavix 75 mg daily, lisinopril 10 mg daily. - Most recent echocardiogram obtained in April 2023 revealing ejection fraction 60 to 65%, mild pulmonary hypertension, mild TR - Cardiac catheterization history: Unknown 04/21 Patient seen and examined in the emergency center still waiting for a bed on the cardiac stepdown unit. Patient has been maintained on IV Lasix 20 mg every 12 hours. Blood pressure 132/79, heart rate 67, pulse ox 100% on 6 L nasal cannula. Repeat blood work reveals hemoglobin 9.9, BUN 33 creatinine 1.57 slightly improved from yesterday. Repeat troponin 0.966. Echocardiogram reveals technically difficult study, mild mitral and probably mild to moderate tricuspid regurgitation and severe pulmonary hypertension. Systolic function appears to be mildly impaired. PHYSICAL EXAM: VITAL SIGNS: Reviewed. GENERAL: Well-developed in no acute distress. LUNGS: Respirations even and unlabored. Lungs with bilateral wheezing. HEART: Regular rate and rhythm. S1 and S2 heard. ABDOMEN: Soft. Nondistended. Nontender. EXTREMITIES: No clubbing or cyanosis. Peripheral pulses intact. No lower extremity edema. NEUROLOGIC: Awake and alert. ASSESSMENT: Shortness of breath Acute influenza A Acute heart failure with preserved EF, likely exacerbated by acute influenza infection History of CVA with residual right-sided weakness and aphasia Acute on chronic kidney disease Elevated troponins, suspect type II MA secondary to oxygen supply/demand mismatch Hypertension Hyperlipidemia Severe pulmonary hypertension PLAN: Repeat EKG Patient on dual antiplatelet therapy on an outpatient basis. We will continue Plavix and discontinue aspirin. Transition IV Lasix to oral 20 mg twice daily Daily weights, accurate intake and output, and monitoring of kidney function Lisinopril placed on hold upon admission secondary to elevated creatinine Recommend weaning off oxygen No further cardiac workup at this time. Nurse practitioner note has been reviewed by physician. Signing provider agrees with the documented findings, assessment, and plan of care documented by [employer] as a scribe. Objective - Vital Signs Vital signs: Vital Signs Temp 99.4 F 04/21/24 05:00 Pulse 67 04/21/24 05:00 Resp 16 04/21/24 05:00 BP 132/79 04/21/24 05:00 Pulse Ox 100 04/21/24 05:00 FiO2 Intake & Output 04/20/24 04/21/24 04/21/24 18:59 06:59 18:59 Output Total 800 Balance -800 Output: Urine 800 Female - External 800 - Labs CBC & Chem 7: 04/21/24 08:14 04/21/24 08:14 Labs: Abnormal Lab Results - Last 24 Hours (Table) 04/20/24 Range/Units 10:52 Troponin I 0.966 H* (0.000-0.034) ng/mL
[2024-04-21] MEDS: OSELTAMIVIR 30 MG CAP PO SCH (09:47)
[2024-04-21] MEDS: FUROSEMIDE 20 MG TAB PO SCH (09:47)
--- NOTE | 2024-04-21 14:00 | XR ---
EXAMINATION TYPE: XR chest 1V DATE OF EXAM: 04/21/2024 CLINICAL INDICATION: Female, 83 years old with history of fluid overload, progress study. TECHNIQUE: Single AP portable upright view of the chest is obtained. COMPARISON: Chest x-ray from one day earlier FINDINGS: Elevated left hemidiaphragm redemonstrated. Left basilar opacity favors atelectasis. Stabl e mild cardiomegaly. Some chronic parenchymal changes throughout the right lung redemonstrated. [place] us structures remain demineralized. IMPRESSION: Chronic changes and cardiomegaly without suspicious acute pulmonary process. [facility], , 04/21/2024 1:58 PM
--- NOTE | 2024-04-21 15:33 | P.PN ---
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 patient is a poor historian. History obtained per chart review. On arrival afebrile, tachycardic in 100s, BP stable 128/59, was put on nasal cannula 4 L, satting at 94%. Lab work significant for normal WBC count hemoglobin of 10.3, baseline around 12, sodium 139, potassium 5.2, creatinine 1.65, last creatinine was 1.49 on 03/25/2024, bicarb 26, glucose 125, AST 50, ALT normal, total bilirubin normal, troponin 0.34, 1.120, BNP 7203 tested positive for influenza A. Chest x-ray showed bilateral airspace opacities more on the right side, edema versus pneumonia. EKG with sinus rhythm, no ST elevation, QRS to 65 Admitted for further management of acute CHF, cardiology consulted, TTE ordered, started on IV lasix. Tamiflu for influenza A initiated on 04/20. TTE was a technically difficult study, systolic function appeared to be mildly improved, mild mitral and possible mild to moderate tricuspid regurg, severe pulmonary hypertension. Patient was transition to oral Lasix 20 twice daily, repeat chest x-ray showed left atelectasis, interpreted independently patient's oxygen was increased, she however sats at 100% while on 6 L, plan to wean off oxygen as tolerated Subjective: Patient is a very poor historian, she was able to deny chest pain, appears to be still having some shortness of breath Pertinent positives and negatives as discussed above, a complete review of systems was performed and all other systems are negative. Vitals Signs Reviewed. Vital signs reviewed General: nontoxic, no distress, appears at stated age Derm: warm, dry, multiple bruises Head: atraumatic, normocephalic, symmetric Eyes: EOMI, no lid lag, anicteric sclera, pupils equal round reactive to light ENT: Nose and ears atraumatic Neck: No thyromegaly, supple Mouth: no lip lesion, mucus membranes moist Cardiovascular: S1S2 reg, murmur, edema Lungs: clear to auscultation bilateral, no rhonchi, no rales, no wheeze, no accessory muscle use Abdominal: soft, nontender to palpation, no guarding, no appreciable organomegaly Ext: no gross muscle atrophy, mR sided deficit, chronic Neuro: aphasia residual, able to pronounce couple words but very slowed Psych: Alert appropriate affect Data Reviewed Today: Pertinent Labs: No leukocytosis, hemoglobin 9.9, stable, platelet count normal, sodium 135, potassium, bicarb normal, creatinine improving 1.57 Assessment and Plan: Acute hypoxic respiratory failure, multifactorial, secondary to new onset CHF and influenza A infection -Continue supplemental oxygen, wean off as tolerated -cardiology consulted -Strict I's and O's, daily weights -Continue oseltamivir 75 twice daily SOT 04/20 TTE was a technically difficult study, systolic function appeared to be mildly improved, mild mitral and possible mild to moderate tricuspid regurg, severe pulmonary hypertension. Patient was transition to oral Lasix 20 twice daily, repeat chest x-ray showed left atelectasis, interpreted independently patient's oxygen was increased, she however sats at 100% while on 6 L, plan to wean off oxygen as tolerated -Duoneb PRN CKD III Hyperkalemia -Monitor BMP hx of CVA with right-sided residual deficits Chronic occlusion of the left internal carotid artery aphasic at baseline -aspirin 81 stopped per cardiology, Continue home , clopidogrel 75 daily, continue prophylaxis with Pepcid 20 mg daily, continue atorvastatin 40 hypothyroidism: Continue Synthroid 75 mcg daily seizure disorder: Continue Keppra 500 a.m. and 1000 nightly glaucoma: Continue latanoprost hypertension: Not on medications dyslipidemia, atorvastatin 40 CODE STATUS DNR/DNI DVT prophylaxis: heparin Anticipated discharge date: TBD Anticipated discharge place: TBD Objective - Vital Signs Vital signs: Vital Signs Temp 98.9 F 04/21/24 12:23 Pulse 70 04/21/24 15:27 Resp 20 04/21/24 15:27 BP 155/71 04/21/24 12:23 Pulse Ox 100 04/21/24 15:27 FiO2 Intake & Output 04/20/24 04/21/24 04/21/24 18:59 06:59 18:59 Output Total 800 750 Balance -800 -750 Output: Urine 800 750 Female - External 800 - Labs CBC & Chem 7: 04/21/24 08:14 04/21/24 08:14 Labs: Abnormal Lab Results - Last 24 Hours (Table) 04/21/24 04/21/24 Range/Units 08:14 08:14 RBC 3.24 L (3.80-5.40) m/uL Hgb 9.9 L (11.4-16.0) gm/dL Hct 31.8 L (34.0-46.0) % Lymphocytes # 0.6 L (1.0-4.8) k/uL Sodium 135 L (137-145) mmol/L BUN 33 H (7-17) mg/dL Creatinine 1.57 H (0.52-1.04) mg/dL
[2024-04-21] MEDS: ONDANSETRON 4 MG/2 ML VIAL IVP PRN (23:31)
[2024-04-22 07:31] LABS: Basophils % (A) 1 %; Eosinophils # (A) 0.1 k/uL (0-0.7); Eosinophils % (A) 3 %; HCT 31.1 % (34.0-46.0); Lymphocytes # (A) 0.7 k/uL (1.0-4.8); Lymphocytes % (A) 18 %; MCH 31.3 pg (25.0-35.0); MCHC 32.2 g/dL (31.0-37.0); MCV 97.3 fL (80.0-100.0); Monocytes # (A) 0.4 k/uL (0-1.0); Monocytes % (A) 9 %; Neutrophils # (A) 2.5 k/uL (1.3-7.7); Neutrophils % (A) 66 %; Platelet Count 154 k/uL (150-450); RDW 15.3 % (11.5-15.5); WBC 3.8 k/uL (3.8-10.6)
[2024-04-22 07:54] LABS: African American GFR (CKD) 36 (>60 ml/min/1.73 sqM); Anion Gap 6 mmol/L; Blood Urea Nitrogen 36 mg/dL (7-17); Calcium 8.5 mg/dL (8.4-10.2); Carbon Dioxide 30 mmol/L (22-30); Chloride 97 mmol/L (98-107); Glucose 88 mg/dL (74-99); Non-African American GFR(CKD) 31 (>60 ml/min/1.73 sqM); Potassium 4.1 mmol/L (3.5-5.1); Sodium 133 mmol/L (137-145)
--- NOTE | 2024-04-22 11:52 | P.PN ---
Subjective Progress Note Date: 04/22/24 HISTORY OF PRESENT ILLNESS: This is a 83-year-old female with a past medical history significant for hy pertension, hyperlipidemia, CVA with residual right-sided weakness and aphasia, and seizure disorder. Patient does not follow with a motor polarizer. We have been asked to see the patient in consultation for congestive heart failure. Patient examined at the bedside in the emergency room. Patient is a poor historian. There is no family present. Patient states she presented to the hospital with a chief complaint of shortness of breath and coughing. She also reports having some nausea and vomiting at home. The patient was found to be positive for influenza. At the time of examination she denies any chest pain or pressure. Vital signs are stable. DIAGNOSTICS: - EKG reveals sinus mechanism with improper lead placement. Repeat EKG reveals sinus mechanism with nonspecific ST-T wave changes with baseline artifact - Chest xray lung findings can be asymmetrical pulmonary edema versus pneumonia, worse on the right. - Laboratory data: WBC 5.3. Hemoglobin 10.3. Platelet count 200. Sodium 139. Potassium 5.2. BUN 33. Creatinine 1.65. Troponin 0.344. 1.120. proBNP 7230. - Current home cardiac medications include aspirin 81 mg daily, Lipitor 40 mg daily, Plavix 75 mg daily, lisinopril 10 mg daily. - Most recent echocardiogram obtained in April 2023 revealing ejection fraction 60 to 65%, mild pulmonary hypertension, mild TR - Cardiac catheterization history: Unknown 04/21 Patient seen and examined in the emergency center still waiting for a bed on the cardiac stepdown unit. Patient has been maintained on IV Lasix 20 mg every 12 hours. Blood pressure 132/79, heart rate 67, pulse ox 100% on 6 L nasal cannula. Repeat blood work reveals hemoglobin 9.9, BUN 33 creatinine 1.57 slightly improved from yesterday. Repeat troponin 0.966. Echocardiogram reveals technically difficult study, mild mitral and probably mild to moderate tricuspid regurgitation and severe pulmonary hypertension. Systolic function appears to be mildly impaired. 04/22 Patient is seen today on the cardiac stepdown unit. Yesterday, IV Lasix was transitioned to oral 20 mg twice daily. Blood pressure 140/63, heart rate 60, pulse ox 96% on 4 L high flow nasal cannula. Repeat blood work reveals hemo globin 10, BUN 36 creatinine 1.51 and potassium 4.1. PHYSICAL EXAM: VITAL SIGNS: Reviewed. GENERAL: Well-developed in no acute distress. LUNGS: Respirations even and unlabored. Lungs with bilateral wheezing. HEART: Regular rate and rhythm. S1 and S2 heard. ABDOMEN: Soft. Nondistended. Nontender. EXTREMITIES: No clubbing or cyanosis. Peripheral pulses intact. No lower extremity edema. NEUROLOGIC: Awake and alert. ASSESSMENT: Shortness of breath Acute influenza A Acute heart failure with preserved EF, likely exacerbated by acute influenza infection History of CVA with residual right-sided weakness and aphasia Acute on chronic kidney disease Elevated troponins, suspect type II ID secondary to oxygen supply/demand mismatch Hypertension Hyperlipidemia Severe pulmonary hypertension PLAN: Patient on dual antiplatelet therapy on an outpatient basis. We will continue Plavix and discontinue aspirin. Continue Lasix oral 20 mg twice daily Daily weights, accurate intake and output, and monitoring of kidney function Lisinopril placed on hold upon admission secondary to elevated creatinine Recommend weaning off oxygen No further cardiac workup at this time. Nurse practitioner note has been reviewed by physician. Signing provider agrees with the documented findings, assessment, and plan of care documented by [employer] as a scribe. Objective - Vital Signs Vital signs: Vital Signs Temp 97.6 F 04/22/24 09:15 Pulse 60 04/22/24 09:15 Resp 20 04/22/24 09:15 BP 140/63 04/22/24 09:15 Pulse Ox 96 04/22/24 09:15 FiO2 Intake & Output 04/21/24 04/22/24 04/22/24 18:59 06:59 18:59 Intake Total 10 Output Total 750 650 Balance -750 -650 10 Weight 77.111 kg 65 kg Intake: IV 10 Invasive Line 1 10 Output: Urine 750 650 Other: Voiding Method External Catheter External Catheter - Labs CBC & Chem 7: 04/22/24 07:21 04/22/24 07:21 Labs: Abnormal Lab Results - Last 24 Hours (Table) 04/22/24 04/22/24 Range/Units 07:21 07:21 RBC 3.20 L (3.80-5.40) m/uL Hgb 10.0 L (11.4-16.0) gm/dL Hct 31.1 L (34.0-46.0) % Lymphocytes # 0.7 L (1.0-4.8) k/uL Sodium 133 L (137-145) mmol/L Chloride 97 L (98-107) mmol/L BUN 36 H (7-17) mg/dL Creatinine 1.51 H (0.52-1.04) mg/dL
--- NOTE | 2024-04-22 13:55 | P.PN ---
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 patient is a poor historian. History obtained per chart review. On arrival afebrile, tachycardic in 100s, BP stable 128/59, was put on nasal cannula 4 L, satting at 94%. Lab work significant for normal WBC count hemoglobin of 10.3, baseline around 12, sodium 139, potassium 5.2, creatinine 1.65, last creatinine was 1.49 on 03/25/2024, bicarb 26, glucose 125, AST 50, ALT normal, total bilirubin normal, troponin 0.34, 1.120, BNP 7203 tested positive for influenza A. Chest x-ray showed bilateral airspace opacities more on the right side, edema versus pneumonia. EKG with sinus rhythm, no ST elevation, QRS to 65 Admitted for further management of acute CHF, cardiology consulted, TTE ordered, started on IV lasix. Tamiflu for influenza A initiated on 04/20. TTE was a technically difficult study, systolic function appeared to be mildly improved, mild mitral and possible mild to moderate tricuspid regurg, severe pulmonary hypertension. Patient was transition to oral Lasix 20 twice daily, repeat chest x-ray showed left atelectasis, interpreted independently, continue on oral Lasix, oxygen weaning down to 2 L now, PT OT consulted, patient may need placement, discussed with spike Patel and RN Subjective: Patient states that she feels good, denied chest pain, shortness of breath, abdominal pain Pertinent positives and negatives as discussed above, a complete review of systems was performed and all other systems are negative. Vitals Signs Reviewed. Vital signs reviewed General: nontoxic, no distress, appears at stated age Derm: warm, dry, multiple bruises Head: atraumatic, normocephalic, symmetric Eyes: EOMI, no lid lag, anicteric sclera, pupils equal round reactive to light ENT: Nose and ears atraumatic Neck: No thyromegaly, supple Mouth: no lip lesion, mucus membranes moist Cardiovascular: S1S2 reg, murmur, edema Lungs: clear to auscultation bilateral, no rhonchi, no rales, no wheeze, no accessory muscle use Abdominal: soft, nontender to palpation, no guarding, no appreciable organomegaly Ext: no gross muscle atrophy, mR sided deficit, chronic Neuro: aphasia residual, able to pronounce couple words but very slowed Psych: Alert appropriate affect Data Reviewed Today: Pertinent Labs: No leukocytosis hemoglobin 10.0, stable, platelet count normal, sodium 133, potassium 4.1, creatinine improving 1.51 Assessment and Plan: Acute hypoxic respiratory failure, multifactorial, secondary to new onset CHF and influenza A infection -Continue supplemental oxygen, wean off as tolerated -cardiology consulted -Strict I's and O's, daily weights -Continue oseltamivir 75 twice daily SOT 04/20 TTE was a technically difficult study, systolic function appeared to be mildly improved, mild mitral and possible mild to moderate tricuspid regurg, severe pulmonary hypertension. Patient was transition to oral Lasix 20 twice daily, repeat chest x-ray showed left atelectasis, interpreted independently patient's oxygen was increased, -Oxygen weaning down, today on 2 L, discussed with RN, will try to wean further -Duoneb PRN CKD III Hyperkalemia -Monitor BMP hx of CVA with right-sided residual deficits Chronic occlusion of the left internal carotid artery aphasic at baseline -aspirin 81 stopped per cardiology, Continue home , clopidogrel 75 daily, continue prophylaxis with Pepcid 20 mg daily, continue atorvastatin 40 -PT OT consult, may need placement hypothyroidism: Continue Synthroid 75 mcg daily seizure disorder: Continue Keppra 500 a.m. and 1000 nightly glaucoma: Continue latanoprost hypertension: Not on medications dyslipidemia, atorvastatin 40 CODE STATUS DNR/DNI DVT prophylaxis: heparin Anticipated discharge date: TBD Anticipated discharge place: TBD Objective - Vital Signs Vital signs: Vital Signs Temp 97.6 F 04/22/24 09:15 Pulse 60 04/22/24 12:20 Resp 18 04/22/24 12:20 BP 170/73 04/22/24 12:20 Pulse Ox 94 L 04/22/24 12:20 FiO2 Intake & Output 04/21/24 04/22/24 04/22/24 18:59 06:59 18:59 Intake Total 10 Output Total 750 650 300 Balance -750 -650 -290 Weight 77.111 kg 65 kg Intake: IV 10 Invasive Line 1 10 Output: Urine 750 650 300 Other: Voiding Method External Catheter External Catheter - Labs CBC & Chem 7: 04/22/24 07:21 04/22/24 07:21 Labs: Abnormal Lab Results - Last 24 Hours (Table) 04/22/24 04/22/24 Range/Units 07:21 07:21 RBC 3.20 L (3.80-5.40) m/uL Hgb 10.0 L (11.4-16.0) gm/dL Hct 31.1 L (34.0-46.0) % Lymphocytes # 0.7 L (1.0-4.8) k/uL Sodium 133 L (137-145) mmol/L Chloride 97 L (98-107) mmol/L BUN 36 H (7-17) mg/dL Creatinine 1.51 H (0.52-1.04) mg/dL
[2024-04-22 14:33] VITALS: BMI 23.1
[2024-04-23] MEDS ORDERED: cloNIDine HCL 0.1 MG TAB PO PRN (04:27)
[2024-04-23 06:47] LABS: Basophils % (A) 0 %; Eosinophils # (A) 0.2 k/uL (0-0.7); Eosinophils % (A) 4 %; HCT 33.8 % (34.0-46.0); HGB 10.7 gm/dL (11.4-16.0); Lymphocytes # (A) 0.6 k/uL (1.0-4.8); Lymphocytes % (A) 16 %; MCH 31.1 pg (25.0-35.0); MCHC 31.7 g/dL (31.0-37.0); MCV 98.2 fL (80.0-100.0); Macrocytosis Slight; Mean Platelet Volume 7.8; Monocytes # (A) 0.3 k/uL (0-1.0); Monocytes % (A) 9 %; Neutrophils # (A) 2.5 k/uL (1.3-7.7); Neutrophils % (A) 68 %; Platelet Count 170 k/uL (150-450); RBC 3.44 m/uL (3.80-5.40); RDW 15.3 % (11.5-15.5); WBC 3.8 k/uL (3.8-10.6)
[2024-04-23 07:03] LABS: African American GFR (CKD) 41 (>60 ml/min/1.73 sqM); Anion Gap 8 mmol/L; Blood Urea Nitrogen 30 mg/dL (7-17); Calcium 8.4 mg/dL (8.4-10.2); Carbon Dioxide 30 mmol/L (22-30); Chloride 97 mmol/L (98-107); Glucose 73 mg/dL (74-99); Non-African American GFR(CKD) 35 (>60 ml/min/1.73 sqM); Potassium 3.7 mmol/L (3.5-5.1); Sodium 135 mmol/L (137-145)
--- NOTE | 2024-04-23 09:56 | P.PN ---
Subjective HISTORY OF PRESENT ILLNESS: This is a 83-year-old female with a past medical history significant for hypertension, hyperlipidemia, CVA with residual right-sided weakness and aphasia, and seizure disorder. 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 We have been asked to see the patient in consultation for congestive heart failure. Patient examined at the bedside in the emergency room. Patient is a poor historian. There is no family present. Patient states she presented to the hospital with a chief complaint of shortness of breath and coughing. She also reports having some nausea and vomiting at home. The patient was found to be positive for influenza. At the time of examination she denies any chest pain or pressure. Vital signs are stable. DIAGNOSTICS: - EKG reveals sinus mechanism with improper lead placement. Repeat EKG reveals sinus mechanism with nonspecific ST-T wave changes with baseline artifact - Chest xray lung findings can be asymmetrical pulmonary edema versus pneumonia, worse on the right. - Laboratory data: WBC 5.3. Hemoglobin 10.3. Platelet count 200. Sodium 139. Potassium 5.2. BUN 33. Creatinine 1.65. Troponin 0.344. 1.120. proBNP 7230. - Current home cardiac medications include aspirin 81 mg daily, Lipitor 40 mg daily, Plavix 75 mg daily, lisinopril 10 mg daily. - Most recent echocardiogram obtained in April 2023 revealing ejection fraction 60 to 65%, mild pulmonary hypertension, mild TR - Cardiac catheterization history: Unknown 04/21 Patient seen and examined in the emergency center still waiting for a bed on the cardiac stepdown unit. Patient has been maintained on IV Lasix 20 mg every 12 hours. Blood pressure 132/79, heart rate 67, pulse ox 100% on 6 L nasal cannula. Repeat blood work reveals hemoglobin 9.9, BUN 33 creatinine 1.57 slightly improved from yesterday. Repeat troponin 0.966. Echocardiogram reveals technically difficult study, mild mitral and probably mild to moderate tricuspid regurgitation and severe pulmonary hypertension. Systolic function appears to be mildly impaired. 04/22 Patient is seen today on the cardiac stepdown unit. Yesterday, IV Lasix was transitioned to oral 20 mg twice daily. Blood pressure 140/63, heart rate 60, pulse ox 96% on 4 L high flow nasal cannula. Repeat blood work reveals hemoglobin 10, BUN 36 creatinine 1.51 and potassium 4.1. 04/23/2024 Patient examined this morning at the bedside. Patient currently denies chest pain or pressure. She reports minimal shortness of breath. Vital signs are stable. Creatinine today 1.37. She has been transition to oral diuretics. PHYSICAL EXAM: VITAL SIGNS: Reviewed. GENERAL: Well-developed in no acute distress. HEENT: Head is normocephalic. Pupils are equal, round. Sclerae anicteric. Mucous membranes of the mouth are moist. Neck supple. No JVD or thyromegaly LUNGS: Respirations even and unlabored. Lungs diminished bilaterally HEART: Regular rate and rhythm. S1 and S2 heard. ABDOMEN: Soft. Nondistended. Nontender. EXTREMITIES: Normal range of motion. No clubbing or cyanosis. Peripheral pulses intact. 1+ bilateral lower extremity edema. NEUROLOGIC: Awake and alert. ASSESSMENT: Shortness of breath Acute influenza A Acute heart failure with preserved EF, likely exacerbated by acute influenza infection History of CVA with residual right-sided weakness and aphasia Acute on chronic kidney disease Elevated troponins, suspect type II VT secondary to oxygen supply/demand mismatch Hypertension Hyperlipidemia Severe pulmonary hypertension PLAN: Continue current cardiac medications including Lipitor, Plavix, and Lasix Lisinopril placed on hold upon admission secondary to elevated creatinine Recommend repeating limited echo prior to discharge to reassess pulmonary hypertension Further recommendations pending patient course Nurse practitioner note has been reviewed by physician. Signing provider agrees with the documented findings, assessment, and plan of care documented by BEAUTY OPERATOR APPRENTICE as a scribe. Objective - Vital Signs Vital signs: Vital Signs Temp 97.7 F 04/23/24 07:06 Pulse 61 04/23/24 07:56 Resp 17 04/23/24 07:56 BP 153/75 04/23/24 07:06 Pulse Ox 96 04/23/24 07:06 FiO2 Intake & Output 04/22/24 04/23/24 04/23/24 18:59 06:59 18:59 Intake Total 20 20 Output Total 550 600 Balance -530 -580 Weight 65 kg Intake: IV 20 20 Invasive Line 1 20 20 Output: Urine 550 600 Other: Voiding Method External Catheter External Catheter External Catheter - Labs CBC & Chem 7: 04/23/24 06:21 04/23/24 06:21 Labs: Abnormal Lab Results - Last 24 Hours (Table) 04/23/24 04/23/24 Range/Units 06:21 06:21 RBC 3.44 L (3.80-5.40) m/uL Hgb 10.7 L (11.4-16.0) gm/dL Hct 33.8 L (34.0-46.0) % Lymphocytes # 0.6 L (1.0-4.8) k/uL Sodium 135 L (137-145) mmol/L Chloride 97 L (98-107) mmol/L BUN 30 H (7-17) mg/dL Creatinine 1.37 H (0.52-1.04) mg/dL Glucose 73 L (74-99) mg/dL
--- NOTE | 2024-04-23 11:33 | P.PN ---
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 patient is a poor historian. History obtained per chart review. On arrival afebrile, tachycardic in 100s, BP stable 128/59, was put on nasal cannula 4 L, satting at 94%. Lab work significant for normal WBC count hemoglobin of 10.3, baseline around 12, sodium 139, potassium 5.2, creatinine 1.65, last creatinine was 1.49 on 03/25/2024, bicarb 26, glucose 125, AST 50, ALT normal, total bilirubin normal, troponin 0.34, 1.120, BNP 7203 tested positive for influenza A. Chest x-ray showed bilateral airspace opacities more on the right side, edema versus pneumonia. EKG with sinus rhythm, no ST elevation, QRS to 65 Admitted for further management of acute CHF, cardiology consulted, TTE ordered, started on IV lasix. Tamiflu for influenza A initiated on 04/20. TTE was a technically difficult study, systolic function appeared to be mildly improved, mild mitral and possible mild to moderate tricuspid regurg, severe pulmonary hypertension. Patient was transition to oral Lasix 20 twice daily, repeat chest x-ray showed left atelectasis, interpreted independently, continue on oral Lasix, oxygen weaning down to 2 L now, PT OT consulted, patient may need placement, discussed with spike Patel and RN. Per cardiology, repeat echo prior to discharge to reassess pulmonary hypertension Subjective: Patient states that she does not know how she feels, she specifically denied shortness of breath, mentioned that she has midline chest pain, was tender to palpation Pertinent positives and negatives as discussed above, a complete review of systems was performed and all other systems are negative. Vitals Signs Reviewed. Vital signs reviewed General: nontoxic, no distress, appears at stated age, chronically ill-appearing Derm: warm, dry, multiple bruises, Head: atraumatic, normocephalic, symmetric Eyes: EOMI, no lid lag, anicteric sclera, pupils equal round reactive to light ENT: Nose and ears atraumatic Neck: No thyromegaly, supple Mouth: no lip lesion, mucus membranes moist Cardiovascular: S1S2 reg, murmur, edema Lungs: clear to auscultation bilateral, no rhonchi, no rales, no wheeze, no accessory muscle use Abdominal: soft, nontender to palpation, no guarding, no appreciable org anomegaly Ext: no gross muscle atrophy, mR sided deficit, chronic Neuro: aphasia residual, able to pronounce couple words but very slowed Psych: Alert appropriate affect Data Reviewed Today: Pertinent Labs: No leukocytosis hemoglobin 10.7, stable, platelet count normal, sodium 135, potassium 3.7, creatinine improving 1.37 Assessment and Plan: Acute hypoxic respiratory failure, multifactorial, secondary to new onset CHF and influenza A infection -Continue supplemental oxygen, wean off as tolerated -cardiology consulted -Strict I's and O's, daily weights -Continue oseltamivir 75 twice daily SOT 04/20 TTE was a technically difficult study, systolic function appeared to be mildly improved, mild mitral and possible mild to moderate tricuspid regurg, severe pulmonary hypertension. Patient was transition to oral Lasix 20 twice daily, repeat chest x-ray showed left atelectasis, interpreted independently patient's oxygen was increased, -Repeat echo ordered to reassess pulmonary hypertension -Oxygen weaning down, today on 2 L, -Duoneb PRN CKD III Hyperkalemia,resolved -Monitor BMP hx of CVA with right-sided residual deficits Chronic occlusion of the left internal carotid artery aphasic at baseline -aspirin 81 stopped per cardiology, Continue home , clopidogrel 75 daily, continue prophylaxis with Pepcid 20 mg daily, continue atorvastatin 40 -PT OT consult, may need placement hypothyroidism: Continue Synthroid 75 mcg daily seizure disorder: Continue Keppra 500 a.m. and 1000 nightly glaucoma: Continue latanoprost hypertension: Not on medications dyslipidemia, atorvastatin 40 CODE STATUS DNR/DNI DVT prophylaxis: heparin Anticipated discharge date: TBD Anticipated discharge place: TBD Objective - Vital Signs Vital signs: Vital Signs Temp 97.7 F 04/23/24 07:06 Pulse 61 04/23/24 07:56 Resp 17 04/23/24 07:56 BP 153/75 04/23/24 07:06 Pulse Ox 95 04/23/24 11:29 FiO2 Intake & Output 04/22/24 04/23/24 04/23/24 18:59 06:59 18:59 Intake Total 20 20 Output Total 550 600 Balance -530 -580 Weight 65 kg Intake: IV 20 20 Invasive Line 1 20 20 Output: Urine 550 600 Other: Voiding Method External Catheter External Catheter External Catheter - Labs CBC & Chem 7: 04/23/24 06:21 04/23/24 06:21 Labs: Abnormal Lab Results - Last 24 Hours (Table) 04/23/24 04/23/24 Range/Units 06:21 06:21 RBC 3.44 L (3.80-5.40) m/uL Hgb 10.7 L (11.4-16.0) gm/dL Hct 33.8 L (34.0-46.0) % Lymphocytes # 0.6 L (1.0-4.8) k/uL Sodium 135 L (137-145) mmol/L Chloride 97 L (98-107) mmol/L BUN 30 H (7-17) mg/dL Creatinine 1.37 H (0.52-1.04) mg/dL Glucose 73 L (74-99) mg/dL
--- NOTE | 2024-04-24 13:37 | P.PN ---
Subjective Progress Note Date: 04/24/24 HISTORY OF PRESENT ILLNESS: This is a 83-year-old female with a past medical history significant for hy pertension, hyperlipidemia, CVA with residual right-sided weakness and aphasia, and seizure disorder. 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 We have been asked to see the patient in consultation for congestive heart failure. Patient examined at the bedside in the emergency room. Patient is a poor historian. There is no family present. Patient states she presented to the hospital with a chief complaint of shortness of breath and coughing. She also reports having some nausea and vomiting at home. The patient was found to be positive for influenza. At the time of examination she denies any chest pain or pressure. Vital signs are stable. DIAGNOSTICS: - EKG reveals sinus mechanism with improper lead placement. Repeat EKG reveals sinus mechanism with nonspecific ST-T wave changes with baseline artifact - Chest xray lung findings can be asymmetrical pulmonary edema versus pneumonia, worse on the right. - Laboratory data: WBC 5.3. Hemoglobin 10.3. Platelet count 200. Sodium 139. Potassium 5.2. BUN 33. Creatinine 1.65. Troponin 0.344. 1.120. proBNP 7230. - Current home cardiac medications include aspirin 81 mg daily, Lipitor 40 mg daily, Plavix 75 mg daily, lisinopril 10 mg daily. - Most recent echocardiogram obtained in April 2023 revealing ejection fraction 60 to 65%, mild pulmonary hypertension, mild TR - Cardiac catheterization history: Unknown 04/21 Patient seen and examined in the emergency center still waiting for a bed on the cardiac stepdown unit. Patient has been maintained on IV Lasix 20 mg every 12 hours. Blood pressure 132/79, heart rate 67, pulse ox 100% on 6 L nasal cannula. Repeat blood work reveals hemoglobin 9.9, BUN 33 creatinine 1.57 slightly improved from yesterday. Repeat troponin 0.966. Echocardiogram reveals technically difficult study, mild mitral and probably mild to moderate tricuspid regurgitation and severe pulmonary hypertension. Systolic function appears to be mildly impaired. 04/22 Patient is seen today on the cardiac stepdown unit. Yesterday, IV Lasix was transitioned to oral 20 mg twice daily. Blood pressure 140/63, heart rate 60, pulse ox 96% on 4 L high flow nasal cannula. Repeat blood work reveals hemo globin 10, BUN 36 creatinine 1.51 and potassium 4.1. 04/23/2024 Patient examined this morning at the bedside. Patient currently denies chest pain or pressure. She reports minimal shortness of breath. Vital signs are stable. Creatinine today 1.37. She has been transition to oral diuretics. 04/24 Patient seen and examined. Patient remains in isolation for influenza and completed her course of Tamiflu. Blood pressure 131/58, heart rate 71, pulse ox 96% on 2 L nasal cannula. Repeat blood work reveals hemoglobin 10.7, BUN 30 creatinine 1.37. Lisinopril was placed on hold due to elevated creatinine which is improving. PHYSICAL EXAM: VITAL SIGNS: Reviewed. GENERAL: Well-developed in no acute distress. HEENT: Head is normocephalic. Pupils are equal, round. Sclerae anicteric. Mucous membranes of the mouth are moist. Neck supple. No JVD or thyromegaly LUNGS: Respirations even and unlabored. Lungs diminished bilaterally HEART: Regular rate and rhythm. S1 and S2 heard. ABDOMEN: Soft. Nondistended. Nontender. EXTREMITIES: Normal range of motion. No clubbing or cyanosis. Peripheral pulses intact. 1+ bilateral lower extremity edema. NEUROLOGIC: Awake and alert. ASSESSMENT: Shortness of breath Acute influenza A Acute heart failure with preserved EF, likely exacerbated by acute influenza infection History of CVA with residual right-sided weakness and aphasia Acute on chronic kidney disease Elevated troponins, suspect type II CA secondary to oxygen supply/demand mismatch Hypertension Hyperlipidemia Severe pulmonary hypertension PLAN: Continue current cardiac medications including Lipitor, Plavix, and Lasix Lisinopril placed on hold upon admission secondary to elevated creatinine Add amlodipine 5 mg daily Further recommendations pending patient course Nurse practitioner note has been reviewed by physician. Signing provider agrees with the documented findings, assessment, and plan of care documented by HEALTHCARE ADVISORY SERVICES MANAGER as a scribe. Objective - Vital Signs Vital signs: Vital Signs Temp 98.3 F 04/24/24 07:21 Pulse 65 04/24/24 09:00 Resp 17 04/24/24 09:00 BP 131/58 04/24/24 07:21 Pulse Ox 96 04/24/24 07:21 FiO2 Intake & Output 04/23/24 04/24/24 04/24/24 18:59 06:59 18:59 Output Total 700 Balance -700 Weight 62 kg Output: Urine 700 Other: Voiding Method External Catheter External Catheter External Catheter - Labs CBC & Chem 7: 04/23/24 06:21 04/23/24 06:21
[2024-04-24] MEDS: amLODIPine 5 MG TAB PO SCH (16:41)
--- NOTE | 2024-04-24 17:08 | P.PN ---
Subjective Progress Note Date: 04/24/24 Patient was seen and examined. No acute events overnight. Reports feeling unwell but unable to elaborate further. General: non toxic, no distress, appears at stated age Derm: warm, dry Head: atraumatic, normocephalic, symmetric Mouth: no lip lesion, mucus membranes moist Cardiovascular: S1S2 reg, no murmur Lungs: Decreased BS BL, no rales , no accessory muscle use Ext: no gross muscle atrophy, no edema, no contractures Neuro: no focal neuro deficits Psych: Alert and oriented. Based on my assessment of this patient, this patient meets a high complexity level of care. Acute hypoxic respiratory failure secondary to Influenza A: Continue Tamiflu 75 mg PO BID. Duoneb QID PRN. Elevated Troponin: Trop 1.12, 0.966. Likely Type II per Cardiology. Lipitor 40 mg PO QD. Fenofibrate 200 mg PO QD. Plavix 75 mg PO QD. Would benefit from beta hari will defer to cardiology. Will discuss ischemic workup at a later time. Mild CHF exacerbation: Echo technical difficult study, mild MR, mild-mod TR, severe pulmonary HTN. Lasix switched to 20 mg PO BID. Cardiology on board. Hypoglycemia: Accuchecks ACHS. CKD III: At baseline. History of CVA and chronic occlusion of the left internal carotid artery: Li pitor, Fenofibrate and Plavix as above. Hypothyroidism: Continue Synthroid 75 mcg PO QD. Seizure disorder: Continue Keppra 500 mg PO QAM and 1000 mg PO QPM. Glaucoma: Continue latanoprost eye drop. Resolved: Hyperkalemia CODE STATUS: FULL CODE. DVT Prophylaxis: Eliquis. GI Prophylaxis: Designated medical POA if patient is not able to make medical decisions for themselves: I have reviewed the following custom decorating consultant notes: Cardiology. I have reviewed the results of the following tests: I have ordered the following tests: I have discussed the care of this patient with the following independent historian: RN. I have independently interpreted the following test below: I have discussed the management of this patient with the following physician: Dr. Dominguez. Objective - Vital Signs Vital signs: Vital Signs Temp 98.3 F 04/24/24 13:34 Pulse 67 04/24/24 13:34 Resp 17 04/24/24 13:34 BP 126/66 04/24/24 13:34 Pulse Ox 96 04/24/24 13:34 FiO2 Intake & Output 04/23/24 04/24/24 04/24/24 18:59 06:59 18:59 Output Total 700 Balance -700 Weight 62 kg Output: Urine 700 Other: Voiding Method External Catheter External Catheter External Catheter - Labs CBC & Chem 7: 04/23/24 06:21 04/23/24 06:21
[2024-04-24 21:04] LABS: Glucose,Whole Blood 81 mg/dL (70-110)
[2024-04-24] MEDS: HEPARIN SODIUM,PORCINE 5,000 UNIT/ML 1 ML VIAL SQ SCH (21:45)
[2024-04-25 06:20] LABS: Glucose,Whole Blood 78 mg/dL (70-110)
--- NOTE | 2024-04-25 12:40 | P.DS ---
Providers Date of admission: 04/20/24 04:56 Expected date of discharge: 04/25/24 Attending physician: Piotr Sorenson Consults: 04/20/24 04:53 Consult Physician Routine Consulting Provider: Bismark Silva Consult Reason/Comments: CHF exacerbation Do you want consulting provider notified?: Yes, Notify in am Primary care physician: Stated None Hospital Course: 83-year-old female with PMH of CVA with right-sided residual deficits, aphasic at baseline, hypothyroidism, seizure disorder, glaucoma, hypertension, dyslipidemia, CKD stage III presented for shortness of breath that started 3 days ago. In the ED she underwent extensive evaluation. BP 128/59, RR 24, HR 102, T 99.1F, 94% on 4L NC. CBC, Coag panel, CMP significant for WBC 3.35, Hg 10.3, Hct 33.2, K 5.2, BUN 33, Cr 1.65, glu 125, AST 50. Mag 1.9. BNP 7230. Trop 0.344, 1.12, 0,966. Flu +. EKG sinus rhythm. CXR asymmetrical pulmonary edema versus PNA. Started on Tamiflu, bronchodilators and Lasix IV. Cardiology co nsulted, Echo showed technically difficult study, mild mitral and probably mild to moderate tricuspid regurgitation and severe pulmonary hypertension, systolic function appears to be mildly impaired. Lasix was eventually transitioned to PO and she finished a course of Tamiflu. 04/25 Patient was seen and examined. Difficulty communicating due to aphasia. She is 94-95% on 1-2L NC. Discussed with Pace MANAGER CONTENT, plans for discharge to [facility] today. Discussed with RN, Cardiology has cleared the patient for discharge. Discharge Plan: Lasix 20 mg PO BID and Amlodipine 5 mg PO QD added to medication regimen. Stop Lisinopril and ASA. Follow up with PCP within 1-2 days of discharge. Follow up with Cardiology within 1 week of discharge for possible stress test and ischemic workup. General: non toxic, no distress, appears at stated age Derm: warm, dry Head: atraumatic, normocephalic, symmetric Mouth: no lip lesion, mucus membranes moist Cardiovascular: S1S2 reg, no murmur Lungs: Decreased BS BL, no rales , no accessory muscle use Ext: no gross muscle atrophy, no edema, no contractures Neuro: right sided weakness at baseline, aphasic Psych: Aphasic difficult to determine Discharge Diagnosis: Acute hypoxic respiratory failure secondary to Influenza A Elevated Troponin Mild CHF exacerbation Hypoglycemia CKD III History of CVA and chronic occlusion of the left internal carotid artery Hypothyroidism Seizure disorder Glaucoma Resolved: Hyperkalemia This complex discharge took 35 minutes to complete and coordinate. Patient Condition at Discharge: Stable Plan - Discharge Summary New Discharge Prescriptions: New amLODIPine [Norvasc] 5 mg PO DAILY #30 tab Furosemide [Lasix] 20 mg PO BID@0900,1600 #60 tab Continue Calcium Carbonate/Vitamin D3 [Calcium 600 mg-Vit D3 5 mcg (200 unit)] 1 tab PO BID@0800,1999 Latanoprost Ophth [Xalatan 0.005%] 1 drops BOTH EYES HS@1999 Levothyroxine Sodium [Synthroid] 75 mcg PO DAILY@0800 Ondansetron Odt [Zofran ODT] 4 mg PO Q8HR PRN PRN Reason: Vomiting LORazepam [Ativan] 0.5 mg PO BID PRN PRN Reason: AGITATION OR UPSET HYDROcodone/APAP 5-325MG [[place] 5-325] 1 tab PO Q6H PRN PRN Reason: Pain Capsaicin Cream [Trixaicin Cream] 1 applic TOPICAL TID PRN PRN Reason: RIGHT LOWER LEG PAIN Albuterol Sulfate [Albuterol Sulfate Hfa] 1 puff PO RT-QID PRN PRN Reason: WHEEZE OR COUGH lamoTRIgine [LaMICtal] 150 mg PO BID@0800,1999 Gabapentin [Neurontin] 100 mg PO BID@0800,1999 Docusate [Colace] 100 mg PO DAILY@0800 Atorvastatin [Lipitor] 40 mg PO DAILY@0800 busPIRone HCl [Buspar] 5 mg PO TID@0800,1300,1999 Fenofibrate,Micronized [Fenofibrate] 200 mg PO DAILY@0800 levETIRAcetam [Keppra] 1,000 mg PO HS@1999 levETIRAcetam [Keppra] 500 mg PO DAILY@0800 Famotidine [Pepcid] 20 mg PO DAILY@0800 Clopidogrel [Plavix] 75 mg PO DAILY@0800 Alendronate Sodium [Fosamax] 70 mg PO WE@0800 Discontinued lisinopriL [Zestril] 10 mg PO DAILY@0800 Aspirin EC [Ecotrin Low Dose] 81 mg PO DAILY@0800 Discharge Medication List busPIRone HCl [Buspar] 5 mg PO TID@0800,1300,199911/25/22 [History] Calcium Carbonate/Vitamin D3 [Calcium 600 mg-Vit D3 5 mcg (200 unit)] 1 tab PO BID@0800,199904/27/23 [History] Fenofibrate,Micronized [Fenofibrate] 200 mg PO DAILY@0804/27/23 [History] Latanoprost Ophth [Xalatan 0.005%] 1 drops BOTH EYES HS@199904/27/23 [History] Levothyroxine Sodium [Synthroid] 75 mcg PO DAILY@79904/27/23 [History] Albuterol Sulfate [Albuterol Sulfate Hfa] 1 puff PO RT-QID PRN 04/20/24 [History] Alendronate Sodium [Fosamax] 70 mg PO WE@0804/20/24 [History] Atorvastatin [Lipitor] 40 mg PO DAILY@0804/20/24 [History] Capsaicin Cream [Trixaicin Cream] 1 applic TOPICAL TID PRN 04/20/24 [History] Clopidogrel [Plavix] 75 mg PO DAILY@0804/20/24 [History] Docusate [Colace] 100 mg PO DAILY@0804/20/24 [History] Famotidine [Pepcid] 20 mg PO DAILY@0804/20/24 [History] Gabapentin [Neurontin] 100 mg PO BID@08,199904/20/24 [History] HYDROcodone/APAP 5-325MG [[place] 5-325] 1 tab PO Q6H PRN 04/20/24 [History] LORazepam [Ativan] 0.5 mg PO BID PRN 04/20/24 [History] Ondansetron Odt [Zofran ODT] 4 mg PO Q8HR PRN 04/20/24 [History] lamoTRIgine [LaMICtal] 150 mg PO BID@08,199904/20/24 [History] levETIRAcetam [Keppra] 1,000 mg PO HS@199904/20/24 [History] levETIRAcetam [Keppra] 500 mg PO DAILY@0800 04/20/24 [History] Furosemide [Lasix] 20 mg PO BID@0900,1600 #60 tab 04/25/24 [Rx] amLODIPine [Norvasc] 5 mg PO DAILY #30 tab 04/25/24 [Rx] Follow up Appointment(s)/Referral(s): None,Stated [Primary Care Provider] - 1-2 days Ton Cano MD [STAFF PHYSICIAN] - 1 Week Discharge Disposition: HOME SELF-CARE
--- NOTE | 2024-04-25 13:22 | P.PN ---
Subjective Progress Note Date: 04/25/24 HISTORY OF PRESENT ILLNESS: This is a 83-year-old female with a past medical history significant for hy pertension, hyperlipidemia, CVA with residual right-sided weakness and aphasia, and seizure disorder. Patient does not follow with a ballistics tester. We have been asked to see the patient in consultation for congestive heart failure. Patient examined at the bedside in the emergency room. Patient is a poor historian. There is no family present. Patient states she presented to the hospital with a chief complaint of shortness of breath and coughing. She also reports having some nausea and vomiting at home. The patient was found to be positive for influenza. At the time of examination she denies any chest pain or pressure. Vital signs are stable. DIAGNOSTICS: - EKG reveals sinus mechanism with improper lead placement. Repeat EKG reveals sinus mechanism with nonspecific ST-T wave changes with baseline artifact - Chest xray lung findings can be asymmetrical pulmonary edema versus pneumonia, worse on the right. - Laboratory data: WBC 5.3. Hemoglobin 10.3. Platelet count 200. Sodium 139. Potassium 5.2. BUN 33. Creatinine 1.65. Troponin 0.344. 1.120. proBNP 7230. - Current home cardiac medications include aspirin 81 mg daily, Lipitor 40 mg daily, Plavix 75 mg daily, lisinopril 10 mg daily. - Most recent echocardiogram obtained in April 2023 revealing ejection fraction 60 to 65%, mild pulmonary hypertension, mild TR - Cardiac catheterization history: Unknown 04/21 Patient seen and examined in the emergency center still waiting for a bed on the cardiac stepdown unit. Patient has been maintained on IV Lasix 20 mg every 12 hours. Blood pressure 132/79, heart rate 67, pulse ox 100% on 6 L nasal cannula. Repeat blood work reveals hemoglobin 9.9, BUN 33 creatinine 1.57 slightly improved from yesterday. Repeat troponin 0.966. Echocardiogram reveals technically difficult study, mild mitral and probably mild to moderate tricuspid regurgitation and severe pulmonary hypertension. Systolic function appears to be mildly impaired. 04/22 Patient is seen today on the cardiac stepdown unit. Yesterday, IV Lasix was transitioned to oral 20 mg twice daily. Blood pressure 140/63, heart rate 60, pulse ox 96% on 4 L high flow nasal cannula. Repeat blood work reveals hemo globin 10, BUN 36 creatinine 1.51 and potassium 4.1. 04/23/2024 Patient examined this morning at the bedside. Patient currently denies chest pain or pressure. She reports minimal shortness of breath. Vital signs are stable. Creatinine today 1.37. She has been transition to oral diuretics. 04/24 Patient seen and examined. Patient remains in isolation for influenza and completed her course of Tamiflu. Blood pressure 131/58, heart rate 71, pulse ox 96% on 2 L nasal cannula. Repeat blood work reveals hemoglobin 10.7, BUN 30 creatinine 1.37. Lisinopril was placed on hold due to elevated creatinine which is improving. 04/25 Patient seen and examined. Yesterday we added amlodipine for blood pressure control. Blood pressures have been improved with systolic 10 8137 overnight. Heart rate is running 60s to 80s, pulse ox 95% on 1 L nasal cannula. Patient is scheduled for discharge home today. PHYSICAL EXAM: VITAL SIGNS: Reviewed. GENERAL: Well-developed in no acute distress. HEENT: Head is normocephalic. Pupils are equal, round. Sclerae anicteric. Mucous membranes of the mouth are moist. Neck supple. No JVD or thyromegaly LUNGS: Respirations even and unlabored. Lungs diminished bilaterally HEART: Regular rate and rhythm. S1 and S2 heard. ABDOMEN: Soft. Nondistended. Nontender. EXTREMITIES: Normal range of motion. No clubbing or cyanosis. Peripheral pulses intact. 1+ bilateral lower extremity edema. NEUROLOGIC: Awake and alert. ASSESSMENT: Shortness of breath Acute influenza A Acute heart failure with preserved EF, likely exacerbated by acute influenza infection History of CVA with residual right-sided weakness and aphasia Acute on chronic kidney disease Elevated troponins, suspect type II NH secondary to oxygen supply/demand mismatch Hypertension Hyperlipidemia Severe pulmonary hypertension PLAN: Continue current cardiac medications including Lipitor, Plavix, and Lasix Lisinopril placed on hold upon admission secondary to elevated creatinine Continue the addition of amlodipine 5 mg daily Patient is cleared for discharge from a cardiology perspective and may follow-up in the office with Dr. Sims in 2 weeks. Nurse practitioner note has been reviewed by physician. Signing provider agrees with the documented findings, assessment, and plan of care documented by PATIENT FINANCIAL REPRESENTATIVE as a scribe. Objective - Vital Signs Vital signs: Vital Signs Temp 98.3 F 04/25/24 07:19 Pulse 82 04/25/24 07:19 Resp 18 04/25/24 07:19 BP 108/63 04/25/24 07:19 Pulse Ox 95 04/25/24 07:19 FiO2 Intake & Output 04/24/24 04/25/24 04/25/24 18:59 06:59 18:59 Output Total 600 Balance -600 Weight 61.2 kg Output: Urine 600 Other: Voiding Method External Catheter External Catheter # Voids 450 - Labs CBC & Chem 7: 04/23/24 06:21 04/23/24 06:21
[2024-04-25 15:24] VITALS: BP 117/69; PULSE 77; RESP 17; TEMP 98.1
== END 2024-04-25 15:58 | disposition home or self-care (01) | DRG 193 ==
LOC: EC 00:07 → 1SOBS 04:56 → 3SCARD 21:31 → 4SSUR 04-23 05:22
PROVIDERS: ADMIT Student in an Organized Health Care Education/Training Program; ATTEND Student in an Organized Health Care Education/Training Program
DX: J10.1 Influenza due to other identified influenza virus with other respiratory manifestations (principal); I50.33 Acute on chronic diastolic (congestive) heart failure; J96.01 Acute respiratory failure with hypoxia; Z66 Do not resuscitate; I13.0 Hypertensive heart and chronic kidney disease with heart failure and stage 1 through stage 4 chronic kidney disease, or unspecified chronic kidney disease; I69.351 Hemiplegia and hemiparesis following cerebral infarction affecting right dominant side; I27.20 Pulmonary hypertension, unspecified; G40.909 Epilepsy, unspecified, not intractable, without status epilepticus; N18.30 Chronic kidney disease, stage 3 unspecified; E03.9 Hypothyroidism, unspecified; F32.A Depression, unspecified; I65.22 Occlusion and stenosis of left carotid artery; I08.1 Rheumatic disorders of both mitral and tricuspid valves; I69.320 Aphasia following cerebral infarction; Z79.890 Hormone replacement therapy; E78.5 Hyperlipidemia, unspecified; I69.322 Dysarthria following cerebral infarction; I69.328 Other speech and language deficits following cerebral infarction; E87.5 Hyperkalemia; H40.9 Unspecified glaucoma; Z79.02 Long term (current) use of antithrombotics/antiplatelets; Z79.82 Long term (current) use of aspirin; Z79.83 Long term (current) use of bisphosphonates; Z79.899 Other long term (current) drug therapy; Z91.041 Radiographic dye allergy status
CPT/HCPCS: 36415; 71045; 71046; 80048; 80053; 83690; 83735; 83880; 84484; 85025; 85610; 85730; 87636; 93005; 93306; 94760; 96374; 96376; 99291

== ENCOUNTER 2024-05-01 10:40 | Inpatient (IN) | payer OTHER ==
[2024-05-01] MEDS: SODIUM CHLORIDE 0.9% 500 ML 500 ML IV STA (11:00)
[2024-05-01] MEDS: FAMOTIDINE 20 MG/2 ML VIAL IV STA (11:00)
[2024-05-01] MEDS: methylPREDNISolone SOD SUCCI 125 MG/2 ML VIAL IV STA (11:00)
[2024-05-01] MEDS: diphenhydrAMINE 50 MG/ML 1 ML VIAL IVP STA (11:00)
[2024-05-01 11:21] LABS: Basophils % (A) 1 %; Eosinophils # (A) 0.2 k/uL (0-0.7); Eosinophils % (A) 3 %; HCT 40.1 % (34.0-46.0); HGB 13.1 gm/dL (11.4-16.0); Lymphocytes # (A) 1.3 k/uL (1.0-4.8); Lymphocytes % (A) 19 %; MCH 30.8 pg (25.0-35.0); MCHC 32.6 g/dL (31.0-37.0); MCV 94.5 fL (80.0-100.0); Mean Platelet Volume 7.7; Monocytes # (A) 0.5 k/uL (0-1.0); Monocytes % (A) 8 %; Neutrophils # (A) 4.7 k/uL (1.3-7.7); Neutrophils % (A) 68 %; Platelet Count 325 k/uL (150-450); RBC 4.24 m/uL (3.80-5.40); RDW 14.4 % (11.5-15.5); WBC 6.9 k/uL (3.8-10.6)
[2024-05-01 11:24] LABS: ALT 34 U/L (4-34); AST 79 U/L (14-36); African American GFR (CKD) 28 (>60 ml/min/1.73 sqM); Albumin 3.9 g/dL (3.5-5.0); Alkaline Phosphatase 111 U/L (38-126); Blood Urea Nitrogen 38 mg/dL (7-17); Calcium 10.6 mg/dL (8.4-10.2); Chloride 87 mmol/L (98-107); Creatine Kinase 93 U/L (30-135); Glucose 109 mg/dL (74-99); Non-African American GFR(CKD) 24 (>60 ml/min/1.73 sqM); Potassium 4.7 mmol/L (3.5-5.1); Sodium 135 mmol/L (137-145); Total Bilirubin 1.2 mg/dL (0.2-1.3); Total Protein 7.8 g/dL (6.3-8.2)
[2024-05-01 11:30] LABS: Anion Gap 9 mmol/L
[2024-05-01 11:36] LABS: Carbon Dioxide 39 mmol/L (22-30)
--- NOTE | 2024-05-01 11:40 | XR ---
EXAMINATION TYPE: XR chest 2V DATE OF EXAM: 05/01/2024 11:33 AM COMPARISON: Chest radiographs from 04/21/2024. CLINICAL INDICATION: Female, 83 years old with history of altered mental status; [facility] TECHNIQUE: XR chest 2V Frontal and lateral views of the chest. FINDINGS: Lungs/Pleura: Elevated left diaphragm. There is no evidence of pleural effusion, focal consolidation, or pneumothorax. Pulmonary vascularity: Unremarkable. Heart/mediastinum: Cardiomediastinal silhouette is unremarkable. Musculoskeletal: No acute osseous pathology. Other findings: None IMPRESSION: 1. No acute cardiopulmonary disease/process. 2. Elevated left diaphragm correlate for phrenic nerve injury. [facility], , 05/01/2024 11:38 AM
--- NOTE | 2024-05-01 12:09 | CT ---
EXAMINATION TYPE: CT brain wo con DATE OF EXAM: 05/01/2024 COMPARISON: CT brain March 25, 2024 CLINICAL INDICATION: Female, 83 years old with history of Neuro deficit, acute, stroke suspected, TECHNIQUE: CT scan of the head is performed without contrast. Automated Exposure Control for Dose Reduction was Utilized. FINDINGS: There is no acute intracranial hemorrhage or midline shift identified. There is moderate diffuse ventricular and sulcal prominence redemonstrated. Large left-sided infarct again seen with le ft-sided extra-axial dilatation most prominent involving the left frontal lobe. Small inferior left f rontal scalp hematoma remains present improved from prior. Bilateral aphakia redemonstrated. Dependen t fluid bilateral sphenoid sinuses is more prominent on the left. IMPRESSION: No acute intracranial hemorrhage or midline shift. If clinical concern for acute stroke persist further investigation with MRI study may be warranted. [facility], , 05/01/2024 12:07 PM
--- NOTE | 2024-05-01 12:27 | CT ---
EXAMINATION TYPE: CT angio head neck DATE OF EXAM: 05/01/2024 COMPARISON: Prior CTA April 27, 2023 CLINICAL INDICATION: Female, 83 years old with history of Neuro deficit, acute, stroke suspected, , TECHNIQUE: CTA scan of the head and neck is performed with IV Contrast, patient injected with 65 mL of Isovue 370, axial images are obtained, coronal and sagittal reformatted images are reviewed. 3D re constructed images are created on an independent workstation and reviewed. NASCET criteria was used i n interpretation of this exam? CT DLP: 338 mGycm. Automated Exposure Control for Dose Reduction was Utilized. FINDINGS: Distal right vertebral artery is small caliber . Left vertebral artery is dominant. Patent bilateral posterior communicating arteries are seen. Pain anterior communicating artery is identified. No aneur ysm is seen. Dural sinuses: Possible partial thrombosis of the left transverse sinus axial image 29 series 406. CTA NECK: Right Carotid System: The common carotid artery and external carotid artery are patent. The carotid bifurcation demonstrate s no evidence of hemodynamically significant stenosis. The remaining portions of the internal carotid artery demonstrate normal size without significant narrowing. Left Carotid System: The common carotid artery and external carotid artery are patent. The carotid bifurcation demonstrate s complete occlusion of the left internal carotid artery shortly after its origin. With some retrogra de flow is suspected distally. There is a three-vessel aortic arch. The origins of the great vessels are patent. No evidence of hemo dynamically significant stenosis. Elevated left hemidiaphragm is seen. There is multilevel degenerative change in the cervical thoracic spine is scoliotic curvature. IMPRESSION: Persistent complete occlusion of the majority of the left internal carotid artery. No new large vessel occlusion or aneurysm at the level of the [place] of [place]. Cannot exclude left-sided d ural venous sinus thrombus though this in retrospect has similar appearance to prior study. Advised f ollow-up. [facility], , 05/01/2024 12:25 PM
--- NOTE | 2024-05-01 12:39 | ED ---
General Adult HPI - General Chief complaint: Neuro Symptoms/Deficit Stated complaint: neuro symptoms Time Seen by Provider: 05/01/24 10:50 Source: patient, EMS, RN notes reviewed, old records reviewed Mode of arrival: EMS Limitations: altered mental status - History of Present Illness Initial comments: This is an 83-year-old female who presents to the emergency department with altered mental status. Patient supposedly this morning got on a bus to go to her doctor's office and was able to do so. When patient arrived to the doctor's office the patient was not alert or oriented and she seemed to have more paralysis on the right side of her body than normal and some more facial droop according to staff there. Patient arrived alert and not oriented at all she was not able to follow any commands and not moving the right side of her body at all again this was somewhat baseline according to the call we got from the physician's office. No other history was available at this time secondary the fact that no one was with the patient - Related Data Home Medications Medication Instructions Recorded Confirmed busPIRone HCl [Buspar] 5 mg PO TID 11/25/22 05/01/24 Calcium Carbonate/Vitamin D3 1 tab PO BID 04/27/23 05/01/24 [Calcium 600 mg-Vit D3 5 mcg (200 unit)] Fenofibrate,Micronized 200 mg PO DAILY 04/27/23 05/01/24 [Fenofibrate] Latanoprost Ophth [Xalatan 0.005%] 1 drops BOTH EYES HS 04/27/23 05/01/24 Levothyroxine Sodium [Synthroid] 75 mcg PO DAILY 04/27/23 05/01/24 Albuterol Sulfate [Albuterol 1 puff PO RT-QID PRN 04/20/24 05/01/24 Sulfate Hfa] Alendronate Sodium [Fosamax] 70 mg PO WE 04/20/24 05/01/24 Atorvastatin [Lipitor] 40 mg PO DAILY 04/20/24 05/01/24 Clopidogrel [Plavix] 75 mg PO DAILY 04/20/24 05/01/24 Famotidine [Pepcid] 20 mg PO DAILY 04/20/24 05/01/24 Gabapentin [Neurontin] 100 mg PO BID 04/20/24 05/01/24 LORazepam [Ativan] 0.5 mg PO BID PRN 04/20/24 05/01/24 lamoTRIgine [LaMICtal] 150 mg PO BID 04/20/24 05/01/24 levETIRAcetam [Keppra] 1,000 mg PO HS 04/20/24 05/01/24 levETIRAcetam [Keppra] 500 mg PO DAILY 04/20/24 05/01/24 Acetaminophen Tab [Tylenol Tab] 1,000 mg PO TID PRN 05/01/24 05/01/24 Furosemide [Lasix] 20 mg PO BID 05/01/24 05/01/24 Sennosides [Senokot] 17.2 mg PO DAILY 05/01/24 05/01/24 Previous Rx's Medication Instructions Recorded amLODIPine [Norvasc] 5 mg PO DAILY #30 tab 04/25/24 Allergies Allergy/AdvReac Type Severity Reaction Status Date / Time Iodinated Contrast Media Allergy Unknown Verified 05/01/24 11:39 [Iodinated Contrast Media - IV Dye] Review of Systems ROS Statement: Those systems with pertinent positive or pertinent negative responses have been documented in the HPI. ROS Other: All systems not noted in ROS Statement are negative. Past Medical History Past Medical History: CVA/TIA, Hyperlipidemia, Seizure Disorder, Thyroid Disorder Additional Past Medical History / Comment(s): CVA with residual right sided weakness, aphasia, slurred speech History of Any Multi-Drug Resistant Organisms: None Reported Past Surgical History: Unable to Obtain Past Anesthesia/Blood Transfusion Reactions: Unable to Obtain Past Psychological History: Unable to Obtain, Depression Smoking Status: Never smoker Past Alcohol Use History: Rare Past Drug Use History: None Reported - Past Family History Father Additional Family Medical History / Comment(s): age 75 unk cause Mother Additional Family Medical History / Comment(s): mom age 95 unk cause General Exam - General Exam Comments Initial Comments: GENERAL: Patient is well-developed and well-nourished. Patient is nontoxic and well- hydrated and is in no acute distress. ENT: Neck is soft and supple. No significant lymphadenopathy is noted. Oropharynx is clear. Moist mucous membranes. Neck has full range of motion without eliciting any pain. EYES: The sclera were anicteric and conjunctiva were pink and moist. PULMONARY: Unlabored respirations. Good breath sounds bilaterally. No audible rales rhonchi or wheezing was noted. CARDIOVASCULAR: There is a regular rate and rhythm without any murmurs gallops or rubs. ABDOMEN: Soft and nontender with normal bowel sounds. SKIN: Skin is clear with no lesions or rashes and otherwise unremarkable. Patient does have some what appears to be old bruising on the right side of her face NEUROLOGIC: Patient is alert and oriented x 0. Right side upper and lower extremity appear to be paralyzed. Patient might have some right-sided facial droop difficult to see since patient is not following any commands such as smiling or opening mouth. MUSCULOSKELETAL: No gross abnormalities of any of the extremities LYMPHATICS: No significant lymphadenopathy is noted PSYCHIATRIC: Unable to assess Limitations: altered mental status Course Vital Signs 05/01/24 05/01/24 05/01/24 10:42 10:48 11:14 Temperature 97.5 F L Pulse Rate 72 62 Respiratory 20 20 Rate Blood Pressure 121/82 128/49 O2 Sat by Pulse 96 95 Oximetry 05/01/24 11:45 Temperature Pulse Rate Respiratory Rate Blood Pressure O2 Sat by Pulse 92 L Oximetry Procedures - [facility] Protocol (Time Out) Nurse: Jose Mohr Medical Decision Making - Medical Decision Making EKG is interpreted by myself but EKG shows a sinus rhythm at 71 bpm MA was 182 QRS is 129 QT interval 373 QTc is 395. Patient's EKG shows no ST segment elevation or depression Was pt. sent in by a medical professional or institution (JANINE Cheney, JIG AND FIXTURE BUILDER APPRENTICE, urgent care, hospital, or retirement...) When possible be specific @ -No Did you speak to anyone other than the patient for history (EMS, parent, family, police, friend...)? What history was obtained from this source @ -No Did you review nursing and triage notes (agree or disagree)? Why? @ -I reviewed and agree with nursing and triage notes Were old charts reviewed (outside hosp., previous admission, EMS record, old EKG, old radiological studies, urgent care reports/EKG's, retirement records)? Report findings @ -No old charts were reviewed Differential Diagnosis? @ -Differential CVA Ischemic stroke, hemorrhagic stroke, brain tumor, atypical migraine, Wernicke's encephalopathy, seizure, multiple sclerosis, meningitis, encephalitis, hypoglycemia, Guillain-Chaves, electrolytes disturbance, myasthenia gravis.... This is not meant to be an all-inclusive list EKG interpreted by me (3pts min.). @ -As above X-rays interpreted by me (1pt min.). @ -Chest x-ray showed no acute normality CT interpreted by me (1pt min.). @ -CT of the brain shows no acute abnormality CT angiogram shows only chronic ch anges U/S interpreted by me (1pt. min.). @ -None done What testing was considered but not performed or refused? (CT, X-rays, U/S, labs)? Why? @ -None What meds were considered but not given or refused? Why? @ -None Did you discuss the management of the patient with other professionals (professionals i.e. , PA, J[employer] AND [employer] BUILDER APPRENTICE, lab, RT, psych nurse, administrator social welfare, abalone processor, teacher, financial administration officer, dependency case manager)? Give summary @ -I spoke with sound physicians agreed to admit the patient admit the patient I wrote admitting orders Was smoking cessation discussed for >3mins.? @ -No Was critical care preformed (if so, how long)? @ -No Were there social determinants of health that impacted care today? How? (Ho melessness, low income, unemployed, alcoholism, drug addiction, transportation, low edu. Level, literacy, decrease access to med. care, nursing home, rehab)? @ -No Was there de-escalation of care discussed even if they declined (Discuss DNR or withdrawal of care, Hospice)? DNR status @ -No What co-morbidities impacted this encounter? (DM, HTN, Smoking, COPD, CAD, Cancer, CVA, ARF, Chemo, Hep., AIDS, mental health diagnosis, sleep apnea, morbid obesity)? @ -None Was patient admitted / discharged? Hospital course, mention meds given and route, prescriptions, significant lab abnormalities, going to OR and other pertinent info. @ -Patient's CT of the brain and CT angiogram showed no acute abnormality. Patient remained awake but not oriented to anything and would not respond to any commands Undiagnosed new problem with uncertain prognosis? @ -No Drug Therapy requiring intensive monitoring for toxicity (Heparin, Nitro, Insulin, Cardizem)? @ -No Were any procedures done? @ -No Diagnosis/symptom? @ -Altered mental status Acute, or Chronic, or Acute on Chronic? @ -Acute Uncomplicated (without systemic symptoms) or Complicated (systemic symptoms)? @ -Comp Side effects of treatment? @ -No Exacerbation, Progression, or Severe Exacerbation? @ -No Poses a threat to life or bodily function? How? (Chest pain, [place], [place], pneumonia, PE, COPD, DKA, ARF, appy, cholecystitis, CVA, Diverticulitis, Homicidal, Suicidal, threat to staff... and all critical care pts) @ -Yes this could be secondary to massive stroke which could lead to - Lab Data Result diagrams: 05/01/24 10:58 05/01/24 10:58 Lab Results 05/01/24 05/01/24 05/01/24 Range/Units 10:58 10:58 10:58 WBC 6.9 (3.8-10.6) k/uL RBC 4.24 (3.80-5.40) m/uL Hgb 13.1 (11.4-16.0) gm/dL Hct 40.1 (34.0-46.0) % MCV 94.5 (80.0-100.0) fL MCH 30.8 (25.0-35.0) pg MCHC 32.6 (31.0-37.0) g/dL RDW 14.4 (11.5-15.5) % Plt Count 325 (150-450) k/uL MPV 7.7 Neutrophils % 68 % Lymphocytes % 19 % Monocytes % 8 % Eosinophils % 3 % Basophils % 1 % Neutrophils # 4.7 (1.3-7.7) k/uL Lymphocytes # 1.3 (1.0-4.8) k/uL Monocytes # 0.5 (0-1.0) k/uL Eosinophils # 0.2 (0-0.7) k/uL Basophils # 0.0 (0-0.2) k/uL Sodium 135 L (137-145) mmol/L Potassium 4.7 (3.5-5.1) mmol/L Chloride 87 L (98-107) mmol/L Carbon Dioxide 39 H (22-30) mmol/L Anion Gap 9 mmol/L BUN 38 H (7-17) mg/dL Creatinine 1.86 H (0.52-1.04) mg/dL Est GFR (CKD-EPI)AfAm 28 (>60 ml/min/1.73 sqM) Est GFR (CKD-EPI)NonAf 24 (>60 ml/min/1.73 sqM) Glucose 109 H (74-99) mg/dL Calcium 10.6 H (8.4-10.2) mg/dL Total Bilirubin 1.2 (0.2-1.3) mg/dL AST 79 H (14-36) U/L ALT 34 (4-34) U/L Alkaline Phosphatase 111 (38-126) U/L Creatine Kinase 93 (30-135) U/L Troponin I 0.050 H* (0.000-0.034) ng/mL Total Protein 7.8 (6.3-8.2) g/dL Albumin 3.9 (3.5-5.0) g/dL Disposition Clinical Impression: Altered mental status Disposition: ADMITTED IP TO THIS HOSP Referrals: Edgar Mendez MD [Primary Care Provider] - 1-2 days Time of Disposition: 14:27
[2024-05-01 14:31] LABS: Appearance,Urine Clear (Clear); Bilirubin,Urine Negative (Negative); Blood,Urine Trace (Negative); Color,Urine Colorless; Glucose,Urine (UA) Negative (Negative); Ketones,Urine Negative (Negative); Leukocyte Esterase,Urine Negative (Negative); Mucus,Urine Rare /hpf; Nitrite,Urine Negative (Negative); Protein,Urine Negative (Negative); RBC,Urine 1 /hpf (0-5); Squamous Epithelial Cell,Urine <1 /hpf (0-4); Urobilinogen,Urine <2.0 mg/dL (<2.0); WBC,Urine 4 /hpf (0-5)
--- NOTE | 2024-05-01 14:52 | P.HPIM ---
History of Present Illness H&P Date: 05/01/24 History of Presenting Illness: Patient is a very pleasant 83-year-old female with significant history of TIA and CVA, chronic left ICA occlusion , CHF with preserved ejection fraction, seizure disorder, glaucoma, HTN, and CKD stage III. Patient presented to the emergency department via EMS with altered mental status earlier today. Per ED documentation, patient was at her baseline neuro status this morning when she left for her scheduled doctor appointment; and upon arrival to her PCPs office she was disoriented with increasing right sided hemiparesis in addition to increasing right facial drooping. Called and discussed with pt's PCP and was informed patient has a baseline of expressive aphasia, but with the ability to communicate verbally in short phrases "yes", "no", or "carlito" and physical mobility varies at time and 1 person assist between walking with a walker or requiring two person assistance in transferring. On arrival to our facility, patient underwent evaluation in the emergency department., Vital signs upon arrival showed temp 97.5 F, BP128/ 49, HR 62, RR 20, and SpO2 of 92% on 3L NC. Labs completed and reviewed showing unremarkable CBC, Chemistry: with BUN 38, Creatinine 1.86 (Previously 1.37), AST 79. Troponin elevated: 0.050. EKG NSR at 71 bpm with LVH and T wave inversions in lateral leads I and aVL re-demonstrated when compared to EKG done 04/20. CXR showing elevated left diaphragm, correlate for phrenic nerve injury.CT angio showing persistent complete occlusion of left internal carotid artery, no new large vessel occlusion/aneurysm at level of habematolel of [place]. "Cannot exclude left sided dural venous sinus thrombus." CT Brain with no acute intracranial hemorrhage or midline shirt, large left sided infarct re-demonstrated with left-sided axial dilation involving left frontal lobe, small inferior left frontal scalp hematoma, bilateral aphakia remonstrated, without acute intracranial hemorrhage or midline shift. Admitted for management of altered mental status, neurology consulted, MRV with contrast ordered, heparin infusion tentative radiology interpretation. Review of systems: Pertinent positives and negatives as discussed in HPI, a complete review of syst ems was performed and all other systems are negative. Physical exam: Vital signs reviewed and stable. General: Found shouting from room incoherently. Unkempt, aphasic, bruises about face and right arm. Derm: Skin warm and dry,significant bruising about face, with small laceration to bridge of nose. Head: Older appearing Brusing in various stages of healing about forehead, nose, various healing stages. Eyes: PERRL, briskly equal, anicteric sclera Mouth: no lip lesions, mucus membranes dry Cardiovascular: regular rate and rhythm, systolic murmur, positive posterior tibial pulses bilaterally, cap refill >3 sec Lungs: Respirations even, regular, and unlabored on 3L NC. Lungs CTA upper anterior/ posterior, equally, no rhonchi, no rales, no wheezing, and no accessory muscle usage. Lungs diminished lower anterior/posterior, equally. Abdominal: soft, nontender to palpation, no guarding, no appreciable organomegaly Ext: Decreased movement to right upper extremity, ILAN significantly bruised, without laceration. Neuro: Limited exam due to mental status. 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 Opens eyes to tactile stimuli only. Psych: Opens eyes to tactile stimulus only. Assessment and Plan of Care: Altered Mental Status CT angiography unable to exclude left sided Dural venous sinus thrombus. History of CVA with right side residual deficits, seizure disorder, and chronic left ICA occlusion, aphasic at baseline _MRA/MRV without contrast ordered, Heparin Gtt tentative results. -MRI brain ordered -Neurology consulted, discussed plan of care with Dr. Lange recommending obtaining stat MRA/MRV -Neuro checks ordered every 4 hours -Seizure precautions and Fall precautions -Diet NPO until swallow evaluation then may advance to heart healthy diet -Speech Therapy, physical therapy, and Occupational Therapy consulted -Telemetry monitoring -Continue Keppra 75 mg PO Daily and 1000 PO HS and Lamictal 150 mg twice daily. -DAPT; continue home plavix 75mg daily and aspirin 81mg daily -Continue atorvastatin 40mg PO at HS Elevated troponin -Trend troponins every 3 hours x 2 additional draws. -Continuous telemetry monitoring -Continue daily medication regimen with aspirin 81 mg daily, atorvastatin 40 mg daily, Plavix 75 mg daily, fenofibrate 160 mg daily, ÁLVARO and CKD IIIb -BUN 38, Creatinine 1.86 (Previously 1.37) -Hold Lasix and patient placed on gentle IV fluid hydration with 0.9% normal saline at 50 cc/h. -Strict hourly intake and output (pt already has schwartz catheter from ED) -Daily BMP ordered History of Congestive Heart Failure with Preserved Ejection fraction (04/21/2024), hypertension, recent CHF exacerbation -Continue Oxygen 2L via nasal cannula, titrate to room air as Spo2 remaining > 90% allows. -Lasix held secondary to ÁLVARO -Daily Weight trending -Continue Amlodipine 5mg PO Daily Hypothyroidism -Continue daily medication regimen with levothyroxine 75 mcg daily. Follow-up on TSH with reflex free T4. Data and imaging reviewed: As stated above in HPI CODE STATUS: DNR/DNI DVT prophylaxis: Heparin Anticipated discharge date: Pending clinical course Anticipated discharge place: Pending clinical course Patient was seen independently by Nurse Practitioner. This document was prepared using [employer] dictation software. Please allow for errors in transportation dispatch manager while rare they do occur. Pepe Nagy NP rendered care for this patient independently, reviewed the findings and plan as documented in the note above and agree with plan. I did not physically speak with or examine the patient on this date. Past Medical History Past Medical History: CVA/TIA, Hyperlipidemia, Seizure Disorder, Thyroid Disorder Additional Past Medical History / Comment(s): CVA with residual right sided weakness, aphasia, slurred speech History of Any Multi-Drug Resistant Organisms: None Reported Past Surgical History: Unable to Obtain Past Anesthesia/Blood Transfusion Reactions: Unable to Obtain Past Psychological History: Unable to Obtain, Depression Smoking Status: Never smoker Past Alcohol Use History: Rare Past Drug Use History: None Reported - Past Family History Father Additional Family Medical History / Comment(s): age 75 unk cause Mother Additional Family Medical History / Comment(s): mom age 95 unk cause Medications and Allergies Home Medications Medication Instructions Recorded Confirmed Type busPIRone HCl [Buspar] 5 mg PO TID 11/25/22 05/01/24 History Calcium Carbonate/Vitamin D3 1 tab PO BID 04/27/23 05/01/24 History [Calcium 600 mg-Vit D3 5 mcg (200 unit)] Fenofibrate,Micronized 200 mg PO DAILY 04/27/23 05/01/24 History [Fenofibrate] Latanoprost Ophth [Xalatan 0.005%] 1 drops BOTH EYES HS 04/27/23 05/01/24 History Levothyroxine Sodium [Synthroid] 75 mcg PO DAILY 04/27/23 05/01/24 History Albuterol Sulfate [Albuterol 1 puff PO RT-QID PRN 04/20/24 05/01/24 History Sulfate Hfa] Alendronate Sodium [Fosamax] 70 mg PO WE 04/20/24 05/01/24 History Atorvastatin [Lipitor] 40 mg PO DAILY 04/20/24 05/01/24 History Clopidogrel [Plavix] 75 mg PO DAILY 04/20/24 05/01/24 History Famotidine [Pepcid] 20 mg PO DAILY 04/20/24 05/01/24 History Gabapentin [Neurontin] 100 mg PO BID 04/20/24 05/01/24 History LORazepam [Ativan] 0.5 mg PO BID PRN 04/20/24 05/01/24 History lamoTRIgine [LaMICtal] 150 mg PO BID 04/20/24 05/01/24 History levETIRAcetam [Keppra] 1,000 mg PO HS 04/20/24 05/01/24 History levETIRAcetam [Keppra] 500 mg PO DAILY 04/20/24 05/01/24 History amLODIPine [Norvasc] 5 mg PO DAILY #30 tab 04/25/24 05/01/24 Rx Acetaminophen Tab [Tylenol Tab] 1,000 mg PO TID PRN 05/01/24 05/01/24 History Furosemide [Lasix] 20 mg PO BID 05/01/24 05/01/24 History Sennosides [Senokot] 17.2 mg PO DAILY 05/01/24 05/01/24 History Allergies Allergy/AdvReac Type Severity Reaction Status Date / Time Iodinated Contrast Media Allergy Unknown Verified 05/01/24 11:39 [Iodinated Contrast Media - IV Dye] Physical Exam Vitals: Vital Signs Temp Pulse Resp BP Pulse Ox 05/01/24 11:45 92 L 05/01/24 11:14 62 20 128/49 95 05/01/24 10:48 97.5 F L 05/01/24 10:42 72 20 121/82 96 Intake and Output 04/30/24 05/01/24 05/01/24 22:59 06:59 14:59 Output Total 950 Balance -950 Output: Urine 950 Straight 950 Other: Weight 72.575 kg Results CBC & Chem 7: 05/01/24 10:58 05/01/24 10:58 Labs: Abnormal Lab Results - Last 24 Hours (Table) 05/01/24 05/01/24 05/01/24 Range/Units 10:58 10:58 14:17 Sodium 135 L (137-145) mmol/L Chloride 87 L (98-107) mmol/L Carbon Dioxide 39 H (22-30) mmol/L BUN 38 H (7-17) mg/dL Creatinine 1.86 H (0.52-1.04) mg/dL Glucose 109 H (74-99) mg/dL Calcium 10.6 H (8.4-10.2) mg/dL AST 79 H (14-36) U/L Troponin I 0.050 H* (0.000-0.034) ng/mL Urine Blood Trace H (Negative) Urine Mucus Rare H (None) /hpf
[2024-05-01 15:42] LABS: VBG PH 7.53 (7.31-7.41)
[2024-05-01] MEDS: SODIUM CHLORIDE 0.9% 1,000 ML IV ONE (15:52)
[2024-05-01] MEDS: IPRATROPIUM-ALBUTEROL 3 ML NEB INHALATION STA (16:08)
--- NOTE | 2024-05-01 17:23 | P.CNNES ---
History of Present Illness Consult date: 05/01/24 Requesting physician: Uriah Caldwell Reason for Consult: altered mental status History of Present Illness: This is an 83-year-old woman with a history of stroke with residual right hemiparesis, aphasia and dysarthria, chronic left ICA occlusion, seizure, chronic kidney disease, hypertension who presented emergency department because of altered mental status. History is obtained from medical record. It seems that patient was at baseline this morning for her doctor's appointment when she became confused with increased worse weakness over the right side with right facial droop. Seems to the patient does have expressive aphasia but is able to communicate in short sentences but her speech got worse. Seems her home medication as Keppra thousand 500 mg nightly, Lamictal 150 mg twice daily, gabapentin 100 mg twice daily, Plavix 75 mg daily, Lipitor 40 mg daily Upon seeing the patient again it was very hard to get a good history from the patient but she denies of any headache. She is very hypophonic. Some of the workup during this hospital visit consisted of: Creatinine is 1.86 AST [address] of the head is reported as no acute intracranial hemorrhage or midline shift. Body report it is reported the patient has large left-sided infarct. I personally reviewed the CT read patient has an old infarct which is same compared to her previous images. 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 No new large vessel occlusion or aneurysm at the level of [place]. Cannot exclude left-sided dural venous sinus thrombosis though this is in retrospect has similar appearance to prior study. Review of Systems Limited but as per HPI. Past Medical History Past Medical History: CVA/TIA, Hyperlipidemia, Seizure Disorder, Thyroid Disorder Additional Past Medical History / Comment(s): CVA with residual right sided wea kness, aphasia, slurred speech History of Any Multi-Drug Resistant Organisms: None Reported Past Surgical History: Unable to Obtain Past Anesthesia/Blood Transfusion Reactions: Unable to Obtain Past Psychological History: Unable to Obtain, Depression Smoking Status: Never smoker Past Alcohol Use History: Rare Past Drug Use History: None Reported - Past Family History Father Additional Family Medical History / Comment(s): age 75 unk cause Mother Additional Family Medical History / Comment(s): mom age 95 unk cause Medications and Allergies Home Medications Medication Instructions Recorded Confirmed Type busPIRone HCl [Buspar] 5 mg PO TID 11/25/22 05/01/24 History Calcium Carbonate/Vitamin D3 1 tab PO BID 04/27/23 05/01/24 History [Calcium 600 mg-Vit D3 5 mcg (200 unit)] Fenofibrate,Micronized 200 mg PO DAILY 04/27/23 05/01/24 History [Fenofibrate] Latanoprost Ophth [Xalatan 0.005%] 1 drops BOTH EYES HS 04/27/23 05/01/24 History Levothyroxine Sodium [Synthroid] 75 mcg PO DAILY 04/27/23 05/01/24 History Albuterol Sulfate [Albuterol 1 puff PO RT-QID PRN 04/20/24 05/01/24 History Sulfate Hfa] Alendronate Sodium [Fosamax] 70 mg PO WE 04/20/24 05/01/24 History Atorvastatin [Lipitor] 40 mg PO DAILY 04/20/24 05/01/24 History Clopidogrel [Plavix] 75 mg PO DAILY 04/20/24 05/01/24 History Famotidine [Pepcid] 20 mg PO DAILY 04/20/24 05/01/24 History Gabapentin [Neurontin] 100 mg PO BID 04/20/24 05/01/24 History LORazepam [Ativan] 0.5 mg PO BID PRN 04/20/24 05/01/24 History lamoTRIgine [LaMICtal] 150 mg PO BID 04/20/24 05/01/24 History levETIRAcetam [Keppra] 1,000 mg PO HS 04/20/24 05/01/24 History levETIRAcetam [Keppra] 500 mg PO DAILY 04/20/24 05/01/24 History amLODIPine [Norvasc] 5 mg PO DAILY #30 tab 04/25/24 05/01/24 Rx Acetaminophen Tab [Tylenol Tab] 1,000 mg PO TID PRN 05/01/24 05/01/24 History Furosemide [Lasix] 20 mg PO BID 05/01/24 05/01/24 History Sennosides [Senokot] 17.2 mg PO DAILY 05/01/24 05/01/24 History Allergies Allergy/AdvReac Type Severity Reaction Status Date / Time Iodinated Contrast Media Allergy Unknown Verified 05/01/24 11:39 [Iodinated Contrast Media - IV Dye] Physical Examination - Vital Signs Vital Signs: Vital Signs Temp Pulse Resp BP Pulse Ox 05/01/24 16:19 76 05/01/24 16:11 70 05/01/24 15:46 97.6 F 68 16 118/56 99 05/01/24 14:30 78 18 136/62 96 05/01/24 13:30 59 L 16 102/51 97 05/01/24 12:30 64 16 145/63 96 05/01/24 11:45 92 L 05/01/24 11:14 62 20 128/49 95 05/01/24 10:48 97.5 F L 05/01/24 10:42 72 20 121/82 96 Intake and Output 05/01/24 05/01/24 05/01/24 06:59 14:59 22:59 Output Total 950 Balance -950 Output: Urine 950 Straight 950 Other: Weight 72.575 kg General: Lying in bed and does not appear in acute distress. Neuro: Limited Patient is oriented to self and she was able to identify by 1 objects correctly such as pen. He was following some simple commands such as lifting the arms legs. Pupils are round about 3 mm and reactive to light. I could not appreciate drastic facial weakness from limitation from examination. Motor patient was able to lift up the left upper lower above gravity better than the right upper lower. She was able to lift up right upper and lower above gravity but was weaker compared to the left the left upper lower with the limitation was 4+ and the right was 3-4. From the limitation sensation is normal to touch according to the patient. Results - Laboratory Findings CBC and BMP: 05/01/24 10:58 05/01/24 10:58 Abnormal Lab Findings: Abnormal Labs 05/01/24 05/01/24 05/01/24 10:58 10:58 14:17 VBG pH VBG HCO3 Sodium 135 L Chloride 87 L Carbon Dioxide 39 H BUN 38 H Creatinine 1.86 H Glucose 109 H Calcium 10.6 H AST 79 H Troponin I 0.050 H* Urine Blood Trace H Urine Mucus Rare H 05/01/24 15:20 VBG pH 7.53 H VBG HCO3 34 H Sodium Chloride Carbon Dioxide BUN Creatinine Glucose Calcium AST Troponin I Urine Blood Urine Mucus Assessment and Plan Assessment: This is an 83-year-old woman with a history of stroke with residual expressive aphasia right hemiparesis, dysarthria, seizure presents the emergency department from her scheduled doctor's appointment with confusion and increased worsening right-sided weakness as well as increased right facial droop. Worsening weakness over the right side with confusion: Rule out due to stroke versus breakthrough seizure. On the CT angiography it is reported that cannot exclude left-sided dural venous sinus thrombus then it is reported that has similar appearance to prior study. History of stroke with residual right hemiparesis, expressive aphasia, dysarthria History of seizure History of left ICA occlusion Congestive heart failure Hypertension Chronic kidney insufficiency Plan: Pending stat MRI of the brain, MRV Patient is on aspirin 81 mg, Plavix 75 mg. She was given aspirin 324 mg once in the ED. Patient is also on Lipitor 40mg daily I ordered a routine EEG. Patient is resumed on her home medication of Keppra 1500 mg nightly, Lamictal 150 mg twice daily. Placed the patient on seizure precaution Continue neurochecks Cardiac monitoring PT, OT and PRODUCTION SUPV are consulted Will defer the rest of the medical management to primary and other specialist For DVT prophylaxis start patient on subcu heparin 5000 units every 12 hours Plan discussed with the primary team nurse practitioner. Thank for the consultation Time with Patient: Greater than 30
--- NOTE | 2024-05-01 18:24 | MR ---
EXAMINATION TYPE: MR brain wo con DATE OF EXAM: 05/01/2024 6:19 PM COMPARISON: 05/01/2024. CLINICAL INDICATION: Female, 83 years old with history of r/o cva; PHH, r/o cva neurological deficit. TECHNIQUE: Multi planar, multi sequence imaging was performed through the brain including: T1, T2, In version recovery, Diffusion weighted imaging, and gradient echo imaging. No gadolinium was given. FINDINGS: Subtle malacia of the left frontal lobe and left parietal region from prior infarct. There is surrounding vasogenic edema in these regions. There is also surrounding glial cyst present. Genera lized cerebral atrophy present. Proportional dilation of ventricles. Scattered foci of high T2 signa l intensity are seen within the periventricular white matter. Midline structures show no abnormality. Diffusion-weighted imaging shows no evidence of restricted diffusion. The susceptibility weighted im ages do not reveal any evidence for micro-hemorrhage. Scattered hemosiderin deposition in the left fr ontal lobe renal cortex The bone marrow signal is within normal limits. Paranasal sinuses and mastoid air cells: Paranasal sinus disease predominantly in the sphenoid sinuse s. Visualized orbits: Bilateral aphakia IMPRESSION: 1. Remote injuries, No evidence of acute/subacute infarct or angina axial mass. 2. Nonspecific white matter changes, likely secondary to small vessel ischemic disease. [facility], , 05/01/2024 6:22 PM
--- NOTE | 2024-05-01 18:38 | MR ---
EXAMINATION TYPE: MR MRA/MRV head wo con DATE OF EXAM: 05/01/2024 6:13 PM COMPARISON: CT MRI same day. CLINICAL INDICATION: Female, 83 years old with history of aphasia, r/o venous sinus thrombus; PHH, ap hasia, r/o venous sinus thrombus TECHNIQUE: MRA brain: 3-D [id number] Axial with MIP and 3-D reconstruction performed on a separate workstati on. MRV of the brain: performed utilizing two-dimensional [id number] technique MIP and 3-D reconstruc tion. Performed on a separate workstation. IV Contrast: mL (None, if empty) Findings: Vertebral arteries: The left vertebral artery is dominant. The right vertebral artery intracranial po rtion is diminutive as seen on prior CT. Basilar artery: The basilar artery is intact. The basilar ar victor manuel bifurcation is normal. Internal Carotid arteries: The left internal carotid artery is occluded with trickle flow in the philomena ous portion identified on CT less well appreciated on the right. The cervical, petrous, cavernous and supraclinoid segments are normal. GOGO: Patent without evidence of aneurysm. ACOM: Patent without evidence of aneurysm. MCA: Smaller caliber left MCA compared to the right. Patent without evidence of aneurysm. SYSTEMS CONSULTANT: origin on the right. Patent without evidence of aneurysm. PCOM: Hypoplastic left. origin right.. There is dominant right transverse sinus and atrophic left. There is a thin caliber vessel extending through from the confluence of sinuses through the transverse sinus with tiny caliber vessel possibly remaining. IMPRESSION: 1. Suspected occlusion/near occlusion of the left sigmoid sinus with small caliber transverse sinus extending to the confluence. Consider Melter Caster angiography. 2. No evidence of venous sinus thrombosis. 3. No evidence of intracranial aneurysm or significant stenosis. 4. Right vertebral artery intracranial portion is diminutive as seen on prior CT. 5. Smaller caliber of the left MCA petrous portion with small caliber left MCA M1. M2 and M3 segment compared to the right.. [facility], , 05/01/2024 6:35 PM
[2024-05-01] MEDS: lamoTRIgine 100 MG TAB PO SCH (20:16)
[2024-05-01] MEDS: levETIRAcetam 500 MG TAB PO SCH (20:16)
[2024-05-01] MEDS: GABAPENTIN 100 MG CAP PO SCH (20:16)
[2024-05-01] MEDS: HEPARIN SODIUM,PORCINE 5,000 UNIT/ML 1 ML VIAL SQ SCH (20:16)
[2024-05-01] MEDS: ASPIRIN 81 MG PO STA (20:16)
[2024-05-01] MEDS: CALCIUM CARB-VIT D 500 MG-5 MCG TAB PO SCH (20:16)
[2024-05-01] MEDS: LATANOPROST 0.005% OPHTH DROPS 2.5 ML BTL BOTH EYES SCH (20:16)
[2024-05-01] MEDS: busPIRone HCl 5 MG TAB PO SCH (20:16)
[2024-05-01 23:25] LABS: INR 1.1 (<1.2); Partial Thromboplastin Time 24.5 sec (22.0-30.0); Prothrombin Time 11.9 sec (10.0-12.5)
[2024-05-02] MEDS: LEVOTHYROXINE 75 MCG TAB PO SCH (06:02)
[2024-05-02] MEDS: ATORVASTATIN 40 MG TAB PO SCH (08:04)
[2024-05-02] MEDS: ASPIRIN 81 MG PO SCH (08:04)
[2024-05-02] MEDS: amLODIPine 5 MG TAB PO SCH (08:04)
[2024-05-02] MEDS: CLOPIDOGREL 75 MG TAB PO SCH (08:05)
[2024-05-02] MEDS: FENOFIBRATE 160 MG TAB PO SCH (08:05)
[2024-05-02] MEDS: levETIRAcetam 500 MG TAB PO SCH (08:06)
[2024-05-02] MEDS: SENNOSIDES 8.6 MG TAB PO SCH (08:06)
[2024-05-02 08:12] LABS: HCT 32.7 % (34.0-46.0); HGB 10.5 gm/dL (11.4-16.0); MCH 30.5 pg (25.0-35.0); MCV 95.3 fL (80.0-100.0); Mean Platelet Volume 7.7; Platelet Count 287 k/uL (150-450); RBC 3.43 m/uL (3.80-5.40); RDW 14.5 % (11.5-15.5)
[2024-05-02] MEDS ORDERED: HEPARIN SODIUM 1,000 UN/ML (10ML VL) IV PRN (08:17)
[2024-05-02 08:37] LABS: ALT 26 U/L (4-34); AST 54 U/L (14-36); African American GFR (CKD) 30 (>60 ml/min/1.73 sqM); Alkaline Phosphatase 71 U/L (38-126); Anion Gap 5 mmol/L; Blood Urea Nitrogen 38 mg/dL (7-17); Calcium 10.1 mg/dL (8.4-10.2); Carbon Dioxide 34 mmol/L (22-30); Chloride 94 mmol/L (98-107); Glucose 88 mg/dL (74-99); Magnesium 1.7 mg/dL (1.6-2.3); Non-African American GFR(CKD) 26 (>60 ml/min/1.73 sqM); Potassium 4.3 mmol/L (3.5-5.1); Sodium 133 mmol/L (137-145); Total Bilirubin 0.8 mg/dL (0.2-1.3)
[2024-05-02] MEDS ORDERED: FUROSEMIDE 20 MG TAB PO SCH (09:00)
[2024-05-02] MEDS: MAGNESIUM SULFATE-D5W PMX 1 GM in DEXTROSE/WATER 1 100ML.BAG IVPB SCH (10:41)
[2024-05-02] MEDS: HEPARIN SODIUM 1,000 UN/ML (10ML VL) IV ONE (11:55)
[2024-05-02] MEDS: HEPARIN SOD,PORK IN 0.45% NACL 25,000 UNIT in 0.45% NACL 1 250ML.BAG IV SCH (11:56)
--- NOTE | 2024-05-02 12:44 | XR ---
EXAMINATION TYPE: XR chest 1V portable DATE OF EXAM: 05/02/2024 12:35 PM COMPARISON: Chest radiographs from 05/01/2024 TECHNIQUE: XR chest 1V portable Portable AP radiograph of the chest. CLINICAL INDICATION:Female, 83 years old with history of adventitious lung sounds after eating, r/o a spirat; FINDINGS: Lungs/Pleura: There is no evidence of pleural effusion, focal consolidation, or pneumothorax. Chroni c elevation left hemidiaphragm. Pulmonary vascularity: Unremarkable. Heart/mediastinum: Cardiomediastinal silhouette is prominent in size. Atherosclerotic calcifications are seen in the aorta. Musculoskeletal: No acute osseous pathology. Dextrocurvature of the thoracic spine. IMPRESSION: 1. No acute cardiopulmonary disease/process. 2. Chronic elevation of the left hemidiaphragm. [facility], , 05/02/2024 12:42 PM
--- NOTE | 2024-05-02 13:44 | P.PN ---
Subjective Progress Note Date: 05/02/24 I am following-up with patient and and there is concerns she has aspiration pneumonia. Otherwise is about the same. Otherwise clinically she is about the same. Objective - Vital Signs Vital signs: Vital Signs Temp 98.2 F 05/02/24 11:19 Pulse 67 05/02/24 11:19 Resp 18 05/02/24 11:19 BP 104/63 05/02/24 11:19 Pulse Ox 94 L 05/02/24 04:00 FiO2 Intake & Output 05/01/24 05/02/24 05/02/24 18:59 06:59 18:59 Output Total 950 675 Balance -950 -675 Weight 72.575 kg 72.575 kg Output: Urine 950 675 Straight 950 Other: Voiding Method Indwelling Catheter Indwelling Catheter # Voids 1 - Exam General: Lying in bed and does not appear in acute distress. Lung: Sound coarse. Neuro: Limited. The patient is drowsy but is awakeable to voice. Is oriented to self and correctly states she is in the hospital. She is very slow in responding to questions. She is following simple commands. Is lifting the left side much more than right side. Some of the workup during this hospital visit consisted of: Creatinine is 1.86 AST [address] of the head is reported as no acute intracranial hemorrhage or midline shift. Body report it is reported the patient has large left-sided infarct. I personally reviewed the CT read patient has an old infarct which is same compared to her previous images. 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 No new large vessel occlusion or aneurysm at the level of [place]. Cannot exclude left-sided dural venous sinus thrombosis though this is in retrospect has similar appearance to prior study. MRI Brain: Remote injuries, no evidence of acute/subacute infarct. MRA/MRV head: Suspected occlusion/near occlusion of the left sigmoid sinus with small caliber transverse sinus extending to the confluence. Consider excavation laborer angiography. NO evidence of venous sinus thrombosis. No evidence of intracranial aneurysm or significant stenosis. Right vertebral artery intracranial portion is diminutive as seen on prior CT. Small caliber of the left MCA petrous portion with small caliber left MCA M1. M2 and M2 segment compared to the right. - Labs CBC & Chem 7: 05/02/24 07:37 05/02/24 07:37 Labs: Abnormal Lab Results - Last 24 Hours (Table) 05/01/24 05/01/24 05/01/24 Range/Units 14:17 15:20 18:43 RBC (3.80-5.40) m/uL Hgb (11.4-16.0) gm/dL Hct (34.0-46.0) % VBG pH 7.53 H (7.31-7.41) VBG HCO3 34 H (24-28) mmol/L Sodium (137-145) mmol/L Chloride (98-107) mmol/L Carbon Dioxide (22-30) mmol/L BUN (7-17) mg/dL Creatinine (0.52-1.04) mg/dL AST (14-36) U/L Troponin I 0.042 H* (0.000-0.034) ng/mL Total Protein (6.3-8.2) g/dL Albumin (3.5-5.0) g/dL Urine Blood Trace H (Negative) Urine Mucus Rare H (None) /hpf 05/01/24 05/02/24 05/02/24 Range/Units 22:42 07:37 07:37 RBC 3.43 L (3.80-5.40) m/uL Hgb 10.5 L (11.4-16.0) gm/dL Hct 32.7 L (34.0-46.0) % VBG pH (7.31-7.41) VBG HCO3 (24-28) mmol/L Sodium 133 L (137-145) mmol/L Chloride 94 L (98-107) mmol/L Carbon Dioxide 34 H (22-30) mmol/L BUN 38 H (7-17) mg/dL Creatinine 1.75 H (0.52-1.04) mg/dL AST 54 H (14-36) U/L Troponin I 0.049 H* (0.000-0.034) ng/mL Total Protein 6.0 L (6.3-8.2) g/dL Albumin 3.0 L (3.5-5.0) g/dL Urine Blood (Negative) Urine Mucus (None) /hpf Assessment and Plan Assessment: This is an 83-year-old woman with a history of stroke with residual expressive aphasia right hemiparesis, dysarthria, seizure presents the emergency department from her scheduled doctor's appointment with confusion and increased worsening right-sided weakness as well as increased right facial droop. Worsening weakness over the right side with confusion: Unsure if due to breakthrough seizure. No acute stroke on MRI Brain. CT angiography it is reported that cannot exclude left-sided dural venous sinus thrombus then it is reported that has similar appearance to prior study. But MRA/MVA MRA/MRV head: Suspected occlusion/near occlusion of the left sigmoid sinus with small caliber transverse sinus extending to the confluence. NO evidence of venous sinus thrombosis. History of stroke with residual right hemiparesis, expressive aphasia, dysarthria History of seizure History of left ICA occlusion Congestive heart failure Hypertension Chronic kidney insufficiency Plan: I have spoke with Dr. Staley to review CTA and MRV and give me his input/recommendations. He stated he will review images and update me. Patient is on aspirin 81 mg, Plavix 75 mg. She was given aspirin 324 mg once in the ED. Patient is also on Lipitor 40mg daily Pending routine EEG. Patient is resumed on her home medication of Keppra 1500 mg nightly, Lamictal 150 mg twice daily. Placed the patient on seizure precaution Continue neurochecks Cardiac monitoring PT, OT and MARKETING STRATEGY MANAGER are consulted Will defer the rest of the medical management to primary and other specialist For DVT prophylaxis start patient on subcu heparin 5000 units every 12 hours The plan is discussed with primary team. Time with Patient: Less than 30
--- NOTE | 2024-05-02 14:31 | P.PN ---
Subjective Progress Note Date: 05/02/24 Hospital Course: Patient is a very pleasant 83-year-old female with significant history of TIA and CVA, chronic left ICA occlusion , CHF with preserved ejection fraction, seizure disorder, glaucoma, HTN, and CKD stage III. Patient presented to the emergency department via EMS with altered mental status earlier today. Per ED documentation, patient was at her baseline neuro status this morning when she left for her scheduled doctor appointment; and upon arrival to her PCPs office she was disoriented with increasing right sided hemiparesis in addition to increasing right facial drooping. Called and discussed with pt's PCP and was informed patient has a baseline of expressive aphasia, but with the ability to communicate verbally in short phrases "yes", "no", or "carlito" and physical mobility varies at time and 1 person assist between walking with a walker or requiring two person assistance in transferring. On arrival to our facility, patient underwent evaluation in the emergency department., Vital signs upon arrival showed temp 97.5 F, BP128/ 49, HR 62, RR 20, and SpO2 of 92% on 3L NC. Labs completed and reviewed showing unremarkable CBC, Chemistry: with BUN 38, Creatinine 1.86 (Previously 1.37), AST 79. Troponin elevated: 0.050. EKG NSR at 71 bpm with LVH and T wave inversions in lateral leads I and aVL re-demonstrated when compared to EKG done 04/20. CXR showing elevated left diaphragm, correlate for phrenic nerve injury.CT angio showing persistent complete occlusion of left internal carotid artery, no new large vessel occlusion/aneurysm at level of [place]. "Cannot exclude left sided dural venous sinus thrombus." CT Brain with no acute intracranial hemorrhage or midline shirt, large left sided infarct re-demonstrated with left-sided axial dilation involving left frontal lobe, small inferior left frontal scalp hematoma, bilateral aphakia remonstrated, without acute intracranial hemorrhage or midline shift. Admitted for management of altered mental status, neurology consulted, MRV with contrast ordered, heparin infusion tentative radiology interpretation. MRA/MRV of head without contrast was completed showing suspected occlusion/near occlusion of left sigmoid sinus with small caliber transverse sinus extending to the confluence, no evidence of venous sinus thrombosis, right vertebral artery intracranial portion is diminutive as seen on previous CT and smaller caliber of the left MCA Pelto's portion with small caliber left MCA M1, M2, and M3 segment compared to the right. Order placed for high intensity heparin infusion and notified neurologist, stated hold off on heparin infusion and MRV to be further reviewed and further recommendations to be provided at that time. MRI brain resulting showing remote injuries but no evidence of acute/subacute infarct, nonspecific white matter changes likely secondary to small vessel ischemic disease. Physical exam: Patient seen and fully evaluated at bedside this morning. Her mentation is slightly improved she remains alert to self only but is more awake and alert and following some commands. Speech remains aphasic and patient appears quite frustrated when trying to get words out. Patient follows with her eyes and is able to lift her arms and squeeze fingers when asked. She continues to have slightly decreased strength on the right when compared to the left, did not hold arms up long enough to assess for arm drop. Vital signs reviewed and stable. General: Found shouting from room incoherently. Unkempt, aphasic, bruises about face and right arm. Derm: Skin warm and dry,significant bruising about face, with small laceration to bridge of nose. Head: Older appearing Brusing in various stages of healing about forehead, nose, various healing stages. Eyes: PERRL, briskly equal, anicteric sclera Mouth: no lip lesions, mucus membranes dry Cardiovascular: regular rate and rhythm, systolic murmur, positive posterior tibial pulses bilaterally, cap refill >3 sec Lungs: Respirations even, regular, and unlabored on 2L NC. Lungs CTA upper anterior/ posterior, equally, no rhonchi, no rales, no wheezing, and no accessory muscle usage. Lungs diminished lower anterior/posterior, equally. Abdominal: soft, nontender to palpation, no guarding, no appreciable or ganomegaly Ext: Decreased movement to right upper extremity, ILAN significantly bruised, without laceration. Neuro: Limited exam due to mental status. Appropriately executive candidate developer hands bilaterally L>R, otherwise does not follow commands or respond verbally. Opens eyes to tactile stimuli only. Psych: Opens eyes to tactile stimulus only. Assessment and Plan of Care: Altered Mental Status CT angiography unable to exclude left sided Dural venous sinus thrombus. History of CVA with right side residual deficits, seizure disorder, and chronic left ICA occlusion, aphasic at baseline -MRA/MRV of head without contrast was completed showing suspected occlusion/near occlusion of left sigmoid sinus with small caliber transverse sinus extending to the confluence, no evidence of venous sinus thrombosis, right vertebral artery intracranial portion is diminutive as seen on previous CT and smaller caliber of the left MCA Pelto's portion with small caliber left MCA M1, M2, and M3 segment compared to the right. -MRI brain resulting showing remote injuries but no evidence of acute/subacute infarct, nonspecific white matter changes likely secondary to small vessel ischemic disease. -Neurology consulted, discussed plan of care with Dr. Clark -Neuro checks ordered every 4 hours -Seizure precautions and Fall precautions -Diet NPO until swallow evaluation then may advance to heart healthy diet -Speech Therapy, physical therapy, and Occupational Therapy consulted -Telemetry monitoring -Continue Keppra 75 mg PO Daily and 1000 PO HS and Lamictal 150 mg twice daily. -DAPT; continue home plavix 75mg daily and aspirin 81mg daily -Continue atorvastatin 40mg PO at HS Elevated troponins, flat -Troponin's elevated at 0.050, 0.042, and 0.049. -Continuous telemetry monitoring -Continue daily medication regimen with aspirin 81 mg daily, atorvastatin 40 mg daily, Plavix 75 mg daily, fenofibrate 160 mg daily, ÁLVARO and CKD IIIb -BUN 38, Creatinine 1.75 and GFR 26 -Continue to Hold Lasix and continue gentle IV fluid hydration with 0.9% normal saline at 50 cc/h. -Strict hourly intake and output (pt already has schwartz catheter from ED) -Daily BMP ordered History of Congestive Heart Failure with Preserved Ejection fraction (04/21/2024), hypertension, recent CHF exacerbation -Continue Oxygen 2L via nasal cannula, titrate to room air as Spo2 remaining > 90% allows. -Lasix held secondary to ÁLVARO -Daily Weight trending -Continue Amlodipine 5mg PO Daily Hypothyroidism -Continue daily medication regimen with levothyroxine 75 mcg daily. Follow-up on TSH with reflex free T4. Data and imaging reviewed: Morning labs reviewed. CBC showing stable normocytic anemia with hemoglobin of 10.5. BMP showing hyponatremia with sodium of 133, chloride of 94, and elevated bicarb of 34. Renal function remains elevated but slightly improving with BUN of 38, creatinine 1.75, GFR of 26. Magnesium slightly low at 1.7. Liver profile showing elevated AST of 54, low total protein of 6.0, and hypoalbuminemia with albumin of 3.0. Troponin's elevated at 0.050, 0.042, and 0.049. Blood pressure 111/59, heart rate 69, respiratory rate 18, temp 97.2 F, and SpO2 of 94% on 2 L. CODE STATUS: DNR/DNI DVT prophylaxis: Heparin Anticipated discharge date: Pending clinical course Anticipated discharge place: Pending clinical course Patient was seen independently by Nurse Practitioner. This document was prepared using [employer] dictation software. Please allow for errors in amplifier mechanic while rare they do occur. Pepe Nagy NP rendered care for this patient independently, reviewed the findings and plan as documented in the note above and agree with plan. I did not physically speak with or examine the patient on this date. . Objective - Vital Signs Vital signs: Vital Signs Temp 97.2 F L 05/02/24 08:21 Pulse 69 05/02/24 07:58 Resp 18 05/02/24 07:58 BP 111/59 05/02/24 07:58 Pulse Ox 94 L 05/02/24 04:00 FiO2 Intake & Output 05/01/24 05/02/24 05/02/24 18:59 06:59 18:59 Output Total 950 675 Balance -950 -675 Weight 72.575 kg 72.575 kg Output: Urine 950 675 Straight 950 Other: Voiding Method Indwelling Catheter Indwelling Catheter # Voids 1 - Labs CBC & Chem 7: 05/02/24 07:37 05/02/24 07:37 Labs: Abnormal Lab Results - Last 24 Hours (Table) 05/01/24 05/01/24 05/01/24 Range/Units 10:58 10:58 14:17 RBC (3.80-5.40) m/uL Hgb (11.4-16.0) gm/dL Hct (34.0-46.0) % VBG pH (7.31-7.41) VBG HCO3 (24-28) mmol/L Sodium 135 L (137-145) mmol/L Chloride 87 L (98-107) mmol/L Carbon Dioxide 39 H (22-30) mmol/L BUN 38 H (7-17) mg/dL Creatinine 1.86 H (0.52-1.04) mg/dL Glucose 109 H (74-99) mg/dL Calcium 10.6 H (8.4-10.2) mg/dL AST 79 H (14-36) U/L Troponin I 0.050 H* (0.000-0.034) ng/mL Urine Blood Trace H (Negative) Urine Mucus Rare H (None) /hpf 05/01/24 05/01/24 05/01/24 Range/Units 15:20 18:43 22:42 RBC (3.80-5.40) m/uL Hgb (11.4-16.0) gm/dL Hct (34.0-46.0) % VBG pH 7.53 H (7.31-7.41) VBG HCO3 34 H (24-28) mmol/L Sodium (137-145) mmol/L Chloride (98-107) mmol/L Carbon Dioxide (22-30) mmol/L BUN (7-17) mg/dL Creatinine (0.52-1.04) mg/dL Glucose (74-99) mg/dL Calcium (8.4-10.2) mg/dL AST (14-36) U/L Troponin I 0.042 H* 0.049 H* (0.000-0.034) ng/mL Urine Blood (Negative) Urine Mucus (None) /hpf 05/02/24 Range/Units 07:37 RBC 3.43 L (3.80-5.40) m/uL Hgb 10.5 L (11.4-16.0) gm/dL Hct 32.7 L (34.0-46.0) % VBG pH (7.31-7.41) VBG HCO3 (24-28) mmol/L Sodium (137-145) mmol/L Chloride (98-107) mmol/L Carbon Dioxide (22-30) mmol/L BUN (7-17) mg/dL Creatinine (0.52-1.04) mg/dL Glucose (74-99) mg/dL Calcium (8.4-10.2) mg/dL AST (14-36) U/L Troponin I (0.000-0.034) ng/mL Urine Blood (Negative) Urine Mucus (None) /hpf
[2024-05-02] MEDS: Lacosamide IV (ages 17+ yrs) 200 MG/20 ML ML IVP SCH (20:33)
[2024-05-02] MEDS: HEPARIN SODIUM,PORCINE 5,000 UNIT/ML 1 ML VIAL SQ SCH (20:34)
--- NOTE | 2024-05-02 21:00 | EEG ---
ELECTROENCEPHALOGRAM REPORT CLINICAL HISTORY: This is an 83-year-old woman with history of stroke, seizure, who presents to the emergency department because of altered mental status. The video EEG is obtained to evaluate for seizure epileptiform activity. RELEVANT MEDICATIONS: 1. Keppra. 2. Lamictal. 3. Gabapentin. EEG TYPE: This is a routine 21-channel EEG with video using the 10/20 electrode placement system. DESCRIPTION: Wakefulness and drowsiness are obtained. During awake state, the background consists of [id number] voltage of 6 hertz activity that is well modulated and well sustained. There is no physiological stage 2 sleep architecture. There is no focal slowing. Interictal and ictal is none. ACTIVATION PROCEDURE: Photic stimulation did not evoke a posterior driving response. There is no abnormality during the photic stimulation. Hyperventilation is not performed. CLINICAL INTERPRETATION: This is an abnormal routine EEG. The background slowing is suggestive of mild encephalopathy. There is no focal slowing, epileptiform discharges, or seizure on the EEG. Clinical correlation is recommended. MMMARTI / IJN: [id number] /
[2024-05-03 06:48] LABS: HGB 10.5 gm/dL (11.4-16.0); Hypochromasia Slight; MCH 31.5 pg (25.0-35.0); MCHC 32.7 g/dL (31.0-37.0); MCV 96.4 fL (80.0-100.0); Mean Platelet Volume 7.5; Platelet Count 280 k/uL (150-450); RBC 3.32 m/uL (3.80-5.40); RDW 14.5 % (11.5-15.5); WBC 7.6 k/uL (3.8-10.6)
[2024-05-03 07:07] LABS: ALT 25 U/L (4-34); AST 59 U/L (14-36); African American GFR (CKD) 32 (>60 ml/min/1.73 sqM); Albumin 3.1 g/dL (3.5-5.0); Alkaline Phosphatase 71 U/L (38-126); Anion Gap 3 mmol/L; Blood Urea Nitrogen 37 mg/dL (7-17); Calcium 10.2 mg/dL (8.4-10.2); Carbon Dioxide 37 mmol/L (22-30); Chloride 96 mmol/L (98-107); Glucose 85 mg/dL (74-99); Magnesium 2.3 mg/dL (1.6-2.3); Non-African American GFR(CKD) 28 (>60 ml/min/1.73 sqM); Potassium 4.5 mmol/L (3.5-5.1); Sodium 136 mmol/L (137-145); Total Bilirubin 0.9 mg/dL (0.2-1.3); Total Protein 6.2 g/dL (6.3-8.2)
[2024-05-03] MEDS: LORazepam 1 MG/0.5 ML VIAL IV STA (12:50)
--- NOTE | 2024-05-03 13:05 | P.PN ---
Subjective Progress Note Date: 05/03/24 Hospital Course: Patient is a very pleasant 83-year-old female with significant history of TIA and CVA, chronic left ICA occlusion , CHF with preserved ejection fraction, seizure disorder, glaucoma, HTN, and CKD stage III. Patient presented to the emergency department via EMS with altered mental status earlier today. Per ED documentation, patient was at her baseline neuro status this morning when she left for her scheduled doctor appointment; and upon arrival to her PCPs office she was disoriented with increasing right sided hemiparesis in addition to increasing right facial drooping. Called and discussed with pt's PCP and was informed patient has a baseline of expressive aphasia, but with the ability to communicate verbally in short phrases "yes", "no", or "carlito" and physical mobility varies at time and 1 person assist between walking with a walker or requiring two person assistance in transferring. On arrival to our facility, patient underwent evaluation in the emergency department., Vital signs upon arrival showed temp 97.5 F, BP128/ 49, HR 62, RR 20, and SpO2 of 92% on 3L NC. Labs completed and reviewed showing unremarkable CBC, Chemistry: with BUN 38, Creatinine 1.86 (Previously 1.37), AST 79. Troponin elevated: 0.050. EKG NSR at 71 bpm with LVH and T wave inversions in lateral leads I and aVL re-demonstrated when compared to EKG done 04/20. CXR showing elevated left diaphragm, correlate for phrenic nerve injury.CT angio showing persistent complete occlusion of left internal carotid artery, no new large vessel occlusion/aneurysm at level of [place]. "Cannot exclude left sided dural venous sinus thrombus." CT Brain with no acute intracranial hemorrhage or midline shirt, large left sided infarct re-demonstrated with left-sided axial dilation involving left frontal lobe, small inferior left frontal scalp hematoma, bilateral aphakia remonstrated, without acute intracranial hemorrhage or midline shift. Admitted for management of altered mental status, neurology consulted, MRV with contrast ordered, heparin infusion tentative radiology interpretation. MRA/MRV of head without contrast was completed showing suspected occlusion/near occlusion of left sigmoid sinus with small caliber transverse sinus extending to the confluence, no evidence of venous sinus thrombosis, right vertebral artery intracranial portion is diminutive as seen on previous CT and smaller caliber of the left MCA Pelto's portion with small caliber left MCA M1, M2, and M3 segment compared to the right. Order placed for high intensity heparin infusion and notified neurologist, stated hold off on heparin infusion and MRV to be further reviewed by neurointerventionalist. Dr. Clark stating neuro interventionalists Dr. Basilio reporting no convincing evidence for sinus thrombosis at this time. MRI brain resulting showing remote injuries but no evidence of acute/subacute infarct, nonspecific white matter changes likely secondary to small vessel ischemic disease. Physical exam: Patient seen and fully evaluated at bedside this morning. Mentation continues to be unchanged from yesterday, she is more awake and alert and able to verbalize short phrases 3 word sentences. Patient just finished eating breakfast and denied having any complaints of pain or discomfort at this time. Vital signs reviewed and stable. General: Found shouting from room incoherently. Unkempt, aphasic, bruises about face and right arm. Derm: Skin warm and dry,significant bruising about face, with small laceration to bridge of nose. Head: Older appearing Brusing in various stages of healing about forehead, nose, various healing stages. Eyes: PERRL, briskly equal, anicteric sclera Mouth: no lip lesions, mucus membranes dry Cardiovascular: regular rate and rhythm, systolic murmur, positive posterior tibial pulses bilaterally, cap refill >3 sec Lungs: Respirations even, regular, and unlabored on 2L NC. Lungs CTA upper anterior/ posterior, equally, no rhonchi, no rales, no wheezing, and no accessory muscle usage. Lungs diminished lower anterior/posterior, equally. Abdominal: soft, nontender to palpation, no guarding, no appreciable organomegaly Ext: Decreased movement to right upper extremity, ILAN significantly bruised, without laceration. Neuro: Limited exam due to mental status. Appropriately mobile engineer hands bilaterally L>R, otherwise following limited commands. Psych: Opens eyes to tactile stimulus only. Assessment and Plan of Care: Altered Mental Status, suspect secondary to breakthrough seizure activity. CT angiography unable to exclude left sided Dural venous sinus thrombus. History of CVA with right side residual deficits, seizure disorder, and chronic left ICA occlusion, aphasic at baseline -MRA/MRV of head without contrast was completed showing suspected occlusion/near occlusion of left sigmoid sinus with small caliber transverse sinus extending to the confluence, no evidence of venous sinus thrombosis, right vertebral artery intracranial portion is diminutive as seen on previous CT and smaller caliber of the left MCA Pelto's portion with small caliber left MCA M1, M2, and M3 segment compared to the right. -MRI brain resulting showing remote injuries but no evidence of acute/subacute infarct, nonspecific white matter changes likely secondary to small vessel ische yury disease. -Neurology following, discussed plan of care with Dr. Clark stating neuro interventionalists Dr. Basilio reporting no convincing evidence for sinus thrombosis at this time. Pts altered mental status is highly suspected to be secondary to recurrent breakthrough seizure activity and pt was started on IV Vimpat at this time in addition to Lamictal and Keppra. -Neuro checks ordered every 4 hours -Seizure precautions and Fall precautions -Heart healthy diet -Speech Therapy, physical therapy, and Occupational Therapy consulted -Telemetry monitoring -Continue Keppra 75 mg PO Daily and 1000 PO HS and Lamictal 150 mg twice daily. -DAPT; continue home plavix 75mg daily and aspirin 81mg daily -Continue atorvastatin 40mg PO at HS Elevated troponins, flat -Troponin's elevated at 0.050, 0.042, and 0.049. -Continuous telemetry monitoring -Continue daily medication regimen with aspirin 81 mg daily, atorvastatin 40 mg daily, Plavix 75 mg daily, fenofibrate 160 mg daily, ÁLVARO and CKD IIIb -BUN 37, creatinine 1.68, GFR of 28 -Continue to Hold Lasix and continue gentle IV fluid hydration with 0.9% normal saline at 50 cc/h for an additional 24 hours. -Continue monitoring I's and O's. Documented output over the past 24 hours with 750 cc -Daily BMP ordered History of Congestive Heart Failure with Preserved Ejection fraction (04/21/2024), hypertension, recent CHF exacerbation -Continue Oxygen 2L via nasal cannula, titrate to room air as Spo2 remaining > 90% allows. -Lasix held secondary to ÁLVARO -Daily Weight trending -Continue Amlodipine 5mg PO Daily Hypothyroidism -Continue daily medication regimen with levothyroxine 75 mcg daily. Data and imaging reviewed: Morning labs reviewed. CBC showing stable normocytic anemia with hemoglobin of 10.5. BMP showing hyponatremia with sodium of 136, chloride of 96, and elevated bicarb of 37. Renal function remains elevated but slightly improving with BUN 37, creatinine 1.68, GFR of 28 Magnesium normal findings at 2.3. Liver profile showing elevated AST of 59, low total protein of 6.2, and hypoalbuminemia with albumin of 3.1. Vital signs reviewed. Blood pressure 123/66, heart rate 66, respiratory rate 18, temp 96.8 F, and SpO2 of 95% on 2 L O2 via nasal cannula CODE STATUS: DNR/DNI DVT prophylaxis: Heparin Anticipated discharge date: Pending clinical course Anticipated discharge place: Pending clinical course Patient was seen independently by Nurse Practitioner. This document was prepared using [employer] dictation software. Please allow for errors in sand molder while rare they do occur. Pepe Nagy NP rendered care for this patient independently, reviewed the f indings and plan as documented in the note above and agree with plan. I did not physically speak with or examine the patient on this date. . Objective - Vital Signs Vital signs: Vital Signs Temp 96.8 F L 05/03/24 07:39 Pulse 66 05/03/24 07:39 Resp 18 05/03/24 07:39 BP 123/66 05/03/24 07:39 Pulse Ox 95 05/03/24 07:56 FiO2 Intake & Output 05/02/24 05/03/24 05/03/24 18:59 06:59 18:59 Intake Total 420 Output Total 350 400 Balance 70 -400 Weight 72.5 kg Intake: IV 300 Magnesium Sulfate-D5w Pmx 200 1 gm In Dextrose/Water 1 100ml.bag @ 100 mls/hr IVPB Q1H EMMANUEL Rx#: [id number] Sodium Chloride 0.9% 1, 100 000 ml @ 50 mls/hr IV . Q20H ONE Rx#:[id number] Oral 120 Output: Urine 350 400 Other: Voiding Method Indwelling Catheter Indwelling Catheter Indwelling Catheter - Labs CBC & Chem 7: 05/03/24 06:07 05/03/24 06:07 Labs: Abnormal Lab Results - Last 24 Hours (Table) 05/03/24 05/03/24 Range/Units 06:07 06:07 RBC 3.32 L (3.80-5.40) m/uL Hgb 10.5 L (11.4-16.0) gm/dL Hct 32.0 L (34.0-46.0) % Sodium 136 L (137-145) mmol/L Chloride 96 L (98-107) mmol/L Carbon Dioxide 37 H (22-30) mmol/L BUN 37 H (7-17) mg/dL Creatinine 1.68 H (0.52-1.04) mg/dL AST 59 H (14-36) U/L Total Protein 6.2 L (6.3-8.2) g/dL Albumin 3.1 L (3.5-5.0) g/dL
--- NOTE | 2024-05-03 13:20 | P.PN ---
Progress Note - Text Progress Note Date: 05/03/24 Indication: Called to bedside by RN with reports that patient was found to be unresponsive lying in her bed making grunting noises. Upon initial arrival patient found to be not responsive with minimal eye twitches concerning for seizure activity. No tonic-clonic movement was noted. RN at bedside reports patient was making grunting sounds which have stopped. Within moments eye twitching stopped and patient minimally responding to verbal/tactile stimuli and slowly coming around to respond with 1 and 2 word sentences. Patient was given Ativan 0.5 mg x 1 dose at this time, and additional 0.5 mg was going to be administered however this is when patient became more alert and was able to speak in short phrases of 1-2 words. Concern for absence seizures. Blood pressure at this time was 126/66, heart rate 66, respiratory rate 12, and SpO2 of 93% on room air. Blood glucose 102. Called and notified neurologist of this episode and was instructed to increase Vimpat to 100 mg twice daily in addition to patient's Lamictal and Keppra. Physical exam: Vital signs reviewed and stable. General: Found shouting from room incoherently. Unkempt, aphasic, bruises about face and right arm. Derm: Skin warm and dry,significant bruising about face, with small laceration to bridge of nose. Head: Older appearing Brusing in various stages of healing about forehead, nose, various healing stages. Eyes: PERRL, briskly equal, anicteric sclera Mouth: no lip lesions, mucus membranes dry Cardiovascular: regular rate and rhythm, systolic murmur, positive posterior tibial pulses bilaterally, cap refill >3 sec Lungs: Respirations even, regular, and unlabored on 2L NC. Lungs CTA upper anterior/ posterior, equally, no rhonchi, no rales, no wheezing, and no accessory muscle usage. Lungs diminished lower anterior/posterior, equally. Abdominal: soft, nontender to palpation, no guarding, no appreciable organomegaly Ext: Decreased movement to right upper extremity, ILAN significantly bruised, without laceration. Neuro: Limited exam due to mental status. Appropriately vegetable picker hands bilaterally L>R, otherwise following limited commands. Psych: Opens eyes to tactile stimulus only. Assessment and Plan: Seizure activity, concerning for absence seizures -IV Ativan administered x 1 dose. -Called and notified neurologist of event, discussed in detail with Dr. Clrak. -Continuous seizure, fall, and aspiration precautions. -Continue Keppra 75 mg Daily and 1000 mg HS and Lamictal 150 mg twice daily. -Vimpat increased to 100 mg twice daily. -Patient to remain on continuous telemetry monitoring. -Continue neurochecks every 4 hours. A Total of 31 minutes of critical care time was spent on the complex care of this patient. Patient was seen independently by Nurse Pracitioner. This document was prepared using [employer] dictation software. Please allow for errors in curb attendant, while rare they do occur. Pepe Nagy NP rendered care for this patient independently, reviewed the findings and plan as documented in the note above and agree with plan. I did not physically speak with or examine the patient on this date.
[2024-05-03 13:24] LABS: Glucose,Whole Blood 102 mg/dL (70-110)
--- NOTE | 2024-05-03 16:07 | P.PN ---
Subjective Progress Note Date: 05/03/24 I am following up with the patient and according to the nurse earlier she had episode of she heard a grunting so she went into the patient room and she was staring off. This was concerning for seizure and the episode lasted for 2 to 3 minutes according to the nurse. As a result the patient was given Ativan. I spoke with the primary team nurse practitioner and I notified her to make sure the patient to go up on the Vimpat to 100 mg twice daily. Currently the patient is doing better compared to earlier. Objective - Vital Signs Vital signs: Vital Signs Temp 98.4 F 05/03/24 11:29 Pulse 67 05/03/24 16:00 Resp 16 05/03/24 16:00 BP 106/49 05/03/24 16:00 Pulse Ox 99 05/03/24 16:00 FiO2 Intake & Output 05/02/24 05/03/24 05/03/24 18:59 06:59 18:59 Intake Total 420 Output Total 350 400 Balance 70 -400 Weight 72.5 kg Intake: IV 300 Magnesium Sulfate-D5w Pmx 200 1 gm In Dextrose/Water 1 100ml.bag @ 100 mls/hr IVPB Q1H EMMANUEL Rx#: [id number] Sodium Chloride 0.9% 1, 100 000 ml @ 50 mls/hr IV . Q20H ONE Rx#:[id number] Oral 120 Output: Urine 350 400 Other: Voiding Method Indwelling Catheter Indwelling Catheter Indwelling Catheter - Exam General: Lying in bed and does not appear in acute distress. Lung: Sound coarse. Neuro: Limited. The patient is drowsy but is awakeable to voice. Is oriented to self and correctly states she is in the hospital. She is very slow in responding to questions. She is following simple commands. Is lifting the left side much more than right side. Some of the workup during this hospital visit consisted of: Creatinine is 1.86 AST [address] of the head is reported as no acute intracranial hemorrhage or midline shift. Body report it is reported the patient has large left-sided infarct. I personally reviewed the CT read patient has an old infarct which is same compared to her previous images. 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 No new large vessel occlusion or aneurysm at the level of [place]. Cannot exclude left-sided dural venous sinus thrombosis though this is in retrospect has similar appearance to prior study. MRI Brain: Remote injuries, no evidence of acute/subacute infarct. MRA/MRV head: Suspected occlusion/near occlusion of the left sigmoid sinus with small caliber transverse sinus extending to the confluence. Consider laboratory miller angiography. NO evidence of venous sinus thrombosis. No evidence of intracranial aneurysm or significant stenosis. Right vertebral artery intracranial portion is diminutive as seen on prior CT. Small caliber of the left MCA petrous portion with small caliber left MCA M1. M2 and M2 segment compared to the right. Dr. Staley (Interventional Neurologist) reviewed the MRV/CT angiography and did not feel the patient has venous sinus thrombosis. An EEG is abnormal. The background slowing is suggestive of mild encephalopathy. There is no focal slowing, epileptiform discharge or seizure on the EEG. 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 Worsening weakness over the right side with confusion: Probable due to breakthrough seizure and today patient had episode of grunting and staring off lasting 2-3 minutes concerning for seizures. No acute stroke on MRI Brain. CT angiography it is reported that cannot exclude left-sided dural venous sinus thrombus then it is reported that has similar appearance to prior study. But MRA/MVA MRA/MRV head: Suspected occlusion/near occlusion of the left sigmoid s inus with small caliber transverse sinus extending to the confluence. NO evidence of venous sinus thrombosis. History of stroke with residual right hemiparesis, expressive aphasia, dysarthria History of seizure History of left ICA occlusion Congestive heart failure Hypertension Chronic kidney insufficiency Plan: I have spoke with Dr. Staley (Interventional Neurologist) and he reviewed images on 05/02/2024 and he did not feel any venous sinus thrombosis. I would recom mend she follow-up with him as outpatient within 3 weeks. Patient is on aspirin 81 mg, Plavix 75 mg. She was given aspirin 324 mg once in the ED. Patient is also on Lipitor 40mg daily Patient is resumed on her home medication of Keppra 1500 mg nightly, Lamictal 150 mg twice daily. Today we increased Vimpat from 50mg bid to 100mg bid (Vimpat was started during this admission). Placed the patient on seizure precaution Continue neurochecks Cardiac monitoring PT, OT and [employer] are consulted Will defer the rest of the medical management to primary and other specialist For DVT prophylaxis start patient on subcu heparin 5000 units every 12 hours The plan is discussed with primary team N.P. and patient's nurse. If She remains stable by tomorrow, then patient is clear for discharge. Time with Patient: Less than 30
[2024-05-03] MEDS: Lacosamide IV (ages 17+ yrs) 200 MG/20 ML ML IVP SCH (20:05)
[2024-05-04 09:23] LABS: HCT 34.6 % (34.0-46.0); HGB 10.5 gm/dL (11.4-16.0); MCHC 30.4 g/dL (31.0-37.0); MCV 98.7 fL (80.0-100.0); Mean Platelet Volume 7.9; Platelet Count 277 k/uL (150-450); RDW 14.5 % (11.5-15.5); WBC 15.1 k/uL (3.8-10.6)
[2024-05-04 09:36] LABS: ALT 24 U/L (4-34); AST 64 U/L (14-36); African American GFR (CKD) 42 (>60 ml/min/1.73 sqM); Albumin 3.2 g/dL (3.5-5.0); Alkaline Phosphatase 69 U/L (38-126); Anion Gap 6 mmol/L; Blood Urea Nitrogen 34 mg/dL (7-17); Calcium 10.1 mg/dL (8.4-10.2); Carbon Dioxide 33 mmol/L (22-30); Chloride 98 mmol/L (98-107); Glucose 94 mg/dL (74-99); Magnesium 1.8 mg/dL (1.6-2.3); Non-African American GFR(CKD) 36 (>60 ml/min/1.73 sqM); Potassium 4.7 mmol/L (3.5-5.1); Sodium 137 mmol/L (137-145); Total Protein 6.3 g/dL (6.3-8.2)
[2024-05-04] MEDS: LORazepam 1 MG/0.5 ML VIAL IV STA (12:22)
--- NOTE | 2024-05-04 13:01 | P.PN ---
Subjective Progress Note Date: 05/04/24 I am following-up with patient and per the nurse, today had episode of staring off lasting 10 minutes but then later stated it actually lasted 20 minutes associated with eye fluttering. As result was given Ativan 1mg once. Objective - Vital Signs Vital signs: Vital Signs Temp 97.4 F L 05/04/24 11:45 Pulse 77 05/04/24 11:45 Resp 18 05/04/24 11:45 BP 129/68 05/04/24 11:45 Pulse Ox 100 05/04/24 11:45 FiO2 Intake & Output 05/03/24 05/04/24 05/04/24 18:59 06:59 18:59 Intake Total 100 Output Total 650 300 Balance -550 -300 Weight 72.5 kg Intake: Oral 100 Output: Urine 650 300 Other: Voiding Method Indwelling Catheter Indwelling Catheter Indwelling Catheter # Bowel Movements 1 - Exam General: Lying in bed and does not appear in acute distress. Lung: Sound coarse. Neuro: Limited. Just received 1mg Ativan. The patient is very drowsy but is briefly awakeable to voice. Is following minimal simple commands and was able to lift left upper extremity above gravity. Some of the workup during this hospital visit consisted of: Creatinine is 1.86 AST [address] of the head is reported as no acute intracranial hemorrhage or midline shift. Body report it is reported the patient has large left-sided infarct. I personally reviewed the CT read patient has an old infarct which is same compared to her previous images. 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 No new large vessel occlusion or aneurysm at the level of [place]. Cannot exclude left-sided dural venous sinus thrombosis though this is in retrospect has similar appearance to prior study. MRI Brain: Remote injuries, no evidence of acute/subacute infarct. MRA/MRV head: Suspected occlusion/near occlusion of the left sigmoid sinus with small caliber transverse sinus extending to the confluence. Consider manager cardiac cath angiography. NO evidence of venous sinus thrombosis. No evidence of intracranial aneurysm or significant stenosis. Right vertebral artery intracranial portion is diminutive as seen on prior CT. Small caliber of the left MCA petrous portion with small caliber left MCA M1. M2 and M2 segment compared to the right. Dr. Staley (Interventional Neurologist) reviewed the MRV/CT angiography and did not feel the patient has venous sinus thrombosis. An EEG is abnormal. The background slowing is suggestive of mild encephalopathy. There is no focal slowing, epileptiform discharge or seizure on the EEG. 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 Worsening weakness over the right side with confusion: Probable due to breakthrough seizure and yesterday patient had episode of grunting and staring off lasting 2-3 minutes concerning for seizures. Today has similar staring off spell lasting 20 minutes with eye fluttering. No acute stroke on MRI Brain. CT angiography it is reported that cannot exclude left-sided dural venous sinus thrombus then it is reported that has similar appearance to prior study. But MRA/MVA MRA/MRV head: Suspected occlusion/near occlusion of the left sigmoid sinus with small caliber transverse sinus extending to the confluence. NO evidence of venous sinus thrombosis. History of stroke with residual right hemiparesis, expressive aphasia, dysarthria History of seizure History of left ICA occlusion Congestive heart failure Hypertension Chronic kidney insufficiency Plan: I have spoke with Dr. Staley (Interventional Neurologist) and he reviewed images on 05/02/2024 and he did not feel any venous sinus thrombosis. I would recommend she follow-up with him as outpatient within 3 weeks. Patient is on aspirin 81 mg, Plavix 75 mg. She was given aspirin 324 mg once in the ED. Patient is also on Lipitor 40mg daily Patient is resumed on her home medication of Keppra 1500 mg nightly, Lamictal 150 mg twice daily. Continue Vimpat 100mg bid (Vimpat was started during this admission). I will get a repeat EEG. Placed the patient on seizure precaution Continue neurochecks Cardiac monitoring PT, OT and GUIDE are consulted Will defer the rest of the medical management to primary and other specialist For DVT prophylaxis start patient on subcu heparin 5000 units every 12 hours The plan is discussed with the patient's nurse. Time with Patient: Less than 30
--- NOTE | 2024-05-04 13:45 | P.PN ---
Subjective Progress Note Date: 05/04/24 Hospital Course: Patient is a very pleasant 83-year-old female with significant history of TIA and CVA, chronic left ICA occlusion , CHF with preserved ejection fraction, seizure disorder, glaucoma, HTN, and CKD stage III. Patient presented to the emergency department via EMS with altered mental status earlier today. Per ED documentation, patient was at her baseline neuro status this morning when she left for her scheduled doctor appointment; and upon arrival to her PCPs office she was disoriented with increasing right sided hemiparesis in addition to increasing right facial drooping. Called and discussed with pt's PCP and was informed patient has a baseline of expressive aphasia, but with the ability to communicate verbally in short phrases "yes", "no", or "carlito" and physical mobil ity varies at time and 1 person assist between walking with a walker or requiring two person assistance in transferring. On arrival to our facility, patient underwent evaluation in the emergency department., Vital signs upon arrival showed temp 97.5 F, BP128/ 49, HR 62, RR 20, and SpO2 of 92% on 3L NC. Labs completed and reviewed showing unremarkable CBC, Chemistry: with BUN 38, Creatinine 1.86 (Previously 1.37), AST 79. Troponin elevated: 0.050. EKG NSR at 71 bpm with LVH and T wave inversions in lateral leads I and aVL re-demonstrated when compared to EKG done 04/20. CXR showing elevated left diaphragm, correlate for phrenic nerve injury.CT angio showing persistent complete occlusion of left internal carotid artery, no new large vessel occlusion/aneurysm at level of [place]. "Cannot exclude left sided dural venous sinus thrombus." CT Brain with no acute intracranial hemorrhage or midline shirt, large left sided infarct re-demonstrated with left-sided axial dilation involving left frontal lobe, small inferior left frontal scalp hematoma, bilateral aphakia remonstrated, without acute intracranial hemorrhage or midline shift. Admitted for management of altered mental status, neurology consulted, MRV with contrast ordered, heparin infusion tentative radiology interpretation. MRA/MRV of head without contrast was completed showing suspected occlusion/near occlusion of left sigmoid sinus with small caliber transverse sinus extending to the confluence, no evidence of venous sinus thrombosis, right vertebral artery intracranial portion is diminutive as seen on previous CT and smaller caliber of the left MCA Pelto's portion with small caliber left MCA M1, M2, and M3 segment compared to the right. Order placed for high intensity heparin infusion and notified neurologist, stated hold off on heparin infusion and MRV to be further reviewed by neurointerventionalist. Dr. Clark stating neuro interventionalists Dr. Basilio reporting no convincing evidence for sinus thrombosis at this time. MRI brain resulting showing remote injuries but no evidence of acute/subacute infarct, nonspecific white matter changes likely secondary to small vessel ischemic disease. 05/03 in 05/04 patient had episodes of grunting and staring off lasting to 3 minutes concerning for seizure, episode on 05/04 was lasting 20 minutes, neurology notified, ordered repeat EEG, patient resumed on her home Keppra 1500 mg nightly, Lamictal 150 mg twice daily, continued on Vimpat 100 mg twice daily that was started inpatient. Continue seizure precautions Subjective: Patient said no when asked if she is in pain, said okay when asked how she is doing Pertinent positives and negatives as discussed above, a complete review of systems was performed and all other systems are negative. Vitals Signs Reviewed. General: Found shouting from room incoherently. Unkempt, aphasic, bruises about face and right arm. Derm: Skin warm and dry,significant bruising about face, with small laceration t o bridge of nose. Head: Older appearing Brusing in various stages of healing about forehead, nose, various healing stages. Eyes: PERRL, briskly equal, anicteric sclera Mouth: no lip lesions, mucus membranes dry Cardiovascular: regular rate and rhythm, systolic murmur, positive posterior tibial pulses bilaterally, cap refill >3 sec Lungs: Respirations even, regular, and unlabored on 2L NC. Lungs CTA upper anterior/ posterior, equally, no rhonchi, no rales, no wheezing, and no accessory muscle usage. Lungs diminished lower anterior/posterior, equally. Abdominal: soft, nontender to palpation, no guarding, no appreciable organomegaly Ext: Decreased movement to right upper extremity, ILAN significantly bruised, without laceration. Neuro: Limited exam due to mental status. 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 Psych: Calm, cooperative Data Reviewed Today: Pertinent Labs: WBC 15.1, hemoglobin 10.5, stable, platelet count normal, sodium and potassium normal, creatinine improving 133, magnesium 1.8, Assessment and Plan: Altered Mental Status, suspect secondary to breakthrough seizure activity. CT angiography unable to exclude left sided Dural venous sinus thrombus. History of CVA with right side residual deficits, seizure disorder, and chronic left ICA occlusion, aphasic at baseline -05/03 in 05/04 patient had episodes of grunting and staring off lasting to 3 minutes concerning for seizure, episode on 05/04 was lasting 20 minutes, florencio rology notified, ordered repeat EEG, patient resumed on her home Keppra 1500 mg nightly, Lamictal 150 mg twice daily, continued on Vimpat 100 mg twice daily that was started inpatient. Continue seizure precautions -MRA/MRV of head without contrast was completed showing suspected occlusion/near occlusion of left sigmoid sinus with small caliber transverse sinus extending to the confluence, no evidence of venous sinus thrombosis, right vertebral artery intracranial portion is diminutive as seen on previous CT and smaller caliber of the left MCA Pelto's portion with small caliber left MCA M1, M2, and M3 segment compared to the right. -MRI brain resulting showing remote injuries but no evidence of acute/subacute infarct, nonspecific white matter changes likely secondary to small vessel ischemic disease. -Neurology following, discussed plan of care with Dr. Clark stating neuro interventionalists Dr. Basilio reporting no convincing evidence for sinus thrombosis at this time. Pts altered mental status is highly suspected to be secondary to recurrent breakthrough seizure activity and pt was started on IV Vimpat at this time in addition to Lamictal and Keppra. -Neuro checks ordered every 4 hours -Seizure precautions and Fall precautions -Heart healthy diet -Speech Therapy, physical therapy, and Occupational Therapy consulted -Telemetry monitoring -DAPT; continue home plavix 75mg daily and aspirin 81mg daily -Continue atorvastatin 40mg PO at HS Elevated troponins, flat -Troponin's elevated at 0.050, 0.042, and 0.049. -Continuous telemetry monitoring -Continue daily medication regimen with aspirin 81 mg daily, atorvastatin 40 mg daily, Plavix 75 mg daily, fenofibrate 160 mg daily, ÁLVARO and CKD IIIb, improved -Continue to Hold Lasix and continue gentle IV fluid hydration with 0.9% normal saline at 50 cc/h for an additional 24 hours. -Continue monitoring I's and O's. Documented output over the past 24 hours with 750 cc -Daily BMP ordered History of Congestive Heart Failure with Preserved Ejection fraction (04/21/2024), hypertension, recent CHF exacerbation -Continue Oxygen 2L via nasal cannula, titrate to room air as Spo2 remaining > 90% allows. -Lasix held secondary to ÁLVARO -Daily Weight trending -Continue Amlodipine 5mg PO Daily Hypothyroidism -Continue daily medication regimen with levothyroxine 75 mcg daily. DVT ppx: Heparin Code status: DNR/DNI Anticipated discharge place: TBD Anticipated discharge time: tbd Objective - Vital Signs Vital signs: Vital Signs Temp 97.4 F L 05/04/24 11:45 Pulse 77 05/04/24 11:45 Resp 18 05/04/24 11:45 BP 129/68 05/04/24 11:45 Pulse Ox 100 05/04/24 11:45 FiO2 Intake & Output 05/03/24 05/04/24 05/04/24 18:59 06:59 18:59 Intake Total 100 Output Total 650 300 Balance -550 -300 Weight 72.5 kg Intake: Oral 100 Output: Urine 650 300 Other: Voiding Method Indwelling Catheter Indwelling Catheter Indwelling Catheter # Bowel Movements 1 - Labs CBC & Chem 7: 05/04/24 08:21 05/04/24 08:21 Labs: Abnormal Lab Results - Last 24 Hours (Table) 05/04/24 05/04/24 Range/Units 08:21 08:21 WBC 15.1 H (3.8-10.6) k/uL RBC 3.50 L (3.80-5.40) m/uL Hgb 10.5 L (11.4-16.0) gm/dL MCHC 30.4 L (31.0-37.0) g/dL Carbon Dioxide 33 H (22-30) mmol/L BUN 34 H (7-17) mg/dL Creatinine 1.33 H (0.52-1.04) mg/dL AST 64 H (14-36) U/L Albumin 3.2 L (3.5-5.0) g/dL
[2024-05-04] MEDS: SODIUM CHLORIDE 0.9% 1,000 ML IV SCH (15:30)
--- NOTE | 2024-05-04 21:36 | EEG ---
ELECTROENCEPHALOGRAM REPORT CLINICAL HISTORY: This is an 83-year-old woman with history of stroke and seizure, who is having recurrent episodes of staring off. The video EEG is obtained to evaluate for seizure epileptiform activity. RELEVANT MEDICATIONS: 1. Keppra. 2. Lamictal. 3. Vimpat. 4. Ativan. EEG TYPE: This is a routine 21-channel EEG with video using the 10/20 electrode placement system. DESCRIPTION: Wakefulness and drowsiness are obtained. The background consists of [id number] voltage of 5.5 to 6.5 Hz activity, intermixed with delta activity. There is no physiological stage 2 sleep architecture. There is no focal slowing. Interictal and ictal is none. ACTIVATION PROCEDURE: Photic stimulation and hyperventilation are not performed. CLINICAL INTERPRETATION: This is an abnormal routine EEG. The background slowing is suggestive of moderate encephalopathy. There is no focal slowing, epileptiform discharge, or seizure on the EEG. Clinical correlation is recommended. JOSE / HENRI: [id number] / [id number]
[2024-05-05 07:25] LABS: RBC 3.47 m/uL (3.80-5.40); WBC 20.7 k/uL (3.8-10.6)
[2024-05-05 07:26] LABS: HCT 34.3 % (34.0-46.0); HGB 10.6 gm/dL (11.4-16.0); Hypochromasia Marked; MCH 30.6 pg (25.0-35.0); MCV 98.8 fL (80.0-100.0); Mean Platelet Volume 7.5; Platelet Count 261 k/uL (150-450)
[2024-05-05 07:44] LABS: ALT 24 U/L (4-34); AST 70 U/L (14-36); African American GFR (CKD) 55 (>60 ml/min/1.73 sqM); Alkaline Phosphatase 83 U/L (38-126); Anion Gap 8 mmol/L; Blood Urea Nitrogen 29 mg/dL (7-17); Calcium 9.7 mg/dL (8.4-10.2); Carbon Dioxide 30 mmol/L (22-30); Chloride 103 mmol/L (98-107); Glucose 110 mg/dL (74-99); Magnesium 1.6 mg/dL (1.6-2.3); Non-African American GFR(CKD) 48 (>60 ml/min/1.73 sqM); Potassium 4.2 mmol/L (3.5-5.1); Sodium 141 mmol/L (137-145); Total Bilirubin 1.2 mg/dL (0.2-1.3); Total Protein 6.1 g/dL (6.3-8.2)
[2024-05-05 11:53] LABS: Glucose,Whole Blood 130 mg/dL (70-110)
[2024-05-05] MEDS ORDERED: VANCOMYCIN IV PER PHARMACY 1 EACH MISC MISCELLANE PRN (12:16)
[2024-05-05 12:52] LABS: Basophils % (A) 0 %; Eosinophils # (A) 0.1 k/uL (0-0.7); Eosinophils % (A) 0 %; HCT 32.5 % (34.0-46.0); HGB 10.4 gm/dL (11.4-16.0); Hypochromasia Slight; Lymphocytes # (A) 0.9 k/uL (1.0-4.8); Lymphocytes % (A) 4 %; MCH 31.1 pg (25.0-35.0); MCV 97.1 fL (80.0-100.0); Mean Platelet Volume 7.7; Monocytes # (A) 1.2 k/uL (0-1.0); Monocytes % (A) 5 %; Neutrophils # (A) 20.9 k/uL (1.3-7.7); Neutrophils % (A) 90 %; Platelet Count 255 k/uL (150-450); RBC 3.35 m/uL (3.80-5.40); RDW 14.2 % (11.5-15.5); WBC 23.3 k/uL (3.8-10.6)
[2024-05-05] MEDS ORDERED: IPRATROPIUM-ALBUTEROL 3 ML NEB INHALATION PRN (12:59)
--- NOTE | 2024-05-05 13:02 | P.PN ---
Subjective Progress Note Date: 05/05/24 Hospital Course: Patient is a very pleasant 83-year-old female with significant history of TIA and CVA, chronic left ICA occlusion , CHF with preserved ejection fraction, seizure disorder, glaucoma, HTN, and CKD stage III. Patient presented to the emergency department via EMS with altered mental status earlier today. Per ED documentation, patient was at her baseline neuro status this morning when she left for her scheduled doctor appointment; and upon arrival to her PCPs office she was disoriented with increasing right sided hemiparesis in addition to increasing right facial drooping. Called and discussed with pt's PCP and was informed patient has a baseline of expressive aphasia, but with the ability to communicate verbally in short phrases "yes", "no", or "carlito" and physical mobil ity varies at time and 1 person assist between walking with a walker or requiring two person assistance in transferring. On arrival to our facility, patient underwent evaluation in the emergency department., Vital signs upon arrival showed temp 97.5 F, BP128/ 49, HR 62, RR 20, and SpO2 of 92% on 3L NC. Labs completed and reviewed showing unremarkable CBC, Chemistry: with BUN 38, Creatinine 1.86 (Previously 1.37), AST 79. Troponin elevated: 0.050. EKG NSR at 71 bpm with LVH and T wave inversions in lateral leads I and aVL re-demonstrated when compared to EKG done 04/20. CXR showing elevated left diaphragm, correlate for phrenic nerve injury.CT angio showing persistent complete occlusion of left internal carotid artery, no new large vessel occlusion/aneurysm at level of [place]. "Cannot exclude left sided dural venous sinus thrombus." CT Brain with no acute intracranial hemorrhage or midline shirt, large left sided infarct re-demonstrated with left-sided axial dilation involving left frontal lobe, small inferior left frontal scalp hematoma, bilateral aphakia remonstrated, without acute intracranial hemorrhage or midline shift. Admitted for management of altered mental status, neurology consulted, MRV with contrast ordered, heparin infusion tentative radiology interpretation. MRA/MRV of head without contrast was completed showing suspected occlusion/near occlusion of left sigmoid sinus with small caliber transverse sinus extending to the confluence, no evidence of venous sinus thrombosis, right vertebral artery intracranial portion is diminutive as seen on previous CT and smaller caliber of the left MCA Pelto's portion with small caliber left MCA M1, M2, and M3 segment compared to the right. Order placed for high intensity heparin infusion and notified neurologist, stated hold off on heparin infusion and MRV to be further reviewed by neurointerventionalist. Dr. Clark stating neuro interventionalists Dr. Basilio reporting no convincing evidence for sinus thrombosis at this time. MRI brain resulting showing remote injuries but no evidence of acute/subacute infarct, nonspecific white matter changes likely secondary to small vessel ischemic disease. 05/03 in 05/04 patient had episodes of grunting and staring off lasting to 3 minutes concerning for seizure, episode on 05/04 was lasting 20 minutes, neurology notified, ordered repeat EEG, patient resumed on her home Keppra 1500 mg nightly, Lamictal 150 mg twice daily, continued on Vimpat 100 mg twice daily that was started inpatient. Continue seizure precautions. EEG showed no seizure activity 05/05 patient became more hypotensive with BP at 106/48, required more oxygen and placed on 5 L nasal cannula, she has not been eating over the past 2 days, WBC is rising, was started on broad-spectrum antibiotics with vancomycin1,250 every 24 hours, pharmacy to dose, cefepime 2 g every 12 hours, blood cultures, urine cultures ordered, lactic acid ordered, chest x-ray ordered. Due to ongoing diarrhea C. difficile test was ordered and came back negative Subjective: Patient is more lethargic today, opened eyes, squeeze my hand and request, could not verbalize anything Pertinent positives and negatives as discussed above, a complete review of systems was performed and all other systems are negative. Vitals Signs Reviewed. General: Unkempt, aphasic, bruises about face and right arm. Derm: Skin warm and dry,significant bruising about face, with small laceration to bridge of nose. Head: Older appearing Brusing in various stages of healing about forehead, nose, various healing stages. Eyes: PERRL, briskly equal, anicteric sclera Mouth: no lip lesions, mucus membranes dry Cardiovascular: regular rate and rhythm, systolic murmur, positive posterior tibial pulses bilaterally, cap refill >3 sec Lungs: Respirations even, regular, and unlabored on 2L NC. Lungs CTA upper anterior/ posterior, equally, no rhonchi, no rales, no wheezing, and no accessory muscle usage. Lungs diminished lower anterior/posterior, equally. Abdominal: soft, nontender to palpation, no guarding, no appreciable organomegaly Ext: Decreased movement to right upper extremity, ILAN significantly bruised, without laceration. Neuro: Limited exam due to mental status. 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 difficile ruled out -Start LR at 100 cc/h -Accu-Cheks -SOT 05/05 vancomycin1,250 every 24 hours, pharmacy to dose, monitor BMP daily for renal toxicity, cefepime 2 g every 12 hours, blood cultures, urine cultures ordered, lactic acid ordered, chest x-ray ordered -MRSA swab ordered, pending -DuoNeb 4 times daily as needed -Patient is DNR/DNI Altered Mental Status, suspect secondary to breakthrough seizure activity. CT angiography unable to exclude left sided Dural venous sinus thrombus. History of CVA with right side residual deficits, seizure disorder, and chronic left ICA occlusion, aphasic at baseline -05/03 in 05/04 patient had episodes of grunting and staring off lasting to 3 lyn casey concerning for seizure, episode on 05/04 was lasting 20 minutes, neurology notified, ordered repeat EEG, patient resumed on her home Keppra 1500 mg nightly, Lamictal 150 mg twice daily, continued on Vimpat 100 mg twice daily that was started inpatient. Continue seizure precautions -MRA/MRV of head without contrast was completed showing suspected occlusion/near occlusion of left sigmoid sinus with small caliber transverse sinus extending to the confluence, no evidence of venous sinus thrombosis, right vertebral artery intracranial portion is diminutive as seen on previous CT and smaller caliber of the left MCA Pelto's portion with small caliber left MCA M1, M2, and M3 segment compared to the right. -MRI brain resulting showing remote injuries but no evidence of acute/subacute infarct, nonspecific white matter changes likely secondary to small vessel ischemic disease. -Neurology following, discussed plan of care with Dr. Clark stating neuro interventionalists Dr. Basilio reporting no convincing evidence for sinus thrombosis at this time. Pts altered mental status is highly suspected to be secondary to recurrent breakthrough seizure activity and pt was started on IV Vimpat at this time in addition to Lamictal and Keppra. -Neuro checks ordered every 4 hours -Seizure precautions and Fall precautions -Heart healthy diet -Speech Therapy, physical therapy, and Occupational Therapy consulted -Telemetry monitoring -DAPT; continue home plavix 75mg daily and aspirin 81mg daily -Continue atorvastatin 40mg PO at HS Elevated troponins, flat -Troponin's elevated at 0.050, 0.042, and 0.049. -Continuous telemetry monitoring -Continue daily medication regimen with aspirin 81 mg daily, atorvastatin 40 mg daily, Plavix 75 mg daily, fenofibrate 160 mg daily, ÁLVARO and CKD IIIb, improved -Continue to Hold Lasix and continue IV fluid , Now on LR at 100 cc/h -Continue monitoring I's and O's. -Daily BMP ordered History of Congestive Heart Failure with Preserved Ejection fraction (04/21/2024), hypertension, recent CHF exacerbation -Continue Oxygen via nasal cannula, titrate to room air as Spo2 remaining > 90% -Lasix held secondary to ÁLVARO -Daily Weight trending -Continue Amlodipine 5mg PO Daily Hypothyroidism -Continue daily medication regimen with levothyroxine 75 mcg daily. DVT ppx: Heparin Code status: DNR/DNI Anticipated discharge place: TBD Anticipated discharge time: tbd Objective - Vital Signs Vital signs: Vital Signs Temp 97.6 F 05/05/24 11:25 Pulse 90 05/05/24 11:25 Resp 20 05/05/24 11:25 BP 106/48 05/05/24 11:25 Pulse Ox 89 L 05/05/24 11:25 FiO2 Intake & Output 05/04/24 05/05/24 05/05/24 18:59 06:59 18:59 Intake Total 20 Output Total 400 600 200 Balance -400 -580 -200 Weight 72.5 kg Intake: IV 20 Invasive Line 1 10 Invasive Line 2 10 Output: Urine 400 600 200 Other: Voiding Method Indwelling Catheter Indwelling Catheter Indwelling Catheter # Bowel Movements 1 1 1 - Labs CBC & Chem 7: 05/05/24 12:30 05/05/24 06:47 Labs: Abnormal Lab Results - Last 24 Hours (Table) 05/05/24 05/05/24 05/05/24 Range/Units 06:47 06:47 11:51 WBC 20.7 H (3.8-10.6) k/uL RBC 3.47 L (3.80-5.40) m/uL Hgb 10.6 L (11.4-16.0) gm/dL Hct (34.0-46.0) % Neutrophils # (1.3-7.7) k/uL Lymphocytes # (1.0-4.8) k/uL Monocytes # (0-1.0) k/uL BUN 29 H (7-17) mg/dL Creatinine 1.07 H (0.52-1.04) mg/dL Glucose 110 H (74-99) mg/dL POC Glucose (mg/dL) 130 H (70-110) mg/dL AST 70 H (14-36) U/L Total Protein 6.1 L (6.3-8.2) g/dL Albumin 3.0 L (3.5-5.0) g/dL 05/05/24 Range/Units 12:30 WBC 23.3 H (3.8-10.6) k/uL RBC 3.35 L (3.80-5.40) m/uL Hgb 10.4 L (11.4-16.0) gm/dL Hct 32.5 L (34.0-46.0) % Neutrophils # 20.9 H (1.3-7.7) k/uL Lymphocytes # 0.9 L (1.0-4.8) k/uL Monocytes # 1.2 H (0-1.0) k/uL BUN (7-17) mg/dL Creatinine (0.52-1.04) mg/dL Glucose (74-99) mg/dL POC Glucose (mg/dL) (70-110) mg/dL AST (14-36) U/L Total Protein (6.3-8.2) g/dL Albumin (3.5-5.0) g/dL
--- NOTE | 2024-05-05 13:45 | P.PN ---
Subjective Progress Note Date: 05/05/24 I am following-up with patient and she continues to be confused with limited interactions. Has leukocytosis that is trending up. Objective - Vital Signs Vital signs: Vital Signs Temp 97.6 F 05/05/24 11:25 Pulse 90 05/05/24 11:25 Resp 20 05/05/24 11:25 BP 106/48 05/05/24 11:25 Pulse Ox 89 L 05/05/24 11:25 FiO2 Intake & Output 05/04/24 05/05/24 05/05/24 18:59 06:59 18:59 Intake Total 20 Output Total 400 600 200 Balance -400 -580 -200 Weight 72.5 kg Intake: IV 20 Invasive Line 1 10 Invasive Line 2 10 Output: Urine 400 600 200 Other: Voiding Method Indwelling Catheter Indwelling Catheter Indwelling Catheter # Bowel Movements 1 1 1 - Exam General: Lying in bed and does not appear in acute distress. Lung: Sound coarse. Neuro: Limited. The patient is very drowsy but is briefly awakeable to voice. Is not following commands or verbalizing. Some of the workup during this hospital visit consisted of: Creatinine is 1.86 AST [address] of the head is reported as no acute intracranial hemorrhage or midline shift. Body report it is reported the patient has large left-sided infarct. I pers onally reviewed the CT read patient has an old infarct which is same compared to her previous images. 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 No new large vessel occlusion or aneurysm at the level of [place]. Cannot exclude left-sided dural venous sinus thrombosis though this is in retrospect has similar appearance to prior study. MRI Brain: Remote injuries, no evidence of acute/subacute infarct. MRA/MRV head: Suspected occlusion/near occlusion of the left sigmoid sinus with small caliber transverse sinus extending to the confluence. 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 NO evidence of venous sinus thrombosis. No evidence of intracranial aneurysm or significant stenosis. Right vertebral artery intracranial portion is diminutive as seen on prior CT. Small caliber of the left MCA petrous portion with small caliber left MCA M1. M2 and M2 segment compared to the right. Dr. Staley (Interventional Neurologist) reviewed the MRV/CT angiography and did not feel the patient has venous sinus thrombosis. An EEG is abnormal. The background slowing is suggestive of mild encephalopathy. There is no focal slowing, epileptiform discharge or seizure on the EEG. Repeat EEG: Is abnormal. The background slowing is suggestive of moderate encephalopathy. There is no focal slowing, epileptiform discharge or seizure on the EEG. - Labs CBC & Chem 7: 05/05/24 12:30 05/05/24 06:47 Labs: Abnormal Lab Results - Last 24 Hours (Table) 05/05/24 05/05/24 05/05/24 Range/Units 06:47 06:47 11:51 WBC 20.7 H (3.8-10.6) k/uL RBC 3.47 L (3.80-5.40) m/uL Hgb 10.6 L (11.4-16.0) gm/dL Hct (34.0-46.0) % Neutrophils # (1.3-7.7) k/uL Lymphocytes # (1.0-4.8) k/uL Monocytes # (0-1.0) k/uL BUN 29 H (7-17) mg/dL Creatinine 1.07 H (0.52-1.04) mg/dL Glucose 110 H (74-99) mg/dL POC Glucose (mg/dL) 130 H (70-110) mg/dL AST 70 H (14-36) U/L Total Protein 6.1 L (6.3-8.2) g/dL Albumin 3.0 L (3.5-5.0) g/dL 05/05/24 Range/Units 12:30 WBC 23.3 H (3.8-10.6) k/uL RBC 3.35 L (3.80-5.40) m/uL Hgb 10.4 L (11.4-16.0) gm/dL Hct 32.5 L (34.0-46.0) % Neutrophils # 20.9 H (1.3-7.7) k/uL Lymphocytes # 0.9 L (1.0-4.8) k/uL Monocytes # 1.2 H (0-1.0) k/uL BUN (7-17) mg/dL Creatinine (0.52-1.04) mg/dL Glucose (74-99) mg/dL POC Glucose (mg/dL) (70-110) mg/dL AST (14-36) U/L Total Protein (6.3-8.2) g/dL Albumin (3.5-5.0) g/dL Assessment and Plan Assessment: This is an 83-year-old woman with a history of stroke with residual expressive aphasia right hemiparesis, dysarthria, seizure presents the emergency department from her scheduled doctor's appointment with confusion and increased worsening right-sided weakness as well as increased right facial droop. Worsening weakness over the right side with confusion: Probable due to juliet kthrough seizure and 2 days ago patient had episode of grunting and staring off lasting 2-3 minutes concerning for seizures. Yesterday has similar staring off spell lasting 20 minutes with eye fluttering. No acute stroke on MRI Brain. Had two EEG which negative for seizure. Altered mental status. Possible septic encephalopathy. Has leukocytosis that is trending up. CT angiography it is reported that cannot exclude left-sided dural venous sinus thrombus then it is reported that has similar appearance to prior study. But MRA/MVA MRA/MRV head: Suspected occlusion/near occlusion of the left sigmoid sinus with small caliber transverse sinus extending to the confluence. NO evidence of venous sinus thrombosis. History of stroke with residual right hemiparesis, expressive aphasia, dysarthr ia History of seizure History of left ICA occlusion Congestive heart failure Hypertension Chronic kidney insufficiency Plan: I have spoke with Dr. Staley (Interventional Neurologist) and he reviewed images on 05/02/2024 and he did not feel any venous sinus thrombosis. I would recommend she follow-up with him as outpatient within 3 weeks. Patient is on aspirin 81 mg, Plavix 75 mg. She was given aspirin 324 mg once in the ED. Patient is also on Lipitor 40mg daily Patient is resumed on her home medication of Keppra 1500 mg nightly, Lamictal 150 mg twice daily. Continue Vimpat 100mg bid (Vimpat was started during this admission). Placed the patient on seizure precaution Continue neurochecks Cardiac monitoring PT, OT and POSTDOCTORAL RESEARCH FELLOW are consulted Will defer the rest of the medical management to primary and other specialist For DVT prophylaxis start patient on subcu heparin 5000 units every 12 hours The plan is discussed with the patient's primary attending and her nurse. Dr. Wagner will resume neurology service tomorrow A.M. Time with Patient: Less than 30
[2024-05-05] MEDS: LACTATED RINGERS 1,000 ML IV SCH (14:31)
[2024-05-05] MEDS: CEFEPIME 2 GM in SODIUM CHLORIDE 0.9% 100 ML IVPB SCH (14:33)
[2024-05-05 14:51] LABS: Influenza A Not Detected (Not Detectd); Influenza B Not Detected (Not Detectd); RSV Not Detected (Not Detectd)
[2024-05-05] MEDS: MORPHINE SULFATE 2 MG/ML SYRINGE IVP PRN (15:41)
[2024-05-05] MEDS: LORazepam 1 MG/0.5 ML VIAL IV PRN (18:30)
[2024-05-05] MEDS: VANCOMYCIN 1,250 MG in SODIUM CHLORIDE 0.9% 250 ML IVPB SCH (19:50)
[2024-05-05] MEDS: ACETAMINOPHEN IV (For NPO) 1,000 MG in EMPTY BAG 1 BAG IVPB ONE (22:01)
[2024-05-06 01:00] LABS: HCT 32.3 % (34.0-46.0); Hypochromasia Marked; Lymphocytes % (A) 5 %; MCH 30.6 pg (25.0-35.0); MCHC 31.1 g/dL (31.0-37.0); MCV 98.6 fL (80.0-100.0); Mean Platelet Volume 7.8; Neutrophils % (A) 88 %; Platelet Count 232 k/uL (150-450); RBC 3.27 m/uL (3.80-5.40); RDW 14.3 % (11.5-15.5); WBC 21.8 k/uL (3.8-10.6)
[2024-05-06 01:01] LABS: Basophils # (A) 0.1 k/uL (0-0.2); Basophils % (A) 0 %; Eosinophils # (A) 0.1 k/uL (0-0.7); Eosinophils % (A) 0 %; Lymphocytes # (A) 1.1 k/uL (1.0-4.8); Monocytes # (A) 1.2 k/uL (0-1.0); Monocytes % (A) 6 %; Neutrophils # (A) 19.1 k/uL (1.3-7.7)
[2024-05-06 02:08] LABS: African American GFR (CKD) 52 (>60 ml/min/1.73 sqM); Anion Gap 5 mmol/L; Blood Urea Nitrogen 31 mg/dL (7-17); Calcium 9.6 mg/dL (8.4-10.2); Carbon Dioxide 29 mmol/L (22-30); Chloride 107 mmol/L (98-107); Glucose 105 mg/dL (74-99); Non-African American GFR(CKD) 45 (>60 ml/min/1.73 sqM); Potassium 3.9 mmol/L (3.5-5.1); Sodium 141 mmol/L (137-145)
--- NOTE | 2024-05-06 08:11 | XR ---
EXAMINATION TYPE: XR chest 1V portable DATE OF EXAM: 05/06/2024 COMPARISON: 05/02/2024 CLINICAL INDICATION: Female, 83 years old with history of hypoxia, CHF vs HCAP ?; TECHNIQUE: Single frontal view of the chest is obtained. FINDINGS: There is stable marked elevation of the left hemidiaphragm. There is a possible small partially conso lidative infiltrate developing at the left lung base medially and short-term follow-up to resolution is recommended. The right lung remains clear. There is no pleural effusion or pneumothorax. The pulmonary vasculature is not congested. The osseous structures are intact. IMPRESSION: Possible small pneumonic infiltrate developing in the left lung base and short-term follow-up to reso lution is recommended. [facility], , 05/06/2024 8:09 AM
--- NOTE | 2024-05-06 11:22 | P.CNPUL ---
History of Present Illness Consult date: 05/06/24 Requesting physician: Liset Hodge Reason for consult: dyspnea, cough, hypoxemia, pneumonia, abnormal CXR/CT Chief complaint: Hypoxemia. History of present illness: Pulmonary consult dated May 06, 2024. 83-year-old poorly responsive patient, who was seen in the emergency department, May 01, with mental status changes. The patient was initially evaluated for possible CVA. We were consulted today, for increasing oxygen requirements. The patient's initial chest x-rays, only showed a elevated left diaphragm. The more recent chest x-ray, shows either atelectasis, or infiltrate at the left base. The patient may have aspirated, because her mental status is still poor. She is really unable to give any additional history. She is currently on 5 L nasal cannula. Saturations are 95%. She has a history of CVA with residual right sided weakness, and slurred speech, hyperlipidemia, seizure disorder, hypothyroidism, among other things. Current laboratory data includes a white count 21.8, hemoglobin 10, hematocrit 32.3, platelet count of 232,000. Sodium 141, potassium 3.9, chlorides 107, CO2 29, BUN 31, creatinine 1.12. Glucose is 105. Calcium is 9.6. Viral screen was negative. The patient was placed on cefepime, and vancomycin by the primary service. If not already ordered, I will order a procalcitonin level. Review of Systems REVIEW OF SYSTEMS: No history can be obtained from this patient. CONSTITUTIONAL: [Negative.] NEUROLOGIC: [ Negative.] HEENT: [ Negative.] CARDIAC: [Negative.] PULMONARY: [Negative.] GI: [Negative.] : [Negative.] RHEUMATOLOGIC: [ Negative.] IMMUNOLOGIC: [ Negative.] ENDOCRINE: [Negative. ] DERMATOLOGIC: [Negative.] Past Medical History Past Medical History: CVA/TIA, Hyperlipidemia, Seizure Disorder, Thyroid Disorder Additional Past Medical History / Comment(s): CVA with residual right sided weakness, aphasia, slurred speech History of Any Multi-Drug Resistant Organisms: None Reported Past Surgical History: Unable to Obtain Past Anesthesia/Blood Transfusion Reactions: Unable to Obtain Past Psychological History: Unable to Obtain, Depression Smoking Status: Never smoker Past Alcohol Use History: Rare Past Drug Use History: None Reported - Past Family History Father Additional Family Medical History / Comment(s): age 75 unk cause Mother Additional Family Medical History / Comment(s): mom age 95 unk cause Medications and Allergies Home Medications Medication Instructions Recorded Confirmed Type busPIRone HCl [Buspar] 5 mg PO TID 11/25/22 05/01/24 History Calcium Carbonate/Vitamin D3 1 tab PO BID 04/27/23 05/01/24 History [Calcium 600 mg-Vit D3 5 mcg (200 unit)] Fenofibrate,Micronized 200 mg PO DAILY 04/27/23 05/01/24 History [Fenofibrate] Latanoprost Ophth [Xalatan 0.005%] 1 drops BOTH EYES HS 04/27/23 05/01/24 History Levothyroxine Sodium [Synthroid] 75 mcg PO DAILY 04/27/23 05/01/24 History Albuterol Sulfate [Albuterol 1 puff PO RT-QID PRN 04/20/24 05/01/24 History Sulfate Hfa] Alendronate Sodium [Fosamax] 70 mg PO WE 04/20/24 05/01/24 History Atorvastatin [Lipitor] 40 mg PO DAILY 04/20/24 05/01/24 History Clopidogrel [Plavix] 75 mg PO DAILY 04/20/24 05/01/24 History Famotidine [Pepcid] 20 mg PO DAILY 04/20/24 05/01/24 History Gabapentin [Neurontin] 100 mg PO BID 04/20/24 05/01/24 History LORazepam [Ativan] 0.5 mg PO BID PRN 04/20/24 05/01/24 History lamoTRIgine [LaMICtal] 150 mg PO BID 04/20/24 05/01/24 History levETIRAcetam [Keppra] 1,000 mg PO HS 04/20/24 05/01/24 History levETIRAcetam [Keppra] 500 mg PO DAILY 04/20/24 05/01/24 History amLODIPine [Norvasc] 5 mg PO DAILY #30 tab 04/25/24 05/01/24 Rx Acetaminophen Tab [Tylenol Tab] 1,000 mg PO TID PRN 05/01/24 05/01/24 History Furosemide [Lasix] 20 mg PO BID 05/01/24 05/01/24 History Sennosides [Senokot] 17.2 mg PO DAILY 05/01/24 05/01/24 History Allergies Allergy/AdvReac Type Severity Reaction Status Date / Time Iodinated Contrast Media Allergy Unknown Verified 05/01/24 11:39 [Iodinated Contrast Media - IV Dye] Physical Exam Osteopathic Statement: *. No significant issues noted on an osteopathic structural exam other than those noted in the History and Physical/Consult. Vitals: Vital Signs Temp Pulse Resp BP Pulse Ox 05/06/24 08:00 98.9 F 82 20 120/63 95 05/06/24 04:00 98.1 F 76 16 104/60 91 L 05/06/24 00:00 98.2 F 76 18 100/59 96 05/05/24 20:00 101.6 F H 84 16 133/61 93 L 05/05/24 15:55 94 L 05/05/24 15:43 98.6 F 93 19 138/70 94 L 05/05/24 14:00 90 20 05/05/24 11:25 97.6 F 90 20 106/48 89 L Intake and Output 05/05/24 05/06/24 05/06/24 22:59 06:59 14:59 Intake Total 10 Output Total 225 200 Balance -215 -200 Intake: IV 10 Invasive Line 2 10 Output: Urine 225 200 Other: Voiding Method Indwelling Catheter Indwelling Catheter # Bowel Movements 1 2 Weight 72 kg No acute distress, poorly responsive. Currently on 5 L nasal O2. HEENT examination is grossly unremarkable. Mucous membranes are moist. No oral lesions. Facial ecchymoses is noted. Neck supple. Full range of motion. No adenopathy thyromegaly or neck vein distention. Cardiovascular examination reveals regular rhythm rate. S1-S2 normal. No S3 or S4. No discernible murmur noted. Heart sounds are distant. Lungs reveal mostly clear breath sounds. Minimal rhonchi at best. The patient cannot take deep breaths. No wheezes or crackles. Abdomen soft with bowel sounds. No masses. Extremities are intact. No cyanosis clubbing or edema. Skin is without rash or lesion. Neurologic examination cannot be adequately evaluated. Results - Laboratory Findings CBC and BMP: 05/06/24 00:07 05/06/24 00:07 PT/INR, D-dimer PT 11.9 sec (10.0-12.5) 05/01/24 22:42 INR 1.1 (<1.2) 05/01/24 22:42 Abnormal lab findings: Abnormal Labs 05/01/24 05/01/24 05/01/24 10:58 10:58 14:17 WBC RBC Hgb Hct MCHC Neutrophils # Lymphocytes # Monocytes # VBG pH VBG HCO3 Sodium 135 L Chloride 87 L Carbon Dioxide 39 H BUN 38 H Creatinine 1.86 H Glucose 109 H POC Glucose (mg/dL) Calcium 10.6 H AST 79 H Troponin I 0.050 H* Total Protein Albumin Urine Blood Trace H Urine Mucus Rare H 05/01/24 05/01/24 05/01/24 15:20 18:43 22:42 WBC RBC Hgb Hct MCHC Neutrophils # Lymphocytes # Monocytes # VBG pH 7.53 H VBG HCO3 34 H Sodium Chloride Carbon Dioxide BUN Creatinine Glucose POC Glucose (mg/dL) Calcium AST Troponin I 0.042 H* 0.049 H* Total Protein Albumin Urine Blood Urine Mucus 05/02/24 05/02/24 05/03/24 07:37 07:37 06:07 WBC RBC 3.43 L 3.32 L Hgb 10.5 L 10.5 L Hct 32.7 L 32.0 L MCHC Neutrophils # Lymphocytes # Monocytes # VBG pH VBG HCO3 Sodium 133 L Chloride 94 L Carbon Dioxide 34 H BUN 38 H Creatinine 1.75 H Glucose POC Glucose (mg/dL) Calcium AST 54 H Troponin I Total Protein 6.0 L Albumin 3.0 L Urine Blood Urine Mucus 05/03/24 05/04/24 05/04/24 06:07 08:21 08:21 WBC 15.1 H RBC 3.50 L Hgb 10.5 L Hct MCHC 30.4 L Neutrophils # Lymphocytes # Monocytes # VBG pH VBG HCO3 Sodium 136 L Chloride 96 L Carbon Dioxide 37 H 33 H BUN 37 H 34 H Creatinine 1.68 H 1.33 H Glucose POC Glucose (mg/dL) Calcium AST 59 H 64 H Troponin I Total Protein 6.2 L Albumin 3.1 L 3.2 L Urine Blood Urine Mucus 05/05/24 05/05/24 05/05/24 06:47 06:47 11:51 WBC 20.7 H RBC 3.47 L Hgb 10.6 L Hct MCHC Neutrophils # Lymphocytes # Monocytes # VBG pH VBG HCO3 Sodium Chloride Carbon Dioxide BUN 29 H Creatinine 1.07 H Glucose 110 H POC Glucose (mg/dL) 130 H Calcium AST 70 H Troponin I Total Protein 6.1 L Albumin 3.0 L Urine Blood Urine Mucus 05/05/24 05/06/24 05/06/24 12:30 00:07 00:07 WBC 23.3 H 21.8 H RBC 3.35 L 3.27 L Hgb 10.4 L 10.0 L Hct 32.5 L 32.3 L MCHC Neutrophils # 20.9 H 19.1 H Lymphocytes # 0.9 L Monocytes # 1.2 H 1.2 H VBG pH VBG HCO3 Sodium Chloride Carbon Dioxide BUN 31 H Creatinine 1.12 H Glucose 105 H POC Glucose (mg/dL) Calcium AST Troponin I Total Protein Albumin Urine Blood Urine Mucus - Diagnostic Findings Chest x-ray: image reviewed Assessment and Plan Assessment: Worsening hypoxemia, with atelectasis, or infiltrate, at the left lung base, in a patient with a history of CVA. Rule out aspiration pneumonia. History of CVA, with residual right-sided weakness. History of seizure disorder. History of hyperlipidemia. History of hypothyroidism. Plan: Plan dated May 06, 2024. The patient was placed on vancomycin and cefepime by the primary service. I will check a procalcitonin level. The patient's chest x-ray clearly has changed, and there is either infiltrate, and/or atelectasis at the left lung base. The patient appears to have a chronically elevated left diaphragm. Earlier x-rays did not show an infiltrate. Labs, x-rays, and medications are reviewed. Prognosis is poor. Aspiration precautions should be implemented. I did raise the head of the bed. Prognosis is poor. The patient is a DO NOT RESUSCITATE patient. Dictation was produced using [employer] software. Please excuse any grammatical, word or spelling errors. Time with Patient: Greater than 30
[2024-05-06 12:08] VITALS: BMI 24.8
--- NOTE | 2024-05-06 13:05 | P.PN ---
Subjective Progress Note Date: 05/06/24 Hospital Course: Patient is a very pleasant 83-year-old female with significant history of TIA and CVA, chronic left ICA occlusion , CHF with preserved ejection fraction, seizure disorder, glaucoma, HTN, and CKD stage III. Patient presented to the emergency department via EMS with altered mental status earlier today. Per ED documentation, patient was at her baseline neuro status this morning when she left for her scheduled doctor appointment; and upon arrival to her PCPs office she was disoriented with increasing right sided hemiparesis in addition to increasing right facial drooping. Called and discussed with pt's PCP and was informed patient has a baseline of expressive aphasia, but with the ability to communicate verbally in short phrases "yes", "no", or "carlito" and physical mobility varies at time and 1 person assist between walking with a walker or requiring two person assistance in transferring. On arrival to our facility, patient underwent evaluation in the emergency department., Vital signs upon arrival showed temp 97.5 F, BP128/ 49, HR 62, RR 20, and SpO2 of 92% on 3L NC. Labs completed and reviewed showing unremarkable CBC, Chemistry: with BUN 38, Creatinine 1.86 (Previously 1.37), AST 79. Troponin elevated: 0.050. EKG NSR at 71 bpm with LVH and T wave inversions in lateral leads I and aVL re-demonstrated when compared to EKG done 04/20. CXR showing elevated left diaphragm, correlate for phrenic nerve injury.CT angio showing persistent complete occlusion of left internal carotid artery, no new large vessel occlusion/aneurysm at level of [place]. "Cannot exclude left sided dural venous sinus thrombus." CT Brain with no acute intracranial hemorrhage or midline shirt, large left sided infarct re-demonstrated with left-sided axial dilation involving left frontal lobe, small inferior left frontal scalp hematoma, bilateral aphakia remonstrated, without acute intracranial hemorrhage or midline shift. Admitted for management of altered mental status, neurology consulted, MRV with contrast ordered, heparin infusion tentative radiology interpretation. MRA/MRV of head without contrast was completed showing suspected occlusion/near occlusion of left sigmoid sinus with small caliber transverse sinus extending to the confluence, no evidence of venous sinus thrombosis, right vertebral artery intracranial portion is diminutive as seen on previous CT and smaller caliber of the left MCA Pelto's portion with small caliber left MCA M1, M2, and M3 segment compared to the right. Order placed for high intensity heparin infusion and notified neurologist, stated hold off on heparin infusion and MRV to be further reviewed by neurointerventionalist. Dr. Clark stating neuro interventionalists Dr. Basilio reporting no convincing evidence for sinus thrombosis at this time. MRI brain resulting showing remote injuries but no evidence of acute/subacute infarct, nonspecific white matter changes likely secondary to small vessel ischemic disease. EEG completed showing abnormal 13 EEG with background slowing suggestive of moderate encephalopathy with no focal slowing, epileptiform discharge or seizure activity noted on EEG. Physical exam: Patient seen and fully evaluated at bedside this morning. Patient's mentation unchanged she is alert to verbal and tactile stimulation only. Patient moaning and when asked if she can open her eyes patient repeated the word "no" twice, otherwise remains nonverbal. Vital signs reviewed and stable. General: Unkempt, aphasic, bruises about face and right arm. Derm: Skin warm and dry,significant bruising about face, with small laceration to bridge of nose. Head: Older appearing Brusing in various stages of healing about forehead, nose, various healing stages. Eyes: PERRL, briskly equal, anicteric sclera Mouth: no lip lesions, mucus membranes dry Cardiovascular: regular rate and rhythm, systolic murmur, positive posterior tibial pulses bilaterally, cap refill >3 sec Lungs: Respirations even, regular, and unlabored on 5L NC. Lungs diminished with shallow respirations, no noted rhonchi, wheezes, rales, or crackles upon auscultation. Abdominal: soft, nontender to palpation, no guarding, no appreciable organomegaly Ext: Decreased movement to right upper extremity, ILAN significantly bruised, without laceration. Neuro: Limited exam due to mental status. 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 Psych: Opens eyes to tactile stimulus only. Appears lethargic but does respond to verbal/tactile stimuli with moaning responses. Assessment and Plan of Care: Acute hypoxic respiratory failure Left lower lobe infiltrate, rule out HCAP versus aspiration pneumonia Chronic elevated left hemidiaphragm Sepsis secondary to tachycardia, hypotension, and leukocytosis. Resulting from above -Consult to Pulmonology, appreciate recommendations -Oxygenation to be administered and titrated as needed to maintain SPO2 equal to or greater than 90% -Telemetry monitoring. -Monitor pulse-oximetry -Duonebs scheduled 4x daily as needed for SOB and/or wheezing -Incentive Spirometry -Antibiotics: Vancomycin 1250 mg every 24 hours and cefepime 2 g every 12 hours. Follow-up on procalcitonin results, blood culture results, and MRSA/MSSA screening results. -Maintain aspiration precautions. Speech and language pathologist reconsulted for reevaluation for swallow eval. Altered Mental Status, suspect secondary to breakthrough seizure activity. CT angiography unable to exclude left sided Dural venous sinus thrombus. Ruled out per Neurologist History of CVA with right side residual deficits, seizure disorder, and chronic left ICA occlusion, aphasic at baseline -MRA/MRV of head without contrast was completed showing suspected occlusion/near occlusion of left sigmoid sinus with small caliber transverse sinus extending to the confluence, no evidence of venous sinus thrombosis, right vertebral artery intracranial portion is diminutive as seen on previous CT and smaller caliber of the left MCA Pelto's portion with small caliber left MCA M1, M2, and M3 segment compared to the right. -MRI brain resulting showing remote injuries but no evidence of acute/subacute infarct, nonspecific white matter changes likely secondary to small vessel ischemic disease. -Neurology following, Dr. Clark stating neuro interventionalists Dr. Basilio reporting no convincing evidence for sinus thrombosis at this time. Pts altered mental status is highly suspected to be secondary to recurrent breakthrough seizure activity and pt was started on IV Vimpat at this time in addition to Lamictal and Keppra. -Neuro checks ordered every 4 hours -Seizure precautions and Fall precautions -Heart healthy diet -Speech Therapy, physical therapy, and Occupational Therapy consulted -Telemetry monitoring -Continue Keppra 75 mg PO Daily and 1000 PO HS, Lamictal 150 mg twice daily, and Vimpat 100 mg BID -DAPT; continue home plavix 75mg daily and aspirin 81mg daily -Continue atorvastatin 40mg PO at HS Elevated troponins, flat -Troponin's elevated at 0.050, 0.042, and 0.049. -Continuous telemetry monitoring -Continue daily medication regimen with aspirin 81 mg daily, atorvastatin 40 mg daily, Plavix 75 mg daily, fenofibrate 160 mg daily, ÁLVARO and CKD IIIb, resolved -BUN 31, creatinine 1.12, GFR 45 -Continue to Hold Lasix -Continue monitoring I's and O's. Documented output over the past 24 hours with 1000 cc -Daily BMP ordered History of Congestive Heart Failure with Preserved Ejection fraction (04/21/2024), hypertension, recent CHF exacerbation -Continue supplemental and titrate as indicated to maintain SpO2 equal to or greater than 90% -Lasix held secondary to ÁLVARO -Daily Weight trending -Continue Amlodipine 5mg PO Daily Hypothyroidism -Continue daily medication regimen with levothyroxine 75 mcg daily. Severe protein calorie malnutrition -Patient placed on protein supplements 3 times daily with meals and consult plac ed to dietitian. Data and imaging reviewed: -Morning labs reviewed. CBC showing leukocytosis with WBC count of 21.8 and stable normocytic anemia with hemoglobin of 10.0. BMP showing BUN of 31, creatinine 1.12, GFR 45. Blood glucose 105. C. difficile negative, influenza A, influenza B, RSV and COVID PCR also negative. -Vital signs reviewed. Blood pressure 120/63, heart rate 82, respiratory rate 20, temp 98.9 F, and SpO2 of 95% on 5 L -Chest x-ray showing possible small pneumonic infiltrate developing in the left lung base and continued elevated left hemidiaphragm. CODE STATUS DNR/DNI DVT prophylaxis: Heparin Anticipated discharge date: Pending clinical course Anticipated discharge place: Pending clinical course Patient was seen independently by Nurse Pracitioner. This document was prepared using [employer] dictation software. Please allow for errors in protection chief industrial plant, while rare they do occur. Pepe Nagy NP rendered care for this patient independently, reviewed the findings and plan as documented in the note above and agree with plan. I did not physically speak with or examine the patient on this date. Objective - Vital Signs Vital signs: Vital Signs Temp 98.1 F 05/06/24 04:00 Pulse 76 05/06/24 04:00 Resp 16 05/06/24 04:00 BP 104/60 05/06/24 04:00 Pulse Ox 91 L 05/06/24 04:00 FiO2 Intake & Output 05/05/24 05/06/24 05/06/24 18:59 06:59 18:59 Intake Total 10 Output Total 425 200 Balance -425 -190 Weight 72 kg Intake: IV 10 Invasive Line 2 10 Output: Urine 425 200 Other: Voiding Method Indwelling Catheter Indwelling Catheter # Bowel Movements 2 2 - Labs CBC & Chem 7: 05/06/24 00:07 05/06/24 00:07 Labs: Abnormal Lab Results - Last 24 Hours (Table) 05/05/24 05/05/24 05/06/24 Range/Units 11:51 12:30 00:07 WBC 23.3 H 21.8 H (3.8-10.6) k/uL RBC 3.35 L 3.27 L (3.80-5.40) m/uL Hgb 10.4 L 10.0 L (11.4-16.0) gm/dL Hct 32.5 L 32.3 L (34.0-46.0) % Neutrophils # 20.9 H 19.1 H (1.3-7.7) k/uL Lymphocytes # 0.9 L (1.0-4.8) k/uL Monocytes # 1.2 H 1.2 H (0-1.0) k/uL BUN (7-17) mg/dL Creatinine (0.52-1.04) mg/dL Glucose (74-99) mg/dL POC Glucose (mg/dL) 130 H (70-110) mg/dL 05/06/24 Range/Units 00:07 WBC (3.8-10.6) k/uL RBC (3.80-5.40) m/uL Hgb (11.4-16.0) gm/dL Hct (34.0-46.0) % Neutrophils # (1.3-7.7) k/uL Lymphocytes # (1.0-4.8) k/uL Monocytes # (0-1.0) k/uL BUN 31 H (7-17) mg/dL Creatinine 1.12 H (0.52-1.04) mg/dL Glucose 105 H (74-99) mg/dL POC Glucose (mg/dL) (70-110) mg/dL
[2024-05-06] MEDS: IPRATROPIUM-ALBUTEROL 3 ML NEB INHALATION SCH (15:34)
[2024-05-07 07:50] LABS: HCT 28.8 % (34.0-46.0); HGB 9.1 gm/dL (11.4-16.0); Hypochromasia Moderate; MCH 30.7 pg (25.0-35.0); MCHC 31.5 g/dL (31.0-37.0); MCV 97.5 fL (80.0-100.0); Mean Platelet Volume 8.1; Platelet Count 231 k/uL (150-450); RBC 2.95 m/uL (3.80-5.40); RDW 14.3 % (11.5-15.5); WBC 15.2 k/uL (3.8-10.6)
[2024-05-07 08:24] LABS: African American GFR (CKD) 53 (>60 ml/min/1.73 sqM); Anion Gap 6 mmol/L; Blood Urea Nitrogen 28 mg/dL (7-17); Calcium 9.2 mg/dL (8.4-10.2); Carbon Dioxide 29 mmol/L (22-30); Chloride 110 mmol/L (98-107); Glucose 92 mg/dL (74-99); Non-African American GFR(CKD) 46 (>60 ml/min/1.73 sqM); Potassium 3.6 mmol/L (3.5-5.1); Sodium 145 mmol/L (137-145)
--- NOTE | 2024-05-07 11:13 | P.PN ---
Subjective Progress Note Date: 05/07/24 Hospital Course: Patient is a very pleasant 83-year-old female with significant history of TIA and CVA, chronic left ICA occlusion , CHF with preserved ejection fraction, seizure disorder, glaucoma, HTN, and CKD stage III. Patient presented to the emergency department via EMS with altered mental status earlier today. Per ED documentation, patient was at her baseline neuro status this morning when she left for her scheduled doctor appointment; and upon arrival to her PCPs office she was disoriented with increasing right sided hemiparesis in addition to increasing right facial drooping. Called and discussed with pt's PCP and was informed patient has a baseline of expressive aphasia, but with the ability to communicate verbally in short phrases "yes", "no", or "carlito" and physical mobility varies at time and 1 person assist between walking with a walker or requiring two person assistance in transferring. On arrival to our facility, patient underwent evaluation in the emergency department., Vital signs upon arrival showed temp 97.5 F, BP128/ 49, HR 62, RR 20, and SpO2 of 92% on 3L NC. Labs completed and reviewed showing unremarkable CBC, Chemistry: with BUN 38, Creatinine 1.86 (Previously 1.37), AST 79. Troponin elevated: 0.050. EKG NSR at 71 bpm with LVH and T wave inversions in lateral leads I and aVL re-demonstrated when compared to EKG done 04/20. CXR showing elevated left diaphragm, correlate for phrenic nerve injury.CT angio showing persistent complete occlusion of left internal carotid artery, no new large vessel occlusion/aneurysm at level of [place]. "Cannot exclude left sided dural venous sinus thrombus." CT Brain with no acute intracranial hemorrhage or midline shirt, large left sided infarct re-demonstrated with left-sided axial dilation involving left frontal lobe, small inferior left frontal scalp hematoma, bilateral aphakia remonstrated, without acute intracranial hemorrhage or midline shift. Admitted for management of altered mental status, neurology consulted, MRV with contrast ordered, heparin infusion tentative radiology interpretation. MRA/MRV of head without contrast was completed showing suspected occlusion/near occlusion of left sigmoid sinus with small caliber transverse sinus extending to the confluence, no evidence of venous sinus thrombosis, right vertebral artery intracranial portion is diminutive as seen on previous CT and smaller caliber of the left MCA Pelto's portion with small caliber left MCA M1, M2, and M3 segment compared to the right. Order placed for high intensity heparin infusion and notified neurologist, stated hold off on heparin infusion and MRV to be further reviewed by neurointerventionalist. Dr. Clark stating neuro interventionalists Dr. Basilio reporting no convincing evidence for sinus thrombosis at this time. MRI brain resulting showing remote injuries but no evidence of acute/subacute infarct, nonspecific white matter changes likely secondary to small vessel ischemic disease. EEG completed showing abnormal 13 EEG with background slowing suggestive of moderate encephalopathy with no focal slowing, epileptiform discharge or seizure activity noted on EEG. 05/03/2024 patient was found by nurse to be making grunting noises, staring off with minimal eye twitches. She was given Ativan x 1 dose and neurologist was notified increasing Vimpat to 100 mg twice daily. On 05/04/2024 patient was noted to have leukocytosis and increased oxygenation needs, concerns of aspiration from seizure activity. She was initially placed on antibiotics and repeat chest x-ray showing small pneumonic infiltrate of left lower lung base pulmonology was consulted and a procalcitonin later completed with negative results of 0.43 and antibiotics di scontinued. Speech and language pathologist was reconsulted for swallow eval. Aspiration precautions and seizure precautions to remain in place. Physical exam: Patient seen and fully evaluated at bedside this morning. Patient's mentation is improved today and she is more alert and responsive, she remains minimally verbal but did deny any pain. Patient lying in bed with RN and EXECUTIVE ASSISTANT TO GENERAL COUNSEL at bedside. RN reports patient ate all of her breakfast this morning and has been taking her pills without any difficulties. No noted coughing fits or observed difficulties with swallowing. Discussed at this time maintain aspiration precautions until speech and language pathologist can reevaluate tomorrow. Patient remains on 5 L O2 via nasal cannula with SpO2 of 93% at this time. Will attempt to wean down oxygen as patient tolerates. Vital signs reviewed and stable. General: Unkempt, aphasic, bruises about face and right arm are improving. Derm: Skin warm and dry,significant bruising about face, with small laceration to bridge of nose. Head: Older appearing femake wutg Brusing in various stages of healing about forehead, face and nose,. Eyes: PERRL, briskly equal, anicteric sclera Mouth: no lip lesions, mucus membranes dry Cardiovascular: regular rate and rhythm, systolic murmur, positive posterior tibial pulses bilaterally, cap refill >3 sec Lungs: Respirations even, regular, and unlabored on 5L NC. Lungs diminished with shallow respirations, no noted rhonchi, wheezes, rales, or crackles upon auscultation. Abdominal: soft, nontender to palpation, no guarding, no appreciable organomegaly Ext: Decreased movement to right upper extremity, ILAN significantly bruised, without laceration. Neuro: Limited exam due to mental status. Appropriately mixer and blender hands bilaterally L>R, otherwise following limited commands. Psych: Awake and alert, remains minimally verbal per baseline. Assessment and Plan of Care: Acute hypoxic respiratory failure Left lower lobe infiltrate, believed to be secondary to aspiration pneumonia Chronic elevated left hemidiaphragm Sepsis secondary to tachycardia, hypotension, and leukocytosis. Resulting from above -Pulmonology following. Discussed plan of care at bedside with device sales consultant and pulmonary SURG NURSE. Procalcitonin negative at 0.43. Antibiotics discontinued at this time. -Oxygenation to be administered and titrated as needed to maintain SPO2 equal to or greater than 90%. Currently SpO2 of 93%. -Telemetry monitoring. -Monitor pulse-oximetry -Duonebs scheduled 4x daily as needed for SOB and/or wheezing -Incentive Spirometry -Antibiotics: Vancomycin 1250 mg every 24 hours and cefepime 2 g every 12 hours. Follow-up on procalcitonin results, blood culture results, and MRSA/MSSA screening results. -Maintain aspiration precautions. Speech and language pathologist reconsulted for reevaluation for swallow eval. Altered Mental Status, suspect secondary to breakthrough seizure activity. CT angiography unable to exclude left sided Dural venous sinus thrombus. Ruled out per Neurologist History of CVA with right side residual deficits, seizure disorder, and chronic left ICA occlusion, aphasic at baseline -Continue seizure precautions, aspiration precautions, and fall precautions. -Continue neurochecks every 4 hours. -Speech and language pathologist reconsulted for swallow evaluation secondary to concerns of aspiration from previous seizure activity on 05/03/2024. Patient currently swallowing and taking medications without any reported difficulties per nursing staff. -Physical Therapy and Occupational Therapy consulted -Telemetry monitoring -Continue Keppra 75 mg PO Daily and 1000 PO HS, Lamictal 150 mg twice daily, and Vimpat 100 mg BID -Continue home medication regimen with Plavix 75mg daily, aspirin 81mg daily, and atorvastatin 40 mg nightly. Elevated troponins, flat -Troponin's elevated at 0.050, 0.042, and 0.049. -Continuous telemetry monitoring -Continue daily medication regimen with aspirin 81 mg daily, atorvastatin 40 mg daily, Plavix 75 mg daily, and fenofibrate 160 mg daily, ÁLVARO and CKD IIIb, resolved -BUN 31, creatinine 1.12, GFR 45 -Continue to Hold Lasix -Continue monitoring I's and O's. Documented output over the past 24 hours with 1000 cc -Daily BMP ordered History of Congestive Heart Failure with Preserved Ejection fraction (04/21/2024), hypertension, recent CHF exacerbation -Continue supplemental and titrate as indicated to maintain SpO2 equal to or greater than 90% -Lasix held secondary to ÁLVARO -Daily Weight trending -Continue Amlodipine 5mg PO Daily Hypothyroidism -Continue daily medication regimen with levothyroxine 75 mcg daily. Severe protein calorie malnutrition -Patient placed on protein supplements 3 times daily with meals and consult placed to dietitian. Data and imaging reviewed: -Labs reviewed. CBC showing leukocytosis with WBC count of 21.8 and stable normocytic anemia with hemoglobin of 10.0. BMP showing BUN of 31, creatinine 1.12, GFR 45. Blood glucose 105. C. difficile negative, influenza A, influenza B, RSV and COVID PCR also negative. -Vital signs reviewed. Blood pressure 111/57, heart rate 80, respiratory rate 20, temp 98.2 F, and SpO2 of 93% on 5 L. CODE STATUS DNR/DNI DVT prophylaxis: Heparin Anticipated discharge date: Pending clinical course Anticipated discharge place: Pending clinical course Patient was seen independently by Nurse Pracitioner. This document was prepared using [employer] dictation software. Please allow for errors in room inspector, while rare they do occur. Pepe Nagy NP rendered care for this patient independently, reviewed the findings and plan as documented in the note above and agree with plan. I did not physically speak with or examine the patient on this date. Objective - Vital Signs Vital signs: Vital Signs Temp 98.2 F 05/07/24 08:00 Pulse 86 05/07/24 08:57 Resp 20 05/07/24 08:00 BP 111/57 05/07/24 08:00 Pulse Ox 93 L 05/07/24 08:59 FiO2 Intake & Output 05/06/24 05/07/24 05/07/24 18:59 06:59 18:59 Intake Total 1550 10 Output Total 550 200 Balance 1000 -190 Weight 72 kg 72 kg Intake: IV 10 Invasive Line 2 10 Intake, IV Titration 1550 Amount Cefepime 2 gm In Sodium 100 Chloride 0.9% 100 ml @ 25 mls/hr IVPB Q12H [facility] Rx# :[id number] Lactated Ringers 1,000 ml 1200 @ 100 mls/hr IV .Q10H [facility] Rx#:[id number] Vancomycin 1,250 mg In 250 Sodium Chloride 0.9% 250 ml @ 125 mls/hr IVPB Q24H [facility] Rx#:[id number] Output: Urine 550 200 Other: Voiding Method Indwelling Catheter Indwelling Catheter # Bowel Movements 2 1 - Labs CBC & Chem 7: 05/07/24 07:18 05/07/24 07:18 Labs: Abnormal Lab Results - Last 24 Hours (Table) 05/07/24 05/07/24 Range/Units 07:18 07:18 WBC 15.2 H (3.8-10.6) k/uL RBC 2.95 L (3.80-5.40) m/uL Hgb 9.1 L (11.4-16.0) gm/dL Hct 28.8 L (34.0-46.0) % Chloride 110 H (98-107) mmol/L BUN 28 H (7-17) mg/dL Creatinine 1.10 H (0.52-1.04) mg/dL Microbiology - Last 24 Hours (Table) 05/05/24 14:05 Nasal Screen MRSA/MSSA - Final Nasal Swab 05/05/24 12:19 Urine Culture - Preliminary Urine,Catheterized Gram Neg Bacilli 05/05/24 12:30 Blood Culture - Preliminary Blood
--- NOTE | 2024-05-07 12:37 | P.PN ---
Subjective Progress Note Date: 05/07/24 Principal diagnosis: Possible pneumonia. Pulmonary consult dated May 06, 2024. 83-year-old poorly responsive patient, who was seen in the emergency department, May 01, with mental status changes. The patient was initially evaluated for possible CVA. We were consulted today, for increasing oxygen requirements. The patient's initial chest x-rays, only showed a elevated left diaphragm. The more recent chest x-ray, shows either atelectasis, or infiltrate at the left base. The patient may have aspirated, because her mental status is still poor. She is really unable to give any additional history. She is currently on 5 L nasal cannula. Saturations are 95%. She has a history of CVA with residual right sided weakness, and slurred speech, hyperlipidemia, seizure disorder, hypothyroidism, among other things. Current laboratory data includes a white count 21.8, hemoglobin 10, hematocrit 32.3, platelet count of 232,000. Sodium 141, potassium 3.9, chlorides 107, CO2 29, BUN 31, creatinine 1.12. Glucose is 105. Calcium is 9.6. Viral screen was negative. The patient was placed on cefepime, and vancomycin by the primary service. If not already ordered, I will order a procalcitonin level. Progress note dated May 07, 2024. 83-year-old female seen yesterday in consultation. Please see my note above. We were consulted for possible pneumonia, left lung. The patient may have aspirated. She came in with strokelike symptoms. Currently, she is seen in room 374. She is much more awake and alert. She is sitting up in bed. She is on 5 L nasal cannula. She is getting lactated Ringer's at 100 cc an hour. Her procalcitonin level was 0.43. She was started on cefepime and vancomycin by the primary service. Laboratory data includes a white count 15.2, hemoglobin 9.1, hematocrit 28.8, and platelet count 231,000. Sodium 145, potassium 3.6, chlor ides 110, CO2 29, BUN 28, creatinine 1.10. Urine is gram-negative bacilli, yet to be identified. The x-ray from yesterday shows a possible infiltrate, at the left lung base. Objective - Vital Signs Vital signs: Vital Signs Temp 97.4 F L 05/07/24 11:30 Pulse 84 05/07/24 12:01 Resp 20 05/07/24 11:30 BP 115/56 05/07/24 11:30 Pulse Ox 98 05/07/24 11:30 FiO2 Intake & Output 05/06/24 05/07/24 05/07/24 18:59 06:59 18:59 Intake Total 1550 10 180 Output Total 550 200 200 Balance 1000 -190 -20 Weight 72 kg 72 kg Intake: IV 10 Invasive Line 2 10 Intake, IV Titration 1550 Amount Cefepime 2 gm In Sodium 100 Chloride 0.9% 100 ml @ 25 mls/hr IVPB Q12H [facility] Rx# :[id number] Lactated Ringers 1,000 ml 1200 @ 100 mls/hr IV .Q10H [facility] Rx#:[id number] Vancomycin 1,250 mg In 250 Sodium Chloride 0.9% 250 ml @ 125 mls/hr IVPB Q24H [facility] Rx#:[id number] Oral 180 Output: Urine 550 200 200 Other: Voiding Method Indwelling Catheter Indwelling Catheter Indwelling Catheter # Bowel Movements 2 1 1 - Exam No acute distress, much more awake and responsive today, still on 5 L nasal cannula. HEENT examination is grossly unremarkable. Mucous membranes are moist. No oral lesions. Facial ecchymoses is noted. Neck supple. Full range of motion. No adenopathy thyromegaly or neck vein distention. Cardiovascular examination reveals regular rhythm rate. S1-S2 normal. No S3 or S4. No discernible murmur noted. Heart sounds are distant. Lungs reveal mostly clear breath sounds. Minimal rhonchi at best. The patient cannot take deep breaths. No wheezes or crackles. Abdomen soft with bowel sounds. No masses. Extremities are intact. No cyanosis clubbing or edema. Skin is without rash or lesion. Neurologic examination cannot be adequately evaluated. - Labs CBC & Chem 7: 05/07/24 07:18 05/07/24 07:18 Labs: Abnormal Lab Results - Last 24 Hours (Table) 05/07/24 05/07/24 Range/Units 07:18 07:18 WBC 15.2 H (3.8-10.6) k/uL RBC 2.95 L (3.80-5.40) m/uL Hgb 9.1 L (11.4-16.0) gm/dL Hct 28.8 L (34.0-46.0) % Chloride 110 H (98-107) mmol/L BUN 28 H (7-17) mg/dL Creatinine 1.10 H (0.52-1.04) mg/dL Microbiology - Last 24 Hours (Table) 05/05/24 14:05 Nasal Screen MRSA/MSSA - Final Nasal Swab 05/05/24 12:19 Urine Culture - Preliminary Urine,Catheterized Gram Neg Bacilli 05/05/24 12:30 Blood Culture - Preliminary Blood Assessment and Plan Assessment: Worsening hypoxemia, with atelectasis, or infiltrate, at the left lung base, in a patient with a history of CVA. Rule out aspiration pneumonia. History of CVA, with residual right-sided weakness. History of seizure disorder. History of hyperlipidemia. History of hypothyroidism. Plan: Plan dated May 06, 2024. The patient was placed on vancomycin and cefepime by the primary service. I will check a procalcitonin level. The patient's chest x-ray clearly has voss ed, and there is either infiltrate, and/or atelectasis at the left lung base. The patient appears to have a chronically elevated left diaphragm. Earlier x- rays did not show an infiltrate. Labs, x-rays, and medications are reviewed. Prognosis is poor. Aspiration precautions should be implemented. I did raise the head of the bed. Prognosis is poor. The patient is a DO NOT RESUSCITATE patient. Dictation was produced using [employer] software. Please excuse any grammatical, word or spelling errors. Plan dated May 07, 2024. The patient's chest x-ray showed an infiltrate, at the left lung base. She does have an elevated left hemidiaphragm, and that could represent atelectasis. Her procalcitonin level was normal. She is a DO NOT RESUSCITATE patient. She appears relatively comfortable, despite the fact that she is on 5 L nasal cannula, and in fact, she is much more awake and alert today than she was yesterday. Labs, x-rays, medications are reviewed. We will continue to follow. Prognosis is guarded. We did talk to the primary service about either discontinuing antibiotics, or significantly de-escalating antibiotics. Dictation was produced using [employer] software. Please excuse any grammatical, word or spelling errors. Time with Patient: Less than 30
[2024-05-08 07:29] LABS: HCT 29.9 % (34.0-46.0); HGB 8.9 gm/dL (11.4-16.0); Hypochromasia Moderate; MCH 30.2 pg (25.0-35.0); MCHC 29.8 g/dL (31.0-37.0); MCV 101.4 fL (80.0-100.0); Macrocytosis Slight; Mean Platelet Volume 8.7; Platelet Count 237 k/uL (150-450); RBC 2.95 m/uL (3.80-5.40); RDW 14.4 % (11.5-15.5)
[2024-05-08 07:32] LABS: African American GFR (CKD) 48 (>60 ml/min/1.73 sqM); Anion Gap 8 mmol/L; Blood Urea Nitrogen 38 mg/dL (7-17); Calcium 9.4 mg/dL (8.4-10.2); Carbon Dioxide 26 mmol/L (22-30); Chloride 103 mmol/L (98-107); Glucose 115 mg/dL (74-99); Magnesium 1.8 mg/dL (1.6-2.3); Non-African American GFR(CKD) 41 (>60 ml/min/1.73 sqM); Potassium 4.1 mmol/L (3.5-5.1); Sodium 137 mmol/L (137-145)
--- NOTE | 2024-05-08 10:18 | P.PN ---
Subjective Progress Note Date: 05/06/24 This is a telemedicine neurology follow performed on 05/06/2024, in collaboration with Jeanette Denise Patient was initially seen by Dr. Jaylen Clark. Please refer to his notes for details. I am seeing patient for the first time. Patient is a 83-year-old female with history of stroke and seizure, who presents because of worsening overall weakness. MRI of the brain is negative. Patient is having staring off episodes. Dr. Clark started the patient on Vimpat 100 mg twice a day. Patient did EEG performed twice and was negative for seizure. Patient also has sepsis which is hospital-acquired. Patient was seen for follow-up. Patient has delayed response. Patient wants. He is quiet. He did not cooperate with examination is below. Some of the workup during this hospital visit consisted of: Creatinine is 1.86 AST [address] of the head is reported as no acute intracranial hemorrhage or midline shift. Body report it is reported the patient has large left-sided infarct. I personally reviewed the CT read patient has an old infarct which is same com pared to her previous images. 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 No new large vessel occlusion or aneurysm at the level of [place]. Cannot exclude left-sided dural venous sinus thrombosis though this is in retrospect has similar appearance to prior study. MRI Brain: Remote injuries, no evidence of acute/subacute infarct. MRA/MRV head: Suspected occlusion/near occlusion of the left sigmoid sinus with small caliber transverse sinus extending to the confluence. Consider laboratory cureman angiography. NO evidence of venous sinus thrombosis. No evidence of intracranial aneurysm or significant stenosis. Right vertebral artery intracranial portion is diminutive as seen on prior CT. Small caliber of the left MCA petrous portion with small caliber left MCA M1. M2 and M2 segment compared to the right. Dr. Staley (Interventional Neurologist) reviewed the MRV/CT angiography and did not feel the patient has venous sinus thrombosis. An EEG is abnormal. The background slowing is suggestive of mild en cephalopathy. There is no focal slowing, epileptiform discharge or seizure on the EEG. Repeat EEG: Is abnormal. The background slowing is suggestive of moderate encephalopathy. There is no focal slowing, epileptiform discharge or seizure on the EEG. Objective - Vital Signs Vital signs: Vital Signs Temp 98.9 F 05/06/24 08:00 Pulse 82 05/06/24 08:00 Resp 20 05/06/24 08:00 BP 120/63 05/06/24 08:00 Pulse Ox 95 05/06/24 08:00 FiO2 Intake & Output 05/05/24 05/06/24 05/06/24 18:59 06:59 18:59 Intake Total 10 Output Total 425 200 Balance -425 -190 Weight 72 kg Intake: IV 10 Invasive Line 2 10 Output: Urine 425 200 Other: Voiding Method Indwelling Catheter Indwelling Catheter Indwelling Catheter # Bowel Movements 2 2 - Exam Patient is laying in the bed, in no acute distress. Examination was very limited patient moans, is quiet. He is quite drowsy. Follows very minimal commands. Patient squeeze hands, about 3 on the right, 4 left. - Labs CBC & Chem 7: 05/08/24 06:17 05/08/24 06:17 Labs: Abnormal Lab Results - Last 24 Hours (Table) 05/05/24 05/05/24 05/06/24 Range/Units 11:51 12:30 00:07 WBC 23.3 H 21.8 H (3.8-10.6) k/uL RBC 3.35 L 3.27 L (3.80-5.40) m/uL Hgb 10.4 L 10.0 L (11.4-16.0) gm/dL Hct 32.5 L 32.3 L (34.0-46.0) % Neutrophils # 20.9 H 19.1 H (1.3-7.7) k/uL Lymphocytes # 0.9 L (1.0-4.8) k/uL Monocytes # 1.2 H 1.2 H (0-1.0) k/uL BUN (7-17) mg/dL Creatinine (0.52-1.04) mg/dL Glucose (74-99) mg/dL POC Glucose (mg/dL) 130 H (70-110) mg/dL 05/06/24 Range/Units 00:07 WBC (3.8-10.6) k/uL RBC (3.80-5.40) m/uL Hgb (11.4-16.0) gm/dL Hct (34.0-46.0) % Neutrophils # (1.3-7.7) k/uL Lymphocytes # (1.0-4.8) k/uL Monocytes # (0-1.0) k/uL BUN 31 H (7-17) mg/dL Creatinine 1.12 H (0.52-1.04) mg/dL Glucose 105 H (74-99) mg/dL POC Glucose (mg/dL) (70-110) mg/dL Assessment and Plan Assessment: This is an 83-year-old woman with a history of stroke with residual expressive aphasia right hemiparesis, dysarthria, seizure presents the emergency department from her scheduled doctor's appointment with confusion and increased worsening right-sided weakness as well as increased right facial droop. Worsening weakness over the right side with confusion: Probable due to breakthrough seizure and 2 days ago patient had episode of grunting and staring off lasting 2-3 minutes concerning for seizures. Yesterday has similar staring off spell lasting 20 minutes with eye fluttering. No acute stroke on MRI Brain. Had two EEG which negative for seizure. Altered mental status. Possible septic encephalopathy. Has leukocytosis that is trending up. Possible aspiration pneumonia. CT angiography it is reported that cannot exclude left-sided dural venous sinus thrombus then it is reported that has similar appearance to prior study. But MRA/MVA MRA/MRV head: Suspected occlusion/near occlusion of the left sigmoid sinus with small caliber transverse sinus extending to the confluence. NO evidence of venous sinus thrombosis. History of stroke with residual right hemiparesis, expressive aphasia, dysarthria History of seizure History of left ICA occlusion Congestive heart failure Hypertension Chronic kidney insufficiency Plan: Dr. Jaylen Clark has spoken to Dr. Staley (Interventional Neurologist) and he reviewed images on 05/02/2024 and he did not feel any venous sinus thrombosis. We would recommend she follow-up with him as outpatient within 3 weeks. Patient is on aspirin 81 mg, Plavix 75 mg. She was given aspirin 324 mg once in the ED. Patient is also on Lipitor 40mg daily Patient is resumed on her home medication of Keppra 1500 mg nightly, Lamictal 150 mg twice daily. Continue Vimpat 100mg bid (Vimpat was started during this admission). Placed the patient on seizure precaution Continue neurochecks Cardiac monitoring PT, OT and NATUROPATHIC DOCTOR are consulted Will defer the rest of the medical management to primary and other specialist For DVT prophylaxis start patient on subcu heparin 5000 units every 12 hours
--- NOTE | 2024-05-08 14:33 | P.PN ---
Subjective Progress Note Date: 05/08/24 Hospital Course: Patient is a very pleasant 83-year-old female with significant history of TIA and CVA, chronic left ICA occlusion , CHF with preserved ejection fraction, seizure disorder, glaucoma, HTN, and CKD stage III. Patient presented to the emergency department via EMS with altered mental status earlier today. Per ED documentation, patient was at her baseline neuro status this morning when she left for her scheduled doctor appointment; and upon arrival to her PCPs office she was disoriented with increasing right sided hemiparesis in addition to increasing right facial drooping. Called and discussed with pt's PCP and was informed patient has a baseline of expressive aphasia, but with the ability to communicate verbally in short phrases "yes", "no", or "carlito" and physical mobility varies at time and 1 person assist between walking with a walker or requiring two person assistance in transferring. On arrival to our facility, patient underwent evaluation in the emergency department., Vital signs upon arrival showed temp 97.5 F, BP128/ 49, HR 62, RR 20, and SpO2 of 92% on 3L NC. Labs completed and reviewed showing unremarkable CBC, Chemistry: with BUN 38, Creatinine 1.86 (Previously 1.37), AST 79. Troponin elevated: 0.050. EKG NSR at 71 bpm with LVH and T wave inversions in lateral leads I and aVL re-demonstrated when compared to EKG done 04/20. CXR showing elevated left diaphragm, correlate for phrenic nerve injury.CT angio showing persistent complete occlusion of left internal carotid artery, no new large vessel occlusion/aneurysm at level of [place]. "Cannot exclude left sided dural venous sinus thrombus." CT Brain with no acute intracranial hemorrhage or midline shirt, large left sided infarct re-demonstrated with left-sided axial dilation involving left frontal lobe, small inferior left frontal scalp hematoma, bilateral aphakia remonstrated, without acute intracranial hemorrhage or midline shift. Admitted for management of altered mental status, neurology consulted, MRV with contrast ordered, heparin infusion tentative radiology interpretation. MRA/MRV of head without contrast was completed showing suspected occlusion/near occlusion of left sigmoid sinus with small caliber transverse sinus extending to the confluence, no evidence of venous sinus thrombosis, right vertebral artery intracranial portion is diminutive as seen on previous CT and smaller caliber of the left MCA Pelto's portion with small caliber left MCA M1, M2, and M3 segment compared to the right. Order placed for high intensity heparin infusion and notified neurologist, stated hold off on heparin infusion and MRV to be further reviewed by neurointerventionalist. Dr. Clark stating neuro interventionalists Dr. Basilio reporting no convincing evidence for sinus thrombosis at this time. MRI brain resulting showing remote injuries but no evidence of acute/subacute infarct, nonspecific white matter changes likely secondary to small vessel ischemic disease. EEG completed showing abnormal 13 EEG with background slowing suggestive of moderate encephalopathy with no focal slowing, epileptiform discharge or seizure activity noted on EEG. 05/03/2024 patient was found by nurse to be making grunting noises, staring off with minimal eye twitches. She was given Ativan x 1 dose and neurologist was notified increasing Vimpat to 100 mg twice daily. On 05/04/2024 patient was noted to have leukocytosis and increased oxygenation needs, concerns of aspiration from seizure activity. She was initially placed on antibiotics and repeat chest x-ray showing small pneumonic infiltrate of left lower lung base pulmonology was consulted and a procalcitonin later completed with negative results of 0.43 and antibiotics di scontinued. Speech and language pathologist was reconsulted for swallow eval. Aspiration precautions and seizure precautions to remain in place. Physical exam: Patient seen and fully evaluated at bedside this morning. Patient's mentation remains improved today. Patient able to speak in 3 and 4 word sentences. She is alert to person and place, confused to time and situation. Patient denies having any pain or complaints. RN at bedside. Patient taking morning medications crushed with applesauce well. She was also drinking water without any noted difficulty swallowing. RN reports patient was able to eat breakfast with no noted difficulties or signs of choking. Awaiting speech and language pathologist to reevaluate. Discussed with RN need to wean patient down from oxygen as patient tolerates. Vital signs reviewed and stable. General: Unkempt, aphasic, bruises about face and right arm are improving. Derm: Skin warm and dry,significant bruising about face, with small laceration to bridge of nose. Head: Older appearing femake wutg Brusing in various stages of healing about forehead, face and nose,. Eyes: PERRL, briskly equal, anicteric sclera Mouth: no lip lesions, mucus membranes dry Cardiovascular: regular rate and rhythm, systolic murmur, positive posterior tibial pulses bilaterally, cap refill >3 sec Lungs: Respirations even, regular, and unlabored on 4L NC. Lungs diminished with shallow respirations, no noted rhonchi, wheezes, rales, or crackles upon auscultation. Abdominal: soft, nontender to palpation throughout abdomen or suprapubic region, no guarding, no appreciable organomegaly Ext: Decreased movement to right upper extremity, ILAN significantly bruised, without laceration. Neuro: Limited exam due to mental status. 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 Psych: Awake and alert, remains minimally verbal per baseline. Assessment and Plan of Care: Acute hypoxic respiratory failure Left lower lobe infiltrate, believed to be secondary to aspiration pneumonia Chronic elevated left hemidiaphragm Sepsis secondary to tachycardia, hypotension, and leukocytosis. Resulting from above -Pulmonology following. Discussed plan of care at bedside with pizza maker. Procalcitonin negative at 0.43. Antibiotics were discontinued. -Oxygenation to be administered and titrated as needed to maintain SPO2 equal to or greater than 90%. Currently SpO2 of 96% on 4 L. RN communication order placed and discussed with RN at bedside attempt to be made to wean patient down from oxygen as she tolerates. -Telemetry monitoring. -Monitor pulse-oximetry -Duonebs scheduled 4x daily as needed for SOB and/or wheezing -Incentive Spirometry -Maintain aspiration precautions. Speech and language pathologist reconsulted for reevaluation for swallow eval. Altered Mental Status, suspect secondary to breakthrough seizure activity. CT angiography unable to exclude left sided Dural venous sinus thrombus. Ruled out per Neurologist History of CVA with right side residual deficits, seizure disorder, and chronic left ICA occlusion, aphasic at baseline -Neurology following, reviewed documentation in chart. -Continue seizure precautions, aspiration precautions, and fall precautions. -Continue neurochecks every 4 hours. -Speech and language pathologist reconsulted for swallow evaluation secondary to concerns of aspiration from previous seizure activity on 05/03/2024. Patient currently swallowing and taking medications without any reported difficulties per nursing staff. -Physical Therapy and Occupational Therapy following. -Telemetry monitoring -Continue Keppra 75 mg PO Daily and 1000 PO HS, Lamictal 150 mg twice daily, and Vimpat 100 mg BID -Continue home medication regimen with Plavix 75mg daily, aspirin 81mg daily, and atorvastatin 40 mg nightly. Elevated troponins, flat -Troponin's elevated at 0.050, 0.042, and 0.049. -Continuous telemetry monitoring -Continue daily medication regimen with aspirin 81 mg daily, atorvastatin 40 mg daily, Plavix 75 mg daily, and fenofibrate 160 mg daily, ÁLVARO on CKD IIIb, resolved Asymptomatic bacteriuria -BUN 38, creatinine 1.20, and GFR 41 -Urinalysis negative showing trace blood 1 RBC and 4 WBCs. However a urine culture was obtained on 05/05 which did result positive for E. coli. Pt denies ur inary complaints or suprapubic pain. -Continue to Hold Lasix -Continue monitoring I's and O's. Documented output over the past 24 hours with 1000 cc -Daily BMP ordered History of Congestive Heart Failure with Preserved Ejection fraction (04/21/2024), hypertension, recent CHF exacerbation -Continue supplemental and titrate as indicated to maintain SpO2 equal to or greater than 90% -Lasix held secondary to ÁLVARO -Daily Weight trending -Continue Amlodipine 5mg PO Daily Hypothyroidism -Continue daily medication regimen with levothyroxine 75 mcg daily. Severe protein calorie malnutrition -Patient placed on protein supplements 3 times daily with meals and consult placed to dietitian. Data and imaging reviewed: -Labs reviewed. CBC showing significant improvement of leukocytosis with WBC count decreasing down to 13.0 and macrocytic anemia with hemoglobin of 8.9 and MCV of 101.4.. BMP showing stable renal function with BUN of 38, creatinine 1.20, GFR 41. Blood glucose 115. Magnesium 1.8. -Vital signs reviewed. Blood pressure soft this morning at 95/56, heart rate 81, respiratory rate 20, temp 97.9 F, and SpO2 of 96% on 4 L CODE STATUS DNR/DNI DVT prophylaxis: Heparin Anticipated discharge date: Pending clinical course Anticipated discharge place: Pending clinical course Patient was seen independently by Nurse Pracitioner. This document was prepared using [employer] dictation software. Please allow for errors in construction helper, while rare they do occur. Pepe Nagy NP rendered care for this patient independently, reviewed the findings and plan as documented in the note above and agree with plan. I did not physically speak with or examine the patient on this date. Objective - Vital Signs Vital signs: Vital Signs Temp 97.9 F 05/08/24 04:00 Pulse 80 05/08/24 08:33 Resp 18 05/08/24 04:00 BP 119/58 05/08/24 04:00 Pulse Ox 97 05/08/24 04:00 FiO2 Intake & Output 05/07/24 05/08/24 05/08/24 18:59 06:59 18:59 Intake Total 2040 300 Output Total 200 400 Balance 1840 -100 Intake: Intake, IV Titration 1200 300 Amount Lactated Ringers 1,000 ml 1200 300 @ 100 mls/hr IV .Q10H [facility] Rx#:[id number] Oral 840 Output: Urine 200 400 Other: Voiding Method Indwelling Catheter Indwelling Catheter # Bowel Movements 1 1 - Labs CBC & Chem 7: 05/08/24 06:17 05/08/24 06:17 Labs: Abnormal Lab Results - Last 24 Hours (Table) 05/08/24 05/08/24 Range/Units 06:17 06:17 WBC 13.0 H (3.8-10.6) k/uL RBC 2.95 L (3.80-5.40) m/uL Hgb 8.9 L (11.4-16.0) gm/dL Hct 29.9 L (34.0-46.0) % MCV 101.4 H (80.0-100.0) fL MCHC 29.8 L (31.0-37.0) g/dL BUN 38 H (7-17) mg/dL Creatinine 1.20 H (0.52-1.04) mg/dL Glucose 115 H (74-99) mg/dL Microbiology - Last 24 Hours (Table) 05/05/24 12:19 Urine Culture - Final Urine,Catheterized Escherichia coli 05/05/24 12:30 Blood Culture - Preliminary Blood
--- NOTE | 2024-05-08 16:20 | P.PN ---
Subjective Progress Note Date: 05/08/24 83-year-old poorly responsive patient, who was seen in the emergency department, May 01, with mental status changes. The patient was initially evaluated for possible CVA. We were consulted today, for increasing oxygen requirements. The patient's initial chest x-rays, only showed a elevated left diaphragm. The more recent chest x-ray, shows either atelectasis, or infiltrate at the left base. The patient may have aspirated, because her mental status is still poor. She is really unable to give any additional history. She is currently on 5 L nasal cannula. Saturations are 95%. She has a history of CVA with residual right sided weakness, and slurred speech, hyperlipidemia, seizure disorder, hypothyroidism, among other things. Current laboratory data includes a white count 21.8, hemoglobin 10, hematocrit 32.3, platelet count of 232,000. Sodium 141, potassium 3.9, chlorides 107, CO2 29, BUN 31, creatinine 1.12. Glucose is 105. Calcium is 9.6. Viral screen was negative. The patient was placed on cefepime, and vancomycin by the primary service. If not already ordered, I will order a procalcitonin level. On 05/08/2024, the patient 05/08/2024, the patient is being seen for a follow-up. The patient is being treated for hypertension left lower lobe aspiration pneumonia. I reviewed the chest x-rays and the patient has chronic elevation of the left hemidiaphragm and the possibility of a left lower lobe pneumonia cannot be completely ruled out. The patient is a poor historian. She has previous history of CVA and right-sided hemiplegia. She is currently on IV Rocephin. Sh sunny remains on aspirin. She is seizure-free and the patient is currently on a combination of Vimpat, Lamictal and Keppra. Her white cell count is currently down to 13 with a hemoglobin 8.9 and platelet count of 237. BUN 38 with a creatinine 1.2. Sodium levels at 137 and potassium level is at 4.1. The patient has no specific complaints. NORMAL levels at 0.43. No reported aspiration based on nursing staff. Objective - Vital Signs Vital signs: Vital Signs Temp 97.9 F 05/08/24 12:26 Pulse 78 05/08/24 12:26 Resp 20 05/08/24 12:26 BP 96/55 03/31/25 12:26 Pulse Ox 97 05/08/24 12:26 FiO2 Intake & Output 05/07/24 05/08/24 05/08/24 18:59 06:59 18:59 Intake Total 2040 300 370 Output Total 200 400 Balance 1840 -100 370 Intake: IV 10 Invasive Line 3 10 Intake, IV Titration 1200 300 Amount Lactated Ringers 1,000 ml 1200 300 @ 100 mls/hr IV .Q10H [facility] Rx#:[id number] Oral 840 360 Output: Urine 200 400 Other: Voiding Method Indwelling Catheter Indwelling Catheter Indwelling Catheter # Bowel Movements 1 1 - Exam General: Unkempt, aphasic, bruises about face and right arm are improving. Derm: Skin warm and dry,significant bruising about face, with small laceration to bridge of nose. Head: Older appearing femake wutg Brusing in various stages of healing about forehead, face and nose,. Eyes: PERRL, briskly equal, anicteric sclera Mouth: no lip lesions, mucus membranes dry Cardiovascular: regular rate and rhythm, systolic murmur, positive posterior tibial pulses bilaterally, cap refill >3 sec Lungs: Respirations even, regular, and unlabored on 5L NC. Lungs diminished with shallow respirations, no noted rhonchi, wheezes, rales, or crackles upon auscultation. Abdominal: soft, nontender to palpation, no guarding, no appreciable organomega ly Ext: Decreased movement to right upper extremity, ILAN significantly bruised, without laceration. Neuro: Limited exam due to mental status. 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 Psych: Awake and alert, remains minimally verbal per baseline. - Labs CBC & Chem 7: 05/08/24 06:17 05/08/24 06:17 Labs: Abnormal Lab Results - Last 24 Hours (Table) 05/08/24 05/08/24 Range/Units 06:17 06:17 WBC 13.0 H (3.8-10.6) k/uL RBC 2.95 L (3.80-5.40) m/uL Hgb 8.9 L (11.4-16.0) gm/dL Hct 29.9 L (34.0-46.0) % MCV 101.4 H (80.0-100.0) fL MCHC 29.8 L (31.0-37.0) g/dL BUN 38 H (7-17) mg/dL Creatinine 1.20 H (0.52-1.04) mg/dL Glucose 115 H (74-99) mg/dL Microbiology - Last 24 Hours (Table) 05/05/24 12:19 Urine Culture - Final Urine,Catheterized Escherichia coli 05/05/24 12:30 Blood Culture - Preliminary Blood Assessment and Plan Plan: Chronic left hemidiaphragmatic elevation/paralysis. Possibility of a left lower lobe pneumonia cannot be completely excluded especially with underlying background elevation left hemidiaphragm. The patient had seizures and there is an increase for aspiration. The patient also had developed some leukocytosis. Based on that, the patient was covered with IV antibiotics and the patient is currently on IV Rocephin Acute hypoxic respiratory failure, oxygenation is improving and the patient is currently on 2 L nasal cannula. History of CVA, with residual right-sided weakness. No significant dysphagia. The patient is one-to-one feeds. A swallow evaluation has been done in the [facility], however, not during this current admission History of seizure disorder. The seizures are currently inactive and stable and the patient is currently on Vimpat, lamictal and Keppra. History of hyperlipidemia. History of hypothyroidism. DNR/DNI AFC home Plan: Aspiration precautions Titrate oxygen flow to maintain saturation above 90%, currently on 2 L The patient has chronic left hemidiaphragmatic elevation. Patient also has left lower lobe atelectatic changes. Superimposed pneumonia is possible and cannot be completely excluded. The patient is currently on IV Rocephin. White cell count improving Seizure control with a combination of Vimpat, Lamictal and Keppra Will continue to follow. Time with Patient: Greater than 30
[2024-05-08] MEDS: SODIUM CHLORIDE 0.9% 500 ML 500 ML IV ONE (18:59)
--- NOTE | 2024-05-08 20:46 | CDI ---
Date: 05/08/2024 From: Carolina [email or web address] Email: [email or web address] Admit Date: 05/01/2024 02:28:00 PM Patient Name: Sandra Stephens Visit Number: [id number] Discharge Date: N/A ATTENTION: The Clinical Documentation Specialists (CDI) and [facility] Coding Staff appreciate your assistance in clarifying documentation. Please respond to the clarification below the line at the bottom and electronically sign. The CDI & [facility] Coding staff will review the response and follow-up if needed. Please note: Queries are made part of the Legal Health Record. If you have any questions, please contact the author of this message via ITS. Dr. Liset Hodge, Severe protein-calorie malnutrition is documented in the Internal Medicine Progress Note on 05/07/2024 - which may lack sufficient clinical evidence/support in the medical record per ASPEN Criteria Guidelines. Additional clarification is requested. History/Risk Factors: 83-year-old female presented to [facility] ED for evaluation due to altered mental status. PMH: Stage 3b chronic kidney disease, hypothyroidism, seizure disorder, chronic diastolic heart failure, hypertension, CVA with residual right-sided hemiplegia, depression, anxiety, aphasic at baseline Clinical Indicators: Current BMI: 24.9 Registered Dietitian Assessment (05/07/2023): o Nutrition Intake: Poor o Appetite: Poor o Increased nutrient needs o Related to increased metabolic demand for wound healing o As evidenced by deep tissue injury to buttock Treatment: Registered Dietitian Consultation Oral Nutrition Supplement(s): Ensure Enlive TID 1:1 Feeding (Supervision/Assistance) Please clarify if severe protein-calorie malnutrition is a valid diagnosis? [ ] No, malnutrition is ruled out [ ] Yes, severe protein-calorie malnutrition is present as evidenced by (additional clinical support): [ x ] Other (please specify diagnosis) ___non-sever malnutrition [ ] Unable to determine Reference: Using the ASPEN Guidelines, Undernutrition (Malnutrition) is characterized by at least two of the following six findings. The severity can be determined based on the criteria listed below. Malnutrition Characteristics for Moderate and Severe Malnutrition Type of Malnutrition Acute Illness or Injury Acute Illness or Injury Chronic Illness Chronic Illness Degree of Malnutrition Non-severe (moderate) Malnutrition Severe Malnutrition Non-severe (moderate) Malnutrition Severe Malnutrition Energy Intake <75% for >7 days = 50% for = 5 days <75% for = 1 month =75% for = 1 month Weight Loss 1-2% in one week, 5% in 1 month, 7.5% in 3 month 2% in one week, >5% in 1 month. >7.5% in 3 months 5% in one month, 7.5% in 3 months, 10% in 6 months, 20% in 1 year >5% in one month, >7.5% in 3 months, >10% in 6 months, >20% in 1 year Body Fat Wasting Mild Moderate Mild Severe Muscle Wasting Mild Moderate Mild Severe Presence of Edema Mild Moderate to Severe Mild Severe Bulk Picker Strength Not applicable Measurably Reduced Not applicable Measurably Reduced Source: Madhu SniderV, Angélica P, Chris G, et al. Consensus statement: Academy of Nutrition and Dietetics and [place] [employer] for Parenteral and Enteral Nutrition: characteristics recommended for the identification and documentation of adult malnutrition (undernutrition).JPMARITO J Parenter Enteral Nutr. 2012;36(3):275-283 MTDD
[2024-05-09] MEDS ORDERED: guaiFENesin 600 MG TABLET.ER PO PRN (01:25)
[2024-05-09] MEDS: guaiFENesin SYRUP 100MG/5ML 200 MG/10 ML CUP PO PRN (02:15)
[2024-05-09 11:40] LABS: HGB 9.4 gm/dL (11.4-16.0); Hypochromasia Marked; MCH 30.6 pg (25.0-35.0); MCHC 30.5 g/dL (31.0-37.0); MCV 100.3 fL (80.0-100.0); Macrocytosis Slight; Mean Platelet Volume 7.7; Platelet Count 236 k/uL (150-450); RBC 3.09 m/uL (3.80-5.40); RDW 14.3 % (11.5-15.5); WBC 9.2 k/uL (3.8-10.6)
[2024-05-09 11:51] LABS: ALT 30 U/L (4-34); AST 95 U/L (14-36); African American GFR (CKD) 57 (>60 ml/min/1.73 sqM); Albumin 2.3 g/dL (3.5-5.0); Albumin/Globulin Ratio 0.8; Alkaline Phosphatase 115 U/L (38-126); Anion Gap 5 mmol/L; Blood Urea Nitrogen 36 mg/dL (7-17); Calcium 9.8 mg/dL (8.4-10.2); Carbon Dioxide 28 mmol/L (22-30); Chloride 105 mmol/L (98-107); Globulin 2.8 g/dL; Glucose 113 mg/dL (74-99); Magnesium 1.7 mg/dL (1.6-2.3); Non-African American GFR(CKD) 49 (>60 ml/min/1.73 sqM); Potassium 3.9 mmol/L (3.5-5.1); Sodium 138 mmol/L (137-145); Total Bilirubin 0.7 mg/dL (0.2-1.3); Total Protein 5.1 g/dL (6.3-8.2)
[2024-05-09 11:54] LABS: Glucose,Whole Blood 110 mg/dL (70-110)
--- NOTE | 2024-05-09 12:49 | P.PN ---
Subjective Progress Note Date: 05/09/24 Hospital Course: Patient is a very pleasant 83-year-old female with significant history of TIA and CVA, chronic left ICA occlusion , CHF with preserved ejection fraction, seizure disorder, glaucoma, HTN, and CKD stage III. Patient presented to the emergency department via EMS with altered mental status earlier today. Per ED documentation, patient was at her baseline neuro status this morning when she left for her scheduled doctor appointment; and upon arrival to her PCPs office she was disoriented with increasing right sided hemiparesis in addition to increasing right facial drooping. Called and discussed with pt's PCP and was informed patient has a baseline of expressive aphasia, but with the ability to communicate verbally in short phrases "yes", "no", or "carlito" and physical mobility varies at time and 1 person assist between walking with a walker or requiring two person assistance in transferring. On arrival to our facility, patient underwent evaluation in the emergency department., Vital signs upon arrival showed temp 97.5 F, BP128/ 49, HR 62, RR 20, and SpO2 of 92% on 3L NC. Labs completed and reviewed showing unremarkable CBC, Chemistry: with BUN 38, Creatinine 1.86 (Previously 1.37), AST 79. Troponin elevated: 0.050. EKG NSR at 71 bpm with LVH and T wave inversions in lateral leads I and aVL re-demonstrated when compared to EKG done 04/20. CXR showing elevated left diaphragm, correlate for phrenic nerve injury.CT angio showing persistent complete occlusion of left internal carotid artery, no new large vessel occlusion/aneurysm at level of [place]. "Cannot exclude left sided dural venous sinus thrombus." CT Brain with no acute intracranial hemorrhage or midline shirt, large left sided infarct re-demonstrated with left-sided axial dilation involving left frontal lobe, small inferior left frontal scalp hematoma, bilateral aphakia remonstrated, without acute intracranial hemorrhage or midline shift. Admitted for management of altered mental status, neurology consulted, MRV with contrast ordered, heparin infusion tentative radiology interpretation. MRA/MRV of head without contrast was completed showing suspected occlusion/near occlusion of left sigmoid sinus with small caliber transverse sinus extending to the confluence, no evidence of venous sinus thrombosis, right vertebral artery intracranial portion is diminutive as seen on previous CT and smaller caliber of the left MCA Pelto's portion with small caliber left MCA M1, M2, and M3 segment compared to the right. Order placed for high intensity heparin infusion and notified neurologist, stated hold off on heparin infusion and MRV to be further reviewed by neurointerventionalist. Dr. Clark stating neuro interventionalists Dr. Basilio reporting no convincing evidence for sinus thrombosis at this time. MRI brain resulting showing remote injuries but no evidence of acute/subacute infarct, nonspecific white matter changes likely secondary to small vessel ischemic disease. EEG completed showing abnormal EEG with background slowing suggestive of moderate encephalopathy with no focal slowing, epileptiform discharge or seizure activity noted on EEG. 05/03/2024 patient was found by nurse to be making grunting noises, staring off with minimal eye twitches. She was given Ativan x 1 dose and neurologist was notified increasing Vimpat to 100 mg twice daily. On 05/04/2024 patient was noted to have leukocytosis and increased oxygenation needs, concerns of aspiration from seizure activity. She was initially placed on antibiotics and repeat chest x-ray showing small pneumonic infiltrate of left lower lung base pulmonology was consulted and a procalcitonin later completed with negative results of 0.43 and antibiotics discontinued. Speech and language pathologist was reconsulted for swallow eval. Aspiration precautions and seizure precautions to remain in place. Physical exam: Patient seen and fully evaluated at bedside this morning. Patient only nodding head yes and no to questions answered this morning. She was able to eat some of her breakfast without difficulties but upon taking a drink of orange juice patient did cough afterwards. Called and notified speech and language pathologist stating they will reevaluate and likely place patient on thickened liquids only with continued chopped diet as patient seems to tolerate without difficulties. Was also notified that patient is continuing to have episodes of staring off but no noted seizure activity, eye twitching, or gurgling/grunting noises noted during these events. Vital signs reviewed and stable. General: Unkempt, aphasic, bruises about face and right arm are improving. Derm: Skin warm and dry,significant bruising about face, with small laceration to bridge of nose. Head: Older appearing femake wutg Brusing in various stages of healing about forehead, face and nose,. Eyes: PERRL, briskly equal, anicteric sclera Mouth: no lip lesions, mucus membranes dry Cardiovascular: regular rate and rhythm, systolic murmur, positive posterior tibial pulses bilaterally, cap refill >3 sec Lungs: Respirations even, regular, and unlabored on 4L NC. Lungs diminished with shallow respirations, no noted rhonchi, wheezes, rales, or crackles upon auscultation. Abdominal: soft, nontender to palpation throughout abdomen or suprapubic region, no guarding, no appreciable organomegaly Ext: Decreased movement to right upper extremity, ILAN significantly bruised, without laceration. Neuro: Limited exam due to mental status. 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 Psych: Awake and alert, remains minimally verbal per baseline. Assessment and Plan of Care: Acute hypoxic respiratory failure Left lower lobe infiltrate, believed to be secondary to aspiration pneumonia Chronic elevated left hemidiaphragm Sepsis secondary to tachycardia, hypotension, and leukocytosis. Resulting from above -Pulmonology following. Reviewed documentation in chart. Procalcitonin negative at 0.43. Antibiotics were discontinued. -Oxygenation to be administered and titrated as needed to maintain SPO2 equal to or greater than 90%. Currently SpO2 of 95% on 2 L. RN communication order placed and discussed with RN at bedside attempt to be made to wean patient down from oxygen as she tolerates. -Telemetry monitoring. -Monitor pulse-oximetry -Duonebs scheduled 4x daily as needed for SOB and/or wheezing -Incentive Spirometry -Maintain aspiration precautions. Speech and language pathologist reconsulted for reevaluation for swallow eval. Altered Mental Status, suspect secondary to breakthrough seizure activity. CT angiography unable to exclude left sided Dural venous sinus thrombus. Ruled out per Neurologist History of CVA with right side residual deficits, seizure disorder, and chronic left ICA occlusion, aphasic at baseline -Neurology following, called and discussed recurrent episodes of patient staring off with neurologist, Dr. Wagner. He reported he will review further and make additional changes after today's assessment. -Continue seizure precautions, aspiration precautions, and fall precautions. -Continue neurochecks every 4 hours. -Speech and language pathologist reconsulted for swallow evaluation secondary to concerns of aspiration from previous seizure activity on 05/03/2024. Patient currently swallowing and taking medications without any reported difficulties per nursing staff. -Physical Therapy and Occupational Therapy following. -Telemetry monitoring -Continue Keppra 75 mg PO Daily and 1000 PO HS, Lamictal 150 mg twice daily, and Vimpat 100 mg BID -Continue home medication regimen with Plavix 75mg daily, aspirin 81mg daily, and atorvastatin 40 mg nightly. Elevated troponins, flat -Troponin's elevated at 0.050, 0.042, and 0.049. -Continuous telemetry monitoring -Continue daily medication regimen with aspirin 81 mg daily, atorvastatin 40 mg daily, Plavix 75 mg daily, and fenofibrate 160 mg daily, ÁLVARO on CKD IIIb, resolved Asymptomatic bacteriuria -BUN 38, creatinine 1.20, and GFR 41 -Urinalysis negative showing trace blood 1 RBC and 4 WBCs. However a urine culture was obtained on 05/05 which did result positive for E. coli. Pt denies urinary complaints or suprapubic pain. -Continue to Hold Lasix -Continue monitoring I's and O's. Documented output over the past 24 hours with 1000 cc -Daily BMP ordered History of Congestive Heart Failure with Preserved Ejection fraction (04/21), hypertension, recent CHF exacerbation -Continue supplemental and titrate as indicated to maintain SpO2 equal to or greater than 90% -Lasix held secondary to ÁLVARO -Daily Weight trending -Continue Amlodipine 5mg PO Daily Hypothyroidism -Continue daily medication regimen with levothyroxine 75 mcg daily. Severe protein calorie malnutrition -Patient placed on protein supplements 3 times daily with meals and consult placed to dietitian. Data and imaging reviewed: -Labs reviewed. CBC showing resolution of leukocytosis with WBC count of 9.2 a nd stable macrocytic anemia with hemoglobin of 9.4 and MCV of 100.3. BMP showing mild prerenal azotemia with BUN of 36 otherwise renal function stable with creatinine of 1.04, GFR 49. Blood glucose 113. Magnesium 1.7. Liver profile showing slightly elevated AST of 95 otherwise normal findings -Vital signs reviewed. Blood pressure 125/64, heart rate 82, respiratory rate 17, temp 97.5 F, and SpO2 of 95% on 2 L CODE STATUS DNR/DNI DVT prophylaxis: Heparin Anticipated discharge date: Pending clinical course Anticipated discharge place: Pending clinical course Patient was seen independently by Nurse Pracitioner. This document was prepared using [employer] dictation software. Please allow for errors in cotton jammer, while rare they do occur. Pepe Nagy NP rendered care for this patient independently, reviewed the findings and plan as documented in the note above and agree with plan. I did not physically speak with or examine the patient on this date. Objective - Vital Signs Vital signs: Vital Signs Temp 97.8 F 05/09/24 00:40 Pulse 90 05/09/24 07:46 Resp 18 05/09/24 07:46 BP 124/57 05/09/24 00:28 Pulse Ox 98 05/09/24 00:28 FiO2 Intake & Output 05/08/24 05/09/24 05/09/24 18:59 06:59 18:59 Intake Total 610 Output Total 200 200 Balance 410 -200 Weight 72 kg 72 kg Intake: IV 10 Invasive Line 3 10 Oral 600 Output: Urine 200 200 Uretheral (Samuel) 200 Other: Voiding Method Indwelling Catheter Indwelling Catheter # Bowel Movements 1 - Labs CBC & Chem 7: 05/09/24 11:08 05/09/24 11:08 Labs: Abnormal Lab Results - Last 24 Hours (Table) 05/09/24 Range/Units 01:14 Troponin I 0.042 H* (0.000-0.034) ng/mL Microbiology - Last 24 Hours (Table) 05/05/24 12:30 Blood Culture - Preliminary Blood
[2024-05-09] MEDS: MAGNESIUM SULFATE-D5W PMX 1 GM in DEXTROSE/WATER 1 100ML.BAG IVPB SCH (13:34)
--- NOTE | 2024-05-09 16:22 | P.PN ---
Subjective Progress Note Date: 05/09/24 83-year-old poorly responsive patient, who was seen in the emergency department, May 01, with mental status changes. The patient was initially evaluated for possible CVA. We were consulted today, for increasing oxygen requirements. The patient's initial chest x-rays, only showed a elevated left diaphragm. The more recent chest x-ray, shows either atelectasis, or infiltrate at the left base. The patient may have aspirated, because her mental status is still poor. She is really unable to give any additional history. She is currently on 5 L nasal cannula. Saturations are 95%. She has a history of CVA with residual right sided weakness, and slurred speech, hyperlipidemia, seizure disorder, hypothyroidism, among other things. Current laboratory data includes a white count 21.8, hemoglobin 10, hematocrit 32.3, platelet count of 232,000. Sodium 141, potassium 3.9, chlorides 107, CO2 29, BUN 31, creatinine 1.12. Glucose is 105. Calcium is 9.6. Viral screen was negative. The patient was placed on cefepime, and vancomycin by the primary service. If not already ordered, I will order a procalcitonin level. On 05/08/2024, the patient 05/08/2024, the patient is being seen for a follow-up. The patient is being treated for hypertension left lower lobe aspiration pneumonia. I reviewed the chest x-rays and the patient has chronic elevation of the left hemidiaphragm and the possibility of a left lower lobe pneumonia cannot be completely ruled out. The patient is a poor historian. She has previous history of CVA and right-sided hemiplegia. She is currently on IV Rocephin. Sh sunny remains on aspirin. She is seizure-free and the patient is currently on a combination of Vimpat, Lamictal and Keppra. Her white cell count is currently down to 13 with a hemoglobin 8.9 and platelet count of 237. BUN 38 with a creatinine 1.2. Sodium levels at 137 and potassium level is at 4.1. The patient has no specific complaints. NORMAL levels at 0.43. No reported aspiration based on nursing staff. On 05/09/2024, the patient is being seen for a follow-up. Unfortunately, the patient's oral intake is minimal. The patient was found to have difficulties in swallowing and she seems to be choking and coughing while swallowing the food material. Her oral intake is quite limited. Meanwhile, she was being treated for a left lower lobe pneumonia and she has completed her antibiotic course. No significant respiratory distress. No hypoxemia. She remains on lactated Ringer at rate of 100 cc an hour. The white cell count is at 9.2 with a hemoglobin 8.4 and a platelet count of 236. BUN 36 with a creatinine of 1.04 and a sodium levels at 138. The patient is post CVA. The patient has right-sided hemiplegia. Another speech evaluation for swallow was requested. Objective - Vital Signs Vital signs: Vital Signs Temp 97.5 F L 05/09/24 08:00 Pulse 89 05/09/24 11:46 Resp 18 05/09/24 11:46 BP 125/64 05/09/24 08:00 Pulse Ox 95 05/09/24 08:00 FiO2 Intake & Output 05/08/24 05/09/24 05/09/24 18:59 06:59 18:59 Intake Total 610 Output Total 200 200 Balance 410 -200 Weight 72 kg 72 kg Intake: IV 10 Invasive Line 3 10 Oral 600 Output: Urine 200 200 Uretheral (Samuel) 200 Other: Voiding Method Indwelling Catheter Indwelling Catheter # Bowel Movements 1 - Exam General: Unkempt, aphasic, bruises about face and right arm are improving. The patient is currently on 2 L of oxygen by nasal cannula. Calm and comfortable. Facial asymmetry related to previous CVA. There is right facial weakness. Derm: Skin warm and dry,significant bruising about face, with small laceration to bridge of nose. Head: Older appearing femake wutg Brusing in various stages of healing about for ehead, face and nose,. Eyes: PERRL, briskly equal, anicteric sclera Mouth: no lip lesions, mucus membranes dry Cardiovascular: regular rate and rhythm, systolic murmur, positive posterior tibial pulses bilaterally, cap refill >3 sec Lungs: Respirations even, regular, and unlabored on 5L NC. Lungs diminished with shallow respirations, no noted rhonchi, wheezes, rales, or crackles upon auscultation. Abdominal: soft, nontender to palpation, no guarding, no appreciable organomegaly Ext: Decreased movement to right upper extremity, ILAN significantly bruised, without laceration. Neuro: Limited exam due to mental status. 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 Psych: Awake and alert, remains minimally verbal per baseline. - Labs CBC & Chem 7: 05/09/24 11:08 05/09/24 11:08 Labs: Abnormal Lab Results - Last 24 Hours (Table) 05/09/24 05/09/24 05/09/24 Range/Units 01:14 11:08 11:08 RBC 3.09 L (3.80-5.40) m/uL Hgb 9.4 L (11.4-16.0) gm/dL Hct 31.0 L (34.0-46.0) % MCV 100.3 H (80.0-100.0) fL MCHC 30.5 L (31.0-37.0) g/dL BUN 36 H (7-17) mg/dL Glucose 113 H (74-99) mg/dL AST 95 H (14-36) U/L Troponin I 0.042 H* (0.000-0.034) ng/mL Total Protein 5.1 L (6.3-8.2) g/dL Albumin 2.3 L (3.5-5.0) g/dL Microbiology - Last 24 Hours (Table) 05/05/24 12:30 Blood Culture - Preliminary Blood Assessment and Plan Plan: Chronic left hemidiaphragmatic elevation/paralysis. Possibility of a left lower lobe pneumonia cannot be completely excluded especially with underlying background elevation left hemidiaphragm. The patient had seizures and there is an increase for aspiration. The patient also had developed some leukocytosis. Based on that, the patient was covered with IV antibiotics and the patient was treated with IV Rocephin. Currently off antibiotics. Acute hypoxic respiratory failure, oxygenation is improving and the patient is currently on 2 L nasal cannula. History of CVA, with residual right-sided weakness. No significant dysphagia. The patient is one-to-one feeds. A swallow evaluation has been done in the past, however, not during this current admission Chronic dysphagia History of seizure disorder. The seizures are currently inactive and stable and the patient is currently on Vimpat, lamictal and Keppra. History of hyperlipidemia. History of hypothyroidism. DNR/DNI AFC home Plan: Aspiration precautions Do another swallow evaluation by speech pathology as the patient is having ongoing dysphagia and difficulty with swallowing. Titrate oxygen flow to maintain saturation above 90%, currently on 2 L The patient has chronic left hemidiaphragmatic elevation. Patient also has left lower lobe atelectatic changes. Superimposed pneumonia is possible and cannot be completely excluded. The patient is currently currently off IV Rocephin White cell count improving Seizure control with a combination of Vimpat, Lamictal and Keppra Will continue to follow. Time with Patient: Greater than 30
--- NOTE | 2024-05-09 16:32 | P.PN ---
Subjective Progress Note Date: 05/09/24 05/09/2024: Patient was seen for follow-up. Patient apparently had another episode of unresponsiveness. She was having blank stare as per report from the staff. She was grunting. I came to see patient. Patient is aphasic, right be plegic. Please refer to examination below. No obvious seizure-like activity noticed at this time. 05/06/2024: This is a telemedicine neurology follow performed on 05/06/2024, in collaboration with Jeanette Denise Patient was initially seen by Dr. Jaylen Clark. Please refer to his notes for details. I am seeing patient for the first time. Patient is a 83-year-old female with history of stroke and seizure, who presents because of worsening overall weakness. MRI of the brain is negative. Patient is having staring off episodes. Dr. Clark started the patient on Vimpat 100 mg twice a day. Patient did EEG performed twice and was negative for seizure. Patient also has sepsis which is hospital-acquired. Patient was seen for follow-up. Patient has delayed response. Patient wants. He is quiet. He did not cooperate with examination is below. Some of the workup during this hospital visit consisted of: Creatinine is 1.86 AST [address] of the head is reported as no acute intracranial hemorrhage or midline shift. Body report it is reported the patient has large left-sided infarct. I perso rosalio reviewed the CT read patient has an old infarct which is same compared to her previous images. 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 No new large vessel occlusion or aneurysm at the level of [place]. Cannot exclude left-sided dural venous sinus thrombosis though this is in retrospect has similar appearance to prior study. MRI Brain: Remote injuries, no evidence of acute/subacute infarct. MRA/MRV head: Suspected occlusion/near occlusion of the left sigmoid sinus with small caliber transverse sinus extending to the confluence. Consider labor economist angiography. NO evidence of venous sinus thrombosis. No evidence of intracranial aneurysm or significant stenosis. Right vertebral artery intracranial portion is diminutive as seen on prior CT. Small caliber of the left MCA petrous portion with small caliber left MCA M1. M2 and M2 segment compared to the right. Dr. Staley (Interventional Neurologist) reviewed the MRV/CT angiography and did not feel the patient has venous sinus thrombosis. An EEG is abnormal. The background slowing is suggestive of mild encephalopathy. There is no focal slowing, epileptiform discharge or seizure on the EEG. Repeat EEG: Is abnormal. The background slowing is suggestive of moderate encephalopathy. There is no focal slowing, epileptiform discharge or seizure on the EEG. Objective - Vital Signs Vital signs: Vital Signs Temp 97.4 F L 05/09/24 15:34 Pulse 70 05/09/24 15:34 Resp 18 05/09/24 15:34 BP 124/60 05/09/24 15:34 Pulse Ox 96 05/09/24 15:34 FiO2 Intake & Output 05/08/24 05/09/24 05/09/24 18:59 06:59 18:59 Intake Total 610 Output Total 200 200 650 Balance 410 -200 -650 Weight 72 kg 72 kg Intake: IV 10 Invasive Line 3 10 Oral 600 Output: Urine 200 200 650 Uretheral (Samuel) 200 Other: Voiding Method Indwelling Catheter Indwelling Catheter # Bowel Movements 1 - Exam Patient is laying in the bed, in no acute distress. Patient is obtunded, nonverbal. Her eyes are open, somewhat looking in space but gaze is midline.. Patient is hemiplegic in the right arm and right leg with no movement. 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 Gives some resistance. Her left hip flexion appears normal and the left leg seems fine. Patient has Babinski on the right side, but downgoing plantar on the left side. Patient does feel pain with nailbed pressure on the right thumb and moans. - Labs CBC & Chem 7: 05/09/24 11:08 05/09/24 11:08 Labs: Abnormal Lab Results - Last 24 Hours (Table) 05/09/24 05/09/24 05/09/24 Range/Units 01:14 11:08 11:08 RBC 3.09 L (3.80-5.40) m/uL Hgb 9.4 L (11.4-16.0) gm/dL Hct 31.0 L (34.0-46.0) % MCV 100.3 H (80.0-100.0) fL MCHC 30.5 L (31.0-37.0) g/dL BUN 36 H (7-17) mg/dL Glucose 113 H (74-99) mg/dL AST 95 H (14-36) U/L Troponin I 0.042 H* (0.000-0.034) ng/mL Total Protein 5.1 L (6.3-8.2) g/dL Albumin 2.3 L (3.5-5.0) g/dL Microbiology - Last 24 Hours (Table) 05/05/24 12:30 Blood Culture - Preliminary Blood Assessment and Plan Assessment: This is an 83-year-old woman with a history of stroke with residual expressive aphasia right hemiparesis, dysarthria, seizure presents the emergency department from her scheduled doctor's appointment with confusion and increased worsening right-sided weakness as well as increased right facial droop. Patient has recurrent episodes of worsening weakness over the right side with confusion and grunting. Uncertain if these are focal seizures, or recurrent stroke/TIA. No acute stroke on MRI Brain. Had two EEG which negative for seizure. Altered mental status. Possible septic encephalopathy. Has leukocytosis that is trending up. Possible aspiration pneumonia. CT angiography it is reported that cannot exclude left-sided dural venous sinus thrombus then it is reported that has similar appearance to prior study. But MRA/MVA MRA/MRV head: Suspected occlusion/near occlusion of the left sigmoid sinus with small caliber transverse sinus extending to the confluence. NO evidence of venous sinus thrombosis. History of stroke with residual right hemiparesis, expressive aphasia, dysarthria History of seizure History of left ICA occlusion Congestive heart failure Hypertension Chronic kidney insufficiency Plan: Repeat CT head, evaluate for a new stroke. Dr. Jaylen Clark has spoken to Dr. Staley (Interventional Neurologist) and he reviewed images on 05/02/2024 and he did not feel any venous sinus thrombosis. We would recommend she follow-up with him as outpatient within 3 weeks. Patient is on aspirin 81 mg, Plavix 75 mg. She was given aspirin 324 mg once in the ED. Patient is also on Lipitor 40mg daily I checked the telemetry team and patient has been in normal sinus rhythm with no A. fib. Patient is resumed on her home medication of Keppra 1500 mg nightly, Lamictal 150 mg twice daily. Continue Vimpat 100mg bid (Vimpat was started during this admission). Placed the patient on seizure precaution Continue neurochecks Cardiac monitoring PT, OT and [employer] are consulted Will defer the rest of the medical management to primary and other specialist For DVT prophylaxis start patient on subcu heparin 5000 units every 12 hours
[2024-05-09 16:58] LABS: Glucose,Whole Blood 104 mg/dL (70-110)
[2024-05-09 21:54] LABS: Glucose,Whole Blood 107 mg/dL (70-110)
[2024-05-10 06:34] LABS: Glucose,Whole Blood 107 mg/dL (70-110)
--- NOTE | 2024-05-10 09:21 | CT ---
EXAMINATION TYPE: CT brain wo con DATE OF EXAM: 05/10/2024 8:29 AM COMPARISON: 05/01/2024 CLINICAL INDICATION: Female, 83 years old with history of ?CVA, AMS, confusion TECHNIQUE: Examination was done in axial plane without intravenous contrast. Coronal and sagittal r econstructions performed. CT DLP: 1186.4 mGycm, Automated exposure control for dose reduction was used. FINDINGS: There is moderate generalized supratentorial volume loss. Encephalomalacia left MCA territory relatin g to prior infarct. Secondary ex vacuo dilatation left lateral ventricle. Findings remain unchanged. Additional smaller area of encephalomalacia left occipital lobe is also unchanged. There is no evidence of acute intracranial hemorrhage, acute ischemic changes, mass, mass-effect, or extra-axial fluid collection. There is no effacement of cerebral sulci or basal subarachnoid cister ns. There is no hydrocephalus. There is no midline shift. Sparks-white matter distinction is preserv ed. Some frothy air fluid level left sphenoid sinus. Mild mucosal thickening left ethmoid air cells. Righ tward nasal septal deviation. Mastoid air cells well pneumatized. Orbits and globes are intact. IMPRESSION: 1. Old left MCA territory infarct with encephalomalacia. Area of smaller encephalomalacia left occipi sher lobe also unchanged. 2. No acute intracranial abnormality seen. 3. Possible acute left sphenoid sinusitis. Clinically correlate [facility], , 05/10/2024 9:18 AM
[2024-05-10 11:20] LABS: Glucose,Whole Blood 102 mg/dL (70-110)
[2024-05-10 16:12] LABS: Glucose,Whole Blood 113 mg/dL (70-110)
--- NOTE | 2024-05-10 16:14 | P.PN ---
Subjective Progress Note Date: 05/10/24 83-year-old poorly responsive patient, who was seen in the emergency department, May 01, with mental status changes. The patient was initially evaluated for possible CVA. We were consulted today, for increasing oxygen requirements. The patient's initial chest x-rays, only showed a elevated left diaphragm. The more recent chest x-ray, shows either atelectasis, or infiltrate at the left base. The patient may have aspirated, because her mental status is still poor. She is really unable to give any additional history. She is currently on 5 L nasal cannula. Saturations are 95%. She has a history of CVA with residual right sided weakness, and slurred speech, hyperlipidemia, seizure disorder, hypothyroidism, among other things. Current laboratory data includes a white count 21.8, hemoglobin 10, hematocrit 32.3, platelet count of 232,000. Sodium 141, potassium 3.9, chlorides 107, CO2 29, BUN 31, creatinine 1.12. Glucose is 105. Calcium is 9.6. Viral screen was negative. The patient was placed on cefepime, and vancomycin by the primary service. If not already ordered, I will order a procalcitonin level. On 05/08/2024, the patient 05/08/2024, the patient is being seen for a follow-up. The patient is being treated for hypertension left lower lobe aspiration pneumonia. I reviewed the chest x-rays and the patient has chronic elevation of the left hemidiaphragm and the possibility of a left lower lobe pneumonia cannot be completely ruled out. The patient is a poor historian. She has previous history of CVA and right-sided hemiplegia. She is currently on IV Rocephin. Sh sunny remains on aspirin. She is seizure-free and the patient is currently on a combination of Vimpat, Lamictal and Keppra. Her white cell count is currently down to 13 with a hemoglobin 8.9 and platelet count of 237. BUN 38 with a creatinine 1.2. Sodium levels at 137 and potassium level is at 4.1. The patient has no specific complaints. NORMAL levels at 0.43. No reported aspiration based on nursing staff. On 05/09/2024, the patient is being seen for a follow-up. Unfortunately, the patient's oral intake is minimal. The patient was found to have difficulties in swallowing and she seems to be choking and coughing while swallowing the food material. Her oral intake is quite limited. Meanwhile, she was being treated for a left lower lobe pneumonia and she has completed her antibiotic course. No significant respiratory distress. No hypoxemia. She remains on lactated Ringer at rate of 100 cc an hour. The white cell count is at 9.2 with a hemoglobin 8.4 and a platelet count of 236. BUN 36 with a creatinine of 1.04 and a sodium levels at 138. The patient is post CVA. The patient has right-sided hemiplegia. Another speech evaluation for swallow was requested. On 05/10/2024, the patient continues to have some difficulties in swallowing her food. She is on one-to-one feeding. No new complaints otherwise for now. Oxygenation is stable and the patient remains on 2 L of oxygen by nasal cannula with a pulse ox of 98%. CAT scan of the brain was also performed today and it showed old left MCA infarct. No acute abnormalities noted on the CAT scan of the brain. The patient is being seen by neurology. EEG was done and the patient has some mild encephalopathy in the background. No focal seizure activity has been noted. She is on DuoNeb of chest. No antibiotics for now. Rest of medication remain unchanged. She remains on a combination of Keppra and Vimpat. Objective - Vital Signs Vital signs: Vital Signs Temp 98.8 F 05/10/24 07:14 Pulse 80 05/10/24 11:29 Resp 15 05/10/24 07:14 BP 120/64 05/10/24 07:14 Pulse Ox 97 05/10/24 07:54 FiO2 Intake & Output 05/09/24 05/10/24 05/10/24 18:59 06:59 18:59 Intake Total 250 Output Total 650 575 Balance -650 -325 Intake: Oral 250 Output: Urine 650 575 Other: Voiding Method Indwelling Catheter Indwelling Catheter # Bowel Movements 1 - Exam General: Unkempt, aphasic, bruises about face and right arm are improving. The patient is currently on 2 L of oxygen by nasal cannula. Calm and comfortable. Facial asymmetry related to previous CVA. There is right facial weakness. Derm: Skin warm and dry,significant bruising about face, with small laceration to bridge of nose. Head: Older appearing femake wutg Brusing in various stages of healing about forehead, face and nose,. Eyes: PERRL, briskly equal, anicteric sclera Mouth: no lip lesions, mucus membranes dry Cardiovascular: regular rate and rhythm, systolic murmur, positive posterior tibial pulses bilaterally, cap refill >3 sec Lungs: Respirations even, regular, and unlabored on 5L NC. Lungs diminished with shallow respirations, no noted rhonchi, wheezes, rales, or crackles upon auscultation. Abdominal: soft, nontender to palpation, no guarding, no appreciable organomeg emile Ext: Decreased movement to right upper extremity, ILAN significantly bruised, without laceration. Neuro: Limited exam due to mental status. 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 Psych: Awake and alert, remains minimally verbal per baseline. - Labs CBC & Chem 7: 05/09/24 11:08 05/09/24 11:08 Assessment and Plan Plan: Chronic left hemidiaphragmatic elevation/paralysis. Possibility of a left lower lobe pneumonia cannot be completely excluded especially with underlying background elevation left hemidiaphragm. The patient had seizures and there is an increase for aspiration. The patient also had developed some leukocytosis. Based on that, the patient was covered with IV antibiotics and the patient was treated with IV Rocephin. Currently off antibiotics. Acute hypoxic respiratory failure, oxygenation is improving and the patient is currently on 2 L nasal cannula. History of CVA, with residual right-sided weakness. No significant dysphagia. The patient is one-to-one feeds. A swallow evaluation has been done in the past, however, not during this current admission Chronic dysphagia History of seizure disorder. The seizures are currently inactive and stable and the patient is currently on Vimpat, lamictal and Keppra. History of hyperlipidemia. History of hypothyroidism. DNR/DNI AFC home Plan: Aspiration precautions as the patient is considered to be high risk for aspiration. Overall respiratory status remains stable. Do another swallow evaluation by speech pathology as the patient is having ongoing dysphagia and difficulty with swallowing. The patient is on a one-to-one feeding at this point. Titrate oxygen flow to maintain saturation above 90%, currently on 2 L The patient has chronic left hemidiaphragmatic elevation. Patient also has left lower lobe atelectatic changes. Superimposed pneumonia is possible and cannot be completely excluded. White cell count improving Seizure control with a combination of Vimpat, Lamictal and Keppra. Repeat CAT scan of the brain showed an old CVA. No new findings. Will continue to follow.
--- NOTE | 2024-05-10 16:52 | P.PN ---
Subjective Progress Note Date: 05/10/24 Patient was seen and examined. No acute events overnight. More awake and alert. Minimal communication. CT brain done today shows old MCA infarct with no acute abnormality. Discussed with Dr. Wagner, plans for 1hr EEG today. No new labs done today. Vital signs reviewed and stable. General: Unkempt, aphasic, bruises about face and right arm are improving. Derm: Skin warm and dry,significant bruising about face, with small laceration to bridge of nose. Head: Older appearing femake with Brusing in various stages of healing about forehead, face and nose,. Eyes: anicteric sclera Mouth: no lip lesions, mucus membranes dry Cardiovascular: regular rate and rhythm, systolic murmur Lungs: Respirations even, regular, and unlabored on 4L NC. Lungs diminished with shallow respirations, no noted rhonchi, wheezes, rales, or crackles upon auscultation. Ext: Decreased movement to right upper extremity, ILAN significantly bruised, without laceration. Neuro: Limited exam due to mental status. 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 Psych: Awake and alert, remains minimally verbal per baseline. Acute hypoxic respiratory failure Left lower lobe infiltrate, believed to be secondary to aspiration pneumonia Chronic elevated left hemidiaphragm Sepsis secondary to tachycardia, hypotension, and leukocytosis. Resulting from above -Pulmonology following. Reviewed documentation in chart. Procalcitonin negative at 0.43. Antibiotics were discontinued. -Oxygenation to be administered and titrated as needed to maintain SPO2 equal to or greater than 90%. Currently SpO2 of 95% on 2 L. RN communication order placed and discussed with RN at bedside attempt to be made to wean patient down from oxygen as she tolerates. -Telemetry monitoring. -Monitor pulse-oximetry -Duonebs scheduled 4x daily as needed for SOB and/or wheezing -Incentive Spirometry -Maintain aspiration precautions. Speech and language pathologist reconsulted, started on NDD1 with NT liquids today. Altered Mental Status, suspect secondary to breakthrough seizure activity. CT angiography unable to exclude left sided Dural venous sinus thrombus. Ruled out per Neurologist History of CVA with right side residual deficits, seizure disorder, and chronic left ICA occlusion, aphasic at baseline -Neurology following, plans for 1hr EEG today. -Continue seizure precautions, aspiration precautions, and fall precautions. -Continue neurochecks every 4 hours. -Speech and language pathologist reconsulted for swallow evaluation secondary to concerns of aspiration from previous seizure activity on 05/03/2024. Patient currently swallowing and taking medications without any reported difficulties per nursing staff. -Physical Therapy and Occupational Therapy following. -Telemetry monitoring -Continue Keppra 75 mg PO Daily and 1000 PO HS, Lamictal 150 mg twice daily, and Vimpat 100 mg BID -Continue home medication regimen with Plavix 75mg daily, aspirin 81mg daily, and atorvastatin 40 mg nightly. Elevated troponins, flat -Troponin's elevated at 0.050, 0.042, and 0.049. -Continuous telemetry monitoring -Continue daily medication regimen with aspirin 81 mg daily, atorvastatin 40 mg daily, Plavix 75 mg daily, and fenofibrate 160 mg daily, ÁLVARO on CKD IIIb, resolved Asymptomatic bacteriuria -BUN 38, creatinine 1.20, and GFR 41 -Urinalysis negative showing trace blood 1 RBC and 4 WBCs. However a urine culture was obtained on 05/05 which did result positive for E. coli. Pt denies urinary complaints or suprapubic pain. -Continue to Hold Lasix -Continue monitoring I's and O's. Documented output over the past 24 hours with 1000 cc -Daily BMP ordered History of Congestive Heart Failure with Preserved Ejection fraction (04/21/2024), hypertension, recent CHF exacerbation -Continue supplemental and titrate as indicated to maintain SpO2 equal to or greater than 90% -Lasix held secondary to ÁLVARO -Daily Weight trending -Continue Amlodipine 5mg PO Daily Hypothyroidism -Continue daily medication regimen with levothyroxine 75 mcg daily. Severe protein calorie malnutrition -Patient placed on protein supplements 3 times daily with meals and consult placed to dietitian. Objective - Vital Signs Vital signs: Vital Signs Temp 98.2 F 05/10/24 15:20 Pulse 71 05/10/24 15:20 Resp 12 05/10/24 15:20 BP 95/55 05/10/24 15:20 Pulse Ox 98 05/10/24 15:20 FiO2 Intake & Output 05/09/24 05/10/24 05/10/24 18:59 06:59 18:59 Intake Total 250 Output Total 650 575 Balance -650 -325 Intake: Oral 250 Output: Urine 650 575 Other: Voiding Method Indwelling Catheter Indwelling Catheter # Bowel Movements 1 - Labs CBC & Chem 7: 05/09/24 11:08 05/09/24 11:08 Labs: Abnormal Lab Results - Last 24 Hours (Table) 05/10/24 Range/Units 16:10 POC Glucose (mg/dL) 113 H (70-110) mg/dL
[2024-05-10 21:20] LABS: Glucose,Whole Blood 112 mg/dL (70-110)
[2024-05-10] MEDS: TICAGRELOR 90 MG TAB PO SCH (22:32)
[2024-05-11] MEDS: ACETAMINOPHEN TAB 325 MG TAB PO PRN (03:01)
[2024-05-11 07:01] LABS: Glucose,Whole Blood 102 mg/dL (70-110)
--- NOTE | 2024-05-11 07:43 | P.PN ---
Subjective Progress Note Date: 05/10/24 05/10/2024: Patient was seen for follow-up. Patient is now talking, following directions very well. She has slight problems swallowing but is able to take pured diet. Patient's right side has remarkably improved as per examination below. She continues to have gibberish speech and fluent aphasia. 05/09/2024: Patient was seen for follow-up. Patient apparently had another epis ode of unresponsiveness. She was having blank stare as per report from the staff. She was grunting. I came to see patient. Patient is aphasic, right be plegic. Please refer to examination below. No obvious seizure-like activity noticed at this time. 05/06/2024: This is a telemedicine neurology follow performed on 05/06/2024, in collaboration with Jeanette Denise Patient was initially seen by Dr. Jaylen Clark. Please refer to his notes for details. I am seeing patient for the first time. Patient is a 83-year-old female with history of stroke and seizure, who presents because of worsening overall weakness. MRI of the brain is negative. Patient is having staring off episodes. Dr. Clark started the patient on Vimpat 100 mg twice a day. Patient did EEG performed twice and was negative for seizure. Patient also has sepsis which is hospital-acquired. Patient was seen for follow-up. Patient has delayed response. Patient wants. He is quiet. He did not cooperate with examination is below. Some of the workup during this hospital visit consisted of: Creatinine is 1.86 AST [address] of the head is reported as no acute intracranial hemorrhage or midline shift. Body report it is reported the patient has large left-sided infarct. I personally reviewed the CT read patient has an old infarct which is same [place] red to her previous images. 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 No new large vessel occlusion or aneurysm at the level of [place]. Cannot exclude left-sided dural venous sinus thrombosis though this is in retrospect has similar appearance to prior study. MRI Brain: Remote injuries, no evidence of acute/subacute infarct. MRA/MRV head: Suspected occlusion/near occlusion of the left sigmoid sinus with small caliber transverse sinus extending to the confluence. Consider seed analysis laboratory assistant angiography. NO evidence of venous sinus thrombosis. No evidence of intracranial aneurysm or significant stenosis. Right vertebral artery intracranial portion is diminutive as seen on prior CT. Small caliber of the left MCA petrous portion with small caliber left MCA M1. M2 and M2 segment compared to the right. Dr. Staley (Interventional Neurologist) reviewed the MRV/CT angiography and did not feel the patient has venous sinus thrombosis. An EEG is abnormal. The background slowing is suggestive of mild ence phalopathy. There is no focal slowing, epileptiform discharge or seizure on the EEG. Repeat EEG: Is abnormal. The background slowing is suggestive of moderate encephalopathy. There is no focal slowing, epileptiform discharge or seizure on the EEG. Objective - Vital Signs Vital signs: Vital Signs Temp 98.2 F 05/10/24 15:20 Pulse 80 05/10/24 17:41 Resp 12 05/10/24 15:20 BP 95/55 05/10/24 15:20 Pulse Ox 98 05/10/24 15:20 FiO2 Intake & Output 05/10/24 05/10/24 05/11/24 06:59 18:59 06:59 Intake Total 250 Output Total 575 600 Balance -325 -600 Intake: Oral 250 Output: Urine 575 600 Other: Voiding Method Indwelling Catheter Indwelling Catheter # Bowel Movements 1 - Exam Patient is laying in the bed, in no acute distress. Patient was somnolent, but did wake up and became very responsive and following directions. Her speech however is very gibberish, with fluent aphasia, not able to name or repeat any o bject. Patient's right side has remarkably improved. Muscle strength is (right/left) donor processor 5-/5, biceps 5/5, triceps 3/5, hip flexion 4+, ankle dorsiflexion 5 5-. This has remarkable improvement as compared to yesterday examination. Patient has Babinski on the right side, but downgoing plantar on the left side. - Labs CBC & Chem 7: 05/09/24 11:08 05/09/24 11:08 Labs: Abnormal Lab Results - Last 24 Hours (Table) 05/10/24 Range/Units 16:10 POC Glucose (mg/dL) 113 H (70-110) mg/dL Assessment and Plan Assessment: This is an 83-year-old woman with a history of stroke with residual expressive aphasia right hemiparesis, dysarthria, seizure presents the emergency department from her scheduled doctor's appointment with confusion and increased worsening right-sided weakness as well as increased right facial droop. Patient has recurrent episodes of worsening weakness over the right side with confusion and grunting. Probable recurrent TIAs. No acute stroke on MRI Brain. Had two EEG which negative for seizure. Altered mental status. Possible septic encephalopathy. Has leukocytosis that is trending up. Possible aspiration pneumonia. CT angiography it is reported that cannot exclude left-sided dural venous sinus thrombus then it is reported that has similar appearance to prior study. But MRA/MVA MRA/MRV head: Suspected occlusion/near occlusion of the left sigmoid sinus with small caliber transverse sinus extending to the confluence. NO evidence of venous sinus thrombosis. History of stroke with residual right hemiparesis, expressive aphasia, dy sarthria History of seizure History of left ICA occlusion Congestive heart failure Hypertension Chronic kidney insufficiency Plan: Repeat CT head, revealed old left MCA territory infarct with encephalomalacia. Area of small encephalomalacia left occipital lobe also unchanged. No acute intracranial abnormality seen. Possible acute left sphenoid sinusitis. I personally reviewed CT head, agree with the findings. Patient is having recurrent TIAs. Patient probably has failed Plavix. We will switch to Brilinta 90 mg twice a day and continue aspirin 81 mg. Continue Lipitor 40 mg. Check prolonged, [address] Jaylen Clark has spoken to Dr. Staley (Interventional Neurologist) and he reviewed images on 05/02/2024 and he did not feel any venous sinus thrombosis. We would recommend she follow-up with him as outpatient within 3 weeks. I checked the telemetry team and patient has been in normal sinus rhythm with no A. fib. Patient is resumed on her home medication of Keppra 1000 mg nightly, 500 mg in the morning, Lamictal 150 mg twice daily. Continue Vimpat 100mg bid (Vimpat was started during this admission). Placed the patient on seizure precaution Continue neurochecks Cardiac monitoring PT, OT and DUMPLING MACHINE OPERATOR are consulted Will defer the rest of the medical management to primary and other specialist For DVT prophylaxis start patient on subcu heparin 5000 units every 12 hours
[2024-05-11 07:57] VITALS: RESP 17
[2024-05-11 11:18] LABS: Glucose,Whole Blood 98 mg/dL (70-110)
[2024-05-11 13:56] VITALS: BP 132/66; PULSE 82; TEMP 97.7
--- NOTE | 2024-05-11 15:16 | P.DS ---
Providers Date of admission: 05/01/24 14:28 Expected date of discharge: 05/11/24 Attending physician: Liset Hodge MD Consults: 05/01/24 14:28 Consult Physician Urgent Consulting Provider: Jaylen Clark Consult Reason/Comments: Altered mental status Do you want consulting provider notified?: Yes 05/06/24 08:34 Consult Physician Routine Consulting Provider: Oseas Clark Consult Reason/Comments: acute respoiratory failure, concerns of pneumonia vs aspiration Do you want consulting provider notified?: Yes Primary care physician: Edgar Mendez MD Hospital Course: 83-year-old female with significant history of TIA and CVA, chronic left ICA occlusion, CHF with preserved ejection fraction, seizure disorder, glaucoma, HTN, and CKD stage III. Patient presented to the emergency department via EMS with altered mental status earlier today. Per ED documentation, patient was at her baseline this morning when she left for her scheduled doctor appointment; and upon arrival to her PCPs office she was disoriented with increasing right sided hemiparesis in addition to increasing right facial drooping. On arrival to our facility, patient underwent evaluation in the emergency department. Vital signs upon arrival showed T 97.5 F, BP 128/ 49, HR 62, RR 20, and SpO2 of 92% on 3L NC. Labs completed and reviewed showing unremarkable CBC, Chemistry with BUN 38, Creatinine 1.86 (Previously 1.37), AST 79. Troponin elevated 0.050. EKG NSR at 71 bpm with LVH and T wave inversions in lateral leads I and aVL re- demonstrated when compared to EKG done 04/20. CXR showing elevated left diaphragm, correlate for phrenic nerve injury. CT angio showing persistent complete occlusion of left internal carotid artery, no new large vessel occlusion/aneurysm at level of [place], "cannot exclude left sided dural venous sinus thrombus". CT Brain with no acute intracranial hemorrhage or midline shirt, large left sided infarct re-demonstrated with left-sided axial dilation involving left frontal lobe, small inferior left frontal scalp hematoma, bilateral aphakia remonstrated, without acute intracranial hemorrhage or midline shift. Admitted for management of altered mental status, neurology consulted, MRV with contrast ordered, heparin infusion tentative radiology interpretation. MRA/MRV of head without contrast was completed showing suspected occlusion/near occlusion of left sigmoid sinus with small caliber transverse sinus extending to the confluence, no evidence of venous sinus thrombosis, right vertebral artery intracranial portion is diminutive as seen on previous CT and smaller caliber of the left MCA Pelto's portion with small caliber left MCA M1, M2, and M3 segment compared to the right. Order placed for high intensity heparin infusion and notified neurologist, stated hold off on heparin infusion and MRV to be further reviewed by neurointerventionalist. Dr. Clark stating neuro interventionalists Dr. Basilio reporting no convincing evidence for sinus t hrombosis at this time. MRI brain resulting showing remote injuries but no evidence of acute/subacute infarct, nonspecific white matter changes likely secondary to small vessel ischemic disease. EEG completed showing abnormal EEG with background slowing suggestive of moderate encephalopathy with no focal slowing, epileptiform discharge or seizure activity noted on EEG. 05/03/2024 patient was found by nurse to be making grunting noises, staring off with minimal eye twitches. She was given Ativan x 1 dose and neurologist was notified increasing Vimpat to 100 mg twice daily. On 05/04/2024 patient was noted to have leukocytosis and increased oxygenation needs, concerns of aspiration from seizure activity. She was initially placed on antibiotics and repeat chest x-ray showing small pneumonic infiltrate of left lower lung base pulmonology was consulted and a procalcitonin later completed with negative results of 0.43 and antibiotics discontinued. Speech and language pathologist was reconsulted for swallow eval. Aspiration precautions and seizure precautions to remain in place. Patient underwent 1 hour EEG on 05/10 showing no epileptiform discharge. 05/11 Patient was seen and examined. Discussed with Dr. Wagner, symptoms likely related to TID, advised to stop Vimpat, change Keppra to 750 mg PO BID and switch Plavix to Brilinta, cleared for discharge. No new labs done today. Discharge Plan: Prescription for ASA 81 mg PO QD, Keppra 750 mg PO BID and Brilinta 90 mg PO BID sent to pharmacy. Plans to discontinue Plavix. Follow up with PCP within 1-2 days, Dr. Staley and Dr. Gambino within 1 week. DIET: NDD1, Liquids via spoon only, 1:1 supervision, No straws, [place] thick liquids. Vital signs reviewed and stable. General: Unkempt, aphasic, bruises about face and right arm are improving. Derm: Skin warm and dry,significant bruising about face, with small laceration to bridge of nose. Head: Older appearing femake with Brusing in various stages of healing about forehead, face and nose,. Eyes: anicteric sclera Mouth: no lip lesions, mucus membranes dry Cardiovascular: regular rate and rhythm, systolic murmur Lungs: Respirations even, regular, and unlabored on 4L NC. Lungs diminished with shallow respirations, no noted rhonchi, wheezes, rales, or crackles upon auscultation. Ext: Decreased movement to right upper extremity, ILAN significantly bruised, without laceration. Neuro: Limited exam due to mental status. Appropriately systems tester hands bilaterally L>R, otherwise following limited commands. Psych: Awake and alert, remains minimally verbal per baseline. Discharge Diagnosis: Acute hypoxic respiratory failure Left lower lobe infiltrate, believed to be secondary to aspiration pneumonia Chronic elevated left hemidiaphragm Sepsis secondary to tachycardia, hypotension, and leukocytosis. Resulting from above Altered Mental Status, suspect secondary to breakthrough seizure activity. CT angiography unable to exclude left sided Dural venous sinus thrombus. Ruled out per Neurologist History of CVA with right side residual deficits, seizure disorder, and chronic left ICA occlusion, aphasic at baseline Elevated troponins, flat ÁLVARO on CKD IIIb, resolved Asymptomatic bacteriuria History of Congestive Heart Failure with Preserved Ejection fraction (04/21/2024), hypertension, recent CHF exacerbation Hypothyroidism Severe protein calorie malnutrition This complex discharge took 35 minutes to complete. Patient Condition at Discharge: Stable Plan - Discharge Summary New Discharge Prescriptions: New Aspirin 81 mg PO DAILY #30 tab levETIRAcetam [Keppra] 750 mg PO Q12HR #60 tab Ticagrelor [Brilinta] 90 mg PO BID #60 tab Continue Calcium Carbonate/Vitamin D3 [Calcium 600 mg-Vit D3 5 mcg (200 unit)] 1 tab PO BID Latanoprost Ophth [Xalatan 0.005%] 1 drops BOTH EYES HS Levothyroxine Sodium [Synthroid] 75 mcg PO DAILY LORazepam [Ativan] 0.5 mg PO BID PRN PRN Reason: anxiety/panic Albuterol Sulfate [Albuterol Sulfate Hfa] 1 puff PO RT-QID PRN PRN Reason: Wheezing lamoTRIgine [LaMICtal] 150 mg PO BID Gabapentin [Neurontin] 100 mg PO BID Atorvastatin [Lipitor] 40 mg PO DAILY amLODIPine [Norvasc] 5 mg PO DAILY #30 tab Furosemide [Lasix] 20 mg PO BID Acetaminophen Tab [Tylenol] 1,000 mg PO TID PRN PRN Reason: Pain busPIRone HCl [Buspar] 5 mg PO TID Fenofibrate,Micronized [Fenofibrate] 200 mg PO DAILY Famotidine [Pepcid] 20 mg PO DAILY Alendronate Sodium [Fosamax] 70 mg PO WE Sennosides [Senokot] 17.2 mg PO DAILY Discontinued levETIRAcetam [Keppra] 1,000 mg PO HS levETIRAcetam [Keppra] 500 mg PO DAILY Clopidogrel [Plavix] 75 mg PO DAILY Discharge Medication List busPIRone HCl [Buspar] 5 mg PO TID 11/25/22 [History] Calcium Carbonate/Vitamin D3 [Calcium 600 mg-Vit D3 5 mcg (200 unit)] 1 tab PO BID 04/27/23 [History] Fenofibrate,Micronized [Fenofibrate] 200 mg PO DAILY 04/27/23 [History] Latanoprost Ophth [Xalatan 0.005%] 1 drops BOTH EYES HS 04/27/23 [History] Levothyroxine Sodium [Synthroid] 75 mcg PO DAILY 04/27/23 [History] Albuterol Sulfate [Albuterol Sulfate Hfa] 1 puff PO RT-QID PRN 04/20/24 [History] Alendronate Sodium [Fosamax] 70 mg PO WE 04/20/24 [History] Atorvastatin [Lipitor] 40 mg PO DAILY 04/20/24 [History] Famotidine [Pepcid] 20 mg PO DAILY 04/20/24 [History] Gabapentin [Neurontin] 100 mg PO BID 04/20/24 [History] LORazepam [Ativan] 0.5 mg PO BID PRN 04/20/24 [History] lamoTRIgine [LaMICtal] 150 mg PO BID 04/20/24 [History] amLODIPine [Norvasc] 5 mg PO DAILY #30 tab 04/25/24 [Rx] Acetaminophen Tab [Tylenol] 1,000 mg PO TID PRN 05/01/24 [History] Furosemide [Lasix] 20 mg PO BID 05/01/24 [History] Sennosides [Senokot] 17.2 mg PO DAILY 05/01/24 [History] Aspirin 81 mg PO DAILY #30 tab 05/11/24 [Rx] Ticagrelor [Brilinta] 90 mg PO BID #60 tab 05/11/24 [Rx] levETIRAcetam [Keppra] 750 mg PO Q12HR #60 tab 05/11/24 [Rx] Follow up Appointment(s)/Referral(s): Edgar Mendez MD [Primary Care Provider] - 1-2 days Virginia Staley MD [STAFF PHYSICIAN] - 1 Week Africa Gambino MD [REFERRING] - 1 Week Activity/Diet/Wound Care/Special Instructions: Lives at [facility]: [address], [place] [address] [facility] will transport back if d/c is early in the day. Call [place] at [facility]: [phone]. If too late call public guardian for [facility] approval. DIET: NDD1, Liquids via spoon only, 1:1 supervision, No straws, [place] thick liquids. Discharge Disposition: HOME SELF-CARE
[2024-05-11 16:34] LABS: Glucose,Whole Blood 110 mg/dL (70-110)
--- NOTE | 2024-05-11 23:52 | EEG ---
ELECTROENCEPHALOGRAM REPORT PREAMBLE: This is an 83-year-old female with episodes of altered mental status and possible TIA, rule out seizures. CURRENT MEDICATIONS: 1. Vimpat. 2. Lamictal. 3. Keppra. 4. Aspirin. 5. Brilinta. EEG FINDINGS: This is a 21-channel digital EEG recorded with video component, utilizing 10/20 international system with referential and bipolar montages. This is a prolonged study performed for 1 hour. Recording start time is 8:54 a.m. on 05/11/2024 and recording end time is 10:01 a.m. on 05/11/2024. The background consists of moderately well-developed and well-regulated, predominantly 5-6 hertz theta activity seen anteriorly and posteriorly in bihemispheric region. Background does not seem to be reactive to eye opening or closing. Photic driving response was not seen. Different stages of sleep were not seen. No focal or generalized epileptiform activity was seen. IMPRESSION: This is an abnormal EEG due to background slowing of mild to moderate degree. This is suggestive of generalized cerebral dysfunction as can be seen with toxic metabolic encephalopathy or related to diffuse structural brain abnormality. Clinical correlation is recommended. No epileptiform activity was seen. MMODL / IJN: [id number] / [facility]
--- NOTE | 2024-05-12 00:10 | P.PN ---
Subjective Progress Note Date: 05/12/24 83-year-old poorly responsive patient, who was seen in the emergency department, May 01, with mental status changes. The patient was initially evaluated for possible CVA. We were consulted today, for increasing oxygen requirements. The patient's initial chest x-rays, only showed a elevated left diaphragm. The more recent chest x-ray, shows either atelectasis, or infiltrate at the left base. The patient may have aspirated, because her mental status is still poor. She is really unable to give any additional history. She is currently on 5 L nasal cannula. Saturations are 95%. She has a history of CVA with residual right sided weakness, and slurred speech, hyperlipidemia, seizure disorder, hypothyroidism, among other things. Current laboratory data includes a white count 21.8, hemoglobin 10, hematocrit 32.3, platelet count of 232,000. Sodium 141, potassium 3.9, chlorides 107, CO2 29, BUN 31, creatinine 1.12. Glucose is 105. Calcium is 9.6. Viral screen was negative. The patient was placed on cefepime, and vancomycin by the primary service. If not already ordered, I will order a procalcitonin level. On 05/08/2024, the patient 05/08/2024, the patient is being seen for a follow-up. The patient is being treated for hypertension left lower lobe aspiration pneumonia. I reviewed the chest x-rays and the patient has chronic elevation of the left hemidiaphragm and the possibility of a left lower lobe pneumonia cannot be completely ruled out. The patient is a poor historian. She has previous history of CVA and right-sided hemiplegia. She is currently on IV Rocephin. Sh sunny remains on aspirin. She is seizure-free and the patient is currently on a combination of Vimpat, Lamictal and Keppra. Her white cell count is currently down to 13 with a hemoglobin 8.9 and platelet count of 237. BUN 38 with a creatinine 1.2. Sodium levels at 137 and potassium level is at 4.1. The patient has no specific complaints. NORMAL levels at 0.43. No reported aspiration based on nursing staff. On 05/09/2024, the patient is being seen for a follow-up. Unfortunately, the patient's oral intake is minimal. The patient was found to have difficulties in swallowing and she seems to be choking and coughing while swallowing the food material. Her oral intake is quite limited. Meanwhile, she was being treated for a left lower lobe pneumonia and she has completed her antibiotic course. No significant respiratory distress. No hypoxemia. She remains on lactated Ringer at rate of 100 cc an hour. The white cell count is at 9.2 with a hemoglobin 8.4 and a platelet count of 236. BUN 36 with a creatinine of 1.04 and a sodium levels at 138. The patient is post CVA. The patient has right-sided hemiplegia. Another speech evaluation for swallow was requested. On 05/10/2024, the patient continues to have some difficulties in swallowing her food. She is on one-to-one feeding. No new complaints otherwise for now. Oxygenation is stable and the patient remains on 2 L of oxygen by nasal cannula with a pulse ox of 98%. CAT scan of the brain was also performed today and it showed old left MCA infarct. No acute abnormalities noted on the CAT scan of the brain. The patient is being seen by neurology. EEG was done and the patient has some mild encephalopathy in the background. No focal seizure activity has been noted. She is on DuoNeb of chest. No antibiotics for now. Rest of medication remain unchanged. She remains on a combination of Keppra and Vimpat. On 05/11/2024, patient is stable on 2 L of oxygen by nasal cannula with a pulse ox of 93%. Speech pathology reevaluate the patient. She is currently receiving dysphagia diet with one-to-one feeding. Strict aspiration precautions. No significant respiratory distress. She is recovering from left lower lobe pneumonia and acute hypoxic noemi failure. She has chronic left hemidiaphragmatic elevation. Her acute kidney injury has resolved and the patient is a underlying chronic stage III kidney disease. She has obvious signs of protein calorie malnutrition as the patient's oral intake is not sufficient to meet her caloric requirement. As such, the patient has poor long-term prognosis. The patient however for now is stable. She will be discharged to an [facility] home. Objective - Vital Signs Vital signs: Vital Signs Temp 97.7 F 05/11/24 13:38 Pulse 82 05/11/24 13:38 Resp 17 05/11/24 13:38 BP 132/66 05/11/24 13:38 Pulse Ox 93 L 05/11/24 13:38 FiO2 Intake & Output 05/11/24 05/11/24 05/12/24 06:59 18:59 06:59 Output Total 325 425 Balance -325 -425 Output: Urine 325 425 Other: Voiding Method Indwelling Catheter Indwelling Catheter # Bowel Movements 1 - Exam General: Unkempt, aphasic, bruises about face and right arm are improving. The patient is currently on 2 L of oxygen by nasal cannula. Calm and comfortable. Facial asymmetry related to previous CVA. There is right facial weakness. Derm: Skin warm and dry,significant bruising about face, with small laceration to bridge of nose. Head: Older appearing femake wutg Brusing in various stages of healing about forehead, face and nose,. Eyes: PERRL, briskly equal, anicteric sclera Mouth: no lip lesions, mucus membranes dry Cardiovascular: regular rate and rhythm, systolic murmur, positive posterior tibial pulses bilaterally, cap refill >3 sec Lungs: Respirations even, regular, and unlabored on 5L NC. Lungs diminished with shallow respirations, no noted rhonchi, wheezes, rales, or crackles upon auscultation. Abdominal: soft, nontender to palpation, no guarding, no appreciable organomegaly Ext: Decreased movement to right upper extremity, ILAN significantly bruised, without laceration. Neuro: Limited exam due to mental status. 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 Psych: Awake and alert, remains minimally verbal per baseline. - Labs CBC & Chem 7: 05/09/24 11:08 05/09/24 11:08 Labs: Microbiology - Last 24 Hours (Table) 05/05/24 12:30 Blood Culture - Final Blood Assessment and Plan Plan: Chronic left hemidiaphragmatic elevation/paralysis. Possibility of a left lower lobe pneumonia cannot be completely excluded especially with underlying background elevation left hemidiaphragm. The patient had seizures and there is an increase for aspiration. The patient also had developed some leukocytosis. Based on that, the patient was covered with IV antibiotics and the patient was treated with IV Rocephin. Currently off antibiotics. Acute hypoxic respiratory failure, oxygenation is improving and the patient is currently on 2 L nasal cannula. History of CVA, with residual right-sided weakness. No significant dysphagia. The patient is one-to-one feeds. A swallow evaluation has been done in the past, however, not during this current admission Chronic dysphagia History of seizure disorder. The seizures are currently inactive and stable and the patient is currently on Vimpat, lamictal and Keppra. History of hyperlipidemia. History of hypothyroidism. DNR/DNI AF home Plan: Aspiration precautions as the patient is considered to be high risk for aspiration. Overall respiratory status remains stable. One-to-one supervision along with strict aspiration precautions. Titrate oxygen flow to maintain saturation above 90%, currently on 2 L The patient has chronic left hemidiaphragmatic elevation. Patient also has left lower lobe atelectatic changes. Superimposed pneumonia is possible and cannot be completely excluded. White cell count improving Seizure control with a combination of Vimpat, Lamictal and Keppra. Repeat CAT scan of the brain showed an old CVA. No new findings. Discharge to [facility] home today.
== END 2024-05-11 19:08 | disposition home or self-care (01) | DRG 100 ==
LOC: EC 10:40 → 3SCARD 14:28 → EEVIPCON 14:28 → 3SCARD 15:32 → 4SSUR 05-08 19:51
PROVIDERS: ADMIT Student in an Organized Health Care Education/Training Program; ATTEND Student in an Organized Health Care Education/Training Program
DX: G40.909 Epilepsy, unspecified, not intractable, without status epilepticus (principal); A41.9 Sepsis, unspecified organism; E43 Unspecified severe protein-calorie malnutrition; J69.0 Pneumonitis due to inhalation of food and vomit; J96.01 Acute respiratory failure with hypoxia; G93.40 Encephalopathy, unspecified; Z66 Do not resuscitate; I69.351 Hemiplegia and hemiparesis following cerebral infarction affecting right dominant side; I13.0 Hypertensive heart and chronic kidney disease with heart failure and stage 1 through stage 4 chronic kidney disease, or unspecified chronic kidney disease; N18.32 Chronic kidney disease, stage 3b; E03.9 Hypothyroidism, unspecified; F32.A Depression, unspecified; D53.9 Nutritional anemia, unspecified; I65.22 Occlusion and stenosis of left carotid artery; I50.32 Chronic diastolic (congestive) heart failure; E87.1 Hypo-osmolality and hyponatremia; J98.11 Atelectasis; N17.9 Acute kidney failure, unspecified; E88.09 Other disorders of plasma-protein metabolism, not elsewhere classified; R13.10 Dysphagia, unspecified; J98.6 Disorders of diaphragm; I69.320 Aphasia following cerebral infarction; I95.9 Hypotension, unspecified; Z68.24 Body mass index [BMI] 24.0-24.9, adult; E78.5 Hyperlipidemia, unspecified; H27.03 Aphakia, bilateral; G44.89 Other headache syndrome; R29.810 Facial weakness; H40.9 Unspecified glaucoma; S00.03XA Contusion of scalp, initial encounter; R79.89 Other specified abnormal findings of blood chemistry; Z20.822 Contact with and (suspected) exposure to COVID-19; S01.21XA Laceration without foreign body of nose, initial encounter; Z79.02 Long term (current) use of antithrombotics/antiplatelets; Z79.82 Long term (current) use of aspirin; Z79.83 Long term (current) use of bisphosphonates; Z79.890 Hormone replacement therapy; Z79.899 Other long term (current) drug therapy; Z71.3 Dietary counseling and surveillance; Z91.041 Radiographic dye allergy status
CPT/HCPCS: 36415; 70450; 70496; 70498; 70544; 70551; 71045; 71046; 80048; 80053; 81001; 82550; 82803; 83605; 83735; 83880; 84145; 84484; 85025; 85027; 85610; 85730; 87040; 87070; 87077; 87086; 87186; 87324; 87636; 93005; 94640; 94760; 95813; 95816; 96361; 96374; 96375; 99285